=== PATIENT | female | born 1945 | race Caucasian/White ===

== ENCOUNTER 2017-07-12 08:45 | Outpatient (CLI) | payer MEDICARE, OTHER ==
--- NOTE | 2017-07-12 13:19 | PET ---
PET SCAN WITH CT ATTENUATION CORRECTION: HISTORY: 71-year-old female. Lung cancer. Patient has undergone chemotherapy and radiation therapy. Examinatio n requested for restaging. CORRELATION; Chest CT dated 04/03/17. COMPARISON: PET imaging dated 05/03/17. TECHNIQUE: PET scanning with CT attenuation correction is performed from the base of the brain to the proximal t highs following the intravenous administration of 7.12 mCi [id number]. FINDINGS: HEAD/NECK: No abnormal FDG localization. CHEST: Redemonstration of a right upper lobe mass with extensive cavitation on the CT used for attenuation c orrection. There is evidence of FDG avidity. The maximum SUV ranges between 4.1 and 4.8. Previously, the reported maximum SUV is between 5.2 and 11.7. There is also subtle FDG avidity involving the post erior aspect of the right lower lobe with a maximum SUV of 3.6 (previously reported to be 9.2). This abnormal FDG avidity involves the superior segment. No abnormal FDG localization in the left hemithorax. There is a right perihilar FDG avidity focus with a maximum SUV of 4.7. Previously, the maximum SUV i n this region was 6.8. IMPRESSION: 1. Redemonstration of FDG avidity involving the right upper lobe, right lower lobe, and right perihi lar region. The degree of FDG avidity has decreased when compared to the prior examination. There is suggestion of partial response to therapy. 2. The previously noted FDG avidity in the anterior aspect of the left upper lobe is not seen. POS: [facility]
== END 2017-07-12 08:46 | disposition home or self-care (01) ==
LOC: PET 08:45
PROVIDERS: ATTEND Internal Medicine Hematology & Oncology
DX: C34.90 Malignant neoplasm of unspecified part of unspecified bronchus or lung (principal)
CPT/HCPCS: 78815; A9552

== ENCOUNTER 2017-09-10 15:56 | Inpatient (IN) | payer MEDICARE, OTHER ==
[2017-09-10 16:28] VITALS: BMI 23.2
[2017-09-10] MEDS ORDERED: Ondansetron ODT 4 MG TAB PO PRN (17:25)
[2017-09-10] MEDS ORDERED: Dextrose 50% Abboject 50 ML SYRINGE SLOW IVP PRN (17:25)
[2017-09-10] MEDS ORDERED: Dextrose 5% in Water 1,000 ML IV PRN (17:25)
[2017-09-10] MEDS ORDERED: Diltiazem 125 MG in Sodium Chloride 0.9% 100 ML IVPB SCH ×2 (17:25→23:11)
[2017-09-10] MEDS ORDERED: HumaLOG 300 UNITS/3 ML VIAL SC PRN (17:25)
[2017-09-10] MEDS ORDERED: Acetaminophen 325 MG TAB PO PRN (17:25)
[2017-09-10] MEDS ORDERED: Bisacodyl 5 MG TAB PO PRN (17:25)
--- NOTE | 2017-09-10 19:34 | HP-2 ---
CODE STATUS: FULL. PRIMARY CARE PHYSICIAN: Dr. Adam. ATTENDING: Dr. Cha. RESIDENT: Dr. Wu CHIEF COMPLAINT: Cough and congestion when she was admitted to the [facility] and she was a direct admit for atrial fibrillation with RVR to our facility here at [facility]. HISTORY OF PRESENT ILLNESS: A 72-year-old female. She was admitted to the [facility] for cough, shortness of breath, and fevers that occurred for the past 4 days. She had no chest pain. She had no nausea, no vomiting, no diarrhea. She had no edema, no orthopnea during that time. Previously to her hospitalization in [place], she was put on antibiotics, on Augmentin for the progressive dyspnea with pneumonia and that did not relieve her symptoms and so at that time, she was told that she needed to be admitted to the hospital. Today, she still complains of no chest pain, no nausea, no vomiting, no diarrhea. She does complain of a cough and shortness of breath. She denied fevers. She denies any edema or orthopnea. She states she would rather be in the [facility] for treatment. No other complaints today. PAST MEDICAL HISTORY: Hypertension, diabetes mellitus type 2, hyperlipidemia, lung cancer, breast cancer, colon cancer and systolic congestive heart failure. PAST SURGICAL HISTORY: Significant for appendectomy, colon resection, cholecystectomy, and left breast mass lumpectomy. ALLERGIES: IODINE, SULFA. MEDICATIONS: 1. Clonidine 0.1 mg p.o. b.i.d. 2. Furosemide 40 mg p.o. daily. 3. Lisinopril 40 mg p.o. daily. 4. Magnesium oxide 400 mg p.o. b.i.d. 5. Metformin 1000 mg p.o. daily. 6. Metoprolol tartrate 50 mg p.o. b.i.d. 7. Paxil 20 mg p.o. daily. FAMILY HISTORY: Noncontributory. SOCIAL HISTORY: No alcohol or drug use. The patient said that she smoked for a long time ago, but could not quantify years or years since she had quit. REVIEW OF SYSTEMS: General: She does admit to fevers and fatigue. She denies any weight changes, appetite changes or night sweats. Eyes: She denies any vision changes or eye pain. ENT: Denies nasal congestion, rhinorrhea, or sore throat. Respiratory: She does admit to a cough, congestion, shortness of breath. Cardiovascular: She denies chest pain, palpitations or edema. Gastrointestinal: Denies nausea, vomiting, diarrhea or constipation. Genitourinary: Denies any incontinence, dysuria. Skin: Denies any rashes or lesions skin. Musculoskeletal: Denies pain, tenderness, stiffness, swelling. Neurologic: She does admit to weakness. She denies numbness, syncope or seizures. Psychiatric: She denies anxiety or depression. PHYSICAL EXAMINATION: VITAL SIGNS: Blood pressure 116/73, pulse was 137, respirations 24, temperature max 98.4, pulse ox 98% on 3 liters. Current weight is 59.4 kilos. GENERAL: Alert and oriented x4. Appropriately interactive. EYES: PERRLA. Conjunctivae within normal limits. ENT: Nasal mucosa and oropharynx within normal limits. NECK: Supple, no lymphadenopathy, no thyromegaly. CARDIAC: She had irregular rhythm with regular rate, no murmurs. Radial and pedal pulses equal bilaterally. RESPIRATORY: She had normal effort, no retractions. She had diffuse coarse lung sounds with wheezing, worse on the right. SKIN: Warm and dry. No cyanosis. No lesions. ABDOMEN: Soft and nontender to palpation. Bowel sounds are present x4. No masses or distention. EXTREMITIES: No clubbing, cyanosis or edema. Structure and tone, muscle strength and range of motion were within normal limits. NEUROLOGIC: No focal neurologic deficits. Sensation within normal limits. Cranial nerves II-XII grossly intact. GCS was 15. PSYCHIATRIC: Appropriate. LABORATORY DATA: She had a white blood cell count 3.6, platelet count 126, hemoglobin 10.4, hematocrit 31.3. MCV was 83.7, percent neutrophils 68.3. Sodium 130, potassium 4.1, chloride 94, bicarbonate 21, BUN 33, creatinine 1.18 , glucose 119, calcium 9.8. She was influenza A positive. She had a troponin I of 0.145 and then down trended to 0.1-0. She had a BNP of 2244.5. She had a chest x-ray that showed right upper lobe pneumonia and she is on the [employer] monitor and in sinus rhythm. Her chest x-ray showed right upper lobe pneumonia. ASSESSMENT AND PLAN: A 72-year-old female with, 1. Postobstructive pneumonia versus viral pneumonia. We may continue her antibiotics going forward as she is immunocompromised from her cancer history to rule out infectious causes. We will give her O2 supplementation as needed as well. 2. Systolic congestive heart failure exacerbation. We will get daily weights, strict I's and O's. We are also going to put her on IV Lasix. She does not have any signs of overt fluid overload, but I think she would benefit with the elevated BNP of 2244, do some IV Lasix. She had a last echo in 03/2017 that showed an EF of 45-50%. 3. Atrial fibrillation with rapid ventricular response. She did convert at 1520. She will get a titrate her diltiazem drip down and then will restart her home meds and keep her in a tele bed to keep her monitor to make sure that she stays in an appropriate rhythm. 4. Hypertension. We will continue her home meds. 5. Hyperlipidemia. We will continue her statin. 6. Diabetes. Accu-Cheks and insulin and continue metformin. 7. Influenza. We will continue Tamiflu. 8. Hyponatremia. We will trend that with a BMP. 9. History of cancers. She regularly follows with Dr. Mccrary and if her condition warrants that we will consult Dr. Mccrary to help with acute problems , but at this time, we do not anticipate any problems from that standpoint. DISPOSITION AND LENGTH OF HOSPITAL STAY: Tele and 2. Symptomatic medications will be provided. History and physical exam as well as management has been assessed with Dr. Cha. TOMMY
[2017-09-10] MEDS: Famotidine 20 MG TAB PO SCH (20:54)
[2017-09-10] MEDS: cloNIDine 0.1 MG TAB PO SCH (20:54)
[2017-09-10] MEDS: Metoprolol Tartrate 50 MG TAB PO SCH (20:54)
[2017-09-10] MEDS: Magnesium Oxide 400 MG TAB PO SCH (20:55)
--- NOTE | 2017-09-11 00:41 | HP ---
DATE OF SERVICE: 09/10/2017 HISTORY OF PRESENT ILLNESS: The patient is a 72-year-old female with a past medical history of multi ple cancers including breast and bladder cancer which are in remission and lung cancer for which she is currently undergoing treatment, who was admitted to the [facility] for influenza and pneumo eleni. The patient's breathing worsened this morning and she became tachycardic and EKG was obtained w hich showed the patient to be in new onset atrial fibrillation. The patient was moved to their ER to be on monitor and was started on a Cardizem drip. She was subsequently transferred to [facility] for higher level of care. In the EMS ride from [place] to here, she is converted back to a sinus rh [facility]. The patient is not able to offer much history to us because she states that she is frustrated with having to see so many doctors and she did not want to move from one hospital to the next. When we asked her what medication she is on, she tells us "just look at my chart." The patient tested pos itive for influenza A and chest x-ray shows right upper lobe pneumonia. She also has an elevated BMP of 2244.5. Patient troponins were indeterminate at 0.180, 0.145 and 0.126. Her BMP shows sodium of 130, potassium 4.1, chloride of 94, bicarbonate 21, BUN 33, creatinine 1.18, glucose 119, calcium 9. 8, and a CBC shows white blood cell count 3.6, hemoglobin 10.4, hematocrit 31.3, platelet count 126. PHYSICAL EXAMINATION: HEART: Has regular rate and rhythm without murmurs, gallops, or rubs. LUNGS: Coarse breath sounds with wheezing and rhonchi noted in the right upper lobe. ABDOMEN: Soft, nontender, nondistended, bowel sounds present. EXTREMITIES: There is no clubbing, cyanosis, or edema. ASSESSMENT AND PLAN: 1. Influenza A: The patient is high risk immunocompromised, so Tamiflu will be continued. 2. Postobstructive pneumonia versus viral versus bacterial pneumonia: The patient will be continued on antibiotics. We will follow her course. She is currently on oxygen, but does not use oxygen at home. 3. Acute kidney injury: We will monitor the patient's creatinine. 4. Acute systolic congestive heart failure exacerbation: The patient has an EF of 45%-50% based on echo on 04/04/2017. We will increase her Lasix to IV Lasix. Monitor strict I's and O's and daily we ights. 5. Atrial fibrillation with rapid ventricular response. The patient was converted spontaneously to sinus rhythm but is currently on a Cardizem drip at 14. We will decrease this to 10 and if she remai ns in sinus rhythm, continue to decrease her Cardizem drip and likely restart her metoprolol. 6. Type 2 diabetes: Continue sliding scale insulin and Accu-Cheks. 7. Lung cancer. This is stable per the patient in remission. If problems arise, we will contact Dr Rosalba Mccrary who is her oncologist. 8. Please see Dr. Parminder Wu's dictation for full history and physical, assessment and plan. Sondra sanchez have discussed this case in detail and I have reviewed his documentation and agree with it and I rogers ve repeated pertinent portions of the history and physical myself.
[2017-09-11 05:19] LABS: #Lymphocytes 0.8 thou/uL (1.20-3.40); #Monocytes 0.4 thou/uL (0.11-0.59); #Neutrophils 2.5 thou/uL (1.40-6.50); %Eosinophils 0.7 % (0.0-10.0); %Lymphocytes 20.9 % (21.0-51.0); %Neutrophils 67.4 % (42.0-75.0); Hemoglobin 10.8 g/dL (12.0-16.0); Mean Corpuscular HGB CONC 32.5 g/dL (32.0-36.0); Mean Corpuscular Hemoglobin 28.6 pg (27.0-31.0); Mean Corpuscular Volume 87.9 fl (81.0-99.0); Mean Platelet Volume 7.2 fL (7.4-10.4); Platelet Count 127 thou/uL (130-400); RBC Distribution Width 14.6 % (11.5-14.5); Red Blood Cell (RBC) Count 3.77 mill/uL (4.20-5.40); White Blood Cell (WBC) Count 3.8 thou/uL (4.8-10.8)
[2017-09-11 05:32] LABS: Anion Gap 13 mmol/L (10-20); BUN (Urea Nitrogen) 25 mg/dL (9.8-20.1); Calc. Creatinine Clearance 43 mL/min (70-130); Calcium 9.1 mg/dL (7.8-10.44); Carbon Dioxide 22 mmol/L (23-31); Chloride 96 mmol/L (98-107); Estimated GFR-MDRD 48; Glucose 119 mg/dL (83-110); Potassium 4.1 mmol/L (3.5-5.1); Sodium 127 mmol/L (136-145)
[2017-09-11] MEDS: Furosemide 20 MG/2 ML VIAL SLOW IVP SCH ×2 (06:13→14:06)
[2017-09-11] MEDS ORDERED: Diltiazem 125 MG in Sodium Chloride 0.9% 100 ML IVPB SCH (06:30)
--- NOTE | 2017-09-11 06:41 | PDOC.FM ---
- Subjective Subjective: Pt reports doing well. States she would like to go home. Denies any acute events overnight. Denies any fever or chills. Denies any SOB. Says she is doing well. Denies any pain. Denies any other concerns or complaints at this time - Objective Vital Signs & Weight: Vital Signs (12 hours) Temp Pulse Resp BP Pulse Ox 09/11/17 04:00 97.9 F 53 L 16 159/73 H 96 09/11/17 00:00 98.3 F 64 18 125/63 96 09/10/17 20:15 98.2 F 79 18 120/63 97 Weight Weight 62.641 kg I&O: 09/09/17 09/10/17 09/11/17 06:59 06:59 06:59 Intake Total 833 Output Total 700 Balance 133 Result Diagrams: 09/11/17 04:46 09/11/17 04:46 Radiology Reviewed by me: Yes (CXR: RUL PNA. ) <Carlton Rosales - Last Filed: 09/11/17 07:43> - Objective Vital Signs & Weight: Vital Signs (12 hours) Temp Pulse Resp BP BP Pulse Ox 09/11/17 12:34 98.0 F 77 12 119/68 96 09/11/17 10:42 145/65 H 09/11/17 10:41 145/65 H 09/11/17 08:00 97.9 F 53 L 16 09/11/17 04:00 97.9 F 53 L 16 159/73 H 96 Weight Weight 62.641 kg I&O: 09/10/17 09/11/17 09/12/17 06:59 06:59 06:59 Intake Total 833 Output Total 700 Balance 133 Result Diagrams: 09/11/17 04:46 09/11/17 04:46 <Jania Cha - Last Filed: 09/11/17 14:06> Phys Exam - Physical Examination HEENT: PERRLA, moist MMs, sclera anicteric, oral pharynx no lesions, 2+ tonsils Neck: no nodes, no JVD, supple, full ROM Respiratory: no wheezing rales and crackles present bilaterally. Cardiovascular: RRR, no significant murmur, no rub Gastrointestinal: soft, non-tender, no distention, positive bowel sounds Musculoskeletal: no edema, pulses present Neurological: non-focal, normal sensation, moves all 4 limbs Lymphatic: no nodes Psychiatric: normal affect, A&O x 3 Skin: no rash, normal turgor, cap refill <2 seconds <Carlton Rosales - Last Filed: 09/11/17 07:43> Dx/Plan (1) Pneumonia Code(s): J18.9 - PNEUMONIA, UNSPECIFIED ORGANISM Status: Acute (2) Influenza A Code(s): J10.1 - FLU DUE TO OTH IDENT INFLUENZA VIRUS W OTH RESP MANIFEST Status: Acute (3) Atrial fibrillation with RVR Code(s): I48.91 - UNSPECIFIED ATRIAL FIBRILLATION Status: Acute (4) Hx of breast cancer Code(s): Z85.3 - PERSONAL HISTORY OF MALIGNANT NEOPLASM OF BREAST Status: Acute (5) Hx of cancer of lung Code(s): Z85.118 - PERSONAL HISTORY OF MALIGNANT NEOPLASM OF BRONCHUS AND LUNG Status: Acute (6) History of colon cancer Code(s): Z85.038 - PERSONAL HISTORY OF MALIGNANT NEOPLASM OF LARGE INTESTINE Status: Acute (7) HLD (hyperlipidemia) Code(s): E78.5 - HYPERLIPIDEMIA, UNSPECIFIED Status: Acute (8) Hyponatremia Code(s): E87.1 - HYPO-OSMOLALITY AND HYPONATREMIA Status: Acute (9) HTN (hypertension) Code(s): I10 - ESSENTIAL (PRIMARY) HYPERTENSION Status: Chronic - Plan Plan: 1) Postobstructive Pneumonia -Will continue Levaquin due to her cancer hx -Tx flu with tamiflu at this time. -will supplement O2 as needed. Does not use O2 at home. 2) Influenza A infection -No fevers overnight. -tylenol PRN for fevers. Will continue to monitor sx's and tx symptomatically -Tx with tamiflu at this time 3) CHF exacerbation BNP in 1999's. Last echo in 03/2017 showed EF of 45-50% -Strict I&Os. -On IV lasix. -No sign of fluid overload. With PNA and BNP will continue to tx 4)A. Fib w/ RVR -Resolved at this time -Continuing to wean of diltiazem drip and start on home medications. 5) HTN -BP stable. Continue home medications 6)HLD -continue home meds 7) Hyponatremia -On diurtetic due to elevated BNP and Heart failure history. Do not want to give fluids at this time. -Not symptomatic at this time. Will continue to trend with daily bmp's. May need to give a bolus or salt tablets at some point. 8) HX of Colon, Breast and Lung Cancer -Follows with Dr. Mccrary Regularly. -Outside CXR showed stable lung mass. -Not having any acute problems with cancer at this time <Carlton Rosales - Last Filed: 09/11/17 07:43> Attending Addendum - Attending Addendum I personally evaluated the patient and discussed the management with Dr. Rosales. I agree with the History, Examination, Assessment and Plan documented above with any addition or exceptions noted below. The patient's spirits are much improved today. She is still requiring oxygen but will try to wean today. Off cardizem drip, po metoprolol restarted. Will adjust lasix as lung exam is improved. This may help hyponatremia. <Jania Cha - Last Filed: 09/11/17 14:06>
[2017-09-11] MEDS: cloNIDine 0.1 MG TAB PO SCH ×2 (10:41→22:09)
[2017-09-11] MEDS: Lisinopril 20 MG TAB PO SCH (10:42)
[2017-09-11] MEDS: Magnesium Oxide 400 MG TAB PO SCH ×2 (10:42→22:08)
[2017-09-11] MEDS: PARoxetine 20 MG TAB PO SCH (10:42)
[2017-09-11] MEDS: metFORMIN XR 500 MG TAB PO SCH (10:43)
[2017-09-11] MEDS: Metoprolol Tartrate 50 MG TAB PO SCH ×2 (10:44→22:09)
[2017-09-11] MEDS: Oseltamivir 75 MG CAP PO SCH ×2 (10:45→22:09)
[2017-09-11] MEDS: Enoxaparin Sodium 30 MG/0.3 ML SYRINGE SC SCH (10:48)
[2017-09-11] MEDS: Famotidine 20 MG TAB PO SCH (22:08)
[2017-09-12] MEDS: Furosemide 20 MG/2 ML VIAL SLOW IVP SCH ×2 (06:53→14:52)
[2017-09-12 07:31] LABS: #Eosinphils 0.1 thou/uL (0.0-0.7); #Monocytes 0.4 thou/uL (0.11-0.59); #Neutrophils 3.1 thou/uL (1.40-6.50); %Basophils 0.7 % (0.0-1.0); %Eosinophils 2.3 % (0.0-10.0); %Lymphocytes 21.8 % (21.0-51.0); %Monocytes 8.2 % (0.0-10.0); Hemoglobin 10.2 g/dL (12.0-16.0); Mean Corpuscular HGB CONC 32.7 g/dL (32.0-36.0); Mean Corpuscular Hemoglobin 28.9 pg (27.0-31.0); Mean Corpuscular Volume 88.2 fl (81.0-99.0); Platelet Count 124 thou/uL (130-400); RBC Distribution Width 14.9 % (11.5-14.5); Red Blood Cell (RBC) Count 3.55 mill/uL (4.20-5.40); White Blood Cell (WBC) Count 4.7 thou/uL (4.8-10.8)
[2017-09-12 07:48] LABS: Anion Gap 12 mmol/L (10-20); BUN (Urea Nitrogen) 30 mg/dL (9.8-20.1); Calc. Creatinine Clearance 36 mL/min (70-130); Calcium 9.3 mg/dL (7.8-10.44); Carbon Dioxide 28 mmol/L (23-31); Chloride 95 mmol/L (98-107); Estimated GFR-MDRD 38; Glucose 119 mg/dL (83-110); Potassium 3.7 mmol/L (3.5-5.1); Sodium 131 mmol/L (136-145)
--- NOTE | 2017-09-12 09:06 | PDOC.FM ---
- Subjective Subjective: Patient reports that her SOB has improved. She was still on 0.5L of O2 at the time of my exam, so I took her off oxygen to see how she would do. She denies any chest pain, fevers, LE swelling. - Objective MAR Reviewed: Yes Vital Signs & Weight: Vital Signs (12 hours) Temp Pulse Resp BP BP Pulse Ox 09/12/17 07:30 98.2 F 70 20 102/59 L 91 L 09/12/17 04:00 97.9 F 68 16 130/62 95 09/11/17 23:41 97.7 F 79 18 133/69 95 09/11/17 22:55 97.7 F 79 18 95 09/11/17 22:09 125/58 L 09/11/17 22:00 98.2 F 83 16 125/58 L 96 Weight Weight 62.596 kg I&O: 09/11/17 09/12/17 09/13/17 06:59 06:59 06:59 Intake Total 833 600 Output Total 700 300 Balance 133 300 Result Diagrams: 09/12/17 07:19 09/12/17 07:19 <Danay Mane - Last Filed: 09/12/17 09:05> - Objective Vital Signs & Weight: Vital Signs (12 hours) Temp Pulse Resp BP BP Pulse Ox 09/12/17 09:46 125/58 L 09/12/17 07:30 98.2 F 70 20 102/59 L 91 L 09/12/17 04:00 97.9 F 68 16 130/62 95 Weight Weight 62.596 kg I&O: 09/11/17 09/12/17 09/13/17 06:59 06:59 06:59 Intake Total 833 600 Output Total 700 300 Balance 133 300 Result Diagrams: 09/12/17 07:19 09/12/17 07:19 <Edis Gómez - Last Filed: 09/12/17 13:18> Phys Exam - Physical Examination Constitutional: NAD HEENT: moist MMs Respiratory: no wheezing rales in RUL Cardiovascular: RRR, no significant murmur, no rub Gastrointestinal: soft, non-tender, no distention, positive bowel sounds Musculoskeletal: no edema, pulses present Neurological: non-focal, moves all 4 limbs Psychiatric: normal affect, A&O x 3 Skin: no rash <Tony Manea - Last Filed: 09/12/17 09:05> Dx/Plan (1) Pneumonia Code(s): J18.9 - PNEUMONIA, UNSPECIFIED ORGANISM Status: Acute QualifierTitle: Pneumonia type: due to unspecified organism Laterality: right Lung location: upper lobe of lung Qualified Code(s): J18.1 - Lobar pneumonia, unspecified organism (2) Atrial fibrillation with RVR Code(s): I48.91 - UNSPECIFIED ATRIAL FIBRILLATION Status: Resolved (3) Influenza A Code(s): J10.1 - FLU DUE TO OTH IDENT INFLUENZA VIRUS W OTH RESP MANIFEST Status: Acute (4) HLD (hyperlipidemia) Code(s): E78.5 - HYPERLIPIDEMIA, UNSPECIFIED Status: Acute QualifierTitle: Hyperlipidemia type: unspecified Qualified Code(s): E78.5 - Hyperlipidemia, unspecified (5) History of colon cancer Code(s): Z85.038 - PERSONAL HISTORY OF MALIGNANT NEOPLASM OF LARGE INTESTINE Status: Acute (6) Hx of breast cancer Code(s): Z85.3 - PERSONAL HISTORY OF MALIGNANT NEOPLASM OF BREAST Status: Acute (7) Hyponatremia Code(s): E87.1 - HYPO-OSMOLALITY AND HYPONATREMIA Status: Acute (8) HTN (hypertension) Code(s): I10 - ESSENTIAL (PRIMARY) HYPERTENSION Status: Chronic QualifierTitle: Hypertension type: essential hypertension (9) Non-small cell cancer of right lung Code(s): C34.91 - MALIGNANT NEOPLASM OF UNSP PART OF RIGHT BRONCHUS OR LUNG Status: Chronic - Plan Plan: 1) Postobstructive Pneumonia -Will continue Levaquin due to her cancer hx -Tx flu with tamiflu at this time. -will d/c O2 at this time to see how patient does off oxygen. Patient is not on oxygen at home. 2) Influenza A infection -No fevers overnight. -tylenol PRN for fevers. Will continue to monitor sx's and tx symptomatically -Tx with tamiflu at this time 3) CHF exacerbation BNP in . Last echo in 03/2017 showed EF of 45-50% -Strict I&Os. -On IV lasix. -No sign of fluid overload. With PNA and BNP will continue to tx 4)A. Fib w/ RVR -Resolved at this time -Was on a dilt drip, but is off that at this time, continue home medications. 5) HTN -BP stable. Continue home medications 6)HLD -continue home meds 7) Hyponatremia -On diuretic due to elevated BNP and Heart failure history. Do not want to give fluids at this time. -Not symptomatic at this time. Will continue to trend with daily bmp's. May need to give a bolus or salt tablets at some point. 8) HX of Colon, Breast and Lung Cancer -Follows with Dr. Mccrary Regularly. -Outside CXR showed stable lung mass. -Not having any acute problems with cancer at this time <Danay Mane - Last Filed: 09/12/17 09:05> Attending Addendum - Attending Addendum I personally evaluated the patient and discussed the management with Dr. Mane. I agree with the History, Examination, Assessment and Plan documented above with any addition or exceptions noted below. Patient reports feeling well, though she continues to experience shortness of breath and weakness with exertion. Her postobstructive PNA appears chronic based on older CXR reports, though she is receiving Levaquin for a clinical diagnosis of PNA. Work to wean O2 as tolerated, currently sats 91% on room air. Her renal function had small bump overnight, likely related to her diuresis. Hyponatremia improved. Will work with CM to arrange for placement at SNF ( patient prefers [facility]). Continue therapy services while here. <Edis Gómez - Last Filed: 09/12/17 13:18>
[2017-09-12] MEDS: Magnesium Oxide 400 MG TAB PO SCH ×2 (09:46→22:30)
[2017-09-12] MEDS: metFORMIN XR 500 MG TAB PO SCH (09:46)
[2017-09-12] MEDS: Lisinopril 20 MG TAB PO SCH (09:46)
[2017-09-12] MEDS: Metoprolol Tartrate 50 MG TAB PO SCH (09:46)
[2017-09-12] MEDS: Oseltamivir 75 MG CAP PO SCH ×2 (09:47→22:30)
[2017-09-12] MEDS: PARoxetine 20 MG TAB PO SCH (09:47)
[2017-09-12] MEDS: cloNIDine 0.1 MG TAB PO SCH (09:47)
[2017-09-12] MEDS: Enoxaparin Sodium 30 MG/0.3 ML SYRINGE SC SCH (09:47)
[2017-09-12] MEDS: Famotidine 20 MG TAB PO SCH (22:30)
[2017-09-13] MEDS: cloNIDine 0.1 MG TAB PO SCH ×3 (02:10→20:39)
[2017-09-13] MEDS: Metoprolol Tartrate 50 MG TAB PO SCH ×3 (02:11→20:39)
[2017-09-13] MEDS: Furosemide 20 MG/2 ML VIAL SLOW IVP SCH ×2 (07:33→14:10)
--- NOTE | 2017-09-13 08:32 | PDOC.FM ---
- Subjective Subjective: Patient doing well this AM. She reports that her breathing has been good and she remained off oxygen all day. She worked with PT and has been up walking around. Denies chest pain or leg swelling. - Objective MAR Reviewed: Yes Vital Signs & Weight: Vital Signs (12 hours) Temp Pulse Resp BP Pulse Ox 09/13/17 04:58 98.4 F 100 16 133/77 94 L 09/13/17 00:10 98.4 F 99 16 130/74 93 L 09/12/17 21:26 97.6 F 100 16 119/74 92 L Weight Weight 62.596 kg I&O: 09/12/17 09/13/17 09/14/17 06:59 06:59 06:59 Intake Total 600 Output Total 300 Balance 300 Result Diagrams: 09/12/17 07:19 09/12/17 07:19 <Danay Mane - Last Filed: 09/13/17 08:34> - Objective Vital Signs & Weight: Vital Signs (12 hours) Temp Pulse Resp BP BP Pulse Ox 09/13/17 08:49 132/79 09/13/17 08:48 132/79 09/13/17 08:16 97.8 F 101 H 16 132/79 92 L 09/13/17 07:45 97.8 F 101 H 16 09/13/17 04:58 98.4 F 100 16 133/77 94 L Weight Weight 62.596 kg I&O: 09/12/17 09/13/17 09/14/17 06:59 06:59 06:59 Intake Total 600 Output Total 300 Balance 300 Result Diagrams: 09/12/17 07:19 09/12/17 07:19 <Edis Gómez - Last Filed: 09/13/17 12:21> Phys Exam - Physical Examination Constitutional: NAD HEENT: moist MMs rales bilaterally, worse on RUL Cardiovascular: RRR, no significant murmur, no rub Gastrointestinal: soft, non-tender, no distention, positive bowel sounds Musculoskeletal: no edema, pulses present Neurological: non-focal, moves all 4 limbs unsteady gait Psychiatric: normal affect, A&O x 3 <Danay Mane - Last Filed: 09/13/17 08:34> Dx/Plan (1) Pneumonia Code(s): J18.9 - PNEUMONIA, UNSPECIFIED ORGANISM Status: Acute QualifierTitle: Pneumonia type: due to unspecified organism Laterality: right Lung location: upper lobe of lung Qualified Code(s): J18.1 - Lobar pneumonia, unspecified organism (2) Atrial fibrillation with RVR Code(s): I48.91 - UNSPECIFIED ATRIAL FIBRILLATION Status: Resolved (3) Influenza A Code(s): J10.1 - FLU DUE TO OTH IDENT INFLUENZA VIRUS W OTH RESP MANIFEST Status: Acute (4) HLD (hyperlipidemia) Code(s): E78.5 - HYPERLIPIDEMIA, UNSPECIFIED Status: Acute QualifierTitle: Hyperlipidemia type: unspecified Qualified Code(s): E78.5 - Hyperlipidemia, unspecified (5) History of colon cancer Code(s): Z85.038 - PERSONAL HISTORY OF MALIGNANT NEOPLASM OF LARGE INTESTINE Status: Acute (6) Hx of breast cancer Code(s): Z85.3 - PERSONAL HISTORY OF MALIGNANT NEOPLASM OF BREAST Status: Acute (7) Hyponatremia Code(s): E87.1 - HYPO-OSMOLALITY AND HYPONATREMIA Status: Acute (8) HTN (hypertension) Code(s): I10 - ESSENTIAL (PRIMARY) HYPERTENSION Status: Chronic QualifierTitle: Hypertension type: essential hypertension Qualified Code( s): I10 - Essential (primary) hypertension (9) Non-small cell cancer of right lung Code(s): C34.91 - MALIGNANT NEOPLASM OF UNSP PART OF RIGHT BRONCHUS OR LUNG Status: Chronic - Plan Plan: 1) Postobstructive Pneumonia -Will continue Levaquin due to her cancer hx, will transfer to PO levaquin at time of d/c -Tx flu with tamiflu at this time. -Pt has been off O2 since yesterday and has done well. 2) Influenza A infection -No fevers overnight. -tylenol PRN for fevers. Will continue to monitor sx's and tx symptomatically -Tx with tamiflu at this time 3) CHF exacerbation BNP in s. Last echo in 03/2017 showed EF of 45-50% -Strict I&Os. -On IV lasix, will transition to PO at time of d/c -No sign of fluid overload. With PNA and BNP will continue to tx 4)A. Fib w/ RVR -Resolved at this time -Was on a dilt drip, but is off that at this time, continue home medications. -Pt was evaluated by cardiology last admission when she had paroxysmal a-fib and was deemed to be a poor candidate for anticoagulation. 5) HTN -BP stable. Continue home medications 6)HLD -continue home meds 7) Hyponatremia -On diuretic due to elevated BNP and Heart failure history. Do not want to give fluids at this time. -Not symptomatic at this time. Will continue to trend with daily bmp's. May need to give a bolus or salt tablets at some point. 8) HX of Colon, Breast and Lung Cancer -Follows with Dr. Mccrary Regularly. -Outside CXR showed stable lung mass. -Not having any acute problems with cancer at this time Plan for d/c to SNF once approved. <Danay Mane - Last Filed: 09/13/17 08:34> Attending Addendum - Attending Addendum I personally evaluated the patient and discussed the management with Dr. Mane. I agree with the History, Examination, Assessment and Plan documented above with any addition or exceptions noted below. Patient feeling well this morning and able to ambulate to the bathroom on her own. Continues to feel generalized weakness. Her HR is elevated this morning, likely a result of nursing inappropriately holding her beta li therapy. She has also been restarted on Amiodarone after discovering she is supposed to be on that chronically. No recurrence of Afib and no concerns for that at this time. She is a poor anticoagulation candidate due to her malignancy, fall risk. Continue treatment for possible postobstructive PNA and influenza. She should be stable for discharge whenever accepted by SNF. She is not requiring supplemental O2 at this time. <Edis Gómez - Last Filed: 09/13/17 12:21>
[2017-09-13] MEDS: metFORMIN XR 500 MG TAB PO SCH (08:48)
[2017-09-13] MEDS: Enoxaparin Sodium 30 MG/0.3 ML SYRINGE SC SCH (08:49)
[2017-09-13] MEDS: Lisinopril 20 MG TAB PO SCH (08:49)
[2017-09-13] MEDS: Magnesium Oxide 400 MG TAB PO SCH ×2 (08:50→20:39)
[2017-09-13] MEDS: PARoxetine 20 MG TAB PO SCH (08:50)
[2017-09-13] MEDS: Oseltamivir 75 MG CAP PO SCH ×2 (09:00→20:39)
[2017-09-13] MEDS ORDERED: Albuterol Sulfate 2.5 mg/3 ml Neb NEB SCH (09:30)
[2017-09-13] MEDS: Dronedarone HCl 400 MG TAB PO SCH (16:44)
[2017-09-13] MEDS: Famotidine 20 MG TAB PO SCH (20:39)
[2017-09-14] MEDS: Furosemide 20 MG/2 ML VIAL SLOW IVP SCH (05:16)
--- NOTE | 2017-09-14 06:48 | PDOC.FM ---
- Subjective Subjective: Pt is doing well this morning. Seems like they put her on O2 o/n but sats in low 90s. Not on O2 this morning, O2 turned off. She is eating and drinking, reports that she is getting up, still a bit week. Talking to her son on the phone about arranging for transport to [facility] bed this morning. MOT and SNF paperwork signed, spoke to case reviewer, plan is still to go today, has been approved to SNF. Denies SOB, chest pain, n/v. - Objective MAR Reviewed: Yes Vital Signs & Weight: Vital Signs (12 hours) Temp Pulse Resp BP BP Pulse Ox 09/14/17 04:26 98.4 F 66 16 100/59 L 92 L 09/14/17 00:32 98.0 F 66 16 113/67 90 L 09/13/17 20:39 124/71 09/13/17 20:05 98.2 F 77 19 92 L 09/13/17 20:00 98.2 F 77 19 124/71 90 L Weight Weight 64.682 kg I&O: 09/12/17 09/13/17 09/14/17 06:59 06:59 06:59 Intake Total 600 720 Output Total 300 600 Balance 300 120 Result Diagrams: 09/12/17 07:19 09/12/17 07:19 <Sandie Chaney - Last Filed: 09/14/17 08:48> - Objective Vital Signs & Weight: Vital Signs (12 hours) Temp Pulse Resp BP BP Pulse Ox 09/14/17 11:08 97.5 F L 65 18 112/72 92 L 09/14/17 08:12 130/64 09/14/17 08:11 130/64 09/14/17 08:06 98 F 71 16 130/64 94 L 09/14/17 07:47 98 F 71 16 09/14/17 04:26 98.4 F 66 16 100/59 L 92 L 09/14/17 00:32 98.0 F 66 16 113/67 90 L Weight Weight 64.682 kg I&O: 09/13/17 09/14/17 09/15/17 06:59 06:59 06:59 Intake Total 720 Output Total 600 Balance 120 Result Diagrams: 09/12/17 07:19 09/12/17 07:19 <Edis Gómez - Last Filed: 09/14/17 12:09> Phys Exam - Physical Examination Constitutional: NAD HEENT: PERRLA, moist MMs Respiratory: no rales, no rhonchi, wheezing present, clear to auscultation bilateral Cardiovascular: RRR, no significant murmur Gastrointestinal: soft, non-tender, no distention, positive bowel sounds Musculoskeletal: no edema Neurological: moves all 4 limbs Psychiatric: normal affect, A&O x 3 Skin: no rash <Turtle,Sandie - Last Filed: 09/14/17 08:48> Dx/Plan (1) Acute respiratory failure with hypoxia Code(s): J96.01 - ACUTE RESPIRATORY FAILURE WITH HYPOXIA Status: Resolved Plan: resolved 2/2 to influenza and PNA. (2) Pneumonia Code(s): J18.9 - PNEUMONIA, UNSPECIFIED ORGANISM Status: Acute QualifierTitle: Pneumonia type: due to unspecified organism Laterality: right Lung location: upper lobe of lung Qualified Code(s): J18.1 - Lobar pneumonia, unspecified organism Plan: Continue levaquin, monitor for EKG changes. Hx of afib with RVR and paroxsysmal afib. (3) Influenza A Code(s): J10.1 - FLU DUE TO OTH IDENT INFLUENZA VIRUS W OTH RESP MANIFEST Status: Acute Plan: Continue tamiflu upon dc today. Has 4 more doses left. (4) Paroxysmal A-fib Code(s): I48.0 - PAROXYSMAL ATRIAL FIBRILLATION Status: Acute Plan: Restarted on asa and multaq yesterday, will continue outpatient. Tolerated well o/n HR well controlled, no tachycardia. Not a candidate for anticoagulation per cards/onc on previous eval and this is the regimen she was on but has discontinued it on her own. (5) HTN (hypertension) Code(s): I10 - ESSENTIAL (PRIMARY) HYPERTENSION Status: Chronic QualifierTitle: Hypertension type: essential hypertension Qualified Code( s): I10 - Essential (primary) hypertension Plan: Well controlled. Continue home clonidine. (6) HLD (hyperlipidemia) Code(s): E78.5 - HYPERLIPIDEMIA, UNSPECIFIED Status: Acute QualifierTitle: Hyperlipidemia type: unspecified Qualified Code(s): E78.5 - Hyperlipidemia, unspecified Plan: Not on a statin, will let PCP evaluate for appropriateness. (7) History of colon cancer Code(s): Z85.038 - PERSONAL HISTORY OF MALIGNANT NEOPLASM OF LARGE INTESTINE Status: Acute Plan: Reportedly not undergoing therapy currently, manage outpatient per onc has not complicated this hospital stay (8) Hx of breast cancer Code(s): Z85.3 - PERSONAL HISTORY OF MALIGNANT NEOPLASM OF BREAST Status: Acute Plan: as above (9) Hx of cancer of lung Code(s): Z85.118 - PERSONAL HISTORY OF MALIGNANT NEOPLASM OF BRONCHUS AND LUNG Status: Acute Plan: as above <Sandie Chaney - Last Filed: 09/14/17 08:48> Attending Addendum - Attending Addendum I personally evaluated the patient and discussed the management with Dr. Chaney. I agree with the History, Examination, Assessment and Plan documented above with any addition or exceptions noted below. Doing well today and medically stable for discharge to swing bed for rehab. HR improved with Multaq. <Edis Gómez - Last Filed: 09/14/17 12:09>
[2017-09-14] MEDS: Dronedarone HCl 400 MG TAB PO SCH (08:11)
[2017-09-14] MEDS: cloNIDine 0.1 MG TAB PO SCH (08:11)
[2017-09-14] MEDS: metFORMIN XR 500 MG TAB PO SCH (08:11)
[2017-09-14] MEDS: Enoxaparin Sodium 30 MG/0.3 ML SYRINGE SC SCH (08:12)
[2017-09-14] MEDS: Lisinopril 20 MG TAB PO SCH (08:12)
[2017-09-14] MEDS: Metoprolol Tartrate 50 MG TAB PO SCH (08:13)
[2017-09-14] MEDS: Oseltamivir 75 MG CAP PO SCH (08:13)
[2017-09-14] MEDS: PARoxetine 20 MG TAB PO SCH (08:13)
[2017-09-14] MEDS: Magnesium Oxide 400 MG TAB PO SCH (08:13)
[2017-09-14] MEDS ORDERED: Aspirin 81 mg Enteric Coated Tablet PO SCH (09:00)
[2017-09-14 11:11] VITALS: BP 112/72; TEMP 97.5
--- NOTE | 2017-09-14 12:23 | DIS-2 ---
DATE OF ADMISSION: 09/10/2017 DATE OF DISCHARGE: 09/14/2017 ATTENDING PHYSICIAN: Dr. Jania Cha DISCHARGING ATTENDING: Dr. Edis Gómez ADMITTING RESIDENT: Dr. Parminder Wu DISCHARGING RESIDENT: Dr. Sandie Chaney CONSULTS: None. IMAGING: None. SIGNIFICANT LABORATORY: Initial sodium of 127, BUN 25, creatinine 1.11, estimated GFR of 48. Blood cultures negative at 48 hours. Influenza A positive. DISCHARGE MEDICATIONS: New medications: 1. Aspirin 81 mg p.o. daily. 2. Multaq 400 mg p.o. b.i.d. with meals. 3. Tamiflu 75 mg p.o. b.i.d. for 4 more doses. CONTINUED HOME MEDICATIONS: 1. Metformin 1000 mg p.o. daily. 2. Clonidine 0.1 mg p.o. b.i.d. 3. Paxil 20 mg p.o. daily. 4. Metoprolol tartrate 50 mg p.o. b.i.d. 5. Magnesium oxide 400 mg p.o. b.i.d. 6. Lisinopril 40 mg daily. 7. Lasix 40 mg p.o. daily. 8. DuoNeb 3 mL nebulized q.4 hours as needed for shortness of breath or wheezing. 9. Tylenol 650 mg p.o. q.4h. p.r.n. pain. DISCHARGE DIAGNOSES: 1. Acute hypoxic respiratory failure secondary to influenza A, resolved. 2. Influenza A positive, resolving. 3. Hyponatremia, improved. 4. Atrial fibrillation with rapid ventricular response, resolved. 5. Paroxysmal atrial fibrillation. 6. Hypertension, chronic. 7. Hyperlipidemia. 8. Diabetes mellitus type 2. 9. History of breast, colon and lung cancer. 10. Acute kidney injury on chronic kidney disease stage 3. BRIEF HISTORY AND HOSPITAL COURSE: The patient is a very pleasant 72-year-old female with a past medical history significant for paroxysmal atrial fibrillation, diabetes, hypertension, hyperlipidemia who was admitted to the [facility] a few days prior to admission here for cough, shortness of breath, fevers. She was transferred here due to development of atrial fibrillation with RVR. During her time here the patient required oxygen during the beginning of her stay secondary to hypoxia; however, this improved and upon discharge, she was not requiring oxygen and was saturating in the low to mid 90s on room air. During her stay, she improved with a course of Levaquin which she completed for a possible postobstructive pneumonia secondary to tumor burden from her lung cancer. She is following with her oncologist, Dr. Mccrary, with regard to her colon, breast and lung cancer. She is also completing a course of Tamiflu here, which will need to be continued when she is transferred to swing bed. With regard to the patient's atrial fibrillation with RVR, this resolved during this hospitalization. During another hospitalization, she was started on amiodarone as well as aspirin for her paroxysmal atrial fibrillation. She was felt to be a poor candidate for anticoagulation secondary to her tumor burden and was evaluated by both Oncology and Cardiology at that time. During this stay we restarted her on her amiodarone and aspirin. The patient had taken herself off of the medicine as she was feeling well, and this is not recommended by any physician. With regard to her hypertension, it was well controlled during the stay. We will continue on her home clonidine. With regard to patient's deconditioning, the patient was evaluated by PT and felt to be an appropriate candidate for SNF or rehab placement. She was very weak on her feet. The patient was at home independently and feels that she is not strong enough to go home. She was evaluated by PT and approved for a [facility] bed. She will be transferred over there under the care of her PCP, Dr. Adam. DISPOSITION: Stable. DISCHARGE INSTRUCTIONS: 1. Location: To [facility]. 2. Diet: Fluid restriction 1800 mL, consistent carbohydrate and heart healthy diet. 3. Activity: As tolerated. To work with physical therapy and occupational therapy. 4. Followup: To follow up with PCP at [facility], Dr. Adam. [facility]ITAL[facility]ojel[facility]
== END 2017-09-14 11:17 | disposition swing bed (61) | DRG 291 ==
LOC: 2NO 15:56 → SURG B 09-12 00:08
PROVIDERS: ADMIT Family Medicine; ATTEND Family Medicine
DX: I13.0 Hypertensive heart and chronic kidney disease with heart failure and stage 1 through stage 4 chronic kidney disease, or unspecified chronic kidney disease (principal); J10.00 Influenza due to other identified influenza virus with unspecified type of pneumonia; J96.01 Acute respiratory failure with hypoxia; N17.9 Acute kidney failure, unspecified; C34.91 Malignant neoplasm of unspecified part of right bronchus or lung; I48.0 Paroxysmal atrial fibrillation; E11.22 Type 2 diabetes mellitus with diabetic chronic kidney disease; J18.1 Lobar pneumonia, unspecified organism; I50.23 Acute on chronic systolic (congestive) heart failure; E87.1 Hypo-osmolality and hyponatremia; Z85.3 Personal history of malignant neoplasm of breast; Z85.51 Personal history of malignant neoplasm of bladder; E78.5 Hyperlipidemia, unspecified; Z88.2 Allergy status to sulfonamides; Z91.041 Radiographic dye allergy status; Z79.84 Long term (current) use of oral hypoglycemic drugs; Z87.891 Personal history of nicotine dependence; N18.3 Chronic kidney disease, stage 3 (moderate); F41.9 Anxiety disorder, unspecified; Z85.038 Personal history of other malignant neoplasm of large intestine; Z90.49 Acquired absence of other specified parts of digestive tract
CPT/HCPCS: 36415; 36416; 80048; 85025; 93005; 93010; A4216; G8978-GP-CL; G8979-GP-CJ; J1650; J1940; J1956; J7050

== ENCOUNTER 2017-10-06 10:04 | Outpatient (CLI) | payer MEDICARE, OTHER | END 2017-10-06 10:05 | disposition home or self-care (01) | LOC: BICMAMMO 10:04 | PROVIDERS: ATTEND Specialist | DX: Z08 Encounter for follow-up examination after completed treatment for malignant neoplasm (principal); Z85.3 Personal history of malignant neoplasm of breast | CPT/HCPCS: 77066; G0279 ==

== ENCOUNTER 2017-11-29 11:06 | Outpatient (CLI) | payer MEDICARE, OTHER ==
--- NOTE | 2017-11-30 11:49 | PET ---
NUCLEAR MEDICINE FDG PET CT: (Positron Emission Tomography) DATE: 11/29/17. HISTORY: A 72-year-old female with right upper lobe lung cancer, restaging PET scan. The patient also has a h istory of breast cancer and colon cancer. COMPARISON: 07/12/17. TECHNIQUE: IV injection F-18 Fluorodeoxyglucose (FDG) dose: 10.4 mCi. PET and attenuation-correction CT performed from skull base to proximal thighs. FINDINGS: SUV (standard uptake value) numbers given are maximum SUV's: There continues to be soft tissue attenuation material, some of which represents neoplastic tumor, an d some of which probably represents postobstructive pneumonitis, contiguously from the right hilum an d right mediastinum to the right lateral and right posterior pleural surfaces across the right upper lobe lung parenchyma. Again noted are the multiple cavitations within the consolidated lung involved in this. The sizes of some of the cavitations has decreased. The largest cavitation located meringuer iorly remains approximately 3 x 1.5 cm. There are varying degrees of FDG avidity within this large r egion of consolidation, with patchy, heterogeneous uptake. It is difficult to determine which compon ents represent neoplastic tumor material and which components represent infectious pneumonitis. SUVs vary within this consolidation. Currently, there is a region anteriorly in this lesion that has a m aximum SUV of 4.0. Previously, the area of maximum SUVs included a lateral peripheral region of 5.0. Posteromedially and inferiorly, there is a current region of 3.9 SUV. Currently, the most medial ext ent of FDG avidity is slightly posterior to the right mainstem bronchus, 3.8. There is no mediastina l FDG avidity. There is no evidence of metastatic disease within the abdominal cavity, pelvic cavity , or cervical lymph nodes. There is a new finding of a broad region of FDG avidity with SUV of 3.2 a long the lingual tonsil (base of tongue). Direct visualization is recommended. This extends to the left soft palate. IMPRESSION: 1. There continues to be a large region of consolidation in the right upper lobe, contiguous from th e right hilum and right mediastinum to the right lateral and right posterior pleural surfaces, with m ultiple cavitations. The maximum SUVs have further decreased (now 4.0) since the most recent prior P ET scan, consistent with partial response to therapy. 2. No evidence of distant metastases. 3. New broad region of FDG avidity throughout the lingual tonsil and left soft palate. This could e ither represent an inflammatory/infectious etiology, or could represent another primary cancer. Tyree mmend ENT consultation for direct visualization. MIHAELA Narayanan POS: [facility]
== END 2017-11-29 11:07 | disposition home or self-care (01) ==
LOC: PET 11:06
PROVIDERS: ATTEND Internal Medicine Hematology & Oncology
DX: C34.11 Malignant neoplasm of upper lobe, right bronchus or lung (principal); J18.1 Lobar pneumonia, unspecified organism; Z85.3 Personal history of malignant neoplasm of breast; Z85.038 Personal history of other malignant neoplasm of large intestine
CPT/HCPCS: 78815; A9552

== ENCOUNTER 2017-12-05 15:06 | Outpatient (CLI) | payer MEDICARE, OTHER ==
[2017-12-05] MEDS ORDERED: Gadobenate Dimeglumine 529 MG/1 ML (20ML VIAL) ONE (15:44)
--- NOTE | 2017-12-05 18:02 | MRI ---
PRE AND POST CONTRAST ENHANCED MRI CERVICAL SPINE: HISTORY: Patient with chronic neck pain (M54.2). TECHNIQUE: Multiplanar, multisequence noncontrast enhanced MRI cervical spine obtained. FINDINGS: There is a central area of increased T2 signal extending from C2-C3, inferiorly, involving the entire cervical cord, all the way to the inferior aspect of C7. This is compatible with a central syrinx, with greatest diameter measuring approximately 2.3 x 5.1 mm, at the C4 level. C1-C2: Unremarkable. C2-C3: Unremarkable. C3-C4: There is a broad-based disk bulge, resulting in mild central spinal stenosis. There is minim al bilateral C3-C4 neural foraminal narrowing due to uncovertebral osteophyte hypertrophy. C4-C5: There is a broad-based disk osteophyte complex centrally compressing the thecal sac, resultin g in mild to moderate central spinal stenosis. The neural foramen are patent. There is diffuse spin al cord atrophy extending from the C3 level to the C7 level. C4-C5: There is a broad-based disk osteophyte complex centrally. This results in mild to moderate c entral spinal stenosis. The right neural foramen is patent. There is moderate left C4-C5 neural for aminal narrowing due to uncovertebral osteophyte hypertrophy. C5-C6: There is a broad-based disk osteophyte complex centrally at C5-C6, compressing the thecal sac , resulting in a moderate degree of central spinal stenosis. There is moderate to severe right and m oderate left C5-C6 neural foraminal narrowing due to uncovertebral osteophyte hypertrophy. C6-C7: There is a broad-based disk osteophyte complex centrally, compressing the thecal sac. There is disk desiccation at this level. A moderate degree of central spinal stenosis is seen. Mild to mo derate left C6-C7 neural foraminal narrowing is seen. The right neural foramen is patent. C7-T1: Unremarkable. IMPRESSION: Disk desiccation with broad-based disk bulges at C4-C5, C5-C6, and C6-C7, with no significant degree of cord compression seen. There is a syrinx at the central aspect of the mid and lower cervical cord . No evidence of associated enhancement is seen. POS: C
== END 2017-12-05 15:07 | disposition home or self-care (01) ==
LOC: TBSIIMAG 15:06
PROVIDERS: ATTEND Internal Medicine Hematology & Oncology
DX: M54.2 Cervicalgia (principal); G89.29 Other chronic pain; M62.838 Other muscle spasm; C34.90 Malignant neoplasm of unspecified part of unspecified bronchus or lung; Z85.3 Personal history of malignant neoplasm of breast; M50.221 Other cervical disc displacement at C4-C5 level; M50.222 Other cervical disc displacement at C5-C6 level; M50.223 Other cervical disc displacement at C6-C7 level; M48.8X2 Other specified spondylopathies, cervical region
CPT/HCPCS: 72156; 82565; A9579

== ENCOUNTER 2018-02-21 11:09 | Outpatient (CLI) | payer MEDICARE, OTHER ==
--- NOTE | 2018-02-21 15:15 | PET ---
WHOLE BODY PET CT: Reference made to 11/29/[address] CLINICAL HISTORY: Lung malignancy. TECHNIQUE: Appropriate biodistribution of the radiotracer is noted. Noncontrast attenuation correction and nondi agnostic CT imaging performed in conjunction with scintigraphic imaging subsequent to administration of F18-FDG. FINDINGS: There is redemonstration of a large region of pleural and parenchymal density occupying the posterior aspect of the mid to inferior right hemithorax contiguous with the right hilar region. There remains multifocal hypermetabolic activity within this region with SUV measuring up to 4.7. Interspersed are as of cavitation are again documented. There is prominent focal region of increased activity of the c entral low abdomen just anterior to the IVC, which likely corresponds to activity within the right re nal pelvis, and is located within this region due to malrotation of the right kidney. There is a pleural based and subpleural patchy opacification of the anterior left lung, as well as gr ound-glass opacity within the left pulmonary parenchyma. There is kyphosis oft eh mid thoracic spine with associated height loss and increased metabolic activ ity. SUV of this region measures up to 2.4, borderline. IMPRESSION: 1. Redemonstration of large region of pleural and parenchymal density with hypermetabolic activity o ccupying the right mid inferior hemithorax inseparable from the right hilum compatible with persisten t malignancy. 2. Compression deformity involving a few consecutive segments of the mid to lower thoracic spine wit h borderline hypermetabolic activity. Benign versus malignant etiology is not further discerned. Cons ider MRI of the thoracic spine with and without contrast to further evaluate this region, as this fin ding is adjacent to the pathologic process of the right hemithorax and hilar/mediastinal region. Find ings do correspond to a recent abnormality on thoracic spine radiograph of 02/13/18. Findings and recommendations telephoned to the patient's physician, Delmy Mccrary, at time of dictatio n, 1420 hours, on 02/21/18 CODE CR. POS: [facility]
== END 2018-02-21 11:10 | disposition home or self-care (01) ==
LOC: PET 11:09
PROVIDERS: ATTEND Internal Medicine Hematology & Oncology
DX: C34.90 Malignant neoplasm of unspecified part of unspecified bronchus or lung (principal); R91.8 Other nonspecific abnormal finding of lung field; M43.8X4 Other specified deforming dorsopathies, thoracic region
CPT/HCPCS: 78815; A9552

== ENCOUNTER 2018-03-02 10:41 | Outpatient (CLI) | payer MEDICARE, OTHER ==
[2018-03-02] MEDS ORDERED: Gadobenate Dimeglumine 529 MG/1 ML (20ML VIAL) ONE (13:14)
--- NOTE | 2018-03-02 15:06 | MRI ---
THORACIC SPINE MRI WITH AND WITHOUT CONTRAST: Date: 03/02/18 Reference made to recent PET CT dated 02/21/18. INDICATION: History of lung malignancy. Indeterminate etiology multilevel thoracic compression fractures are pres ent. FINDINGS: Correlating to recent PET CT, there is redemonstration of multilevel compression fractures of the tho racic spine, which involve T6, T7, and T8. There is a slight degree of retropulsion of bone effacing ventral thecal sac at these levels without significant mass effect upon the adjacent thoracic spinal cord. The remaining thoracic vertebral bodies are of appropriate height. With regard to the T6, T7, and T8 compression fractures, there is associated marrow edema, as well as pathologic enhancement. There are additional sites of marrow enhancement throughout the thoracic spi ne, notably T2, T3, T4, and T12, as well as the incidentally imaged L1 segment. No associated marrow edema of significance within these regions. The marrow demonstrates a generalized increased T1 signal throughout which could relate to fatty marrow replacement. There is no pathologic intramedullary enhancement visualized within the thoracic spinal cord. There is focal kyphosis of the thoracic spine, moderate in degree, which is epicentered at the site o f compression deformities. Mild age-expected degenerative changes are seen. There is marked abnormality of the imaged posterior right hemithorax as was depicted on preceding PET CT. In addition, there is abnormal enhancing paraspinal soft tissue about the sites of compression d eformity of T6, T7, and T8. The adjacent posterior ribs at these levels reveal marrow heterogeneity a nd probably patchy enhancement, although there is limitation due to motion artifact and pulsation art ifact. There is a mild degree of central canal stenosis at T11-12 due to facet hypertrophy and ligamentous p rominence along the left ligamentum flavum. IMPRESSION: 1. Findings compatible with recent compression deformities of T6, T7, and T8, which demonstrate vickie ow edema, as well as enhancement. Given the adjacent prominent abnormality of the right chest, as wel l as enhancing paraspinous soft tissue, pathologic compression deformities are favored. There is also marrow heterogeneity and enhancement involving adjacent posterior ribs at these levels which could r elate to pathologic involvement. 2. Additional sites of nonspecific patchy marrow enhancement which do not reveal evidence of marrow edema, superimposed upon a generalized fatty marrow replacement. Therefore, the widespread, patchy e nhancement may be related to sequelae from prior therapy, and these areas do not reveal hypermetaboli sm on the recent PET scan. Imaging follow-up may prove useful for continued assessment. POS: [facility]
== END 2018-03-02 10:42 | disposition home or self-care (01) ==
LOC: MRI 10:41
PROVIDERS: ATTEND Internal Medicine Hematology & Oncology
DX: C34.91 Malignant neoplasm of unspecified part of right bronchus or lung (principal); R60.0 Localized edema; R91.8 Other nonspecific abnormal finding of lung field
CPT/HCPCS: 72157; 82565; A9579

== ENCOUNTER 2018-06-20 08:39 | Outpatient (CLI) | payer MEDICARE, OTHER ==
--- NOTE | 2018-06-20 12:31 | CT ---
CT CHEST WITH IV CONTRAST: HISTORY: A 72-year-old female with a history of C34.81, malignant neoplasm right bronchus and lung. History o f breast cancer. Prior chemotherapy and radiation. COMPARISON: Study from 03/25/2017. Prior PET scan from 02/21/2018. FINDINGS: There is a small to moderate right-sided pleural effusion, which has developed since the prior study. The large, inhomogeneous, poorly circumscribed mass in the right perihilar region now measures appr oximately 3.5 x 6 cm, where it previously measured approximately 8.4 x 9 cm. The previously noted gr ound glass opacity changes in the right upper lobe have resolved, with some minimal developing scarri ng at the major fissure, extending into the upper chest, with some associated mild bronchiectasis, wi th some progressive right-sided volume loss. Stable pleural-based parenchymal changes in the left up per lobe. Multiple areas of vertebroplasty in the thoracic spine, which are stable. Three-vessel co ronary artery calcific disease. No significant new metastatic focus. IMPRESSION: 1. Overall decrease in the size of the right-sided mass with some developing right pleural effusion, mild to moderate in size. 2. Minimal scarring developing in the right upper chest, along the major fissure, with some associat ed bronchiectasis, with clearing of the extensive ground glass opacity changes seen at the time of th e prior, 03/25/2017, study. 3. Stable multiple thoracic spine vertebroplasty changes. 4. No evidence for new metastasis. POS: [facility]
[2018-06-20] MEDS ORDERED: Iopamidol 370 76% 100 ML VIAL ONE (15:51)
== END 2018-06-20 08:40 | disposition home or self-care (01) ==
LOC: CT 08:39
PROVIDERS: ATTEND Internal Medicine Hematology & Oncology
DX: C34.81 Malignant neoplasm of overlapping sites of right bronchus and lung (principal); R91.8 Other nonspecific abnormal finding of lung field; J90 Pleural effusion, not elsewhere classified; J47.9 Bronchiectasis, uncomplicated; J98.4 Other disorders of lung; Z98.890 Other specified postprocedural states
CPT/HCPCS: 71260

== ENCOUNTER 2019-01-24 12:41 | Outpatient (CLI) | payer MEDICARE, OTHER ==
--- NOTE | 2019-01-24 13:34 | MMO ---
Bilateral MAMMO Bilat Screen [facility]. CLINICAL HISTORY: Patient is 73 years old and is seen for screening. The patient has no family history of breast cancer. The patient has a history of lung cancer in 2017; Excisional Biopsy procedure revealed invasive ductal left breast carcinoma in Dec, 2010; colon cancer in August,; Ultrasound Guided Core Biopsy procedure revealed invasive ductal left breast carcinoma in June, and invasive ductal left breast carcinoma in June,. The patient has a history of left Excisional Biopsy in Dec, 2010 - invasive ductal carcinoma and left Lumpectomy - malignant. VIEWS: The views performed were: bilateral craniocaudal with tomosynthesis; bilateral mediolateral oblique with tomosynthesis; and left exaggerated craniocaudal. FILMS COMPARED: The present examination has been compared to prior imaging studies performed at [facility] on 02/09/2013, 03/21/2015, 03/23/2016 and 10/06/2017. MAMMOGRAM FINDINGS: There are scattered fibroglandular densities. There are stable post operative changes seen in the left breast. There are no suspicious masses, suspicious calcifications, or new areas of architectural distortion. IMPRESSION: THERE IS NO MAMMOGRAPHIC EVIDENCE OF MALIGNANCY. A ROUTINE FOLLOW-UP MAMMOGRAM IN 1 YEAR IS RECOMMENDED. THE RESULTS OF THIS EXAM WERE SENT TO THE PATIENT. ACR BI-RADS Category 2 - Benign finding MAMMOGRAPHY NOTE: 1. A negative mammogram report should not delay a biopsy if a dominant of clinically suspicious mass is present. 2. Approximately 10% to 15% of breast cancers are not detected by mammography. 3. Adenosis and dense breasts may obscure an underlying neoplasm.
== END 2019-01-24 12:42 | disposition home or self-care (01) ==
LOC: BICMAMMO 12:41
PROVIDERS: ATTEND Internal Medicine Hematology & Oncology
DX: Z12.31 Encounter for screening mammogram for malignant neoplasm of breast (principal); Z85.3 Personal history of malignant neoplasm of breast; Z85.118 Personal history of other malignant neoplasm of bronchus and lung; Z98.890 Other specified postprocedural states; Z91.89 Other specified personal risk factors, not elsewhere classified
CPT/HCPCS: 77063; 77067

== ENCOUNTER 2019-05-01 10:16 | Outpatient (CLI) | payer MEDICARE, OTHER ==
--- NOTE | 2019-05-01 11:20 | CT ---
CT CHEST WITH CONTRAST CLINICAL INDICATION: Lung cancer restaging. History of colon cancer with metastatic lung disease. History of breast cancer with history of prior lateral left lumpectomy. COMPARISON: Noncontrast CT thorax on 10/25/2018 and prior contrasted study on 06/20/2018. FINDINGS: Aorta: Vascular calcifications are again seen in thoracic aorta as well as involving the coronary art eries. Mitral valve calcifications are present. Lungs: Small right pleural effusion is again noted. Previously described heterogeneous well-circumscr ibed mass in the right perihilar region is again present. This mass measures 6.8 cm x 3.6 cm. Measurements are slightly larger in size in transverse dimensions which could be related to slice allan ection. Previously obtained measurement on study obtained from [facility] measured 6.5 cm x 3.9 cm. There is small amount of consolidation present at the right lung base which is similar to the prior studies. The pleural-based interstitial and parenchymal densities in the left upper lobe are again seen and st able and could potentially be related to postradiation changes. No new discrete pulmonary nodule or mass is seen. No left pleural effusion is identified. Mediastinum: A right subclavian Mediport catheter remains in place. No enlarged lymph nodes are seen within the mediastinum by CT size criteria. Thyroid gland: Normal CT appearance. Osseous structures: Vertebroplasty changes of compression fractures involving the T6, T7, T8 vertebra l bodies is again noted with exaggerated kyphosis at these levels. There is a concavity involving the superior endplate of the L3 vertebral body. This was seen on prior MRI in 2018 and probably repre sents a prominent Schmorl's node. Chest wall: The irregular hypodense mass in the left breast laterally is again seen. There is overlyi ng skin thickening present in this region. This is unchanged from prior studies as well as similar to CT thorax on 03/25/2017. Upper abdomen: Postcholecystectomy changes are noted. Prominent vascular calcifications are seen in t he abdominal aorta. There is suggested thickening of the [place] of the stomach, but this is probably related to incomplete distention. IMPRESSION: 1. Heterogeneous mass right lower lobe in a perihilar location with adjacent pleural effusion and are a of consolidation which may be attributable to postobstructive changes or postobstructive pneumonitis. This is similar to the prior exam. Heterogeneous mass does measure slightly larger in si ze in transverse dimensions. 2. Stable irregular hypodense mass in the left axillary region. There is overlying skin thickening pr esent as well as pleural-based parenchymal densities in the left upper lobe. Findings could be related to postradiation changes secondary to radiation therapy of the left breast lesion. Clinical c orrelation is recommended. Surgical clips are seen in the left axilla. 3. Chest CT has not significantly changed from prior study.
== END 2019-05-01 10:17 | disposition home or self-care (01) ==
LOC: CT 10:16
PROVIDERS: ATTEND Internal Medicine Hematology & Oncology
DX: C34.90 Malignant neoplasm of unspecified part of unspecified bronchus or lung (principal); R91.8 Other nonspecific abnormal finding of lung field; J90 Pleural effusion, not elsewhere classified; R22.32 Localized swelling, mass and lump, left upper limb; N64.89 Other specified disorders of breast; Z92.3 Personal history of irradiation
CPT/HCPCS: 71260; 82565

== ENCOUNTER 2019-08-31 16:25 | Inpatient (IN) | payer MEDICARE, OTHER ==
[2019-08-31] MEDS ORDERED: Adenosine 6 MG/2 ML VIAL ONE (16:32)
[2019-08-31 16:57] LABS: #Eosinphils 0.1 thou/uL (0.0-0.7); #Lymphocytes 2.6 thou/uL (1.20-3.40); #Monocytes 0.5 thou/uL (0.11-0.59); #Neutrophils 9.1 thou/uL (1.40-6.50); %Basophils 0.3 % (0.0-1.0); %Lymphocytes 20.9 % (21.0-51.0); %Monocytes 4.3 % (0.0-10.0); %Neutrophils 73.5 % (42.0-75.0); Hemoglobin 10.9 g/dL (12.0-16.0); Mean Corpuscular HGB CONC 31.5 g/dL (32.0-36.0); Mean Corpuscular Hemoglobin 27.2 pg (27.0-31.0); Mean Corpuscular Volume 86.5 fL (78.0-98.0); Mean Platelet Volume 6.6 fL (7.4-10.4); Platelet Count 334 thou/uL (130-400); RBC Distribution Width 14.2 % (11.5-14.5); Red Blood Cell (RBC) Count 3.98 mill/uL (4.20-5.40); White Blood Cell (WBC) Count 12.4 thou/uL (4.8-10.8)
[2019-08-31 17:00] LABS: INR-International Normal Ratio 1.2; PTT 32.4 SEC (22.9-36.1)
[2019-08-31 17:07] LABS: Analyzer IN Cardio ER; Base Excess (BEa) -9.1 mEq/L (-2.0 to +3.0); Calcium, Ionized 1.22 mmol/L (1.12-1.30); Carboxyhemoglobin (COHb) 0.3 gm% (0.0-3.0); Hemoglobin (Hb) 11.4 g/dL (12.0-16.0); O2 Tension (PaO2) 72.2 mmHg (> 70.0)
[2019-08-31 17:08] LABS: Puncture Site RRA; pH, Arterial 7.11 (7.35-7.45)
[2019-08-31 17:22] LABS: ALT (SGPT) Less than 7 U/L (8-55); AST (SGOT) 12 U/L (5-34); Albumin 3.9 g/dL (3.4-4.8); Alkaline Phosphatase 63 U/L (40-110); Anion Gap 18 mmol/L (10-20); BUN (Urea Nitrogen) 14 mg/dL (9.8-20.1); Bilirubin, Total 0.4 mg/dL (0.2-1.2); CK (CPK) 70 U/L (29-168); Calc. Creatinine Clearance 0 mL/min (70-130); Calcium 9.5 mg/dL (7.8-10.44); Carbon Dioxide 23 mmol/L (23-31); Chloride 95 mmol/L (98-107); Estimated GFR-MDRD 42; Globulin 3.8 g/dL (2.4-3.5); Glucose 294 mg/dL (83-110); Potassium 3.4 mmol/L (3.5-5.1); Protein, Total 7.7 g/dL (6.0-8.3); Sodium 133 mmol/L (136-145)
[2019-08-31] MEDS ORDERED: Rocuronium Bromide 10 MG/ML (10ML VIAL) ONE (17:25)
[2019-08-31 17:38] LABS: CKMB 2.2 ng/mL (0-6.6)
--- NOTE | 2019-08-31 17:38 | RAD ---
PORTABLE CHEST: 08/31/19 PROVIDED CLINICAL HISTORY: Shortness of breath. FINDINGS: Comparison 11/04/18. Cardiac and mediastinal silhouette are unchanged in appearance. Right perihilar parenchymal opacity i s redemonstrated. Right subclavian implanted port is again seen in similar position. Vascular calcif ication is noted involving the aortic arch. No pleural fluid or pneumothorax apparent. Evaluation of the right lung is somewhat limited due to overlying external defibrillator pad. There i s patchy air space disease suspected in the left perihilar region. IMPRESSION: 1. Persistent right perihilar/suprahilar parenchymal opacity. 2. Left perihilar air space disease, which may reflect edema or pneumonia. Follow-up is recommen ded. POS: [facility]
[2019-08-31] MEDS ORDERED: fentaNYL Citrate/PF 2,000 MCG in Sodium Chloride 0.9% 60 ML IV SCH ×2 (17:52→20:00)
[2019-08-31] MEDS ORDERED: Cefepime 2 GM VIAL ONE (18:05)
[2019-08-31 18:19] LABS: Actual Bicarbonate (HCO3a) 21.5 mEq/L (22-28); Analyzer IN Cardio ER; Base Excess (BEa) -4.6 mEq/L (-2.0 to +3.0); CO2 Tension 43.7 mmHg (35.0-45.0); Calcium, Ionized 1.08 mmol/L (1.12-1.30); Carboxyhemoglobin (COHb) 0.3 gm% (0.0-3.0); Hemoglobin (Hb) 9.6 g/dL (12.0-16.0); O2 Tension (PaO2) 375.7 mmHg (> 70.0); Potassium - ABG Lab 2.79 mmol/L (3.70-5.30); pH, Arterial 7.31 (7.35-7.45)
[2019-08-31 18:26] LABS: ALV-art Gradient 282.675 (0-20); Puncture Site RBA
--- NOTE | 2019-08-31 18:27 | RAD ---
RADIOGRAPH CHEST 1 VIEW: DATE: 08/31/2019 TIME: 5:33 PM HISTORY: 74 year old female with dyspnea and tachycardia. Status post intubation COMPARISON: 08/31/2019 4:48 PM FINDINGS: Supine positioning makes this insensitive for pneumothorax detection. The left lateral lower lung is now excluded from [id number]. New ETT at mid thoracic trachea. New esophagogastric tube courses inferior to diaphragm into left upper quadrant. Defibrillation paddles overlie right mid chest and le ft base. Dense right suprahilar upper lobe opacity remains. Right subclavian implantable vascular access port. Mild left perihilar densities. No interval change in appearance of the lungs. IMPRESSION: 1. Status post intubation with endotracheal tube and esophagogastric tube. 2. No other interval change.
[2019-08-31] MEDS ORDERED: Ondansetron PF 4 MG/2 ML Vial IVP PRN (18:46)
[2019-08-31] MEDS ORDERED: Amiodarone 450 MG in Dextrose 5% in Water 250 ML IVPB SCH (19:15)
[2019-08-31 19:57] LABS: Lactic Acid 3.1 mmol/L (0.5-2.2)
[2019-08-31] MEDS ORDERED: DISCONTINUE PREVIOUS NARCOTIC PAIN MEDICATIONS AND BENZODIAZEPINES FS SCH (20:00)
[2019-08-31] MEDS ORDERED: Propofol BOLUS 1,000 MG/100 ML VIAL IV PRN (20:00)
[2019-08-31] MEDS ORDERED: Lorazepam 2 MG/ML VIAL SLOW IVP PRN (20:00)
[2019-08-31] MEDS ORDERED: Fentanyl BOLUS 250 ML IVPB PRN (20:00)
[2019-08-31] MEDS: Sodium Chloride 0.9% 1,000 ML IV SCH ×3 (20:19→23:03)
[2019-08-31] MEDS: Propofol 1,000 MG/100 ML VIAL IV PRN (20:21)
[2019-08-31] MEDS ORDERED: Dextrose 5% in Water 1,000 ML IV PRN (20:47)
[2019-08-31] MEDS ORDERED: Dextrose 50% Abboject 50 ML SYRINGE SLOW IVP PRN (20:47)
[2019-08-31] MEDS ORDERED: CCU Electrolyte Replacement 1 EACH FS ONE (20:48)
[2019-08-31] MEDS ORDERED: Ventilator Sedation Protocol 1 EACH FS ONE (20:48)
[2019-08-31] MEDS ORDERED: PHOS-NAK 1 PKT PACK PO PRN ×2 (20:55)
[2019-08-31] MEDS ORDERED: Potassium Chloride 40 MEQ in Sodium Chloride 0.9% 250 ML 250 ML IVPB PRN (20:55)
[2019-08-31] MEDS ORDERED: Potassium Phosphate 15 MMOL in Sodium Chloride 0.9% 250 ML 250 ML IV PRN (20:55)
[2019-08-31] MEDS ORDERED: Potassium Phosphate 12 MMOL in Sodium Chloride 0.9% 250 ML 250 ML IV PRN (20:55)
[2019-08-31] MEDS ORDERED: CCU ELECTROLYTE REPLACEMENT PROTOCOL FS PRN (20:55)
[2019-08-31] MEDS ORDERED: Potassium Phosphate 9 MMOL in Sodium Chloride 0.9% 100 ML IVPB PRN (20:55)
[2019-08-31] MEDS ORDERED: Potassium Chloride 40 MEQ in Premix Bag 1 BAG IVPB PRN (20:55)
[2019-08-31] MEDS ORDERED: Potassium Chloride 20 MEQ TAB PO PRN (20:55)
[2019-08-31] MEDS ORDERED: Magnesium Oxide 400 MG TAB PO PRN ×2 (20:55)
[2019-08-31] MEDS ORDERED: Magnesium 2 GM/50 ML 2 GM in Premix Bag 1 BAG IVPB PRN (20:55)
[2019-08-31] MEDS ORDERED: Famotidine/PF 20 mg/2ml Vial SLOW IVP SCH ×2 (21:00→21:15)
[2019-08-31] MEDS ORDERED: Metoprolol Tartrate 50 MG TAB PO SCH (21:00)
[2019-08-31] MEDS ORDERED: Amiodarone 150 MG, Admixture Fee 1 EACH in Dextrose 5% in Water 100 ML IVPB SCH (21:15)
[2019-08-31] MEDS ORDERED: Enoxaparin Sodium 60 MG/0.6 ML SYRINGE SC SCH (21:15)
[2019-08-31] MEDS: Enoxaparin Sodium 80 MG/0.8 ML SYRINGE SC SCH (21:30)
[2019-08-31] MEDS: Insulin Glargine 15 UNITS in Pre-Filled Syringe 1 EACH SC SCH (21:30)
[2019-08-31] MEDS: methylPREDNISolone Sod Succ 40 MG VIAL IVP SCH (21:32)
--- NOTE | 2019-08-31 21:40 | HP ---
REASON FOR ADMISSION: Acute respiratory failure with hypoxia, SVT/AFib with RVR , possible sepsis, respiratory acidosis. HISTORY OF PRESENTING ILLNESS: Please note majority of this history is obtained by talking to ER physician, Dr. Marlon Bush, family at bedside as the patient is intubated and is sedated. The patient apparently had gone for her cranio- electric stimulation third treatment to her primary care physician, Dr. Monica Adrian. At her triage there, the patient was found to have had increased heart rate with rates going up to 140s and the patient had shortness of breath. She was feeling bad. The patient has been getting these treatments for depression with history of cervical spine stenosis from last 3 years, which was not getting any better. She in fact had seen Dr. Henry yesterday and has an MRI of her C-spine is scheduled. She has been seeing Dr. Avila and has had nerve ablation and spinal shots for the same. The patient initially was placed on a non-rebreather with saturations of 80%. She was then placed on BiPAP. The patient initially tolerated it well, but started having respiratory distress and was becoming more lethargic, then a decision was made to intubate her. When she was at her doctor's office, she called her daughter saying that she cannot breathe and she was feeling like she was getting a heart attack. This was at around 4 p.m. On arrival here, the patient has had SVT, was given 2 doses of adenosine, which seemed to convert it into sinus rhythm, but the patient flipped back into SVT/AFib with rates going up to 140s. She has received a dose of vancomycin, Levaquin, and cefepime, and continuous nebulizations in the ER. She is currently receiving her second liter of IV fluid and the third liter is planned. PAST MEDICAL AND SURGICAL HISTORY: History of non-small cell right lung cancer from last 3 years and currently in remission. She sees Dr. Mccrary. She has had radiation and chemotherapy for the same. History of low anterior resection of sigmoid/rectal cancer in 2011 and is currently in remission. History of breast cancer with left breast lumpectomy and axillary node dissection done in December 2010 and is currently in remission for that as well. Diabetes mellitus type 2; dyslipidemia; history of likely AFib, on Multaq; history of moderate aortic regurgitation; chronic anemia with baseline hemoglobin of around 10 g; questionable COPD; history of compression fracture with prior kyphoplasty; and had spinal shots for chronic neck and back pains in the past; appendectomy; cholecystectomy; hysterectomy; depression. CURRENT MEDICATIONS: The patient is on: 1. DuoNeb 4 times daily p.r.n. 2. Magnesium 200 mg twice daily. 3. Lovastatin 20 mg daily. 4. Clonidine 0.1 mg twice daily. 5. Ferrous sulfate 325 mg daily. 6. Lasix 20 mg daily. 7. Multaq 400 mg twice daily. 8. Lopressor 50 mg twice daily. 9. Lisinopril 40 mg daily. 10. Metformin extended release 500 mg twice daily. 11. [place] 5/325 one to two tablets q.6 hourly p.r.n. 12. Fluticasone nasal spray daily. 13. Paroxetine 30 mg daily. 14. Lorazepam 0.5 mg q.8 hourly. 15. Buspirone 2.5 mg 3 times daily. The last 2 tablets have been given for the last week or so and she has slowly been titrated. ALLERGIES: IODINE, SULFA. PERSONAL HISTORY: Quit smoking more than 40 years ago. Does not abuse alcohol or drugs. Both parents are . Father has had history of diabetes. Younger brother had history of brain tumor. Older brother had history of chronic anemia. Daughter has had cervical cancer. The patient normally ambulates with a walker and does all her activities of daily living. She lives alone. She is not on home oxygen. CODE STATUS: Full. Power of stave grader is her children. REVIEW OF SYSTEMS: Cannot be obtained as the patient is currently intubated and is sedated. PHYSICAL EXAMINATION: GENERAL: The patient is a 74-year-old female, who is currently intubated and is on ventilator. Has an ET tube 7.5 up to 22 cm to incisor. She has vent settings of 500 mL tidal volume, pressure support of 10, 5 of PEEP, and 100% FiO2. VITAL SIGNS: Blood pressure is 150/90, pulse 120 per minute, respiratory rate on vent is 18. She is currently breathing around 23 and saturating 100% on 100% FiO2. NECK: Supple. No elevated JVD. HEENT: Eyes; extraocular muscles intact. Pupils are reacting to light. Oral cavity, mucous membranes are dry. She is orally intubated. CARDIOVASCULAR SYSTEM: S1 and S2 heard. Irregular rhythm. RESPIRATORY SYSTEM: Air entry 1+ bilateral. Scattered rhonchi plus no rales. ABDOMEN: Soft. Bowel sounds heard. No tenderness or rigidity. EXTREMITIES: There is chronic lymphedema in both lower extremities. The family mentioned that this is way lower than she usually has. Peripheral pulses are 1+ bilateral. No ischemic ulcers or gangrene. CENTRAL NERVOUS SYSTEM: No gross focal deficits noted. She was moving all 4 extremities prior to getting intubated. PSYCHIATRIC: Cannot be assessed as the patient is currently on ventilator and is sedated. LABORATORY DATA: EKG done shows sinus tach at 141 beats per minute. There is more of SVT. Chest x-ray shows persistent right perihilar suprahilar parenchymal opacity, left perihilar airspace disease, which could reflect edema or pneumonia. White count of 12.4, H and H of 10 and 34, platelet count 334 with 73% neutrophils, MCV is 86. PT/INR is 15 and 1.2, PTT 32. Initial blood gas on non-rebreather showed a pH of 7.1, pCO2 of 68, pO2 of 72. Repeat blood gas on 100% FiO2 shows a pH of 7.31, pCO2 of 43, pO2 of 375. Serum sodium 133, potassium 3.4, chloride 95, BUN 14, creatinine 1.25, serum glucose 294. Lactic acid 4.3. Liver enzymes within normal limits. Albumin is 3.9. CK-MB 2.2, troponin I 0.04. CLINICAL IMPRESSION AND PLAN: The patient will be admitted to ICU for acute respiratory failure with hypoxia and hypercarbia, severe respiratory acidosis, supraventricular tachycardia/likely atrial fibrillation. As the patient is on Multaq, we will switch her to amiodarone IV per protocol. Blood cultures have been obtained in the ER. We will obtain urine culture and sputum cultures as well. We will obtain respiratory viral panel PCR. She will be on cefepime and Levaquin for now. DuoNeb q.4 hourly, Solu-Medrol 20 mg IV q.8 hourly. We will continue her home dose of Lopressor at 50 twice daily, Paxil 30 mg daily, and also continue her buspirone 2.5 mg 3 times daily, which has been initiated in the last 1 week for her depression. She will have had a total of 3 L bolus and we will continue her at 60 mL/hour. Echo with 2D Doppler for left ventricular function and to rule out thrombus. Lovenox 60 mg subcutaneous q.12 hourly. We will consult Dr. Bonds for Cardiology and Dr. Gomez for Pulmonology and Critical Care. We will now continue to closely monitor her in ICU. Job ID: [id number] MTDD
[2019-08-31] MEDS ORDERED: Norepinephrine 8 MG/0.9% NS 250 ML ONE (22:15)
[2019-08-31] MEDS: Norepinephrine 8 MG/0.9% NS 250 ML IVPB SCH (23:04)
--- NOTE | 2019-09-01 00:41 | PDOC.EVN ---
Event Note - Event Note Event Note: Patient admitted for RVR, SVT, respiratory failure, called by nursing for conversion to junctional rhythm in 40s, EKG reviewed and junctional rhythm in 40s confirmed, troponin slightly elevated from previous, was started on levophed earlier this evening for hypotension/shock, was on amiodarone drip. Discussed with cardiology Dr Bonds who recommended discontinuing beta li and amiodarone for the moment, will trend troponin and continue to watch, patient seen and examined with no changes in exam from time of admission a few hours ago.
[2019-09-01 00:42] LABS: Troponin I 0.451 ng/mL (< 0.028)
[2019-09-01 00:48] LABS: Actual Bicarbonate (HCO3a) 11.8 mEq/L (22-28); Base Excess (BEa) -15.4 mEq/L (-2.0 to +3.0); CO2 Tension 32.4 mmHg (35.0-45.0); Calcium, Ionized 1.02 mmol/L (1.12-1.30); Carboxyhemoglobin (COHb) 0.4 gm% (0.0-3.0); Hemoglobin (Hb) 9.6 g/dL (12.0-16.0); O2 Tension (PaO2) 103.3 mmHg (> 70.0); Potassium - ABG Lab 5.01 mmol/L (3.70-5.30)
[2019-09-01 00:49] LABS: pH, Arterial 7.18 (7.35-7.45)
[2019-09-01 00:50] LABS: Puncture Site L RADIAL
[2019-09-01 00:56] LABS: Lactic Acid 7.8 mmol/L (0.5-2.2)
[2019-09-01] MEDS ORDERED: Sodium Chloride 0.9% 1,000 ML IV SCH (01:00)
[2019-09-01] MEDS: HumaLOG 300 UNITS/3 ML VIAL SC PRN ×4 (01:16→18:15)
[2019-09-01 05:01] LABS: #Lymphocytes 0.9 thou/uL (1.20-3.40); #Monocytes 0.4 thou/uL (0.11-0.59); #Neutrophils 6.9 thou/uL (1.40-6.50); %Basophils 0.5 % (0.0-1.0); %Eosinophils 0.4 % (0.0-10.0); %Lymphocytes 11.2 % (21.0-51.0); %Monocytes 5.2 % (0.0-10.0); %Neutrophils 82.6 % (42.0-75.0); Hemoglobin 9.1 g/dL (12.0-16.0); Mean Corpuscular HGB CONC 31.2 g/dL (32.0-36.0); Mean Corpuscular Hemoglobin 27.7 pg (27.0-31.0); Mean Corpuscular Volume 88.6 fL (78.0-98.0); Platelet Count 192 thou/uL (130-400); RBC Distribution Width 14.6 % (11.5-14.5); Red Blood Cell (RBC) Count 3.28 mill/uL (4.20-5.40); White Blood Cell (WBC) Count 8.3 thou/uL (4.8-10.8)
[2019-09-01 05:03] LABS: Lactic Acid 10.2 mmol/L (0.5-2.2)
[2019-09-01] MEDS ORDERED: Sodium Chloride 0.9% 500 ML IV SCH (05:30)
[2019-09-01] MEDS: methylPREDNISolone Sod Succ 40 MG VIAL IVP SCH ×3 (05:53→21:26)
[2019-09-01] MEDS: Cefepime 1 GM in Sodium Chloride 0.9% 100 ML IVPB SCH ×2 (05:54→18:10)
[2019-09-01] MEDS: Sodium Bicarbonate 150 MEQ in Dextrose 5% in Water 1,000 ML IV SCH ×3 (06:01→21:51)
[2019-09-01 06:57] LABS: Chloride 106 mmol/L (98-107); Sodium 133 mmol/L (136-145)
[2019-09-01 06:58] LABS: Glucose 104 mg/dL (83-110)
[2019-09-01 07:00] LABS: Anion Gap 20 mmol/L (10-20); Carbon Dioxide 13 mmol/L (23-31)
[2019-09-01 07:02] LABS: BUN (Urea Nitrogen) 16 mg/dL (9.8-20.1); Calc. Creatinine Clearance 32 mL/min (70-130); Estimated GFR-MDRD 30
[2019-09-01 07:08] LABS: Calcium 6.8 mg/dL (7.8-10.44); Potassium 6.2 mmol/L (3.5-5.1)
[2019-09-01 07:13] LABS: Troponin I 0.782 ng/mL (< 0.028)
[2019-09-01 07:54] LABS: Actual Bicarbonate (HCO3a) 10.6 mEq/L (22-28); Base Excess (BEa) -13.9 mEq/L (-2.0 to +3.0); Calcium, Ionized 0.94 mmol/L (1.12-1.30); Carboxyhemoglobin (COHb) 0.6 gm% (0.0-3.0); Hemoglobin (Hb) 10.8 g/dL (12.0-16.0); O2 Tension (PaO2) 133.3 mmHg (> 70.0); pH, Arterial 7.31 (7.35-7.45)
[2019-09-01 07:59] LABS: CO2 Tension 21.8 mmHg (35.0-45.0); Puncture Site RRA
[2019-09-01] MEDS: Enoxaparin Sodium 80 MG/0.8 ML SYRINGE SC SCH (09:30)
[2019-09-01] MEDS: PARoxetine 20 MG TAB PO SCH (09:30)
[2019-09-01] MEDS: Norepinephrine 8 MG/0.9% NS 250 ML IVPB SCH (11:13)
--- NOTE | 2019-09-01 11:47 | PDOC.HOSPP ---
- Subjective Encounter Date: 09/01/19 Encounter Time: 09:45 Subjective: on vent, awakens easily moves all extremities son and daughter at bedside - Objective Vital Signs & Weight: Vital Signs (12 hours) Temp Pulse Resp BP 09/01/19 11:14 59 L 09/01/19 10:00 30 H 09/01/19 08:00 99.0 F 30 H 09/01/19 07:21 46 L 107/44 L 09/01/19 06:00 30 H 09/01/19 04:00 97.4 F L 18 09/01/19 03:29 47 L 89/55 L 09/01/19 02:00 18 09/01/19 00:00 97.4 F L 18 Weight Weight 153 lb 7.068 oz Most Recent Monitor Data Heart Rate from ECG 58 NIBP 146/85 NIBP BP-Mean 115 Respiration from ECG 30 SpO2 100 I&O: 08/31/19 09/01/19 09/02/19 06:59 06:59 06:59 Intake Total 3703.2 110 Output Total 230 10 Balance 3473.2 100 Result Diagrams: 09/01/19 03:47 09/01/19 06:37 Additional Labs: Accuchecks 09/01/19 09/01/19 08/31/19 05:55 00:45 21:30 POC Glucose 188 H 266 H 261 H Hospitalist ROS - Medication Medications: Active Medications Generic Name Dose Route Start Last Admin Trade Name Freq PRN Reason Stop Dose Admin Albuterol/Ipratropium 3 ml 08/31/19 19:00 09/01/19 11:14 Duoneb NEB 3 ml [id number] CRIS Administration Enoxaparin Sodium 70 mg 08/31/19 21:00 09/01/19 09:30 Lovenox SC 70 mg 0900,2100 CRIS Administration Cefepime HCl 1 gm/ Sodium 100 mls @ 200 mls/hr 09/01/19 06:00 09/01/19 05:54 Chloride IVPB 100 mls 0600,1800 CRIS Administration Sodium Chloride 1,000 mls @ 60 mls/hr 08/31/19 18:46 08/31/19 20:19 Normal Saline 0.9% IV 1,000 mls .[id number] CRIS Administration Insulin Glargine 15 units/ 0.15 mls @ 0 mls/hr 08/31/19 21:00 08/31/19 21:30 Miscellaneous Medication SC 0.15 mls HS CRIS Administration Norepinephrine Bitartrate 250 mls @ 0 mls/hr 08/31/19 22:15 09/01/19 11:13 Levophed IVPB 250 mls INF CRIS Administration Protocol Titrate Sodium Bicarbonate 150 meq/ 1,150 mls @ 150 mls/hr 09/01/19 05:45 09/01/19 06 :01 Dextrose/Water IV 1,150 mls INF CRIS Administration Insulin Human Lispro 0 units 08/31/19 20:47 09/01/19 05:54 Humalog SC 2 unit .MODERATE SLIDING SC PRN Administration Moderate Correctional Scale Methylprednisolone Sodium Succinate 20 mg 08/31/19 22:00 09/01/19 05:53 Solu-Medrol IVP 20 mg Q8HR CRIS Administration Paroxetine HCl 30 mg 09/01/19 09:00 09/01/19 09:30 Paxil PO 30 mg DAILY CRIS Administration Propofol 1,000 mg 08/31/19 20:00 08/31/19 20:21 Diprivan IV 09/30/19 20:00 1,000 mg INF PRN Administration TO ACHIEVE GOAL RASS Protocol - Exam General Appearance: awake alert, ill appearing Eye: PERRL, anicteric sclera ENT: no oropharyngeal lesions, moist mucosa Neck: supple, no JVD Heart: RRR, no murmur, no gallops Respiratory: no wheezes, no rales Gastrointestinal: soft, non-tender, non-distended, normal bowel sounds Extremities: no cyanosis, 1+ LE edema Neurological: cranial nerve grossly intact, no focal deficits Hosp A/P (1) Acute respiratory failure with hypoxia Code(s): J96.01 - ACUTE RESPIRATORY FAILURE WITH HYPOXIA Status: Acute (2) Sepsis Code(s): A41.9 - SEPSIS, UNSPECIFIED ORGANISM Status: Acute (3) PNA (pneumonia) Code(s): J18.9 - PNEUMONIA, UNSPECIFIED ORGANISM Status: Suspected (4) Chronic anemia Code(s): D64.9 - ANEMIA, UNSPECIFIED Status: Chronic (5) DM type 2 (diabetes mellitus, type 2) Status: Chronic Qualifiers: Diabetes mellitus detention insulin use: without detention use (6) Paroxysmal A-fib Code(s): I48.0 - PAROXYSMAL ATRIAL FIBRILLATION Status: Chronic - Plan Overnight events noted is currently in sinus rhythm, BP has stabilized, will be slowly tapering levophed down on cefepime, levaquin, nebs, steroids, lovenox full dose, lantus, paxil, protonix labs in am usg venous doppler LE and kidneys has prior h/o rectus sheath hematoma, will check h/h in am is off amiodarone drip and lopressor echo is pending has taken adriamycin for breast ca in the past pt is in remission from 3 cancers, sigmoid, nonsmall cell lung right and breast ca.
--- NOTE | 2019-09-01 12:40 | ULT ---
EXAM: US Renal Bilateral STANDARD PROVIDED CLINICAL HISTORY: Acute kidney injury COMPARISON: None FINDINGS: Right kidney measures approximately 10.1 x 4.9 x 5.1 cm and demonstrates no evidence for hydronephros is, sonographically apparent calculus or mass. Left kidney measures approximately 10.6 x 4.9 x 5.8 cm and demonstrates no evidence for hydronephrosi s, sonographically apparent calculus or mass. Baca catheter decompresses urinary bladder. A small amount of nonspecific free pelvic fluid is seen. IMPRESSION: No evidence for hydronephrosis.
--- NOTE | 2019-09-01 12:41 | ULT ---
EXAM: Bilateral lower extremity venous Doppler PROVIDED CLINICAL HISTORY: Sepsis FINDINGS: Grayscale and color Doppler sonography with spectral analysis was performed of the common femoral, fe moral, popliteal, posterior tibial, greater saphenous and profunda femoral veins bilaterally. The evaluated venous structures demonstrate a normal sonographic appearance. IMPRESSION: No sonographic evidence for lower extremity deep venous thrombosis.
[2019-09-01] MEDS: Sodium Chloride 0.9% 1,000 ML IV SCH (12:50)
[2019-09-01 14:18] LABS: Potassium 4.9 mmol/L (3.5-5.1)
[2019-09-01 14:33] LABS: Troponin I 1.007 ng/mL (< 0.028)
--- NOTE | 2019-09-01 15:35 | CON ---
DATE OF CONSULTATION: 09/01/2019 INDICATION FOR CONSULTATION: A 74-year-old female with multiple medical problems, who was admitted with acute respiratory failure, required intubation. She also had a history of SVT with a rapid ventricular response. She was given medications for this, and subsequently, has returned to sinus rhythm, also had an episode of junctional rhythm after she had converted. She has an extensive past medical history. She has had a history of colon cancer with a partial colon resection. She has also had a history of breast cancer. She has had a history of lung cancer, and most recently treated this with radiation therapy. She did have chemotherapy for breast cancer. She had surgical correction of her colon cancer. She has a Port-A-Cath still in place in the right upper chest area, uncertain when the last date of her chemotherapy was, but there was some concern that with her breast cancer she had received Adriamycin, which certainly can be cardiotoxic. She did have an echocardiogram in 2017, which showed an ejection fraction of 45% to 50%, I believe. At that time, she was seen by Dr. Dodge. I do not think she has had any Cardiology followup since her admission in 2017. When she came in, she has significant problems with neck pain. Has had herniated bulging disk causing pain. She has been seen by pain control doctor. She also was seen by Dr. Adrian and was undergoing electrical stimulation to help with depression as well as her pain. When she presented yesterday, she was noted to be in a rapid heart rate and became short of breath. She called her daughter and said that she could not breathe and thought she was having a heart attack, and she was brought to the emergency room, where she was found to have SVT. Heart rate was about 150 beats per minute at that time, which could be some underlying flutter. She was given medications and converted to sinus rhythm, and later on, had atrial fibrillation supposedly and then developed the junctional rhythm. She had been placed on Multaq in the past. At this time , she had been placed on IV amiodarone, at which time she developed the junctional rhythm. At this time, her heart rates were in the 70s to 80s and shows a sinus rhythm. She had an echocardiogram performed, which showed severe decrease in left ventricular systolic function. Ejection fraction at best is 20% to 25%. She has wevx-he-vixmbjol mitral valve regurgitation, and she has dgdc-yh-maiuxlbz aortic valve regurgitation. She has mild tricuspid valve regurgitation. She has evidence of left ventricular hypertrophy, which is mild. She has some mild mitral annular calcifications. The IVC was dilated compatible with volume overload. On evaluation of the echocardiogram, the anterior wall, septum, apex, and inferior wall appeared to be severely hypokinetic to akinetic. The septum is actually somewhat dyskinetic. At this time, she remains on the ventilator. Vital signs otherwise are stable. She is alert. She understands what is going on. She is able to communicate somewhat. There was some thought that perhaps she was septic also as she was acidotic, where this maybe due to low cardiac output. She has had some history according to the family of some lower extremity edema recently, which has actually had gotten somewhat better, but several months ago was much worse. She is able to ambulate around the house, but she walks with a walker, and she does not do any significant physical exertion. She has had no history in the past of coronary artery disease or other cardiomyopathy, except in 2017 with the echocardiogram, which showed an ejection fraction of 45% to 50% with moderate mitral and aortic valve regurgitation at that time. PAST MEDICAL HISTORY: Significant for the non-small cell carcinoma of the lungs , for which she underwent chemotherapy and radiation and also a breast cancer and colon cancer. She has hypertension, diabetes, anemia of chronic disease. She has had a cholecystectomy, a hysterectomy, a partial colectomy with colostomy. She has lumpectomy from the breast. She has a MediPort placement. ALLERGIES: SHE IS ALLERGIC TO IODINE, WHICH CAUSES HER TO HAVE URTICARIA AND SHE ALSO IS ALLERGIC TO SULFA. MEDICATIONS: Include, 1. Lasix. 2. Hydrochlorothiazide. 3. P.r.n. Baker and Ativan. 4. Lisinopril 40 mg a day. 5. Lovastatin 20 mg a day. 6. Metformin 4 times a day. 7. Catapres 0.1 mg b.i.d. 8. Selenium 200 mcg daily. 9. Paxil 20 mg a day. 10. Metoprolol. This was held as the patient became bradycardic. 11. She had also been on Multaq at some point in time, but I do not see that she has continued that medication since she was seen by Dr. Dodge in 2017. Her other medications at this time include DuoNeb's as well as magnesium. 1. Ferrous sulfate. 2. Lasix 20 mg a day. 3. The Multaq was 400 mg twice a day. It appears that she was still taking this medicine. 4. Lopressor 50 mg a day. 5. Lisinopril 40 mg a day. 6. She was on Baker also for pain. 7. Fluticasone nasal spray. 8. Paroxetine. 9. Lorazepam. 10. Buspirone. SOCIAL HISTORY: She has a supportive family. Her parents are . She smoked in the past, but supposedly stopped, but however, according to some family member, she continues to smoke. There is no significant alcohol use. REVIEW OF SYSTEMS: The patient remains on the ventilator, but the family does not say that she has had any other significant complaints, except for occasional some shortness of breath, but this has not been a problem recently. She is able to ambulate with a walker, but mainly complains of the neck pain. She is unable to drive and hold her head up due to the pain in the neck associated with a bulging disk. PHYSICAL EXAMINATION: GENERAL: Reveals an elderly female, who is on the ventilator. She is alert. VITAL SIGNS: Her blood pressure at this time is 134/89, heart rate is 87 and regular, O2 saturation is 100%, respiratory rate is about 30. HEENT: Shows the head to be normocephalic and atraumatic. Carotid pulses are present. CHEST: Has some occasional expiratory wheezing. Decreased breath sounds are noted on the right side. CARDIOVASCULAR: Reveals a regular rate and rhythm at this time. She has a very soft systolic murmur at the apex. ABDOMEN: Tender. Even though the patient on the ventilator, just with the mild palpation, the abdominal exam shows that she is tender. I could not do any deep palpation. I could not hear any bowel sounds. She is tympanic. EXTREMITIES: Showed no clubbing or cyanosis at this time. Pedal pulses are difficult to palpate, but are present. Otherwise, I do not see any abnormalities. NEUROLOGIC: The patient is somewhat sedated, but she is arousable. I cannot elicit any gross defects. LABORATORY DATA: Shows a WBC of 8.3, earlier it was 12.4, hemoglobin was 9.1, hematocrit was 29.1, and platelet count was 192,000. Her sodium is 133. Her potassium is elevated at 6.2, earlier it was not elevated, it was 3.4, and this maybe due to her acute renal insufficiency. Her CO2 was 13, creatinine was 1.6 and BUN was 16. Lactic acid on admission was 7.8, then increased up to 10.2, and that was her last lactic acid level. Troponin I is indeterminate, but the last was 0.782, and the previous to that was 0.046. Her MB is negative. I do not see the BNP was performed. We may need to obtain a BNP just for completeness of her evaluation. Her blood sugar was 104. Calcium was 6.8. IMAGING STUDIES: Her EKG this morning, her rhythm strip showed that she remains in sinus rhythm. She did have significant bradycardia yesterday evening with a junctional rhythm. This was around midnight of about 47 beats per minute. At that time, her beta-blockers as well as the amiodarone were discontinued. We will repeat a 12-lead EKG today since she is back in sinus rhythm for evaluation of her QT interval also. IMPRESSION AND PLAN: 1. Elderly female with what appears to be significant cardiomyopathy and congestive heart failure with exacerbation yesterday after she developed supraventricular tachycardia. This is now converted back to sinus rhythm. We will continue to monitor this for her. She may need to be placed back on the Multaq. We will hold these medications at this time and would opt for low-dose of beta-blockers if necessary. 2. History of three different episodes of malignancy involving the breast, the lung, and the colon. Apparently, she has been in remission of all of these, will be followed by the oncologist. 3. History of cervical herniated disk and suffers significantly with pain. Has been going for electrical nerve stimulation to help with this. 4. Depression, which also has been helped by the nerve stimulation. Apparently , she has only had 3 episodes of this. 5. Chronic anemia, which is most likely the anemia of chronic disease as well as some renal insufficiency. In the past, her renal function has not been significantly compromised. 6. Severe cardiomyopathy, which maybe due to previous chemotherapy or maybe due to coronary artery disease. She did have radiation therapy in the past. I will repeat the EKG to evaluate for possible old myocardial infarction certainly involving the anterior wall. She has very low R-waves with deep T-wave inversions in the anterior leads, which certainly could mean that she has had a recent myocardial infarction, but the enzymes do not indicate any significant anterior myocardial infarction. Otherwise, I would expect the enzymes to be some significantly elevated. We will ask for a repeat EKG. We will continue to monitor the patient. 7. Possible sepsis accounting for her acidosis. Otherwise, this may just be due to low cardiac output and poor perfusion. We will be more than happy to continue to follow the patient with you throughout her hospital course. Hopefully, she will improve and she will need some diuresis, and also, will need control of the heart rate. Should she continue to have bouts of SVT, she may need to undergo an ablation for the SVT, if we cannot control this by medications. Otherwise, her overall prognosis is relatively poor due to her multiple medical problems. If the ejection fraction does not improve, then obviously her prognosis is extremely poor. Job ID: [id number] MTDD
--- NOTE | 2019-09-01 16:01 | CON ---
DATE OF CONSULTATION: 09/01/2019 HISTORY OF PRESENT ILLNESS: Ms. Garcia is a 74-year-old female, who was seen in my office. She presented yesterday with complaints of having an increased heart rate. She was seeing Dr. Borden for some type of electrical stimulation for neck pain. She was short of breath with her elevated heart rates and was transferred to the emergency room. She subsequently has been intubated. She required volume resuscitation and pressors overnight for it as well as hyperventilation for metabolic acidosis, but she was evaluated this morning and this afternoon. She appears to be clinically improving. She will awake and then nod to questions and nods that she is reasonably comfortable. PAST MEDICAL HISTORY: Remarkable for: 1. Uuz-tqhcs-svlt lung cancer. 2. History of rectal cancer. 3. History of breast cancer. 4. History of diabetes. 5. History of atrial fibrillation in the past. 6. Valvular heart disease. 7. History of COPD. 8. History of chronic neck pain. 9. History of compression fractures in the past. 10. History of cholecystectomy. 11. History of appendectomy. 12. Status post hysterectomy. MEDICATIONS: Prior to admission, she was on 15 medicines. These have been reviewed. ALLERGIES: SHE REPORTS ALLERGIES TO SULFA AND IODINE. FAMILY HISTORY: Negative for lung disease in early age. There is family history of diabetes. SOCIAL HISTORY: She is nonsmoker and nondrinker. REVIEW OF SYSTEMS: Otherwise, negative. PHYSICAL EXAMINATION: VITAL SIGNS: She is afebrile, blood pressure 130/72, respiratory rates in the high 20s. HEENT: Pupils react. Sclerae are anicteric. NECK: Supple. LUNGS: Remarkable for coarse equal breath sounds. HEART: Regular rhythm. S1 and S2 are normal. ABDOMEN: Soft and nontender. EXTREMITIES: Without clubbing, cyanosis, or edema. IMAGING STUDIES: Chest x-ray is hazy involving the right upper lobe, but this has not changed significantly since October of last year, maybe an infiltrate in the left perihilar area. Echocardiogram done today shows an ejection fraction of 20% to 25%, which is new. Lower extremity angiograms via Doppler were done, which were negative. LABORATORY DATA: White count 8.3, hemoglobin 9.1, platelets 192. Sodium 133; potassium 6.2, repeat after lunch is 4.9; chloride 106; bicarb 13; BUN 16; creatinine 1.68. IMPRESSION: 1. Respiratory failure with clinical sepsis. 2. New left ventricular systolic dysfunction. 3. elevated troponin. 4. Mhhsq-bc-gawnawp kidney disease. 5. History of multiple malignancies. 6. Diabetes. Her abdomen is mildly tender, but not bowel or tender, so I do not feel CAT scanning or Surgery consultation is indicated. I met with the family and answered all their questions. Hopefully, she will wean off pressors over the next 24 hours. Cultures have been reviewed. She is growing Streptococcus from her urine, but nothing from her blood. Critical care time is 35 minutes. Job ID: [id number] MTDD
[2019-09-01] MEDS: Propofol 1,000 MG/100 ML VIAL IV PRN (19:50)
[2019-09-01 20:13] LABS: Troponin I 1.231 ng/mL (< 0.028)
[2019-09-01] MEDS: Pantoprazole 40 MG VIAL IVP SCH (21:26)
[2019-09-01] MEDS: Insulin Glargine 15 UNITS in Pre-Filled Syringe 1 EACH SC SCH (21:26)
[2019-09-02] MEDS: HumaLOG 300 UNITS/3 ML VIAL SC PRN ×3 (00:05→12:58)
[2019-09-02] MEDS: Propofol 1,000 MG/100 ML VIAL IV PRN (03:39)
[2019-09-02] MEDS: Sodium Bicarbonate 150 MEQ in Dextrose 5% in Water 1,000 ML IV SCH (04:28)
[2019-09-02 04:50] LABS: Cardiac Risk 6.5 (Less than 4.5); Magnesium 1.6 mg/dL (1.6-2.6)
[2019-09-02] MEDS: Cefepime 1 GM in Sodium Chloride 0.9% 100 ML IVPB SCH (05:38)
[2019-09-02] MEDS: methylPREDNISolone Sod Succ 40 MG VIAL IVP SCH ×3 (05:39→21:47)
[2019-09-02 06:55] LABS: Actual Bicarbonate (HCO3a) 25.3 mEq/L (22-28); Base Excess (BEa) 5.8 mEq/L (-2.0 to +3.0); Calcium, Ionized 0.89 mmol/L (1.12-1.30); Carboxyhemoglobin (COHb) 0.6 gm% (0.0-3.0); O2 Tension (PaO2) 90.9 mmHg (> 70.0); Potassium - ABG Lab 2.91 mmol/L (3.70-5.30)
[2019-09-02 06:56] LABS: CO2 Tension 21.1 mmHg (35.0-45.0); Puncture Site RRA
[2019-09-02 06:57] LABS: ALV-art Gradient 167.925 (0-20)
[2019-09-02 08:33] LABS: Anion Gap 17 mmol/L (10-20); BUN (Urea Nitrogen) 34 mg/dL (9.8-20.1); Calc. Creatinine Clearance 22 mL/min (70-130); Calcium 6.6 mg/dL (7.8-10.44); Carbon Dioxide 23 mmol/L (23-31); Chloride 93 mmol/L (98-107); Estimated GFR-MDRD 18; Glucose 196 mg/dL (83-110); Potassium 2.9 mmol/L (3.5-5.1); Sodium 130 mmol/L (136-145)
[2019-09-02 08:38] LABS: Band 25 % (5-11); Hemoglobin 8.7 g/dL (12.0-16.0); Lymphocytes 4 % (21-51); MDiff Complete? YES; Mean Corpuscular HGB CONC 32.8 g/dL (32.0-36.0); Mean Corpuscular Hemoglobin 27.1 pg (27.0-31.0); Mean Corpuscular Volume 82.6 fL (78.0-98.0); Mean Platelet Volume 8.9 fL (7.4-10.4); Monocytes 3 % (0-10); Neutrophil 67 % (42-75); Platelet Count 100 thou/uL (130-400); Platelet Morphology Comment Appears Decreased; Polychromasia SLIGHT = 2-3 cells (100X) (0-2/hpf); Promyelocytes 1 % (0-0); RBC Distribution Width 14.5 % (11.5-14.5); Red Blood Cell (RBC) Count 3.22 mill/uL (4.20-5.40); White Blood Cell (WBC) Count 10.5 thou/uL (4.8-10.8)
[2019-09-02] MEDS ORDERED: Enoxaparin Sodium 80 MG/0.8 ML SYRINGE SC SCH (09:00)
[2019-09-02] MEDS: PARoxetine 20 MG TAB PO SCH (09:03)
[2019-09-02] MEDS: Pantoprazole 40 MG VIAL IVP SCH (09:04)
[2019-09-02] MEDS: Aspirin Chewable 81 MG TAB PO SCH (09:04)
--- NOTE | 2019-09-02 09:47 | RAD ---
Frontal radiograph chest 09/02/2019 COMPARISON: 08/31/2019 HISTORY: Shortness of breath, tachypnea FINDINGS: Right-sided Port-A-Cath present. No pneumothorax seen. Mild linear interstitial density. St able endotracheal tube and nasogastric tube. Focal dense right perihilar and medial right basilar opacity suggests consolidation/collapse, possibly on the basis of postobstructive change from right h ilar mass. When compared to the 08/31/2019 exam, focal opacity in the infrahilar region/medial right lung base has worsened significantly. IMPRESSION: Worsened density in the right perihilar/right infrahilar region suggesting worsening cons olidation/collapse and medial right base. This may be postobstructive in nature.
--- NOTE | 2019-09-02 12:11 | PRG ---
DATE OF SERVICE: 09/02/2019 SUBJECTIVE: Kellie Garcia is sedated this morning. She will awaken. OBJECTIVE: VITAL SIGNS: Blood pressure 160/93, heart rate is in the 90s, FiO2 of 40%, and respiratory rate was in the teens. GENERAL: We turned down her sedation and then turned it off. LUNGS: Clear. HEART: Regular rhythm. ABDOMEN: Soft. LABORATORY DATA: Chest radiograph today showed it is almost completely clear. A pH is 7.7, CO2 is 21, and pO2 is 90. Sodium 138, potassium 2.9, chloride 93, bicarb 23, BUN 34, and creatinine 2.63 up from 1.68 yesterday. Intake and output are positive 570. She is up 8 L since she was admitted to the hospital according to intake and output, but it has had a bump in her creatinine. Bicarb drip has been discontinued. Cultures have been reviewed, should grow Enterococcus out of her urine. This was read out yesterday as a Streptococcus species. This is a pansensitive enterococcus. IMPRESSION AND PLAN: 1. Respiratory failure with clinical sepsis. Her blood culture is negative. Enterococcus did grow out of her urine. 2. Newly diagnosed cardiomyopathy. 3. Acute on chronic kidney disease with a decline in renal function today. 4. History of multiple malignancies. 5. Diabetes. Her bump in creatinine is delayed acute tubular necrosis associated with her hypotension on admission. Her acid base disorder has resolved, so her bicarb drip has been discontinued. We will see what she looks like once she is awake. We will consider extubation. She passed the spontaneous breathing trial. CRITICAL CARE TIME: 30 minutes. Job ID: [id number]
--- NOTE | 2019-09-02 12:23 | PDOC.HOSPP ---
- Subjective Encounter Date: 09/02/19 Encounter Time: 10:15 Subjective: on vent, sedated not in distress - Objective Vital Signs & Weight: Vital Signs (12 hours) Temp Pulse Resp BP Pulse Ox 09/02/19 11:00 93 161/93 H 09/02/19 10:00 20 09/02/19 08:00 98.8 F 30 H 98 09/02/19 07:36 86 148/73 H 09/02/19 06:00 30 H 09/02/19 04:00 99.2 F 30 H 09/02/19 03:28 87 09/02/19 02:00 30 H Weight Admit Weight 153 lb 7.068 oz Weight 162 lb 4.163 oz Most Recent Monitor Data Heart Rate from ECG 87 NIBP 161/93 NIBP BP-Mean 115 Respiration from ECG 12 SpO2 99 I&O: 09/01/19 09/02/19 09/03/19 06:59 06:59 06:59 Intake Total 3703.2 4135 830 Output Total 230 135 260 Balance 3473.2 4000 570 Result Diagrams: 09/02/19 08:00 09/02/19 08:00 Additional Labs: Accuchecks 09/02/19 09/01/19 09/01/19 05:49 23:49 18:18 POC Glucose 278 H 294 H 260 H Hospitalist ROS - Medication Medications: Active Medications Generic Name Dose Route Start Last Admin Trade Name Freq PRN Reason Stop Dose Admin Albuterol/Ipratropium 3 ml 08/31/19 19:00 09/02/19 10:59 Duoneb NEB 3 ml [id number] CRIS Administration Aspirin 81 mg 09/02/19 09:00 09/02/19 09:04 Aspirin Chewable PO 81 mg DAILY CRIS Administration Fentanyl Citrate 2,000 mcg/ 100 mls @ 0 mls/hr 08/31/19 20:00 09/02/19 03:33 Sodium Chloride IV 09/30/19 20:00 100 mls INF CRIS Administration Protocol Per Protocol Insulin Glargine 15 units/ 0.15 mls @ 0 mls/hr 08/31/19 21:00 09/01/19 21:26 Miscellaneous Medication SC 0.15 mls HS CRIS Administration Norepinephrine Bitartrate 250 mls @ 0 mls/hr 08/31/19 22:15 09/01/19 11:13 Levophed IVPB 250 mls INF CRIS Administration Protocol Titrate Sodium Bicarbonate 150 meq/ 1,150 mls @ 150 mls/hr 09/01/19 05:45 09/02/19 04 :28 Dextrose/Water IV 1,150 mls INF CRIS Administration Dexmedetomidine HCl 200 mcg/ 50 mls @ 0 mls/hr 09/02/19 12:00 09/02/19 12:13 Sodium Chloride IVPB 50 mls INF CRIS Administration Protocol Per Protocol Insulin Human Lispro 0 units 08/31/19 20:47 09/02/19 05:46 Humalog SC 6 unit .MODERATE SLIDING SC PRN Administration Moderate Correctional Scale Methylprednisolone Sodium Succinate 20 mg 08/31/19 22:00 09/02/19 05:39 Solu-Medrol IVP 20 mg Q8HR CRIS Administration Pantoprazole Sodium 40 mg 09/01/19 21:00 09/02/19 09:04 Protonix IVP 40 mg Q12HR CRIS Administration Potassium Chloride 40 meq 09/02/19 09:00 09/02/19 09:06 Klor-Con PER TUBE 09/02/19 21:01 40 meq 0300,0900,1500,2100 CRIS Administration Propofol 1,000 mg 08/31/19 20:00 09/02/19 03:39 Diprivan IV 09/30/19 20:00 1,000 mg INF PRN Administration TO ACHIEVE GOAL RASS Protocol - Exam General Appearance: ill appearing Eye: PERRL, anicteric sclera ENT: no oropharyngeal lesions, dry oral mucosa Neck: supple, no JVD Heart: RRR, no murmur Respiratory: no wheezes, no rales, rhonchi Gastrointestinal: soft, normal bowel sounds, no guarding, no rigidity Extremities: no cyanosis, no edema Neurological: cranial nerve grossly intact, no focal deficits Hosp A/P (1) Acute respiratory failure with hypoxia Code(s): J96.01 - ACUTE RESPIRATORY FAILURE WITH HYPOXIA Status: Acute (2) Sepsis Code(s): A41.9 - SEPSIS, UNSPECIFIED ORGANISM Status: Acute Qualifiers: Sepsis type: sepsis due to unspecified organism Sepsis acute organ dysfunction status: with acute organ dysfunction Severe sepsis acute organ dysfunction type: acute renal failure Severe sepsis shock status: with septic shock (3) PNA (pneumonia) Code(s): J18.9 - PNEUMONIA, UNSPECIFIED ORGANISM Status: Acute Qualifiers: Pneumonia type: due to unspecified organism Laterality: right Lung location: middle lobe of lung Qualified Code(s): J18.9 - Pneumonia, unspecified organism (4) Chronic anemia Code(s): D64.9 - ANEMIA, UNSPECIFIED Status: Chronic (5) DM type 2 (diabetes mellitus, type 2) Status: Chronic Qualifiers: Diabetes mellitus chcf insulin use: without chcf use (6) Paroxysmal A-fib Code(s): I48.0 - PAROXYSMAL ATRIAL FIBRILLATION Status: Chronic (7) Cardiomyopathy Code(s): I42.9 - CARDIOMYOPATHY, UNSPECIFIED Status: Acute Qualifiers: Cardiomyopathy type: unspecified Qualified Code(s): I42.9 - Cardiomyopathy , unspecified - Plan Has low platelets, will dc lovenox, if ct is -ve for surgical causes will add eliquis Has sepsis, right middle lobe atelectasis, likely will need bronchoscopy today with BAL for cytology. Will get CT chest/abd and pelvis wo contrast to r/o surgical abd/in view of sepsis, worsening renal function and to r/o recurrence of cancer? renally dose all meds, replace kcl is currently in sinus rhythm, BP has stabilized, is off levophed on cefepime, levaquin, nebs, steroids, lantus, paxil, protonix labs in am usg venous doppler LE and kidneys did not reveal any abnormality has prior h/o rectus sheath hematoma, h/h is low now likely from dilution is off amiodarone drip and lopressor echo shows ef of 25%, likely has underlying ict developer has taken adriamycin for breast ca in the past pt is in remission from 3 cancers, sigmoid, nonsmall cell lung right and breast ca. Prognosis guarded
[2019-09-02] MEDS ORDERED: Carvedilol 3.125 MG TAB PO SCH (13:30)
[2019-09-02] MEDS: Sodium Chloride 0.45% 1,000 ML IV SCH (13:57)
[2019-09-02] MEDS ORDERED: Iopamidol 370 76% 50 ML VIAL FS ONE (16:05)
[2019-09-02] MEDS: Carvedilol 3.125 MG TAB PO SCH (16:50)
[2019-09-02] MEDS ORDERED: Levofloxacin 750 mg/D5W 500 MG in Premix Bag 1 BAG IVPB SCH (18:00)
--- NOTE | 2019-09-02 21:16 | CT ---
CT thorax noncontrast CT abdomen noncontrast CT pelvis noncontrast: 09/02/2019 HISTORY: 74-year-old female with sepsis. COMPARISON: CT thorax 05/01/[address] abdomen and pelvis 11/08/2018. FINDINGS: Again noted is the vertebroplasty cement within 3 successive mid thoracic vertebral body compression fractures. Previously, there was moderately large region of consolidation at superior segment of right lower lob e. Now, that consolidation remains, but is also contiguous with additional airspace density involving basilar segment of right lower lobe, and consolidation involving posterior segment of right upper lobe. There is new right pleural effusion that occupies approximately 30% of right hemithoracic volume. There is a new left pleural effusion that occupies approximately 20% volume of l eft hemithoracic cavity. New endotracheal tube distal tip at mid thoracic trachea. New esophagogastric tube distal tip in proximal stomach fundus. No pneumothorax. No pulmonary edema. Deanna re narrowing and obstruction of branches of right lower lobe bronchus. New finding of edema of the subcutaneous fat circumferentially around the abdominal cavity, but espec ially severe at the bilateral flanks. New finding of small amount of free fluid within the abdominal cavity and pelvic cavity. Craniocaudal dimension of the liver has increased from previous 15.5 cm to current 18 cm. This result s in new inferior displacement of right kidney. Minimal dilation of bilateral renal collecting systems. Interval mild enlargement of both kidneys. No small bowel dilation. Atherosclerosis without aneurysm of abdominal aorta. Cholecystectomy clips. Difficult to evaluate for pancreatitis because of the ascites. Difficult to evaluate for colonic diverticulitis because of the ascites. Suture line near rectosigmoid junction. No pneumoperitoneum. No splenomegaly. Baca catheter in an empty bladder. IMPRESSION: 1. Bilateral pleural effusions, moderate size on the right and small on the left, new. 2. Extension of consolidation in right lung, now involving most of right lower lobe and posterior seg ment of right upper lobe. This could represent pneumonia and/or severe atelectasis. Associated obstruction of branches of right lower lobe bronchus. 3. New small volume ascites. 4. New anasarca. 5. New bilateral nephromegaly. 6. Interval mild enlargement of liver.
[2019-09-02] MEDS: Insulin Glargine 15 UNITS in Pre-Filled Syringe 1 EACH SC SCH (21:47)
[2019-09-02] MEDS: Albumin 25% 25 GM/100 ML BOT IVPB SCH (23:11)
[2019-09-03] MEDS: Albumin 25% 25 GM/100 ML BOT IVPB SCH ×4 (04:50→21:47)
[2019-09-03 05:12] LABS: #Lymphocytes 0.7 thou/uL (1.20-3.40); #Monocytes 0.3 thou/uL (0.11-0.59); #Neutrophils 9.3 thou/uL (1.40-6.50); %Eosinophils 0.2 % (0.0-10.0); %Lymphocytes 6.6 % (21.0-51.0); %Monocytes 3.1 % (0.0-10.0); %Neutrophils 90.1 % (42.0-75.0); Mean Corpuscular Hemoglobin 26.8 pg (27.0-31.0); Mean Corpuscular Volume 83.8 fL (78.0-98.0); Mean Platelet Volume 9.6 fL (7.4-10.4); Platelet Count 79 thou/uL (130-400); RBC Distribution Width 14.4 % (11.5-14.5); Red Blood Cell (RBC) Count 3.34 mill/uL (4.20-5.40); White Blood Cell (WBC) Count 10.3 thou/uL (4.8-10.8)
[2019-09-03] MEDS: methylPREDNISolone Sod Succ 40 MG VIAL IVP SCH ×3 (05:45→21:47)
[2019-09-03] MEDS: Cefepime 1 GM in Sodium Chloride 0.9% 100 ML IVPB SCH (05:45)
[2019-09-03 06:09] LABS: Anion Gap 18 mmol/L (10-20); BUN (Urea Nitrogen) 44 mg/dL (9.8-20.1); Calc. Creatinine Clearance 18 mL/min (70-130); Calcium 7.2 mg/dL (7.8-10.44); Carbon Dioxide 24 mmol/L (23-31); Chloride 94 mmol/L (98-107); Estimated GFR-MDRD 14; Glucose 114 mg/dL (83-110); Potassium 4.8 mmol/L (3.5-5.1); Sodium 131 mmol/L (136-145)
[2019-09-03] MEDS: Morphine 2 MG/ML SYRINGE SLOW IVP PRN ×2 (08:12→17:42)
[2019-09-03] MEDS: Famotidine/PF 20 mg/2ml Vial SLOW IVP SCH (08:14)
[2019-09-03] MEDS: Aspirin Chewable 81 MG TAB PO SCH (08:14)
[2019-09-03] MEDS: Carvedilol 3.125 MG TAB PO SCH ×2 (08:14→17:32)
--- NOTE | 2019-09-03 08:44 | RAD ---
FRONTAL RADIOGRAPH CHEST: DATE: 09/03/2019. COMPARISON: 09/02/2019. HISTORY: Short of breath, ventilated patient. FINDINGS: Stable endotracheal tube and nasogastric tube. There is bilateral lower lobe consolidation/collapse and bilateral pleural effusions, enlarged since the prior examination, right greater than left. Ther e is dense opacity in the left upper lobe region which has worsened significantly when compared to th e most recent prior exam as well. CT injectable right-sided Port-A-Cath present. No pneumothorax. IMPRESSION: Worsening bibasilar consolidation. Enlarging bilateral pleural effusions. New prominent opacificati on of right upper lobe region. POS: [facility]
[2019-09-03] MEDS ORDERED: Furosemide 100 MG/10 ML VIAL SLOW IVP SCH (09:15)
--- NOTE | 2019-09-03 09:39 | CON ---
DATE OF CONSULTATION: HISTORY OF PRESENT ILLNESS: Ms. Garcia is a 74-year-old white female, who was admitted for an acute respiratory failure with hypoxemia. The patient has been intubated and currently on ventilator support. Her cardiac echo showed a significantly decreased ejection fraction. We are now being consulted due to her worsening renal dysfunction. REVIEW OF SYSTEMS: Not obtainable since the patient is intubated and on ventilator support. PAST MEDICAL HISTORY: History of non-small cell right lung cancer-in remission-status post radiation chemotherapy. She has a history of type 2 diabetes mellitus, history of aortic regurgitation, chronic atrial fibrillation, COPD, status post compression fracture. PAST SURGICAL HISTORY: Includes status post hysterectomy, status post cholecystectomy, status post appendectomy, status post low anterior resection of her sigmoid/rectal cancer in 2012-in remission, status post lung biopsy. MEDICATIONS: 1. The patient is status post albumin infusion. 2. Ampicillin 500 mg IV q.8. 3. Carvedilol 3.125 mg p.o. b.i.d. 4. Cefepime 1 g IV daily. 5. Lovenox 17 mg subcu daily. 6. Famotidine 20 mg IV daily. 7. Insulin glargine 15 units subcu at bedtime. 8. Methylprednisolone 20 mg IV q.8. 9. Zofran p.r.n. SOCIAL HISTORY: The patient lives in [place]. She was a previous smoker, but quit more than 40 years ago. No alcohol use. She is noted to be ambulatory, sedentary lifestyle. ALLERGIES: IODINE, SULFA. TRAUMA: None. IMMUNIZATION: Up to date. HOSPITALIZATIONS: Please see past medical history. PHYSICAL EXAMINATION: VITAL SIGNS: Blood pressure is noted at 156/100, heart rate 95, and pulse ox 100%. GENERAL: The patient is sedated, intubated on ventilator support. SKIN: Adequate turgor. HEENT: Shows a slightly pale conjunctivae. Anicteric sclerae. NECK: No neck mass. No carotid bruits. No JVD. CHEST: No deformities. LUNGS: Decreased breath sounds. HEART: Normal sinus rhythm. No murmur. No gallops. No rubs. ABDOMEN: Globular, soft, nontender, no masses. EXTREMITIES: Positive for edema LABORATORY DATA: September 03, 2019, white count 10.3, hemoglobin 9. Sodium 131, potassium 4.8, chloride 94, carbon dioxide 24, BUN 44, creatinine 3.25, calcium 7.2. September 02, 2019, creatinine 2.63. September 01, 2019, creatinine 1.68. August 31, 2019, creatinine 1.25. May 09, 2019, creatinine 1.04. Renal ultrasound, no hydronephrosis. CAT scan of the abdomen shows ascites. Chest x-ray shows increased lung markings with a ? of a superimposed pneumonia. ASSESSMENT AND PLAN: 1. Acute kidney injury-progressive azotemia. This could be all hemodynamically mediated renal dysfunction. We will have to review the urinalysis and urine chemistry. The other possibility is if this is not a prerenal azotemia, she may have already developed acute tubular necrosis. For the moment, continue to optimize hemodynamics. Due to the minimal urine output and increased generalized edema with this patient, we will give a one time dose of Lasix 80 mg IV x1 dose. The patient is status post albumin infusion. Please note, her ejection fraction is noted to be severely depressed. No indication of any emergent dialysis today. 2. Sepsis, acute respiratory failure. Continue supportive care on empiric IV antibiotics. Her overall prognosis remains guarded. 3. Recheck basic metabolic profile, CBC in a.m. Job ID: [id number]
[2019-09-03] MEDS: Sodium Chloride 0.45% 1,000 ML IV SCH (10:13)
[2019-09-03 10:55] LABS: Actual Bicarbonate (HCO3a) 25.4 mEq/L (22-28); Base Excess (BEa) 1.1 mEq/L (-2.0 to +3.0); Calcium, Ionized 0.94 mmol/L (1.12-1.30); Carboxyhemoglobin (COHb) 0.2 gm% (0.0-3.0); Hemoglobin (Hb) 9.7 g/dL (12.0-16.0); O2 Tension (PaO2) 89.7 mmHg (> 70.0); Potassium - ABG Lab 5.08 mmol/L (3.70-5.30); pH, Arterial 7.43 (7.35-7.45)
[2019-09-03 11:03] LABS: Peep/CPAP 36.9 cmH2O; Puncture Site RRAD
[2019-09-03 12:10] LABS: Bilirubin Negative (Negative); Blood, Urine 2+ (Negative); Clarity Turbid (Clear); Glucose, Urine (Dipstick) 30 mg/dL (Negative); Leukocyte 25 Leu/uL (Negative); Nitrite Negative (Negative); Protein, Urine (Dipstick) 100 mg/dL (Neg-Trace); RBC/HPF 0-3 HPF (0-3); Squamous Epithelial 0-3 HPF (0-3); Urobilinogen Normal mg/dL (Less than 2)
[2019-09-03 12:20] LABS: Bacteria/HPF 1+ HPF (None Seen)
[2019-09-03 12:54] LABS: Creatinine, Urine 49.48 mg/dL (47-110)
--- NOTE | 2019-09-03 13:35 | PRG ---
DATE OF SERVICE: 09/03/2019 SUBJECTIVE: Ms. Garcia will awaken. She was given some morphine for neck pain. OBJECTIVE: VITAL SIGNS: She is afebrile. Heart rates in the 90s, respiratory rates in the 20s, oximetry is 100%, and blood pressure 156/100. LUNGS: Clear. HEART: Regular rhythm. ABDOMEN: Soft. She had a CT ordered yesterday with chest, abdomen, and pelvis. She has a right greater than left effusions, which I am sure related to her newly diagnosed cardiomyopathy. She had ascites as well. She had hepatic congestion on the CT. This finding suggestive of atelectasis for right lower lobe. Reviewing her lab, her creatinine has gone up. Blood gas shows pH 7.43, CO2 of 39, pO2 of 89. With declining renal function, I am hesitant to extubate her. Her hemoglobin is stable at 9 g. I suspect all of this is ATN related to her hypotension, which was associated with a tachyarrhythmia and her cardiomyopathy. She apparently has been feeling poorly for a couple of weeks according to the daughter. She may benefit from a thoracentesis. Might consider bronchoscopy prior to extubation. We will just continue to go one day at a time, but she is not weanable today. Critical care time is 35 minutes. Job ID: [id number] MTDD
--- NOTE | 2019-09-03 15:01 | PDOC.HOSPP ---
- Subjective Encounter Date: 09/03/19 Encounter Time: 11:00 Subjective: Sedated, on vent, not in distress. Daughter at bedside. - Objective Vital Signs & Weight: Vital Signs (12 hours) Temp Pulse Resp Pulse Ox 09/03/19 14:23 85 09/03/19 14:22 71 25 H 99 09/03/19 11:00 98.4 F 09/03/19 10:02 93 25 H 100 09/03/19 08:00 16 09/03/19 07:20 98.6 F 09/03/19 06:57 82 23 H 100 09/03/19 06:00 27 H 09/03/19 04:49 74 09/03/19 04:00 98.8 F 21 H Weight Admit Weight 153 lb 7.068 oz Weight 165 lb 9.074 oz Most Recent Monitor Data Heart Rate from ECG 85 NIBP 151/102 NIBP BP-Mean 118 Respiration from ECG 21 SpO2 100 I&O: 09/02/19 09/03/19 09/04/19 06:59 06:59 06:59 Intake Total 4135 2974.7 80 Output Total 135 577 83 Balance 4000 2397.7 -3 Result Diagrams: 09/03/19 03:46 09/03/19 03:46 Additional Labs: Accuchecks 09/03/19 09/03/19 09/03/19 13:21 06:28 00:00 POC Glucose 139 H 133 H 143 H 09/02/19 09/02/19 19:18 12:45 POC Glucose 139 H 213 H Hospitalist ROS - Medication Medications: Active Medications Generic Name Dose Route Start Last Admin Trade Name Ramosq PRN Reason Stop Dose Admin Albumin Human 25 gm 09/02/19 22:30 09/03/19 10:20 Albumin 25% IVPB 09/03/19 22:31 25 gm Q6H CRIS Administration Albuterol/Ipratropium 3 ml 08/31/19 19:00 09/03/19 14:22 Duoneb NEB 3 ml [id number] CRIS Administration Aspirin 81 mg 09/02/19 09:00 09/03/19 08:14 Aspirin Chewable PO 81 mg DAILY CRIS Administration Carvedilol 3.125 mg 09/02/19 17:00 09/03/19 08:14 Coreg PO 3.125 mg BID-WM CRIS Administration Famotidine 20 mg 09/03/19 09:00 09/03/19 08:14 Pepcid SLOW IVP 20 mg DAILY CRIS Administration Insulin Glargine 15 units/ 0.15 mls @ 0 mls/hr 08/31/19 21:00 09/02/19 21:47 Miscellaneous Medication SC 0.15 mls HS CRIS Administration Norepinephrine Bitartrate 250 mls @ 0 mls/hr 08/31/19 22:15 09/01/19 11:13 Levophed IVPB 250 mls INF CRIS Administration Protocol Titrate Cefepime HCl 1 gm/ Sodium 100 mls @ 200 mls/hr 09/03/19 06:00 09/03/19 05:45 Chloride IVPB 100 mls Q24HR CRIS Administration Sodium Chloride 1,000 mls @ 50 mls/hr 09/02/19 13:30 09/03/19 10:13 1/2 Normal Saline IV 1,000 mls .Q20H CRIS Administration Dexmedetomidine HCl 400 mcg/ 100 mls @ 0 mls/hr 09/02/19 19:45 09/03/19 05:46 Sodium Chloride IVPB 100 mls INF CRIS Administration Protocol Per Protocol Ampicillin Sodium 500 mg/ 100 mls @ 200 mls/hr 09/02/19 23:00 09/03/19 11:25 Sodium Chloride IVPB 100 mls 1100,2300 CRIS Administration Insulin Human Lispro 0 units 08/31/19 20:47 09/02/19 12:58 Humalog SC 4 unit .MODERATE SLIDING SC PRN Administration Moderate Correctional Scale Methylprednisolone Sodium Succinate 20 mg 08/31/19 22:00 09/03/19 14:47 Solu-Medrol IVP 20 mg Q8HR CRIS Administration Morphine Sulfate 2 mg 08/31/19 20:00 09/03/19 08:12 Morphine SLOW IVP 09/30/19 20:00 2 mg Q1H PRN Administration BREAKTHROUGH PAIN/Agitation Propofol 1,000 mg 08/31/19 20:00 09/02/19 03:39 Diprivan IV 09/30/19 20:00 1,000 mg INF PRN Administration TO ACHIEVE GOAL RASS Protocol - Exam General Appearance: ill appearing General - other findings: pallor Eye: PERRL, anicteric sclera ENT: no oropharyngeal lesions, moist mucosa Neck: supple, JVD Heart: RRR, no murmur Respiratory: no wheezes, rales, rhonchi Gastrointestinal: soft, non-tender, normal bowel sounds, distended Extremities: no cyanosis, 1+ LE edema Neurological: cranial nerve grossly intact, no focal deficits Hosp A/P (1) Acute respiratory failure with hypoxia Code(s): J96.01 - ACUTE RESPIRATORY FAILURE WITH HYPOXIA Status: Acute (2) Sepsis Code(s): A41.9 - SEPSIS, UNSPECIFIED ORGANISM Status: Acute Qualifiers: Sepsis type: sepsis due to unspecified organism Sepsis acute organ dysfunction status: with acute organ dysfunction Severe sepsis acute organ dysfunction type: acute renal failure Severe sepsis shock status: with septic shock (3) PNA (pneumonia) Code(s): J18.9 - PNEUMONIA, UNSPECIFIED ORGANISM Status: Acute Qualifiers: Pneumonia type: due to unspecified organism Laterality: right Lung location: middle lobe of lung Qualified Code(s): J18.9 - Pneumonia, unspecified organism (4) Chronic anemia Code(s): D64.9 - ANEMIA, UNSPECIFIED Status: Chronic (5) DM type 2 (diabetes mellitus, type 2) Status: Chronic Qualifiers: 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 has had progressive low platelets, is off Lovenox, will add Eliquis 2.5mg BID if no plans of procedures. Reviewed results of CT chest/abd and pelvis wo contrast renally dose all meds, replace kcl is currently in sinus rhythm, BP has stabilized on cefepime, ampicillin, nebs, steroids, lantus, paxil. 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 Prognosis guarded
[2019-09-03] MEDS: Insulin Glargine 15 UNITS in Pre-Filled Syringe 1 EACH SC SCH (21:46)
[2019-09-04] MEDS: Morphine 2 MG/ML SYRINGE SLOW IVP PRN ×4 (02:33→23:18)
[2019-09-04 04:10] LABS: Anion Gap 23 mmol/L (10-20); BUN (Urea Nitrogen) 63 mg/dL (9.8-20.1); Calc. Creatinine Clearance 15 mL/min (70-130); Calcium 7.6 mg/dL (7.8-10.44); Carbon Dioxide 17 mmol/L (23-31); Chloride 95 mmol/L (98-107); Estimated GFR-MDRD 11; Glucose 107 mg/dL (83-110); Potassium 5.4 mmol/L (3.5-5.1); Sodium 130 mmol/L (136-145)
[2019-09-04 04:31] LABS: Band 10 % (5-11); Hemoglobin 8.8 g/dL (12.0-16.0); Lymphocytes 6 % (21-51); MDiff Complete? YES; Mean Corpuscular HGB CONC 32.6 g/dL (32.0-36.0); Mean Corpuscular Hemoglobin 27.2 pg (27.0-31.0); Mean Corpuscular Volume 83.4 fL (78.0-98.0); Mean Platelet Volume 10.2 fL (7.4-10.4); Monocytes 4 % (0-10); Neutrophil 80 % (42-75); Nucleated RBC 2 % (0); Platelet Count 72 thou/uL (130-400); Platelet Morphology Comment Appears Decreased; RBC Distribution Width 14.2 % (11.5-14.5); Red Blood Cell (RBC) Count 3.23 mill/uL (4.20-5.40); White Blood Cell (WBC) Count 9.6 thou/uL (4.8-10.8)
[2019-09-04] MEDS: methylPREDNISolone Sod Succ 40 MG VIAL IVP SCH ×3 (05:34→22:10)
[2019-09-04] MEDS: Cefepime 1 GM in Sodium Chloride 0.9% 100 ML IVPB SCH (05:34)
[2019-09-04] MEDS: Sodium Chloride 0.45% 1,000 ML IV SCH ×2 (05:47→08:13)
[2019-09-04 07:27] LABS: Base Excess (BEa) -2.3 mEq/L (-2.0 to +3.0); CO2 Tension 35.8 mmHg (35.0-45.0); Calcium, Ionized 0.96 mmol/L (1.12-1.30); Carboxyhemoglobin (COHb) 0.9 gm% (0.0-3.0); Hemoglobin (Hb) 9.3 g/dL (12.0-16.0); O2 Tension (PaO2) 97.7 mmHg (> 70.0); Potassium - ABG Lab 5.29 mmol/L (3.70-5.30); pH, Arterial 7.41 (7.35-7.45)
--- NOTE | 2019-09-04 07:56 | RAD ---
CHEST 1 VIEW: HISTORY: Dyspnea. Intubated. COMPARISON: 09/03/2019. FINDINGS: Cardiac silhouette is magnified and partially obscured by dense infiltrate at the right base and pleu ral fluid similar in appearance to the prior study. Pulmonary vasculature remains engorged. Ill-def ined opacity at the right upper lobe with the appearance of pleural fluid is also similar in appearan ce. Mediastinum is midline with nasogastric tube and endotracheal catheter unchanged in position. No leslie dence of pneumothorax. IMPRESSION: Bilateral pleural fluid, right greater than left, pulmonary vascular congestion, and other findings a re stable. POS: [facility]
[2019-09-04] MEDS: Aspirin Chewable 81 MG TAB PO SCH (08:09)
[2019-09-04] MEDS: Carvedilol 3.125 MG TAB PO SCH ×2 (08:09→17:25)
[2019-09-04] MEDS: Famotidine/PF 20 mg/2ml Vial SLOW IVP SCH (08:09)
[2019-09-04 08:17] LABS: Puncture Site L.R.
[2019-09-04] MEDS ORDERED: Furosemide 100 MG/10 ML VIAL SLOW IVP SCH (08:45)
--- NOTE | 2019-09-04 09:00 | PRG ---
DATE OF SERVICE: 09/04/2019 SUBJECTIVE: Ms. Garcia is a 74-year-old white female, who was seen by the Renal Service for her acute kidney injury. Her creatinine was noted to be progressively worsening in the last few days. I did review the urinalysis yesterday and there is evidence she may have acute tubular necrosis. She was also noted to be on the oliguric side. She was poorly responded to the one time dose of the Lasix at 80 mg IV. She may eventually need dialysis. I will be speaking with the family as regarding to what course they want to take with this patient. No acute events noted last night. Urine output is still much decreased-oliguric side. OBJECTIVE: VITAL SIGNS: Blood pressure is 161/94, heart rate 81, respiratory rate is 12, and pulse ox 97%. GENERAL: The patient is sedated and intubated on ventilator support. SKIN: Adequate turgor. HEENT: Slightly pale conjunctivae. Anicteric sclerae. NECK: No neck mass. No carotid bruits. No JVD. CHEST: No deformities. LUNGS: Decreased breath sounds. HEART: Normal sinus rhythm. No murmurs, gallops, or rubs. ABDOMEN: Globular, soft, and nontender. No masses. EXTREMITIES: Positive for edema. MEDICATIONS: Medications of September 04, 2019, was reviewed. LABORATORY DATA: Laboratories of September 04, 2019; white count 9.6, hemoglobin 8.8. Sodium 130, potassium 4.4, chloride 95, carbon dioxide 17, BUN 63, creatinine 3.94, calcium 7.6. GFR 11 mL/minute. Urinalysis showed specific gravity 1.014, urine sodium 67, urine creatinine 49, positive for pigmented granular casts. ASSESSMENT AND PLAN: 1. Acute kidney injury/oliguric-patient has superimposed acute tubular necrosis. She is also noted to be on the oliguric side. We will give a one time dose of Lasix 120 mg IV. We will discuss with the family regarding possible options-she may be a candidate for emergent hemodialysis in the next 24 to 48 hours. We will discuss the plan at length with the next of kin with this patient. 2. Oliguria. Lasix 120 mg IV x1 dose. 3. Acute respiratory failure-the patient has history of cardiomyopathy. She is unable to be extubated due to her volume overload and worsening renal dysfunction. Job ID: [id number]
--- NOTE | 2019-09-04 10:32 | EKG ---
Test Reason : STAT Blood Pressure : / mmHG Vent. Rate : 047 BPM Atrial Rate : 039 BPM P-R Int : 000 ms QRS Dur : 098 ms QT Int : 742 ms P-R-T Axes : 000 -52 -66 degrees QTc Int : 656 ms Junctional rhythm with occasional Premature ventricular complexes Left anterior fascicular block Anterior infarct , age undetermined Prolonged QT Abnormal ECG When compared with ECG of 13-SEP-2017 15:39, Significant changes have occurred Confirmed by GUERLINE CLEMENTS (2) on 09/04/2019 10:32:23 AM Referred By: GARTH Confirmed By:GUERLINE CLEMENTS
--- NOTE | 2019-09-04 10:33 | EKG ---
Test Reason : Blood Pressure : / mmHG Vent. Rate : 090 BPM Atrial Rate : 090 BPM P-R Int : 238 ms QRS Dur : 092 ms QT Int : 452 ms P-R-T Axes : 071 -16 229 degrees QTc Int : 552 ms Sinus rhythm with 1st degree A-V block Low voltage QRS Cannot rule out Anterior infarct (cited on or before 01-SEP-2019) T wave abnormality, consider inferolateral ischemia Prolonged QT Abnormal ECG When compared with ECG of 01-SEP-2019 00:18, (Unconfirmed) Sinus rhythm has replaced Junctional rhythm Vent. rate has increased BY 43 BPM Left anterior fascicular block is no longer Present Serial changes of Anterior infarct Present Confirmed by GUERLINE CLEMENTS (2) on 09/04/2019 10:33:19 AM Referred By: MAURICE Confirmed By:GURELINE CLEMENTS
--- NOTE | 2019-09-04 10:50 | ULT ---
Exam: Vein mapping for dialysis access HISTORY: End-stage renal disease. TECHNIQUE: Multiplanar grayscale and color Doppler images were obtained in a bilateral upper extremit y venous ultrasound. Spectral analysis of the Doppler waveforms of the vessels were performed. FINDINGS: The bilateral internal jugular veins and subclavian veins are patent without evidence of th rombus. Right brachial artery 3.5 mm Right radial artery 2.8 mm Right ulnar artery 3.2 mm Left brachial artery 4.5 mm Left radial artery 2.1 mm Left ulnar artery 1.7 mm RIGHT CEPHALIC VEIN in millimeters 0.6 -- Shoulder 1.0 -- Upper arm 0.9 -- Mid upper arm 0.7-- Just proximal to the elbow 1.3 -- Just distal to the elbow 1.4 -- Forearm 0.9 -- Wrist RIGHT BASILIC VEIN in millimeters 3.4 -- Shoulder 3.0 -- Upper arm 4.0 -- Mid upper arm 3.9 -- Just proximal to the elbow 1.3 -- Just distal to the elbow 0.9 -- Forearm 0.8 -- Wrist LEFT CEPHALIC VEIN in millimeters 3.0 -- Shoulder 3.3 -- Upper arm 3.3 -- Mid upper arm 3.5 -- Just proximal to the elbow 1.7 -- Just distal to the elbow 1.3 -- Forearm 1.3 -- Wrist LEFT BASILIC VEIN in millimeters 1.4 -- Shoulder 1.2 -- Upper arm 1.1 -- Mid upper arm 1.6 -- Just proximal to the elbow 2.5 -- Just distal to the elbow 2.0 -- Forearm 1.7 -- Wrist IMPRESSION: Vein mapping for dialysis access as above
[2019-09-04 12:30] LABS: HBSAB Concentration 2.09 mIU/mL; HBSAg Index 0.27 S/CO (0-0.99); Hep B Core Total Ab Non-Reactive (NonReactive); Hep B Core Total Index 0.05 S/CO (0-0.79); Hep B Surf AB Non-Reactive (NonReactive); Hep B Surf Ag Non-Reactive S/CO (NonReactive); Hep C IgG Ab Non-Reactive (NonReactive); Hep C Index 0.08 S/CO (0-0.79)
[2019-09-04] MEDS ORDERED: Heparin 10,000 UNITS/ 10 ML VIAL ONE (13:54)
--- NOTE | 2019-09-04 14:47 | PDOC.HOSPP ---
- Subjective Encounter Date: 09/04/19 Encounter Time: 10:30 Subjective: is on vent, awakens to touch is moving all extremities daughter at bedside - Objective Vital Signs & Weight: Vital Signs (12 hours) Temp Pulse Resp BP Pulse Ox 09/04/19 12:00 99.0 F 26 H 09/04/19 11:00 98.2 F 09/04/19 10:46 83 141/94 H 09/04/19 10:45 83 22 H 100 09/04/19 10:00 24 H 09/04/19 08:00 26 H 09/04/19 07:40 97 09/04/19 07:25 98.5 F 09/04/19 06:39 73 132/88 09/04/19 06:38 71 27 H 96 09/04/19 06:00 21 H 09/04/19 04:00 98.1 F 21 H Weight Admit Weight 153 lb 7.068 oz Weight 168 lb 3.403 oz Most Recent Monitor Data Heart Rate from ECG 62 NIBP 159/88 NIBP BP-Mean 111 Respiration from ECG 12 SpO2 100 I&O: 09/03/19 09/04/19 09/05/19 06:59 06:59 06:59 Intake Total 2974.7 2022 210 Output Total 577 321 19 Balance 2397.7 1701 191 Result Diagrams: 09/04/19 03:32 09/04/19 03:32 Additional Labs: Accuchecks 09/04/19 09/04/19 09/03/19 10:38 03:52 21:54 POC Glucose 112 H 111 H 119 H 09/03/19 18:09 POC Glucose 140 H Hospitalist ROS - Medication Medications: Active Medications Generic Name Dose Route Start Last Admin Trade Name Freq PRN Reason Stop Dose Admin Albuterol/Ipratropium 3 ml 08/31/19 19:00 09/04/19 10:45 Duoneb NEB 3 ml [id number] CRIS Administration Aspirin 81 mg 09/02/19 09:00 09/04/19 08:09 Aspirin Chewable PO 81 mg DAILY CRIS Administration Carvedilol 3.125 mg 09/02/19 17:00 09/04/19 08:09 Coreg PO 3.125 mg BID-WM CRIS Administration Famotidine 20 mg 09/03/19 09:00 09/04/19 08:09 Pepcid SLOW IVP 20 mg DAILY CRIS Administration Insulin Glargine 15 units/ 0.15 mls @ 0 mls/hr 08/31/19 21:00 09/03/19 21:46 Miscellaneous Medication SC 0.15 mls HS CRIS Administration Norepinephrine Bitartrate 250 mls @ 0 mls/hr 08/31/19 22:15 09/01/19 11:13 Levophed IVPB 250 mls INF CRIS Administration Protocol Titrate Cefepime HCl 1 gm/ Sodium 100 mls @ 200 mls/hr 09/03/19 06:00 09/04/19 05:34 Chloride IVPB 100 mls Q24HR CRIS Administration Sodium Chloride 1,000 mls @ 50 mls/hr 09/02/19 13:30 09/04/19 08:13 1/2 Normal Saline IV 1,000 mls .Q20H CRIS Administration Dexmedetomidine HCl 400 mcg/ 100 mls @ 0 mls/hr 09/02/19 19:45 09/04/19 09:35 Sodium Chloride IVPB 100 mls INF CRIS Administration Protocol Per Protocol Ampicillin Sodium 500 mg/ 100 mls @ 200 mls/hr 09/02/19 23:00 09/04/19 10:50 Sodium Chloride IVPB 100 mls 1100,2300 CRIS Administration Insulin Human Lispro 0 units 08/31/19 20:47 09/02/19 12:58 Humalog SC 4 unit .MODERATE SLIDING SC PRN Administration Moderate Correctional Scale Methylprednisolone Sodium Succinate 20 mg 08/31/19 22:00 09/04/19 14:37 Solu-Medrol IVP 20 mg Q8HR CRIS Administration Morphine Sulfate 2 mg 08/31/19 20:00 09/04/19 02:33 Morphine SLOW IVP 09/30/19 20:00 2 mg Q1H PRN Administration BREAKTHROUGH PAIN/Agitation Propofol 1,000 mg 08/31/19 20:00 09/02/19 03:39 Diprivan IV 09/30/19 20:00 1,000 mg INF PRN Administration TO ACHIEVE GOAL RASS Protocol - Exam General Appearance: ill appearing Eye: PERRL, anicteric sclera ENT: no oropharyngeal lesions, moist mucosa Neck: supple, no JVD Heart: RRR, no murmur Respiratory: no wheezes, no rales, rhonchi Gastrointestinal: soft, non-tender, non-distended, normal bowel sounds Extremities: no cyanosis, 1+ LE edema Neurological: cranial nerve grossly intact, no focal deficits Hosp A/P (1) Acute respiratory failure with hypoxia Code(s): J96.01 - ACUTE RESPIRATORY FAILURE WITH HYPOXIA Status: Acute (2) Sepsis Code(s): A41.9 - SEPSIS, UNSPECIFIED ORGANISM Status: Acute Qualifiers: Sepsis type: sepsis due to unspecified organism Sepsis acute organ dysfunction status: with acute organ dysfunction Severe sepsis acute organ dysfunction type: acute renal failure Severe sepsis shock status: with septic shock (3) PNA (pneumonia) Code(s): J18.9 - PNEUMONIA, UNSPECIFIED ORGANISM Status: Acute Qualifiers: Pneumonia type: due to unspecified organism Laterality: right Lung location: middle lobe of lung Qualified Code(s): J18.9 - Pneumonia, unspecified organism (4) Chronic anemia Code(s): D64.9 - ANEMIA, UNSPECIFIED Status: Chronic (5) DM type 2 (diabetes mellitus, type 2) Status: Chronic Qualifiers: Diabetes mellitus 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 has had progressive low platelets, is off Lovenox, will add Eliquis 2.5mg BID if no plans of procedures. Reviewed results of CT chest/abd and pelvis wo contrast Got escalating doses of lasix with poor urine output and increasing creatinine, plans are on for HD. is currently in sinus rhythm with likely AV block on monitor, BP has stabilized on cefepime, ampicillin, nebs, steroids, lantus, paxil. 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 Prognosis guarded d/w daughter at bedside and gave an update.
--- NOTE | 2019-09-04 15:41 | PRG ---
DATE OF SERVICE: 09/04/2019 SUBJECTIVE: Kellie Garcia has developed renal failure, so we are awaiting dialysis catheter placement. OBJECTIVE: VITAL SIGNS: Blood pressure 160/87, heart rate 64, respiratory rate in 20s, oximetry is 100%. LUNGS: Remarkable for coarse equal breath sounds. HEART: Regular rhythm. ABDOMEN: Soft. EXTREMITIES: Without edema. LABORATORY DATA: White count 9.6, hemoglobin 8.8, platelets are 72,000. Sodium 130, potassium 5.4, chloride 95, bicarb 17, BUN 63, creatinine 3.94. PH 7.41, CO2 is 35, PO2 is 97. Looking at her weight, she is at least up 15 pounds. Chest radiograph, stable, it shows bilateral effusions. IMPRESSION: 1. Volume overload after volume resuscitation after presenting with hypotension and supraventricular tachycardia. 2. Enterococcus cystitis, which I feel is an incidental finding. 3. Newly diagnosed cardiomyopathy. 4. Acute renal failure, most likely secondary to acute tubular necrosis. Hopefully, we will see return of the renal function in 2 to 3 weeks. I met with the daughter, answered her questions. She is not weanable until we start getting her into a negative fluid balance. CRITICAL CARE TIME: 30 minutes. Job ID: [id number]
[2019-09-04] MEDS ORDERED: Digoxin 0.5 MG/2 ML AMP SLOW IVP SCH (17:00)
[2019-09-04] MEDS ORDERED: hydrALAZINE 25 MG TAB PO SCH (19:30)
[2019-09-04] MEDS: Insulin Glargine 15 UNITS in Pre-Filled Syringe 1 EACH SC SCH (20:07)
--- NOTE | 2019-09-04 22:05 | OP ---
DATE OF PROCEDURE: 09/04/2019 PREOPERATIVE DIAGNOSIS: Acute renal failure, in need of dialysis access, left upper arm midline catheter. PROCEDURE PERFORMED: Placement of right femoral vein Trialysis catheter. ANESTHESIA: 1% Xylocaine. DESCRIPTION OF PROCEDURE: With the patient at bedside, right groin was clipped of hair, prepared with ChloraPrep and draped in routine fashion. Sterile technique was used to place a Trialysis catheter, placed in the J-wire catheter, removing the J-wire and securing the catheter with sutures of 3-0 nylon. Sterile dressings applied. Each port aspirated blood, flushed with heparinized saline solution. Sterile dressing applied. The patient tolerated the procedure well. Job ID: [id number]
[2019-09-04] MEDS ORDERED: cloNIDine 0.1 MG TAB PO SCH (23:45)
[2019-09-05] MEDS ORDERED: hydrALAZINE 20 MG/ML VIAL SLOW IVP SCH (01:30)
[2019-09-05] MEDS: Morphine 2 MG/ML SYRINGE SLOW IVP PRN ×2 (01:54→15:27)
[2019-09-05] MEDS: Propofol 1,000 MG/100 ML VIAL IV PRN ×2 (02:08→20:15)
[2019-09-05 04:25] LABS: Anion Gap 20 mmol/L (10-20); BUN (Urea Nitrogen) 72 mg/dL (9.8-20.1); Calc. Creatinine Clearance 14 mL/min (70-130); Calcium 8.1 mg/dL (7.8-10.44); Carbon Dioxide 22 mmol/L (23-31); Chloride 95 mmol/L (98-107); Estimated GFR-MDRD 10; Glucose 128 mg/dL (83-110); Potassium 5.1 mmol/L (3.5-5.1); Sodium 132 mmol/L (136-145)
[2019-09-05 04:29] LABS: Anisocytosis SLIGHT = 6-15 cells (100X) (0-5/hpf); Band 2 % (5-11); Hemoglobin 9.1 g/dL (12.0-16.0); Lymphocytes 3 % (21-51); MDiff Complete? YES; Mean Corpuscular Volume 84.5 fL (78.0-98.0); Mean Platelet Volume 9.2 fL (7.4-10.4); Monocytes 2 % (0-10); Neutrophil 93 % (42-75); Nucleated RBC 3 % (0); Platelet Count 77 thou/uL (130-400); Platelet Morphology Comment Appears Decreased; Polychromasia SLIGHT = 2-3 cells (100X) (0-2/hpf); RBC Distribution Width 14.3 % (11.5-14.5); Red Blood Cell (RBC) Count 3.37 mill/uL (4.20-5.40); White Blood Cell (WBC) Count 9.4 thou/uL (4.8-10.8)
[2019-09-05] MEDS: methylPREDNISolone Sod Succ 40 MG VIAL IVP SCH ×3 (05:08→22:04)
[2019-09-05] MEDS: Cefepime 1 GM in Sodium Chloride 0.9% 100 ML IVPB SCH (05:08)
[2019-09-05] MEDS: Sodium Chloride 0.45% 1,000 ML IV SCH (05:08)
[2019-09-05 07:43] LABS: Actual Bicarbonate (HCO3a) 23.1 mEq/L (22-28); Base Excess (BEa) -1.9 mEq/L (-2.0 to +3.0); CO2 Tension 40.4 mmHg (35.0-45.0); Calcium, Ionized 1.07 mmol/L (1.12-1.30); Carboxyhemoglobin (COHb) 1.2 gm% (0.0-3.0); Hemoglobin (Hb) 9.3 g/dL (12.0-16.0); O2 Tension (PaO2) 92.3 mmHg (> 70.0); Potassium - ABG Lab 4.31 mmol/L (3.70-5.30); pH, Arterial 7.38 (7.35-7.45)
[2019-09-05 08:14] LABS: Puncture Site L.R.
[2019-09-05] MEDS: Carvedilol 3.125 MG TAB PO SCH ×2 (08:26→16:25)
[2019-09-05] MEDS: hydrALAZINE 25 MG TAB PO SCH ×3 (08:26→20:15)
[2019-09-05] MEDS: Famotidine/PF 20 mg/2ml Vial SLOW IVP SCH (08:26)
[2019-09-05] MEDS ORDERED: hydrALAZINE 25 MG TAB PO SCH (09:00)
--- NOTE | 2019-09-05 09:08 | RAD ---
AP CHEST: HISTORY: CCU followup. Patient on ventilator. COMPARISON: 09/04/2019 FINDINGS: ET tube and NG tube remain in place. There are bilateral effusions and bibasilar atelectasis. Opacifi cation in the right upper lung again noted, unchanged. IMPRESSION: No significant change from yesterday. POS: [facility]
--- NOTE | 2019-09-05 09:38 | PRG ---
DATE OF SERVICE: 09/05/2019 SERVICE: Renal Medicine. SUBJECTIVE: Ms. Garcia is a 74-year-old white female, who was seen by the Renal Service for acute kidney injury secondary to presumed acute tubular necrosis. She underwent hemodialysis yesterday. However, during dialysis, she became very tachycardic and was shortened to treatment. Meanwhile, fluid was removed. This morning, she is undergoing dialysis and seems to be tolerating the said treatment. We are attempting about 1.2 L fluid removal as tolerated by the patient. Please note, she has had history of SVT. She has also recently diagnosed cardiomyopathy. OBJECTIVE: VITAL SIGNS: Blood pressure is currently noted at 185/99 with a heart rate of 73, respiratory rate 18. GENERAL: The patient is noted to be restless, but intubated on ventilator support. SKIN: Adequate turgor. HEENT: She has pinkish conjunctivae. Anicteric sclerae. NECK: No neck mass. No carotid bruits. No JVD. CHEST: No deformities. LUNGS: Clear breath sounds. HEART: Normal sinus rhythm. No murmur. No gallops. No rubs. ABDOMEN: Globular, soft, nontender. No masses. EXTREMITIES: Positive for edema. MEDICATIONS: Medications of September 05, 2019, were reviewed. LABORATORY DATA: Laboratories of September 05, 2019; white count 9.4, hemoglobin 9.1. Sodium 132, potassium 5.1, chloride 95, carbon dioxide 22, BUN 72, creatinine 4.34, glucose 128, calcium 8.1. ASSESSMENT AND PLAN: 1. Acute kidney injury-secondary to acute tubular necrosis. Continue supportive hemodialysis. We are doing a 2-hour hemodialysis with fluid removal only as tolerated. Attempting between 1 and 1.2 L of fluid. 2. Supraventricular tachycardia, stable currently. Heart rate is within normal sinus rhythm. 3. Acute respiratory failure. Continue supportive care. Currently, on ventilator. Overall, prognosis remains guarded. Job ID: [id number]
[2019-09-05] MEDS ORDERED: Sodium Bicarbonate Tab 325 MG TAB PER TUBE PRN (11:42)
[2019-09-05] MEDS ORDERED: Pancrelipase DR 12000 1 CAP FS PRN (11:42)
[2019-09-05] MEDS: Enalaprilat Dihydrate 1.25 MG/ML VIAL SLOW IVP PRN (11:57)
--- NOTE | 2019-09-05 13:14 | PDOC.HOSPP ---
- Subjective Encounter Date: 09/05/19 Encounter Time: 10:00 Subjective: on vent, sedated, awakens a bit to touch/voice getting HD at bedside - Objective Vital Signs & Weight: Vital Signs (12 hours) Temp Pulse Resp BP Pulse Ox 09/05/19 12:00 97.4 F L 09/05/19 11:57 185/88 H 09/05/19 10:09 71 171/84 H 09/05/19 10:08 73 24 H 100 09/05/19 10:00 20 09/05/19 08:26 69 196/108 H 09/05/19 08:00 19 09/05/19 07:18 99 09/05/19 07:09 66 183/85 H 09/05/19 07:08 64 15 100 09/05/19 07:00 96.4 F L 09/05/19 06:00 16 09/05/19 04:00 17 09/05/19 02:17 88 146/71 H 09/05/19 02:00 17 09/05/19 01:33 183/107 H Weight Admit Weight 153 lb 7.068 oz Weight 173 lb 4.533 oz Most Recent Monitor Data Heart Rate from ECG 66 NIBP 173/84 NIBP BP-Mean 113 Respiration from ECG 0 SpO2 99 I&O: 09/04/19 09/05/19 09/06/19 06:59 06:59 06:59 Intake Total 2021 2088 30 Output Total 321 329 130 Balance 1701 1760 -100 Result Diagrams: 09/05/19 03:48 09/05/19 03:48 Additional Labs: Accuchecks 09/05/19 09/05/19 09/04/19 09:45 00:46 18:24 POC Glucose 115 H 125 H 117 H Hospitalist ROS - Medication Medications: Active Medications Generic Name Dose Route Start Last Admin Trade Name Freq PRN Reason Stop Dose Admin Albuterol/Ipratropium 3 ml 08/31/19 19:00 09/05/19 10:08 Duoneb NEB 3 ml [id number] CRIS Administration Aspirin 81 mg 09/02/19 09:00 09/04/19 08:09 Aspirin Chewable PO 81 mg DAILY CRIS Administration Carvedilol 3.125 mg 09/02/19 17:00 09/05/19 08:26 Coreg PO 3.125 mg BID-WM CRIS Administration Enalaprilat 0.625 mg 09/05/19 11:47 09/05/19 11:57 Vasotec SLOW IVP 0.625 mg Q6H PRN Administration SBP > 180 Famotidine 20 mg 09/03/19 09:00 09/05/19 08:26 Pepcid SLOW IVP 20 mg DAILY CRIS Administration Hydralazine HCl 50 mg 09/05/19 09:00 09/05/19 08:26 Apresoline PO 50 mg TID CRIS Administration Insulin Glargine 15 units/ 0.15 mls @ 0 mls/hr 08/31/19 21:00 09/04/19 20:07 Miscellaneous Medication SC 0.15 mls HS CRIS Administration Norepinephrine Bitartrate 250 mls @ 0 mls/hr 08/31/19 22:15 09/01/19 11:13 Levophed IVPB 250 mls INF CRIS Administration Protocol Titrate Cefepime HCl 1 gm/ Sodium 100 mls @ 200 mls/hr 09/03/19 06:00 09/05/19 05:08 Chloride IVPB 100 mls Q24HR CRIS Administration Sodium Chloride 1,000 mls @ 50 mls/hr 09/02/19 13:30 09/05/19 05:08 1/2 Normal Saline IV 1,000 mls .Q20H CRIS Administration Dexmedetomidine HCl 400 mcg/ 100 mls @ 0 mls/hr 09/02/19 19:45 09/05/19 01:53 Sodium Chloride IVPB 100 mls INF CRIS Administration Protocol Per Protocol Ampicillin Sodium 500 mg/ 100 mls @ 200 mls/hr 09/02/19 23:00 09/05/19 10:51 Sodium Chloride IVPB 100 mls 1100,2300 CRIS Administration Insulin Human Lispro 0 units 08/31/19 20:47 09/02/19 12:58 Humalog SC 4 unit .MODERATE SLIDING SC PRN Administration Moderate Correctional Scale Methylprednisolone Sodium Succinate 20 mg 08/31/19 22:00 09/05/19 05:08 Solu-Medrol IVP 20 mg Q8HR CRIS Administration Morphine Sulfate 2 mg 08/31/19 20:00 09/05/19 01:54 Morphine SLOW IVP 09/30/19 20:00 2 mg Q1H PRN Administration BREAKTHROUGH PAIN/Agitation Propofol 1,000 mg 08/31/19 20:00 09/05/19 02:08 Diprivan IV 09/30/19 20:00 1,000 mg INF PRN Administration TO ACHIEVE GOAL RASS Protocol - Exam General Appearance: ill appearing Eye: PERRL, anicteric sclera ENT: no oropharyngeal lesions, moist mucosa Neck: supple, no JVD Heart: RRR, no murmur Respiratory: no wheezes, no ronchi, rales Gastrointestinal: soft, non-tender, non-distended, normal bowel sounds Extremities: no cyanosis, 1+ LE edema Neurological: cranial nerve grossly intact, no new deficit Hosp A/P (1) Acute respiratory failure with hypoxia Code(s): J96.01 - ACUTE RESPIRATORY FAILURE WITH HYPOXIA Status: Acute (2) Sepsis Code(s): A41.9 - SEPSIS, UNSPECIFIED ORGANISM Status: Acute Qualifiers: Sepsis type: sepsis due to unspecified organism Sepsis acute organ dysfunction status: with acute organ dysfunction Severe sepsis acute organ dysfunction type: acute renal failure Severe sepsis shock status: with septic shock (3) PNA (pneumonia) Code(s): J18.9 - PNEUMONIA, UNSPECIFIED ORGANISM Status: Acute Qualifiers: Pneumonia type: due to unspecified organism Laterality: right Lung location: middle lobe of lung Qualified Code(s): J18.9 - Pneumonia, unspecified organism (4) Chronic anemia Code(s): D64.9 - ANEMIA, UNSPECIFIED Status: Chronic (5) DM type 2 (diabetes mellitus, type 2) Status: Chronic Qualifiers: Diabetes mellitus senior care insulin use: without rodent exterminator use Diabetes mellitus complication status: without complication Qualified Code(s): E11.9 - Type 2 diabetes mellitus without complications (6) Paroxysmal A-fib Code(s): I48.0 - PAROXYSMAL ATRIAL FIBRILLATION Status: Chronic (7) Cardiomyopathy Code(s): I42.9 - CARDIOMYOPATHY, UNSPECIFIED Status: Acute Qualifiers: Cardiomyopathy type: unspecified Qualified Code(s): I42.9 - Cardiomyopathy , unspecified (8) Acute renal failure Status: Acute Qualifiers: Acute renal failure type: with acute tubular necrosis Qualified Code(s): N17.0 - Acute kidney failure with tubular necrosis (9) FTT (failure to thrive) in adult Status: Acute (10) Thrombocytopenia Code(s): D69.6 - THROMBOCYTOPENIA, UNSPECIFIED Status: Acute - Plan Pt. has had progressive low platelets, is off Lovenox, will add Eliquis 2.5mg BID if no plans for procedures. Reviewed results of CT chest/abd and pelvis wo contrast Got escalating doses of lasix with poor urine output and increasing creatinine, started on HD from 09/04/2019. is currently in sinus rhythm with likely AV block, BP has stabilized but a bit high on cefepime, ampicillin, nebs, steroids, lantus, paxil, hydralazine. 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 Prognosis guarded
[2019-09-05] MEDS: Amiodarone 200 MG TAB PER TUBE SCH ×2 (14:35→20:15)
--- NOTE | 2019-09-05 19:47 | PRG ---
DATE OF SERVICE: 09/05/2019 SUBJECTIVE: Ms. Garcia is awake on the ventilator. She nods that she is comfortable. OBJECTIVE: VITAL SIGNS: Heart rate in the 60s, respiratory rates in the 20s, blood pressure 175/80, oximetry is 98%. LUNGS: Clear. HEART: Regular rhythm. ABDOMEN: Soft. EXTREMITIES: Without asymmetry or edema. LABORATORY DATA: Chest radiograph shows bilateral effusions. She underwent dialysis today and over a liter was removed. Unfortunately, she has had 1760 coming in today, so we need to continue to get fluid off her. IMPRESSION: 1. Volume overload with new congestive heart failure. 2. Acute renal failure. 3. Supraventricular tachycardia leading to hypotension. Overall, she is stable. I met with family and answered their questions. We might consider a spontaneous breathing trial in the morning, but I would like to see her in negative fluid balance significantly before we try to extubate her. Job ID: [id number]
[2019-09-05] MEDS: Insulin Glargine 15 UNITS in Pre-Filled Syringe 1 EACH SC SCH (20:21)
[2019-09-05] MEDS: HumaLOG 300 UNITS/3 ML VIAL SC PRN (20:22)
[2019-09-06] MEDS: Sodium Chloride 0.45% 1,000 ML IV SCH (01:51)
[2019-09-06] MEDS: Propofol 1,000 MG/100 ML VIAL IV PRN ×4 (03:31→21:10)
[2019-09-06 04:14] LABS: Anion Gap 18 mmol/L (10-20); BUN (Urea Nitrogen) 64 mg/dL (9.8-20.1); Calc. Creatinine Clearance 16 mL/min (70-130); Calcium 8.5 mg/dL (7.8-10.44); Carbon Dioxide 23 mmol/L (23-31); Chloride 97 mmol/L (98-107); Estimated GFR-MDRD 12; Glucose 155 mg/dL (83-110); Potassium 4.4 mmol/L (3.5-5.1); Sodium 134 mmol/L (136-145)
[2019-09-06 04:37] LABS: Band 16 % (5-11); Hemoglobin 9.5 g/dL (12.0-16.0); Lymphocytes 1 % (21-51); MDiff Complete? YES; Mean Corpuscular HGB CONC 32.2 g/dL (32.0-36.0); Mean Corpuscular Hemoglobin 26.9 pg (27.0-31.0); Mean Corpuscular Volume 83.5 fL (78.0-98.0); Mean Platelet Volume 9.8 fL (7.4-10.4); Monocytes 5 % (0-10); Neutrophil 78 % (42-75); Nucleated RBC 1 % (0); Platelet Count 72 thou/uL (130-400); Platelet Morphology Comment Appears Decreased; RBC Distribution Width 14.3 % (11.5-14.5); Red Blood Cell (RBC) Count 3.53 mill/uL (4.20-5.40); White Blood Cell (WBC) Count 11.8 thou/uL (4.8-10.8)
[2019-09-06] MEDS: Cefepime 1 GM in Sodium Chloride 0.9% 100 ML IVPB SCH (05:42)
[2019-09-06] MEDS: methylPREDNISolone Sod Succ 40 MG VIAL IVP SCH ×3 (05:42→21:10)
[2019-09-06 06:58] LABS: Actual Bicarbonate (HCO3a) 21.6 mEq/L (22-28); Base Excess (BEa) -2.6 mEq/L (-2.0 to +3.0); CO2 Tension 34.9 mmHg (35.0-45.0); Calcium, Ionized 1.13 mmol/L (1.12-1.30); Carboxyhemoglobin (COHb) 0.6 gm% (0.0-3.0); Hemoglobin (Hb) 10.2 g/dL (12.0-16.0); O2 Tension (PaO2) 91.9 mmHg (> 70.0); Potassium - ABG Lab 4.47 mmol/L (3.70-5.30); pH, Arterial 7.41 (7.35-7.45)
[2019-09-06 07:05] LABS: ALV-art Gradient 149.675 (0-20); Puncture Site RRA
--- NOTE | 2019-09-06 08:07 | RAD ---
EXAM: CHEST ONE VIEW HISTORY: On ventilator. Follow-up evaluation. COMPARISON: 09/05/2019 FINDINGS: Endotracheal tube, nasogastric tube, and right-sided Mediport catheter remain in place. There has bee n improved aeration at the left lung base. However there are increased interstitial densities in a left perihilar location. Pleural and parenchymal changes right lung base are noted likely due to righ t pleural effusion and atelectasis. There has been improved aeration in the right upper lung zone with linear densities persisting. Cardiac silhouette is magnified by projection. Artifact overlies th e chest, there does appear to be prominence in the right hilar region which was not appreciated on the prior exam. Patient is also rotated which does accentuate the hilar structures. Surgical clips ag ain overlie the left axillary region. Vertebroplasty changes involving thoracic vertebral bodies are again seen. IMPRESSION: 1. Improvement in aeration at the left lung base and right upper lung zone. 2. Right pleural effusion and associated atelectasis. Curvilinear density right midlung zone is also probably due to atelectasis. However, there has been increase in left perihilar interstitial densities which could be related to asymmetric pulmonary edema versus infectious process. 3. Right hilar prominence which is an interval change from prior exam. This could be a factor of juan jose ent rotation and overlying artifact, but follow-up chest x-ray with better positioning is recommended for further evaluation to exclude right hilar mass or infiltrate.
[2019-09-06] MEDS ORDERED: Heparin 10,000 UNITS/ 10 ML VIAL ONE (08:57)
--- NOTE | 2019-09-06 09:23 | PRG ---
DATE OF SERVICE: 09/06/2019 SUBJECTIVE: Ms. Garcia is a 74-year-old white female, being followed up by the Renal Service for her acute kidney injury secondary to an acute tubular necrosis. Due to the progressive azotemia and the worsening volume status, she has been initiated on dialysis. She is due for another 3 hour hemodialysis today with fluid removal only as tolerated. No acute events noted last night. OBJECTIVE: VITAL SIGNS: Blood pressure 164/73, heart rate 72, respiratory rate 12, and pulse oximetry 97%. GENERAL: She is arousable, intubated on ventilator support. SKIN: Adequate turgor. HEENT: Slightly pale conjunctivae. Anicteric sclerae. NECK: No neck mass. No carotid bruits. No JVD. CHEST: No deformities. LUNGS: Decreased breath sounds. HEART: Normal sinus rhythm. No murmur. No gallops. No rubs. ABDOMEN: Globular, soft, nontender. No masses. EXTREMITIES: Trace edema. MEDICATIONS: Medications of September 06, 2019, was reviewed. LABORATORY DATA: Laboratories of September 06, 2019, white count 11.8, hemoglobin 9.5. Sodium 134, potassium 4.4, chloride 97, carbon dioxide 23, BUN 64, creatinine 3.77, calcium is 8.5. ASSESSMENT AND PLAN: 1. Acute kidney injury secondary to acute tubular necrosis. Continue supportive hemodialysis. She is scheduled for another dialytic intervention today. We will again attempt fluid removal only as tolerated by the patient. 2. Acute respiratory failure/pneumonia-currently on IV antibiotics and ventilator support. Pulmonary is following. 3. Overall prognosis remains guarded with this patient. Job ID: [id number]
[2019-09-06] MEDS: hydrALAZINE 25 MG TAB PO SCH ×3 (09:37→21:11)
[2019-09-06] MEDS: Aspirin Chewable 81 MG TAB PO SCH (09:37)
[2019-09-06] MEDS: Famotidine/PF 20 mg/2ml Vial SLOW IVP SCH (09:37)
[2019-09-06] MEDS: Amiodarone 200 MG TAB PER TUBE SCH ×3 (09:38→21:10)
[2019-09-06] MEDS: Carvedilol 3.125 MG TAB PO SCH (10:08)
--- NOTE | 2019-09-06 13:38 | PDOC.HOSPP ---
- Subjective Encounter Date: 09/06/19 Encounter Time: 10:15 non-verbal Subjective: On vent, mild sedation Is getting dialysis - Objective Vital Signs & Weight: Vital Signs (12 hours) Temp Pulse Resp BP Pulse Ox 09/06/19 12:00 19 09/06/19 10:47 67 162/69 H 09/06/19 10:46 67 23 H 98 09/06/19 10:00 20 09/06/19 09:37 70 179/79 H 09/06/19 08:00 20 898 H 09/06/19 07:00 98.3 F 09/06/19 06:45 70 179/79 H 09/06/19 06:44 70 25 H 97 09/06/19 06:00 26 H 09/06/19 04:00 17 09/06/19 02:00 17 Weight Admit Weight 153 lb 7.068 oz Weight 176 lb 9.444 oz Most Recent Monitor Data Heart Rate from ECG 66 NIBP 151/69 NIBP BP-Mean 96 Respiration from ECG 12 SpO2 99 I&O: 09/05/19 09/06/19 09/07/19 06:59 06:59 06:59 Intake Total 2089 2443 60 Output Total 329 325 92 Balance 1760 2118 -32 Result Diagrams: 09/06/19 03:35 09/06/19 03:35 Additional Labs: Accuchecks 09/06/19 09/05/19 09/05/19 10:34 20:25 15:58 POC Glucose 173 H 155 H 143 H Hospitalist ROS - Medication Medications: Active Medications Generic Name Dose Route Start Last Admin Trade Name Freq PRN Reason Stop Dose Admin Albuterol/Ipratropium 3 ml 08/31/19 19:00 09/06/19 10:46 Duoneb NEB 3 ml [id number] CRIS Administration Amiodarone HCl 200 mg 09/05/19 15:00 09/06/19 09:38 Cordarone PER TUBE 200 mg TID CRIS Administration Aspirin 81 mg 09/02/19 09:00 09/06/19 09:37 Aspirin Chewable PO 81 mg DAILY CRIS Administration Enalaprilat 0.625 mg 09/05/19 11:47 09/05/19 11:57 Vasotec SLOW IVP 0.625 mg Q6H PRN Administration SBP > 180 Famotidine 20 mg 09/03/19 09:00 09/06/19 09:37 Pepcid SLOW IVP 20 mg DAILY CRIS Administration Hydralazine HCl 50 mg 09/05/19 09:00 09/06/19 09:37 Apresoline PO 50 mg TID CRIS Administration Insulin Glargine 15 units/ 0.15 mls @ 0 mls/hr 08/31/19 21:00 09/05/19 20:21 Miscellaneous Medication SC 0.15 mls HS CRIS Administration Norepinephrine Bitartrate 250 mls @ 0 mls/hr 08/31/19 22:15 09/01/19 11:13 Levophed IVPB 250 mls INF CRIS Administration Protocol Titrate Sodium Chloride 1,000 mls @ 50 mls/hr 09/02/19 13:30 09/06/19 01:51 1/2 Normal Saline IV 1,000 mls .Q20H CRIS Administration Dexmedetomidine HCl 400 mcg/ 100 mls @ 0 mls/hr 09/02/19 19:45 09/06/19 12:19 Sodium Chloride IVPB 100 mls INF CRIS Administration Protocol Per Protocol Ampicillin Sodium 500 mg/ 100 mls @ 200 mls/hr 09/02/19 23:00 09/06/19 12:19 Sodium Chloride IVPB 100 mls 1100,2300 CRIS Administration Insulin Human Lispro 0 units 08/31/19 20:47 09/05/19 20:22 Humalog SC 2 unit .MODERATE SLIDING SC PRN Administration Moderate Correctional Scale Methylprednisolone Sodium Succinate 20 mg 08/31/19 22:00 09/06/19 05:42 Solu-Medrol IVP 20 mg Q8HR CRIS Administration Morphine Sulfate 2 mg 08/31/19 20:00 09/05/19 15:27 Morphine SLOW IVP 09/30/19 20:00 2 mg Q1H PRN Administration BREAKTHROUGH PAIN/Agitation Propofol 1,000 mg 08/31/19 20:00 09/06/19 12:29 Diprivan IV 09/30/19 20:00 1,000 mg INF PRN Administration TO ACHIEVE GOAL RASS Protocol - Exam General Appearance: ill appearing Eye: PERRL, anicteric sclera ENT: no oropharyngeal lesions, moist mucosa Neck: supple, no JVD Heart: no murmur, irregular Respiratory: no wheezes, no rales, rhonchi Gastrointestinal: soft, non-distended, normal bowel sounds Gastrointestinal - other findings: abd wall edema Extremities: no cyanosis, 1+ LE edema Neurological: cranial nerve grossly intact, no focal deficits Hosp A/P (1) Acute respiratory failure with hypoxia Code(s): J96.01 - ACUTE RESPIRATORY FAILURE WITH HYPOXIA Status: Acute (2) Sepsis Code(s): A41.9 - SEPSIS, UNSPECIFIED ORGANISM Status: Acute Qualifiers: Sepsis type: sepsis due to unspecified organism Sepsis acute organ dysfunction status: with acute organ dysfunction Severe sepsis acute organ dysfunction type: acute renal failure Severe sepsis shock status: with septic shock (3) PNA (pneumonia) Code(s): J18.9 - PNEUMONIA, UNSPECIFIED ORGANISM Status: Acute Qualifiers: Pneumonia type: due to unspecified organism Laterality: right Lung location: middle lobe of lung Qualified Code(s): J18.9 - Pneumonia, unspecified organism (4) Chronic anemia Code(s): D64.9 - ANEMIA, UNSPECIFIED Status: Chronic (5) DM type 2 (diabetes mellitus, type 2) Status: Chronic Qualifiers: Diabetes mellitus binding machine operator insulin use: without binding machine operator use Diabetes mellitus complication status: without complication Qualified Code(s): E11.9 - Type 2 diabetes mellitus without complications (6) Paroxysmal A-fib Code(s): I48.0 - PAROXYSMAL ATRIAL FIBRILLATION Status: Chronic (7) Cardiomyopathy Code(s): I42.9 - CARDIOMYOPATHY, UNSPECIFIED Status: Acute Qualifiers: Cardiomyopathy type: unspecified Qualified Code(s): I42.9 - Cardiomyopathy , unspecified (8) Acute renal failure Status: Acute Qualifiers: Acute renal failure type: with acute tubular necrosis Qualified Code(s): N17.0 - Acute kidney failure with tubular necrosis (9) FTT (failure to thrive) in adult Status: Acute (10) Thrombocytopenia Code(s): D69.6 - THROMBOCYTOPENIA, UNSPECIFIED Status: Acute - Plan Pt. has had progressive low platelets, is off Lovenox, will add Eliquis 2.5mg BID if no plans for procedures. Reviewed results of CT chest/abd and pelvis wo contrast Got escalating doses of lasix with poor urine output and increasing creatinine, started on HD from 09/04/2019. is currently in sinus rhythm with likely AV block, BP has stabilized on cefepime, ampicillin, nebs, steroids, lantus, paxil, hydralazine. 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 Prognosis guarded weaning per pulmonary advice
[2019-09-06] MEDS: Carvedilol 6.25 MG TAB PO SCH (16:17)
[2019-09-06] MEDS: Morphine 2 MG/ML SYRINGE SLOW IVP PRN ×2 (17:07→19:15)
[2019-09-06] MEDS: Metoclopramide HCl 10 MG/2 ML VIAL IVP SCH ×2 (18:16→23:37)
[2019-09-06] MEDS: Enalaprilat Dihydrate 1.25 MG/ML VIAL SLOW IVP PRN (19:31)
[2019-09-06] MEDS: Insulin Glargine 15 UNITS in Pre-Filled Syringe 1 EACH SC SCH (21:10)
--- NOTE | 2019-09-06 22:09 | PRG ---
DATE OF SERVICE: 09/06/2019 SUBJECTIVE: Kellie Garcia remains hemodynamically stable. She will awake and she is actually this evening. She tolerated over liter and half of fluid removal today. Heart rate is in 80s, respiratory rates in the teens. Intake and output coming in today was positive, 2117. Weight is reported as 176 pounds. On the , it was reported as 165, on admission it was 153 pounds. OBJECTIVE: LUNGS: Remarkable for coarse equal breath sounds. HEART: Regular rhythm. ABDOMEN: Soft. EXTREMITIES: Without asymmetry. She does have four extremity edema. LABORATORY DATA: White count 11.8, hemoglobin 9.5, and platelets 72,000. Sodium 134, potassium 4.4, chloride 97, bicarb 23, BUN 64, and creatinine 3.77. 325 mL urine out over 24 hours she is at least 20 pounds volume overloaded. I cannot wean or extubate her until we get some of her volume off, so hopefully we can be more aggressive with dialysis tomorrow. She has bilateral pleural effusions and pulmonary edema. We will continue to follow. CRITICAL CARE TIME: 30 minutes. I met with family and answered all their questions. Job ID: [id number]
[2019-09-06] MEDS ORDERED: hydrALAZINE 20 MG/ML VIAL SLOW IVP PRN (23:11)
[2019-09-06] MEDS ORDERED: hydrALAZINE 20 MG/ML VIAL SLOW IVP SCH (23:15)
[2019-09-07] MEDS: Nitroglycerin 2% Ointment 1 INCH/1 GM Packet TOP SCH ×4 (01:04→20:07)
[2019-09-07] MEDS: hydrALAZINE 20 MG/ML VIAL SLOW IVP PRN (03:33)
[2019-09-07 04:07] LABS: Hemoglobin 9.8 g/dL (12.0-16.0); MDiff Complete? YES; Mean Corpuscular HGB CONC 32.1 g/dL (32.0-36.0); Mean Corpuscular Hemoglobin 26.6 pg (27.0-31.0); Mean Platelet Volume 9.5 fL (7.4-10.4); Platelet Count 94 thou/uL (130-400); RBC Distribution Width 14.4 % (11.5-14.5); Red Blood Cell (RBC) Count 3.66 mill/uL (4.20-5.40); White Blood Cell (WBC) Count 13.1 thou/uL (4.8-10.8)
[2019-09-07 04:08] LABS: Anion Gap 16 mmol/L (10-20); BUN (Urea Nitrogen) 54 mg/dL (9.8-20.1); Band 4 % (5-11); Calc. Creatinine Clearance 20 mL/min (70-130); Calcium 8.5 mg/dL (7.8-10.44); Carbon Dioxide 24 mmol/L (23-31); Chloride 98 mmol/L (98-107); Estimated GFR-MDRD 14; Glucose 214 mg/dL (83-110); Hypochromia SLIGHT = 6-15 cells (100X) (0-5/hpf); Lymphocytes 8 % (21-51); Monocytes 1 % (0-10); Neutrophil 87 % (42-75); Platelet Morphology Comment Appears Decreased; Potassium 4.8 mmol/L (3.5-5.1); Sodium 133 mmol/L (136-145)
[2019-09-07] MEDS: niCARdipine 50 MG in Sodium Chloride 0.9% 250 ML 230 ML IV SCH ×2 (04:34→16:14)
[2019-09-07] MEDS: Propofol 1,000 MG/100 ML VIAL IV PRN ×2 (04:38→20:23)
[2019-09-07] MEDS: Sodium Chloride 0.45% 1,000 ML IV SCH (04:38)
[2019-09-07] MEDS: Metoclopramide HCl 10 MG/2 ML VIAL IVP SCH ×4 (05:32→23:11)
[2019-09-07] MEDS: methylPREDNISolone Sod Succ 40 MG VIAL IVP SCH ×3 (05:32→21:02)
[2019-09-07] MEDS: HumaLOG 300 UNITS/3 ML VIAL SC PRN ×4 (05:32→22:36)
[2019-09-07 07:23] LABS: Actual Bicarbonate (HCO3a) 24.6 mEq/L (22-28); Base Excess (BEa) 0.3 mEq/L (-2.0 to +3.0); CO2 Tension 38.4 mmHg (35.0-45.0); Calcium, Ionized 1.14 mmol/L (1.12-1.30); Carboxyhemoglobin (COHb) 0.7 gm% (0.0-3.0); Hemoglobin (Hb) 10.1 g/dL (12.0-16.0); O2 Tension (PaO2) 74.9 mmHg (> 70.0); Potassium - ABG Lab 4.25 mmol/L (3.70-5.30); pH, Arterial 7.43 (7.35-7.45)
[2019-09-07 07:26] LABS: Puncture Site RRAD
[2019-09-07] MEDS: Amiodarone 200 MG TAB PER TUBE SCH ×3 (08:48→20:06)
[2019-09-07] MEDS: Famotidine/PF 20 mg/2ml Vial SLOW IVP SCH (08:48)
[2019-09-07] MEDS: Aspirin Chewable 81 MG TAB PO SCH (08:49)
[2019-09-07] MEDS: hydrALAZINE 25 MG TAB PO SCH ×3 (08:49→20:41)
--- NOTE | 2019-09-07 09:19 | RAD ---
CHEST 1 VIEW PORTABLE: HISTORY: Respiratory insufficiency. FINDINGS: Life support tubes remain in place and stable. Bilateral pleural effusions larger on the right side with some bilateral vascular congestion and patchy perihilar most linear and interstitial opacities. IMPRESSION: Persistent pleural and patchy parenchymal opacity changes bilaterally. Little change. Continued sonny rt-term followup. POS: TPC
[2019-09-07] MEDS: Heparin 5,000 UNITS/ML VIAL SC SCH ×2 (09:31→20:06)
--- NOTE | 2019-09-07 09:40 | PRG ---
DATE OF SERVICE: 09/07/2019 SUBJECTIVE: Ms. Garcia is a 74-year-old white female, followed up for acute kidney injury secondary to acute tubular necrosis. She is currently undergoing hemodialysis today. The plan is to do a 4-hour hemodialysis. Adjust fluid removal. I have decided to do 2 hours of ultrafiltration and then 2 hours of hemodialysis to max out fluid removal. The patient is still intubated on ventilator support. OBJECTIVE: VITAL SIGNS: Blood pressure is noted at 112/50, heart rate 55, respiratory rate 10, O2 saturation 96%, and temperature 97.2. GENERAL: The patient is intubated, on ventilator support, sedated. HEENT: Pinkish conjunctivae. Anicteric sclerae. NECK: No neck mass. No carotid bruits. No JVD. CHEST: No deformities. LUNGS: Harsh breath sounds. HEART: Normal sinus rhythm. No murmur. No gallops. No rubs. ABDOMEN: Globular. Soft. Nontender. No masses. EXTREMITIES: +4 edema. MEDICATIONS: Medications of September 07, 2019 was reviewed. LABORATORY DATA: Laboratories of September 07, 2019; white count 13.1, hemoglobin 9.8, sodium 133, potassium 4.8, chloride 98, carbon dioxide 24, BUN 54, creatinine 3.18, glucose 214, and calcium is 8.5. September 07, . Chest x-ray shows persistent pleural and patchy parenchymal opacity-? of congestive heart failure. ASSESSMENT AND PLAN: 1. Acute kidney injury secondary to acute tubular necrosis-trying to max out fluid removal. Initial dialysis resulted in her dropping her blood pressure. She tolerated her dialysis better yesterday. The plan for her to tolerate the fluid removal is we will do ultrafiltration for the first 2 hours, which will be less stressful from a hemodynamic point of view, and then do another 2 hours of hemodialysis. Attempting 5 L fluid removal only as tolerated by the patient. I have scheduled her for another dialysis treatment tomorrow for further fluid removal. 2. Acute respiratory failure-superimposed pneumonia/congestive heart failure. Maxing out fluid removal with dialysis. 3. Overall prognosis remains guarded. Job ID: [id number]
[2019-09-07] MEDS ORDERED: Heparin 10,000 UNITS/ 10 ML VIAL ONE (10:27)
--- NOTE | 2019-09-07 10:36 | PRG ---
DATE OF SERVICE: SUBJECTIVE: Kellie Garcia remains mechanically ventilated. She will awake and move all extremities and nod to questions. She had to go on Cardene last night for hypertension. I have instructed the dialysis nurse to notify the nurses if the blood pressure is falling and the Cardene can be discontinued for dialysis. I am hopeful that we will get a great deal more fluid off her today. The bed scales are inaccurate, but I am guessing that she is up at least 15 pounds. Her intake and output, is positive at 2211 yesterday. OBJECTIVE: LUNGS: Remarkable for distant breath sounds at both lung bases. HEART: Regular rhythm. ABDOMEN: Soft. EXTREMITIES: Without asymmetry or edema. NEURO: Nonfocal. IMPRESSION: 1. Respiratory failure triggered by supraventricular tachycardia, and a newly diagnosed cardiomyopathy. 2. Acute renal failure associated with her hypotension on admission. 3. Clinical sepsis on admission with negative cultures except for positive urinary pathogen. This is found to be an incidental finding since her family has informed me that she always has bladder infections. 4. History of non-small cell lung cancer. 5. Bilateral pleural effusion secondary to her newly diagnosed cardiomyopathy. 6. History of rectal cancer. 7. Breast cancer. 8. History of diabetes. 9. History of atrial fibrillation. 10. History of chronic obstructive pulmonary disease. We will continue moving forward with slow weaning as we diurese her. I may have to do a thoracentesis next week if we cannot get any more volume off her. CRITICAL CARE TIME: 30 minutes. Job ID: [id number]
[2019-09-07] MEDS ORDERED: CEFAZOLIN 2 GM in Premix Bag 1 BAG IVPB SCH (12:00)
--- NOTE | 2019-09-07 15:29 | PDOC.HOSPP ---
- Subjective Encounter Date: 09/07/19 Encounter Time: 09:30 Subjective: is getting HD, not in distress, is sedated on vent is off cardene and BP is good now - Objective Vital Signs & Weight: Vital Signs (12 hours) Temp Pulse Resp BP Pulse Ox 09/07/19 14:51 65 09/07/19 14:21 65 21 H 97 09/07/19 14:00 22 H 09/07/19 12:00 97.8 F 22 H 09/07/19 10:54 69 09/07/19 10:53 65 16 97 09/07/19 10:00 18 09/07/19 08:49 68 09/07/19 08:00 97.7 F 21 H 96 09/07/19 07:09 68 14 96 09/07/19 07:07 71 09/07/19 06:00 22 H 09/07/19 04:00 24 H 09/07/19 03:33 68 196/81 H Weight Admit Weight 153 lb 7.068 oz Weight 177 lb 0.499 oz Most Recent Monitor Data Heart Rate from ECG 68 NIBP 153/57 NIBP BP-Mean 89 Respiration from ECG 20 SpO2 97 I&O: 09/06/19 09/07/19 09/08/19 06:59 06:59 06:59 Intake Total 2443 2454.9 140 Output Total 325 243 15 Balance 2118 2211.9 125 Result Diagrams: 09/07/19 03:40 09/07/19 03:40 Additional Labs: Accuchecks 09/07/19 09/06/19 09/06/19 10:54 21:12 16:53 POC Glucose 191 H 134 H 143 H Hospitalist ROS - Medication Medications: Active Medications Generic Name Dose Route Start Last Admin Trade Name Freq PRN Reason Stop Dose Admin Albuterol/Ipratropium 3 ml 08/31/19 19:00 09/07/19 14:21 Duoneb NEB 3 ml [id number] CRIS Administration Amiodarone HCl 200 mg 09/05/19 15:00 09/07/19 14:57 Cordarone PER TUBE 200 mg TID CRIS Administration Aspirin 81 mg 09/02/19 09:00 09/07/19 08:49 Aspirin Chewable PO 81 mg DAILY CRIS Administration Enalaprilat 0.625 mg 09/05/19 11:47 09/06/19 19:31 Vasotec SLOW IVP 0.625 mg Q6H PRN Administration SBP > 180 Famotidine 20 mg 09/03/19 09:00 09/07/19 08:48 Pepcid SLOW IVP 20 mg DAILY CRIS Administration Heparin Sodium (Porcine) 5,000 units 09/07/19 09:00 09/07/19 09:31 Heparin SC 5,000 units BID CRIS Administration Hydralazine HCl 50 mg 09/05/19 09:00 09/07/19 14:51 Apresoline PO 50 mg TID CRIS Administration Hydralazine HCl 20 mg 09/07/19 03:30 09/07/19 03:33 Apresoline SLOW IVP 20 mg Q4H PRN Administration SBP Greater Than 170 Insulin Glargine 15 units/ 0.15 mls @ 0 mls/hr 08/31/19 21:00 09/06/19 21:10 Miscellaneous Medication SC 0.15 mls HS CRIS Administration Norepinephrine Bitartrate 250 mls @ 0 mls/hr 08/31/19 22:15 09/01/19 11:13 Levophed IVPB 250 mls INF CRIS Administration Protocol Titrate Sodium Chloride 1,000 mls @ 50 mls/hr 09/02/19 13:30 09/07/19 04:38 1/2 Normal Saline IV 1,000 mls .Q20H CRIS Administration Dexmedetomidine HCl 400 mcg/ 100 mls @ 0 mls/hr 09/02/19 19:45 09/06/19 12:19 Sodium Chloride IVPB 100 mls INF CRIS Administration Protocol Per Protocol Ampicillin Sodium 500 mg/ 100 mls @ 200 mls/hr 09/02/19 23:00 09/07/19 11:20 Sodium Chloride IVPB 100 mls 1100,2300 CRIS Administration Nicardipine HCl 50 mg/ Sodium 250 mls @ 0 mls/hr 09/07/19 04:00 09/07/19 04: 34 Chloride IV 250 mls INF CRIS Administration Protocol As Directed Insulin Human Lispro 0 units 08/31/19 20:47 09/07/19 11:08 Humalog SC 2 unit .MODERATE SLIDING SC PRN Administration Moderate Correctional Scale Methylprednisolone Sodium Succinate 20 mg 08/31/19 22:00 09/07/19 13:55 Solu-Medrol IVP 20 mg Q8HR CRIS Administration Metoclopramide HCl 10 mg 09/06/19 18:00 09/07/19 11:20 Reglan IVP 10 mg Q6HR CRIS Administration Morphine Sulfate 2 mg 08/31/19 20:00 09/06/19 19:15 Morphine SLOW IVP 09/30/19 20:00 2 mg Q1H PRN Administration BREAKTHROUGH PAIN/Agitation Nitroglycerin 1 inch 09/07/19 01:00 09/07/19 13:50 Nitro-Bid 2% Ointment TOP 1 inch Q6H CRIS Administration Propofol 1,000 mg 08/31/19 20:00 09/07/19 04:38 Diprivan IV 09/30/19 20:00 1,000 mg INF PRN Administration TO ACHIEVE GOAL RASS Protocol Sodium Chloride 10 ml 09/06/19 21:00 09/07/19 08:50 Flush - Normal Saline IVF 10 ml Q12HR CRIS Administration - Exam General Appearance: ill appearing Eye: PERRL, anicteric sclera ENT: no oropharyngeal lesions, dry oral mucosa Neck: supple, no JVD Heart: RRR, no murmur Respiratory: no wheezes, no rales Gastrointestinal: soft, non-tender, non-distended, normal bowel sounds, no guarding, no rigidity Extremities: no cyanosis, 1+ LE edema Neurological: cranial nerve grossly intact, no focal deficits Hosp A/P (1) Acute respiratory failure with hypoxia Code(s): J96.01 - ACUTE RESPIRATORY FAILURE WITH HYPOXIA Status: Acute (2) Sepsis Code(s): A41.9 - SEPSIS, UNSPECIFIED ORGANISM Status: Acute Qualifiers: Sepsis type: sepsis due to unspecified organism Sepsis acute organ dysfunction status: with acute organ dysfunction Severe sepsis acute organ dysfunction type: acute renal failure Severe sepsis shock status: with septic shock (3) PNA (pneumonia) Code(s): J18.9 - PNEUMONIA, UNSPECIFIED ORGANISM Status: Acute Qualifiers: Pneumonia type: due to unspecified organism Laterality: right Lung location: middle lobe of lung Qualified Code(s): J18.9 - Pneumonia, unspecified organism (4) Chronic anemia Code(s): D64.9 - ANEMIA, UNSPECIFIED Status: Chronic (5) DM type 2 (diabetes mellitus, type 2) Status: Chronic Qualifiers: Diabetes mellitus media center specialist insulin use: without [place] [facility] use Diabetes mellitus complication status: without complication Qualified Code(s): E11.9 - Type 2 diabetes mellitus without complications (6) Paroxysmal A-fib Code(s): I48.0 - PAROXYSMAL ATRIAL FIBRILLATION Status: Chronic (7) Cardiomyopathy Code(s): I42.9 - CARDIOMYOPATHY, UNSPECIFIED Status: Acute Qualifiers: Cardiomyopathy type: unspecified Qualified Code(s): I42.9 - Cardiomyopathy , unspecified (8) Acute renal failure Status: Acute Qualifiers: Acute renal failure type: with acute tubular necrosis Qualified Code(s): N17.0 - Acute kidney failure with tubular necrosis (9) FTT (failure to thrive) in adult Status: Acute (10) Thrombocytopenia Code(s): D69.6 - THROMBOCYTOPENIA, UNSPECIFIED Status: Acute - Plan Plan is to remove volume with sucessive HD and attempt at weaning Pt. has had progressive low platelets but stable now, will add heparin for dvt prophylaxis from today. Reviewed results of CT chest/abd and pelvis wo contrast Got escalating doses of lasix with poor urine output and increasing creatinine, started on HD from 09/04/2019. is currently in sinus rhythm with likely AV block, BP has stabilized on cefepime, ampicillin, nebs, steroids, lantus, paxil, hydralazine. usg venous doppler LE and kidneys did not reveal any abnormality has prior h/o rectus sheath hematoma, h/h is low now likely from dilution echo shows ef of 25%, likely has underlying probe operator has taken adriamycin for breast ca in the past pt is in remission from 3 cancers, sigmoid, nonsmall cell lung right and breast ca. Prognosis guarded weaning per pulmonary advice
[2019-09-07] MEDS: Cefepime 1 GM in Sodium Chloride 0.9% 100 ML IVPB SCH (16:20)
[2019-09-07] MEDS: Carvedilol 6.25 MG TAB PO SCH ×2 (16:21→23:34)
[2019-09-07] MEDS: Insulin Glargine 15 UNITS in Pre-Filled Syringe 1 EACH SC SCH (20:05)
[2019-09-08] MEDS: Nitroglycerin 2% Ointment 1 INCH/1 GM Packet TOP SCH ×4 (01:06→20:03)
[2019-09-08] MEDS: Propofol 1,000 MG/100 ML VIAL IV PRN ×3 (02:57→17:28)
[2019-09-08 04:02] LABS: #Lymphocytes 0.4 thou/uL (1.20-3.40); #Monocytes 0.5 thou/uL (0.11-0.59); #Neutrophils 11.9 thou/uL (1.40-6.50); %Eosinophils 0.1 % (0.0-10.0); %Monocytes 4.1 % (0.0-10.0); %Neutrophils 92.7 % (42.0-75.0); Hemoglobin 9.3 g/dL (12.0-16.0); Mean Corpuscular HGB CONC 32.4 g/dL (32.0-36.0); Mean Corpuscular Hemoglobin 27.7 pg (27.0-31.0); Mean Corpuscular Volume 85.4 fL (78.0-98.0); Mean Platelet Volume 9.7 fL (7.4-10.4); Platelet Count 96 thou/uL (130-400); RBC Distribution Width 15.5 % (11.5-14.5); Red Blood Cell (RBC) Count 3.36 mill/uL (4.20-5.40); White Blood Cell (WBC) Count 12.9 thou/uL (4.8-10.8)
[2019-09-08 04:05] LABS: Hemoglobin 9.3 g/dL (12.0-16.0); Mean Corpuscular HGB CONC 31.1 g/dL (32.0-36.0); Mean Corpuscular Hemoglobin 26.7 pg (27.0-31.0); Mean Corpuscular Volume 85.9 fL (78.0-98.0); Mean Platelet Volume 9.7 fL (7.4-10.4); Platelet Count 100 thou/uL (130-400); RBC Distribution Width 15.3 % (11.5-14.5); Red Blood Cell (RBC) Count 3.49 mill/uL (4.20-5.40); White Blood Cell (WBC) Count 13.1 thou/uL (4.8-10.8)
[2019-09-08 04:06] LABS: Lymphocytes 2 % (21-51); MDiff Complete? YES; Monocytes 1 % (0-10); Neutrophil 97 % (42-75); Platelet Morphology Comment Appears Decreased
[2019-09-08 04:14] LABS: Anion Gap 16 mmol/L (10-20); BUN (Urea Nitrogen) 65 mg/dL (9.8-20.1); Calc. Creatinine Clearance 20 mL/min (70-130); Calcium 8.2 mg/dL (7.8-10.44); Carbon Dioxide 22 mmol/L (23-31); Chloride 98 mmol/L (98-107); Estimated GFR-MDRD 15; Glucose 195 mg/dL (83-110); Potassium 4.5 mmol/L (3.5-5.1); Sodium 131 mmol/L (136-145)
[2019-09-08] MEDS: HumaLOG 300 UNITS/3 ML VIAL SC PRN ×3 (05:24→22:10)
[2019-09-08] MEDS: Sodium Chloride 0.45% 1,000 ML IV SCH (05:35)
[2019-09-08] MEDS: Metoclopramide HCl 10 MG/2 ML VIAL IVP SCH ×3 (05:35→17:27)
[2019-09-08] MEDS: methylPREDNISolone Sod Succ 40 MG VIAL IVP SCH ×3 (05:35→21:41)
[2019-09-08 06:31] LABS: Actual Bicarbonate (HCO3a) 22.7 mEq/L (22-28); Base Excess (BEa) -1.9 mEq/L (-2.0 to +3.0); CO2 Tension 37.9 mmHg (35.0-45.0); Calcium, Ionized 1.15 mmol/L (1.12-1.30); Carboxyhemoglobin (COHb) 0.8 gm% (0.0-3.0); Hemoglobin (Hb) 9.2 g/dL (12.0-16.0); O2 Tension (PaO2) 77.3 mmHg (> 70.0); Potassium - ABG Lab 4.28 mmol/L (3.70-5.30)
[2019-09-08 06:34] LABS: Puncture Site RRAD
[2019-09-08 06:35] LABS: ALV-art Gradient 160.525 (0-20)
--- NOTE | 2019-09-08 08:00 | RAD ---
EXAM: Single view of the chest HISTORY: Ventilated patient with respiratory failure COMPARISON: 09/07/2019 FINDINGS: Single view of the chest shows an enlarged but stable cardiomediastinal silhouette. The li josef and tubes are unchanged in position. There are small bilateral pleural effusions. The bones are unremarkable. IMPRESSION: Stable exam
[2019-09-08] MEDS: Heparin 5,000 UNITS/ML VIAL SC SCH ×2 (08:27→20:02)
[2019-09-08] MEDS: Aspirin Chewable 81 MG TAB PO SCH (08:28)
[2019-09-08] MEDS: Carvedilol 6.25 MG TAB PO SCH ×2 (08:28→17:25)
[2019-09-08] MEDS: Famotidine/PF 20 mg/2ml Vial SLOW IVP SCH (08:28)
[2019-09-08] MEDS: Amiodarone 200 MG TAB PER TUBE SCH ×3 (08:31→20:02)
[2019-09-08] MEDS: hydrALAZINE 25 MG TAB PO SCH ×3 (08:41→20:03)
--- NOTE | 2019-09-08 09:50 | PRG ---
DATE OF SERVICE: 09/08/2019 This is a 35 minutes critical care time. SUBJECTIVE: The patient remains intubated on mechanical ventilation. There have been no acute changes overnight. She is about to receive another round of dialysis this morning. OBJECTIVE: VITAL SIGNS: Temperature is 97.9, pulse 58, blood pressure 146/54, and O2 saturation 99%. Intake for last 24 hours was 2794, output 4053, all by hemodialysis. HEENT: Unremarkable. NECK: No adenopathy or JVD. LUNGS: Diminished breath sounds at both bases. CARDIAC: S1 and S2. Regular. ABDOMEN: Soft and nontender. EXTREMITIES: 3+ edema throughout arms and legs. LABORATORY DATA: White blood cell count 13.1, hematocrit 30, and platelet count 100. A pH of 7.40, pCO2 of 37, pO2 of 77 on SIMV rate 8, tidal volume 450, PEEP 5, pressure support 5, and FiO2 of 40%. Sodium 131, potassium 4.5, chloride 98, CO2 of 22, BUN 65, creatinine 3.1, and glucose 195. ASSESSMENT: 1. Acute hypoxic respiratory failure, requiring mechanical ventilation. 2. Supraventricular tachycardia. 3. Cardiomyopathy. 4. Acute renal failure. 5. Presumed sepsis. 6. History of non-small cell lung cancer. 7. History of rectal cancer. 8. History of breast cancer. 9. Diabetes mellitus. 10. History of chronic obstructive pulmonary disease. PLAN: She needs much more volume taken off before considering extubation. She is continuing antibiotic therapy. I have adjusted her ventilator rate. Job ID: [id number]
[2019-09-08] MEDS ORDERED: Heparin 10,000 UNITS/ 10 ML VIAL ONE (10:30)
--- NOTE | 2019-09-08 11:11 | PDOC.CPN ---
- Subjective Date: 09/08/19 Time: 14:19 Interval history: Intubated and awake but somnolent - Objective Allergies/Adverse Reactions: Allergies Allergy/AdvReac Type Severity Reaction Status Date / Time Iodinated Contrast Media Allergy Intermediate Rash Verified 05/08/19 16:28 [Iodinated Contrast Media - IV Dye] Sulfa (Sulfonamide Allergy Intermediate Rash Verified 05/08/19 16:28 Antibiotics) iodine Allergy Verified 05/08/19 16:28 Visit Medications: Current Medications Acetaminophen (Tylenol) 650 mg PO Q4H PRN PRN Reason: Headache/Fever/Mild Pain (1-3) Albuterol/Ipratropium (Duoneb) 3 ml NEB [id number] [facility] Last Admin: 09/08/19 10:17 Dose: 3 ml Amiodarone HCl (Cordarone) 200 mg PER TUBE TID [facility] Last Admin: 09/08/19 08:31 Dose: 200 mg Lipase/Protease/Amylase ([place] [id number]) 1 cap FS .PER PROTOCOL PRN PRN Reason: TUBE OCCLUSION PROTOCOL Aspirin (Aspirin Chewable) 81 mg PO DAILY [facility] Last Admin: 09/08/19 08:28 Dose: 81 mg Carvedilol (Coreg) 12.5 mg PO BID-WM [facility] Last Admin: 09/08/19 08:28 Dose: 12.5 mg Dextrose/Water (Dextrose 50%) 25 gm SLOW IVP PRN PRN PRN Reason: Hypoglycemia Enalaprilat (Vasotec) 0.625 mg SLOW IVP Q6H PRN PRN Reason: SBP > 180 Last Admin: 09/06/19 19:31 Dose: 0.625 mg Famotidine (Pepcid) 20 mg SLOW IVP DAILY [facility] Last Admin: 09/08/19 08:28 Dose: 20 mg Glucagon (Glucagon) 1 mg IM PRN PRN PRN Reason: Hypoglycemia Heparin Sodium (Porcine) (Heparin) 5,000 units SC BID [facility] Last Admin: 09/08/19 08:27 Dose: 5,000 units Hydralazine HCl (Apresoline) 50 mg PO TID [facility] Last Admin: 09/08/19 08:41 Dose: Not Given Hydralazine HCl (Apresoline) 20 mg SLOW IVP Q4H PRN PRN Reason: SBP Greater Than 170 Last Admin: 09/07/19 03:33 Dose: 20 mg Dextrose/Water (D5w) 1,000 mls @ 0 mls/hr IV .Q0M PRN PRN Reason: Hypoglycemia Insulin Glargine 15 units/ (Miscellaneous Medication) 0.15 mls @ 0 mls/hr SC HS CRIS Last Admin: 09/07/19 20:05 Dose: 0.15 mls Norepinephrine Bitartrate (Levophed) 250 mls @ 0 mls/hr IVPB INF CRIS; Protocol Last Admin: 09/01/19 11:13 Dose: 250 mls Sodium Chloride (1/2 Normal Saline) 1,000 mls @ 50 mls/hr IV .Q20H CRIS Last Admin: 09/08/19 05:35 Dose: 1,000 mls Dexmedetomidine HCl 400 mcg/ (Sodium Chloride) 100 mls @ 0 mls/hr IVPB INF CRIS ; Protocol Last Admin: 09/06/19 12:19 Dose: 100 mls Ampicillin Sodium 500 mg/ (Sodium Chloride) 100 mls @ 200 mls/hr IVPB 1100, 2300 [facility] Last Admin: 09/07/19 22:14 Dose: 100 mls Cefepime HCl 1 gm/ Sodium (Chloride) 100 mls @ 200 mls/hr IVPB 1700 [facility] Last Admin: 09/07/19 16:20 Dose: 100 mls Nicardipine HCl 50 mg/ Sodium (Chloride) 250 mls @ 0 mls/hr IV INF CRIS; Protocol Last Admin: 09/07/19 16:14 Dose: 250 mls Cefazolin Sodium/Dextrose 2 gm (/ Device) 50 mls @ 100 mls/hr IVPB ONCALL-OR CRIS Insulin Human Lispro (Humalog) 0 units SC .MODERATE SLIDING SC PRN PRN Reason: Moderate Correctional Scale Last Admin: 09/08/19 05:24 Dose: 2 unit Methylprednisolone Sodium Succinate (Solu-Medrol) 20 mg IVP Q8HR [facility] Last Admin: 09/08/19 05:35 Dose: 20 mg Metoclopramide HCl (Reglan) 10 mg IVP Q6HR [facility] Last Admin: 09/08/19 05:35 Dose: 10 mg Morphine Sulfate (Morphine) 2 mg SLOW IVP Q1H PRN PRN Reason: BREAKTHROUGH PAIN/Agitation Stop: 09/30/19 20:00 Last Admin: 09/06/19 19:15 Dose: 2 mg Nitroglycerin (Nitro-Bid 2% Ointment) 1 inch TOP Q6H CRIS Last Admin: 09/08/19 07:00 Dose: Not Given Discontinue Previous Narcotic Pain Medications And Benzodiazepines 1 each FS .ONE CRIS Stop: 09/30/19 20:00 Ondansetron HCl (Zofran) 4 mg IVP Q6H PRN PRN Reason: Nausea/Vomiting Propofol (Diprivan) 1,000 mg IV INF PRN; Protocol PRN Reason: TO ACHIEVE GOAL RASS Stop: 09/30/19 20:00 Last Admin: 09/08/19 09:08 Dose: 1,000 mg Sodium Bicarbonate (Bicarbonate, Sodium) 650 mg PER TUBE .PER PROTOCOL PRN PRN Reason: ENTERAL TUBE OCCLUSION Sodium Chloride (Flush - Normal Saline) 10 ml IVF Q12HR [facility] Last Admin: 09/08/19 08:31 Dose: 10 ml Sodium Chloride (Flush - Normal Saline) 10 ml IVF PRN PRN PRN Reason: Saline Flush Vital Signs & Weight: Vital Signs Temp Pulse Resp BP Pulse Ox 09/08/19 10:17 63 20 96 09/08/19 10:00 18 09/08/19 08:41 123/47 L 09/08/19 08:28 123/47 L 09/08/19 08:00 98 F 20 09/08/19 07:38 99 09/08/19 06:32 60 09/08/19 06:24 60 18 98 09/08/19 06:00 19 09/08/19 04:00 98.1 F 22 H 09/08/19 02:54 62 147/56 H 09/08/19 02:00 23 H 09/08/19 00:00 97.9 F 21 H 09/07/19 23:34 154/61 H Admit Weight 153 lb 7.068 oz Weight 176 lb 5.917 oz - Physical Exam General: no apparent distress Neck: supple neck Cardiac: regular rate and rhythm Lungs: clear to auscultation Neuro: grossly intact Extremities: no cyanosis, 1+ LE edema - Labs Result Diagrams: 09/08/19 03:41 09/08/19 03:41 Troponin/CKMB CK-MB (CK-2) 2.2 ng/mL (0-6.6) 08/31/19 16:43 Troponin I 1.231 ng/mL (< 0.028) H* 09/01/19 19:33 - Assessment/Plan Assessment/Plan: SVT NSVT Torsades Respiratory failure Sepsis Non-small cell cancer Acute renal failure DM COPD No further episodes of torsades after dialysis Contiue current supportive care
--- NOTE | 2019-09-08 11:56 | PRG ---
DATE OF SERVICE: 09/08/2019 SERVICE: Renal Medicine. SUBJECTIVE: Ms. Garcia is a 74-year-old white female, followed up by the Renal Service for her acute kidney injury secondary to an acute tubular necrosis. Due to the volume overload and progressive azotemia, she has been initiated on dialysis. We were able to remove 4 L of fluid with her by adjusting her dialysis regimen. We did a 2-hour ultrafiltration and 2-hour hemodialysis with her, so she can tolerate the fluid removal. No other acute events noted. OBJECTIVE: VITAL SIGNS: Blood pressure is 161/65, heart rate 62, respiratory rate 20, and O2 saturation 96%. GENERAL: The patient is sedated, intubated on ventilator support. SKIN: Adequate turgor. HEENT: She has a slightly pale conjunctivae. Anicteric sclerae. NECK: No neck mass. No carotid bruits. No JVD. CHEST: No deformities. LUNGS: Decreased breath sounds. HEART: Normal sinus rhythm. No murmur. No gallops. No rubs. ABDOMEN: Globular, soft, and nontender. No masses. EXTREMITIES: Trace edema. MEDICATIONS: Medications of September 08, 2019, were reviewed. LABORATORY DATA: Laboratories of September 08, 2019; white count 13.1, hemoglobin 9.3. Sodium 131, potassium 4.5, chloride 98, carbon dioxide 22, BUN 65, creatinine 3.11, glucose 195, and calcium 8.2. ASSESSMENT AND PLAN: 1. Acute kidney injury secondary to acute tubular necrosis. Continue dialytic intervention. We will do an extra dialysis/ultrafiltration today for further fluid removal to optimize her pulmonary status in anticipation of eventual extubation. 2. Mild hyponatremia - adjust dialysis bath as needed. I plan to do a short 3-hour hemodialysis/ultrafiltration today. Again, we will attempt to max out fluid removal as tolerated by the patient. 3. Acute respiratory failure/pneumonia - supportive care. Currently, on ventilator support. Pulmonary is following. Job ID: [id number]
[2019-09-08] MEDS: niCARdipine 50 MG in Sodium Chloride 0.9% 250 ML 230 ML IV SCH (15:44)
[2019-09-08] MEDS: Cefepime 1 GM in Sodium Chloride 0.9% 100 ML IVPB SCH (17:26)
[2019-09-08 19:26] LABS: ALT (SGPT) 328 U/L (8-55); AST (SGOT) 29 U/L (5-34); Alkaline Phosphatase 53 U/L (40-110); Anion Gap 16 mmol/L (10-20); BUN (Urea Nitrogen) 60 mg/dL (9.8-20.1); Bilirubin, Total 0.6 mg/dL (0.2-1.2); Calc. Creatinine Clearance 23 mL/min (70-130); Calcium 8.1 mg/dL (7.8-10.44); Carbon Dioxide 25 mmol/L (23-31); Chloride 98 mmol/L (98-107); Estimated GFR-MDRD 17; Globulin 2.3 g/dL (2.4-3.5); Glucose 159 mg/dL (83-110); Potassium 4.6 mmol/L (3.5-5.1); Protein, Total 5.3 g/dL (6.0-8.3); Sodium 134 mmol/L (136-145)
--- NOTE | 2019-09-08 19:44 | PDOC.HOSPP ---
- Subjective Subjective: Pt is intubated and sedated. Daughter is at bedside. - Objective Vital Signs & Weight: Vital Signs (12 hours) Temp Pulse Resp BP Pulse Ox 09/08/19 18:09 105 H 143/119 H 09/08/19 18:00 20 09/08/19 17:25 155/63 H 09/08/19 16:00 98.5 F 20 09/08/19 15:09 59 L 155/63 H 09/08/19 14:50 59 L 20 100 09/08/19 14:00 20 09/08/19 12:00 98.3 F 20 09/08/19 10:17 63 20 96 09/08/19 10:00 18 09/08/19 08:41 123/47 L 09/08/19 08:28 123/47 L 09/08/19 08:00 98 F 20 Weight Admit Weight 153 lb 7.068 oz Weight 176 lb 5.917 oz Most Recent Monitor Data Heart Rate from ECG 61 NIBP 143/53 NIBP BP-Mean 83 Respiration from ECG 0 SpO2 97 I&O: 09/07/19 09/08/19 09/09/19 06:59 06:59 06:59 Intake Total 2454.9 3794 1297 Output Total 243 88 45 Balance 2211.9 3706 1252 Result Diagrams: 09/08/19 03:41 09/08/19 18:53 Additional Labs: Accuchecks 09/08/19 09/08/19 09/07/19 17:54 12:54 22:32 POC Glucose 136 H 197 H 221 H Hospitalist ROS - Review of Systems ROS unobtainable: due to endotracheal tube - Medication Medications: Active Medications Generic Name Dose Route Start Last Admin Trade Name Freq PRN Reason Stop Dose Admin Albuterol/Ipratropium 3 ml 08/31/19 19:00 09/08/19 18:13 Duoneb NEB 3 ml [id number] CRIS Administration Amiodarone HCl 200 mg 09/05/19 15:00 09/08/19 15:09 Cordarone PER TUBE 200 mg TID CRIS Administration Aspirin 81 mg 09/02/19 09:00 09/08/19 08:28 Aspirin Chewable PO 81 mg DAILY CRIS Administration Carvedilol 12.5 mg 09/07/19 17:00 09/08/19 17:25 Coreg PO 12.5 mg BID-WM CRIS Administration Enalaprilat 0.625 mg 09/05/19 11:47 09/06/19 19:31 Vasotec SLOW IVP 0.625 mg Q6H PRN Administration SBP > 180 Famotidine 20 mg 09/03/19 09:00 09/08/19 08:28 Pepcid SLOW IVP 20 mg DAILY CRIS Administration Heparin Sodium (Porcine) 5,000 units 09/07/19 09:00 09/08/19 08:27 Heparin SC 5,000 units BID CRIS Administration Hydralazine HCl 50 mg 09/05/19 09:00 09/08/19 15:09 Apresoline PO Not Given TID CRIS Hydralazine HCl 20 mg 09/07/19 03:30 09/07/19 03:33 Apresoline SLOW IVP 20 mg Q4H PRN Administration SBP Greater Than 170 Insulin Glargine 15 units/ 0.15 mls @ 0 mls/hr 08/31/19 21:00 09/07/19 20:05 Miscellaneous Medication SC 0.15 mls HS CRIS Administration Norepinephrine Bitartrate 250 mls @ 0 mls/hr 08/31/19 22:15 09/01/19 11:13 Levophed IVPB 250 mls INF CRIS Administration Protocol Titrate Sodium Chloride 1,000 mls @ 50 mls/hr 09/02/19 13:30 09/08/19 05:35 1/2 Normal Saline IV 1,000 mls .Q20H CRIS Administration Dexmedetomidine HCl 400 mcg/ 100 mls @ 0 mls/hr 09/02/19 19:45 09/06/19 12:19 Sodium Chloride IVPB 100 mls INF CRIS Administration Protocol Per Protocol Ampicillin Sodium 500 mg/ 100 mls @ 200 mls/hr 09/02/19 23:00 09/08/19 11:23 Sodium Chloride IVPB 100 mls 1100,2300 CRIS Administration Cefepime HCl 1 gm/ Sodium 100 mls @ 200 mls/hr 09/07/19 17:00 09/08/19 17:26 Chloride IVPB 100 mls 1700 CRIS Administration Nicardipine HCl 50 mg/ Sodium 250 mls @ 0 mls/hr 09/07/19 04:00 01/25/20 15: 44 Chloride IV 250 mls INF CRIS Administration Protocol As Directed Insulin Human Lispro 0 units 08/31/19 20:47 09/08/19 13:30 Humalog SC 3 unit .MODERATE SLIDING SC PRN Administration Moderate Correctional Scale Methylprednisolone Sodium Succinate 20 mg 08/31/19 22:00 09/08/19 13:30 Solu-Medrol IVP 20 mg Q8HR CRIS Administration Metoclopramide HCl 10 mg 09/06/19 18:00 09/08/19 17:27 Reglan IVP 10 mg Q6HR CRIS Administration Morphine Sulfate 2 mg 08/31/19 20:00 09/06/19 19:15 Morphine SLOW IVP 09/30/19 20:00 2 mg Q1H PRN Administration BREAKTHROUGH PAIN/Agitation Nitroglycerin 1 inch 09/07/19 01:00 09/08/19 13:23 Nitro-Bid 2% Ointment TOP Not Given Q6H CRIS Propofol 1,000 mg 08/31/19 20:00 09/08/19 17:28 Diprivan IV 09/30/19 20:00 1,000 mg INF PRN Administration TO ACHIEVE GOAL RASS Protocol Sodium Chloride 10 ml 09/06/19 21:00 09/08/19 08:31 Flush - Normal Saline IVF 10 ml Q12HR CRIS Administration - Exam General Appearance: ill appearing Eye: PERRL, anicteric sclera ENT: normocephalic atraumatic, moist mucosa Neck: supple, symmetric, no JVD, no thyromegaly, no lymphadenopathy Heart: RRR, no murmur, no gallops, no rubs, normal peripheral pulses Respiratory: CTAB, no wheezes, no rales, no ronchi Gastrointestinal: soft, non-tender, non-distended, normal bowel sounds Extremities: no cyanosis, no clubbing, no edema Skin: no lesions, no rashes Neurological: cranial nerve grossly intact, no focal deficits Musculoskeletal: normal strength, no muscle wasting Hosp A/P (1) Acute respiratory failure with hypoxia Code(s): J96.01 - ACUTE RESPIRATORY FAILURE WITH HYPOXIA Status: Acute Plan: Cont vent mgt. Wean per PCCM. (2) DM type 2 (diabetes mellitus, type 2) Status: Chronic Qualifiers: Diabetes mellitus continuous churn buttermaker insulin use: without fdc use Diabetes mellitus complication status: without complication Qualified Code(s): E11.9 - Type 2 diabetes mellitus without complications Plan: Cont BG. Cover with SSI. (3) PNA (pneumonia) Code(s): J18.9 - PNEUMONIA, UNSPECIFIED ORGANISM Status: Acute Qualifiers: Pneumonia type: due to unspecified organism Laterality: right Lung location: middle lobe of lung Qualified Code(s): J18.9 - Pneumonia, unspecified organism Plan: Cont current abx. (4) Acute renal failure Status: Acute Qualifiers: Acute renal failure type: with acute tubular necrosis Qualified Code(s): N17.0 - Acute kidney failure with tubular necrosis Plan: Pt is getting HD. Will cont mgt per HD. (5) Acute blood loss anemia Code(s): D62 - ACUTE POSTHEMORRHAGIC ANEMIA Status: Resolved Plan: Hg is stable. Monitor Hg. (6) HTN (hypertension) Code(s): I10 - ESSENTIAL (PRIMARY) HYPERTENSION Status: Chronic Qualifiers: Hypertension type: essential hypertension Qualified Code(s): I10 - Essential (primary) hypertension Plan: BP is stable. Cont to monitor BP. (7) Non-small cell cancer of right lung Code(s): C34.91 - MALIGNANT NEOPLASM OF UNSP PART OF RIGHT BRONCHUS OR LUNG Status: Chronic Plan: Stable. (8) FTT (failure to thrive) in adult Status: Acute Plan: Cont supportive mgt. (9) Paroxysmal A-fib Code(s): I48.0 - PAROXYSMAL ATRIAL FIBRILLATION Status: Chronic Plan: Cont med mgt. (10) Leucocytosis Code(s): D72.829 - ELEVATED WHITE BLOOD CELL COUNT, UNSPECIFIED Status: Acute Plan: Monitor WBC. Cont abx. - Plan plan discussed w/ family, ontiveros catheter, continue antibiotics, respiratory therapy PPx: SCDs. CODE: FULL. Dispo: cont current mgt.
[2019-09-08] MEDS: Insulin Glargine 15 UNITS in Pre-Filled Syringe 1 EACH SC SCH (20:03)
[2019-09-09] MEDS: Nitroglycerin 2% Ointment 1 INCH/1 GM Packet TOP SCH ×4 (00:47→18:40)
[2019-09-09] MEDS: Metoclopramide HCl 10 MG/2 ML VIAL IVP SCH ×4 (00:47→14:19)
[2019-09-09 03:55] LABS: Anion Gap 15 mmol/L (10-20); BUN (Urea Nitrogen) 75 mg/dL (9.8-20.1); Calc. Creatinine Clearance 20 mL/min (70-130); Calcium 8.4 mg/dL (7.8-10.44); Carbon Dioxide 24 mmol/L (23-31); Chloride 98 mmol/L (98-107); Estimated GFR-MDRD 15; Glucose 156 mg/dL (83-110); Potassium 4.4 mmol/L (3.5-5.1); Sodium 133 mmol/L (136-145)
[2019-09-09 04:00] LABS: Band 4 % (5-11); Hypochromia SLIGHT = 6-15 cells (100X) (0-5/hpf); Lymphocytes 1 % (21-51); MDiff Complete? YES; Mean Corpuscular HGB CONC 32.1 g/dL (32.0-36.0); Mean Corpuscular Hemoglobin 27.2 pg (27.0-31.0); Mean Corpuscular Volume 84.9 fL (78.0-98.0); Mean Platelet Volume 9.3 fL (7.4-10.4); Monocytes 2 % (0-10); Neutrophil 93 % (42-75); Platelet Count 98 thou/uL (130-400); Platelet Morphology Comment Appears Decreased; RBC Distribution Width 16.3 % (11.5-14.5); Red Blood Cell (RBC) Count 3.66 mill/uL (4.20-5.40); White Blood Cell (WBC) Count 16.6 thou/uL (4.8-10.8)
[2019-09-09] MEDS: HumaLOG 300 UNITS/3 ML VIAL SC PRN ×4 (05:00→22:01)
[2019-09-09] MEDS: Propofol 1,000 MG/100 ML VIAL IV PRN ×2 (05:07→16:12)
[2019-09-09] MEDS: methylPREDNISolone Sod Succ 40 MG VIAL IVP SCH ×3 (05:15→21:58)
[2019-09-09] MEDS: niCARdipine 50 MG in Sodium Chloride 0.9% 250 ML 230 ML IV SCH (07:23)
[2019-09-09] MEDS: Carvedilol 6.25 MG TAB PO SCH (07:45)
[2019-09-09 07:48] LABS: Actual Bicarbonate (HCO3a) 24.2 mEq/L (22-28); Base Excess (BEa) 0.2 mEq/L (-2.0 to +3.0); CO2 Tension 36.5 mmHg (35.0-45.0); Calcium, Ionized 1.13 mmol/L (1.12-1.30); Carboxyhemoglobin (COHb) 0.9 gm% (0.0-3.0); Hemoglobin (Hb) 10.7 g/dL (12.0-16.0); Potassium - ABG Lab 4.37 mmol/L (3.70-5.30); pH, Arterial 7.44 (7.35-7.45)
--- NOTE | 2019-09-09 07:55 | RAD ---
EXAM: Single view of the chest HISTORY: Ventilated patient with respiratory failure COMPARISON: 09/08/2019 FINDINGS: Single view of the chest shows a normal sized cardiomediastinal silhouette. Lines and tube s are unchanged in position. There is a moderate right and small left pleural effusion. The bones are unremarkable. IMPRESSION: Bilateral pleural effusions
[2019-09-09 08:02] LABS: O2 Tension (PaO2) 58.2 mmHg (> 70.0)
[2019-09-09 08:03] LABS: ALV-art Gradient 181.375 (0-20); Puncture Site RR
[2019-09-09] MEDS: hydrALAZINE 25 MG TAB PO SCH ×3 (08:43→20:38)
[2019-09-09] MEDS: Aspirin Chewable 81 MG TAB PO SCH (08:43)
[2019-09-09] MEDS: Famotidine/PF 20 mg/2ml Vial SLOW IVP SCH (08:44)
[2019-09-09] MEDS: Heparin 5,000 UNITS/ML VIAL SC SCH (08:44)
--- NOTE | 2019-09-09 08:47 | PRG ---
DATE OF SERVICE: 09/09/2019 Thirty five minutes critical care time. SUBJECTIVE: The patient remains intubated, on mechanical ventilation. OBJECTIVE: VITAL SIGNS: On exam, temperature 97.0, pulse 58, blood pressure 150/61, O2 saturations 95%. She is on a propofol and nicardipine drip. Input for 24 hours 2704, output 2200 by dialysis. HEENT: Unremarkable. NECK: No JVD. LUNGS: Diminished breath sounds in right compared to left. CARDIAC: S1 and S2, regular. ABDOMEN: Soft. EXTREMITIES: Trace edema throughout. LABORATORY DATA: White blood cell count 16, hematocrit 31, and platelet count 98. PH of 7.44, pCO2 of 36, pO2 of 58, on SIMV rate 8, tidal volume 450, PEEP 5, pressure support 10, FiO2 of 40%. Sodium 133, potassium 4.4, chloride 98, CO2 of 24, BUN 75, creatinine 3.1, glucose 156. Chest x-ray shows fairly substantial right-sided effusion compared to left. ASSESSMENT: 1. Acute hypoxic respiratory failure, requiring mechanical ventilation. 2. Supraventricular tachycardia. 3. Cardiomyopathy. 4. Acute renal failure. 5. Profound fluid overload. 6. History of chronic obstructive pulmonary disease. PLAN: She continues to need volume removed prior to extubation. I have put her on CPAP, but I think she would need more dialysis and perhaps a right-sided thoracentesis before considering extubation. Job ID: [id number]
--- NOTE | 2019-09-09 10:06 | PDOC.CPN ---
- Subjective Date: 09/09/19 Time: 12:29 Interval history: Still intubated and sedate. Pt wtih very fluctuant HR noted. On coreg and amiodarone - Objective Allergies/Adverse Reactions: Allergies Allergy/AdvReac Type Severity Reaction Status Date / Time Iodinated Contrast Media Allergy Intermediate Rash Verified 05/08/19 16:28 [Iodinated Contrast Media - IV Dye] Sulfa (Sulfonamide Allergy Intermediate Rash Verified 05/08/19 16:28 Antibiotics) iodine Allergy Verified 05/08/19 16:28 Visit Medications: Current Medications Acetaminophen (Tylenol) 650 mg PO Q4H PRN PRN Reason: Headache/Fever/Mild Pain (1-3) Albuterol/Ipratropium (Duoneb) 3 ml NEB [id number] [facility] Last Admin: 09/09/19 07:38 Dose: 3 ml Amiodarone HCl (Cordarone) 200 mg PER TUBE TID [facility] Last Admin: 09/08/19 20:02 Dose: 200 mg Lipase/Protease/Amylase ([place] [id number]) 1 cap FS .PER PROTOCOL PRN PRN Reason: TUBE OCCLUSION PROTOCOL Aspirin (Aspirin Chewable) 81 mg PO DAILY [facility] Last Admin: 09/09/19 08:43 Dose: 81 mg Carvedilol (Coreg) 12.5 mg PO BID[facility] Last Admin: 09/09/19 07:45 Dose: Not Given Dextrose/Water (Dextrose 50%) 25 gm SLOW IVP PRN PRN PRN Reason: Hypoglycemia Enalaprilat (Vasotec) 0.625 mg SLOW IVP Q6H PRN PRN Reason: SBP > 180 Last Admin: 09/06/19 19:31 Dose: 0.625 mg Famotidine (Pepcid) 20 mg SLOW IVP DAILY [facility] Last Admin: 09/09/19 08:44 Dose: 20 mg Glucagon (Glucagon) 1 mg IM PRN PRN PRN Reason: Hypoglycemia Heparin Sodium (Porcine) (Heparin) 5,000 units SC BID [facility] Last Admin: 09/09/19 08:44 Dose: 5,000 units Hydralazine HCl (Apresoline) 50 mg PO TID [facility] Last Admin: 09/09/19 08:43 Dose: 50 mg Hydralazine HCl (Apresoline) 20 mg SLOW IVP Q4H PRN PRN Reason: SBP Greater Than 170 Last Admin: 09/07/19 03:33 Dose: 20 mg Dextrose/Water (D5w) 1,000 mls @ 0 mls/hr IV .Q0M PRN PRN Reason: Hypoglycemia Insulin Glargine 15 units/ (Miscellaneous Medication) 0.15 mls @ 0 mls/hr SC HS [facility] Last Admin: 09/08/19 20:03 Dose: 0.15 mls Norepinephrine Bitartrate (Levophed) 250 mls @ 0 mls/hr IVPB INF [facility]; Protocol Last Admin: 09/01/19 11:13 Dose: 250 mls Sodium Chloride (1/2 Normal Saline) 1,000 mls @ 50 mls/hr IV .Q20H [facility] Last Admin: 09/08/19 05:35 Dose: 1,000 mls Dexmedetomidine HCl 400 mcg/ (Sodium Chloride) 100 mls @ 0 mls/hr IVPB INF [facility] ; Protocol Last Admin: 09/06/19 12:19 Dose: 100 mls Ampicillin Sodium 500 mg/ (Sodium Chloride) 100 mls @ 200 mls/hr IVPB 1100, 2300 [facility] Last Admin: 09/08/19 22:09 Dose: 100 mls Cefepime HCl 1 gm/ Sodium (Chloride) 100 mls @ 200 mls/hr IVPB 1700 [facility] Last Admin: 09/08/19 17:26 Dose: 100 mls Nicardipine HCl 50 mg/ Sodium (Chloride) 250 mls @ 0 mls/hr IV INF [facility]; Protocol Last Admin: 09/09/19 07:23 Dose: 250 mls Cefazolin Sodium/Dextrose 2 gm (/ Device) 50 mls @ 100 mls/hr IVPB ONCALL-OR CRIS Insulin Human Lispro (Humalog) 0 units SC .MODERATE SLIDING SC PRN PRN Reason: Moderate Correctional Scale Last Admin: 09/09/19 05:00 Dose: 2 unit Methylprednisolone Sodium Succinate (Solu-Medrol) 20 mg IVP Q8HR [facility] Last Admin: 09/09/19 05:15 Dose: 20 mg Metoclopramide HCl (Reglan) 10 mg IVP Q6HR [facility] Last Admin: 09/09/19 07:47 Dose: Not Given Morphine Sulfate (Morphine) 2 mg SLOW IVP Q1H PRN PRN Reason: BREAKTHROUGH PAIN/Agitation Stop: 09/30/19 20:00 Last Admin: 09/06/19 19:15 Dose: 2 mg Nitroglycerin (Nitro-Bid 2% Ointment) 1 inch TOP Q6H [facility] Last Admin: 09/09/19 08:44 Dose: 1 inch Discontinue Previous Narcotic Pain Medications And Benzodiazepines 1 each FS .ONE [facility] Stop: 09/30/19 20:00 Ondansetron HCl (Zofran) 4 mg IVP Q6H PRN PRN Reason: Nausea/Vomiting Propofol (Diprivan) 1,000 mg IV INF PRN; Protocol PRN Reason: TO ACHIEVE GOAL RASS Stop: 09/30/19 20:00 Last Admin: 09/09/19 05:07 Dose: 1,000 mg Sodium Bicarbonate (Bicarbonate, Sodium) 650 mg PER TUBE .PER PROTOCOL PRN PRN Reason: ENTERAL TUBE OCCLUSION Sodium Chloride (Flush - Normal Saline) 10 ml IVF Q12HR [facility] Last Admin: 09/08/19 20:46 Dose: Not Given Sodium Chloride (Flush - Normal Saline) 10 ml IVF PRN PRN PRN Reason: Saline Flush Vital Signs & Weight: Vital Signs Temp Pulse Resp BP 09/09/19 08:43 63 154/56 H 09/09/19 07:45 143/52 H 09/09/19 07:38 62 155/58 H 09/09/19 06:00 21 H 09/09/19 04:00 20 09/09/19 02:04 59 L 143/52 H 09/09/19 02:00 21 H 09/09/19 00:00 98.5 F 21 H 09/08/19 22:29 56 L 149/58 H Admit Weight 153 lb 7.068 oz Weight 172 lb 9.951 oz - Physical Exam General: appears well, no apparent distress, other (I/S) Neck: supple neck Cardiac: regular rate and rhythm Lungs: clear to auscultation Abdomen: active bowel sounds, soft, non-tender Extremities: no cyanosis - Labs Result Diagrams: 09/09/19 03:22 09/09/19 03:22 Troponin/CKMB CK-MB (CK-2) 2.2 ng/mL (0-6.6) 08/31/19 16:43 Troponin I 1.231 ng/mL (< 0.028) H* 09/01/19 19:33 - Assessment/Plan Assessment/Plan: Assessment/Plan: Tachy-Juan syndrome SVT NSVT Torsades Respiratory failure Sepsis Non-small cell cancer Acute renal failure DM COPD Add transcutaneous pads Pt with high and LOW HR noted May need pacer No further episodes of torsades after dialysis DC coreg; tolerate high vs low HR Contiue current supportive care
[2019-09-09] MEDS: Amiodarone 200 MG TAB PER TUBE SCH ×3 (11:01→20:38)
--- NOTE | 2019-09-09 12:08 | PRG ---
DATE OF SERVICE: 09/09/2019 SUBJECTIVE: Ms. Garcia is a 74-year-old white female, who was seen by the Renal Service for her acute kidney injury secondary to acute tubular necrosis. Due to the volume overload and progressive azotemia, she has been initiated on dialysis. She has been tolerating her dialysis regimen with maximal fluid removal. However, yesterday, we attempted again a maximal fluid removal and we were able only to remove 2 L due to the drop in blood pressure. We will hold off dialysis today. She is more awake today. OBJECTIVE: VITAL SIGNS: Blood pressure is 115/52, heart rate 62, respiratory rate 24, and pulse ox 96%. GENERAL: Awake, intubated on ventilator support. SKIN: Adequate turgor. HEENT: Pinkish conjunctivae. Anicteric sclerae. NECK: No neck mass. No carotid bruits. No JVD. CHEST: No deformities. LUNGS: Decreased breath sounds. HEART: Normal sinus rhythm. No murmur. No gallops. No rubs. ABDOMEN: Globular, soft, and nontender. No masses. EXTREMITIES: Positive for edema. MEDICATIONS: Medications of September 09, 2019, were reviewed. LABORATORY DATA: Laboratories of September 09, 2019, showed the following; sodium was 133, potassium 4.4, chloride 98, carbon dioxide 24, BUN 75, creatinine 3.07, glucose 156, and calcium 8.4. ASSESSMENT AND PLAN: 1. Congestive heart failure/volume overload, maxing out fluid removal only as tolerated with dialysis. No indication for any emergent dialysis today. 2. Acute kidney injury secondary to acute tubular necrosis. Continue current dialysis regimen. As previously mentioned, no dialysis today. We will reschedule her back for dialysis in the a.m. The plan is to have a cuffed hemodialysis catheter placed on this patient as well as a possible pacemaker. 3. Volume overload, maxing out fluid removal as tolerated with dialysis. Agree with current management. Job ID: [id number]
[2019-09-09] MEDS: Sodium Chloride 0.45% 1,000 ML IV SCH (14:18)
[2019-09-09] MEDS: Cefepime 1 GM in Sodium Chloride 0.9% 100 ML IVPB SCH (15:57)
--- NOTE | 2019-09-09 17:04 | PDOC.HOSPP ---
- Subjective Subjective: Pt is still intubated. She is awake today and can understand questions even though she cannot respond. - Objective Vital Signs & Weight: Vital Signs (12 hours) Temp Pulse Resp BP Pulse Ox 09/09/19 16:00 19 09/09/19 14:46 76 09/09/19 14:04 70 153/77 H 09/09/19 14:00 98.3 F 22 H 09/09/19 12:21 65 09/09/19 12:00 18 09/09/19 11:00 97.8 F 09/09/19 10:26 62 150/52 H 09/09/19 10:00 20 09/09/19 08:43 63 154/56 H 09/09/19 08:00 16 96 09/09/19 07:45 143/52 H 09/09/19 07:38 62 155/58 H 09/09/19 07:00 98.4 F 09/09/19 06:00 21 H Weight Admit Weight 153 lb 7.068 oz Weight 172 lb 9.951 oz Most Recent Monitor Data Heart Rate from ECG 67 NIBP 136/61 NIBP BP-Mean 86 Respiration from ECG 22 SpO2 96 I&O: 09/08/19 09/09/19 09/10/19 06:59 06:59 06:59 Intake Total 3794 2704.5 200 Output Total 88 100 Balance 3706 2604.5 200 Result Diagrams: 09/09/19 03:22 09/09/19 03:22 Additional Labs: Accuchecks 09/09/19 09/09/19 09/08/19 16:03 10:11 22:11 POC Glucose 199 H 192 H 185 H 09/08/19 17:54 POC Glucose 136 H Hospitalist ROS - Review of Systems ROS unobtainable: due to endotracheal tube - Medication Medications: Active Medications Generic Name Dose Route Start Last Admin Trade Name Freq PRN Reason Stop Dose Admin Albuterol/Ipratropium 3 ml 08/31/19 19:00 09/09/19 14:22 Duoneb NEB 3 ml [id number] [facility] Administration Amiodarone HCl 200 mg 09/05/19 15:00 09/09/19 14:05 Cordarone PER TUBE 200 mg TID [facility] Administration Aspirin 81 mg 09/02/19 09:00 09/09/19 08:43 Aspirin Chewable PO 81 mg DAILY [facility] Administration Enalaprilat 0.625 mg 09/05/19 11:47 09/06/19 19:31 Vasotec SLOW IVP 0.625 mg Q6H PRN Administration SBP > 180 Famotidine 20 mg 09/03/19 09:00 09/09/19 08:44 Pepcid SLOW IVP 20 mg DAILY [facility] Administration Hydralazine HCl 50 mg 09/05/19 09:00 09/09/19 14:04 Apresoline PO 50 mg TID [facility] Administration Hydralazine HCl 20 mg 09/07/19 03:30 09/07/19 03:33 Apresoline SLOW IVP 20 mg Q4H PRN Administration SBP Greater Than 170 Insulin Glargine 15 units/ 0.15 mls @ 0 mls/hr 08/31/19 21:00 09/08/19 20:03 Miscellaneous Medication SC 0.15 mls HS [facility] Administration Norepinephrine Bitartrate 250 mls @ 0 mls/hr 08/31/19 22:15 09/01/19 11:13 Levophed IVPB 250 mls INF [facility] Administration Protocol Titrate Sodium Chloride 1,000 mls @ 50 mls/hr 09/02/19 13:30 09/09/19 14:18 1/2 Normal Saline IV Not Given .Q20H [facility] Dexmedetomidine HCl 400 mcg/ 100 mls @ 0 mls/hr 09/02/19 19:45 09/06/19 12:19 Sodium Chloride IVPB 100 mls INF [facility] Administration Protocol Per Protocol Ampicillin Sodium 500 mg/ 100 mls @ 200 mls/hr 09/02/19 23:00 09/09/19 11:03 Sodium Chloride IVPB 100 mls 1100,2300 [facility] Administration Cefepime HCl 1 gm/ Sodium 100 mls @ 200 mls/hr 09/07/19 17:00 09/09/19 15:57 Chloride IVPB 100 mls 1700 [facility] Administration Nicardipine HCl 50 mg/ Sodium 250 mls @ 0 mls/hr 09/07/19 04:00 09/09/19 07: 23 Chloride IV 250 mls INF [facility] Administration Protocol As Directed Insulin Human Lispro 0 units 08/31/19 20:47 09/09/19 16:00 Humalog SC 2 unit .MODERATE SLIDING SC PRN Administration Moderate Correctional Scale Methylprednisolone Sodium Succinate 20 mg 08/31/19 22:00 09/09/19 14:06 Solu-Medrol IVP 20 mg Q8HR [facility] Administration Metoclopramide HCl 10 mg 09/06/19 18:00 09/09/19 14:19 Reglan IVP Not Given Q6HR [facility] Morphine Sulfate 2 mg 08/31/19 20:00 09/06/19 19:15 Morphine SLOW IVP 09/30/19 20:00 2 mg Q1H PRN Administration BREAKTHROUGH PAIN/Agitation Nitroglycerin 1 inch 09/07/19 01:00 09/09/19 14:05 Nitro-Bid 2% Ointment TOP 1 inch Q6H [facility] Administration Propofol 1,000 mg 08/31/19 20:00 09/09/19 16:12 Diprivan IV 09/30/19 20:00 1,000 mg INF PRN Administration TO ACHIEVE GOAL RASS Protocol Sodium Chloride 10 ml 09/06/19 21:00 09/09/19 11:01 Flush - Normal Saline IVF Not Given Q12HR [facility] - Exam General Appearance: ill appearing General - other findings: awake, intubated not sedated Eye: PERRL, anicteric sclera ENT: normocephalic atraumatic, moist mucosa Neck: supple, symmetric, no JVD, no thyromegaly, no lymphadenopathy Heart: RRR, no murmur, no gallops, no rubs, normal peripheral pulses Respiratory: CTAB, no wheezes, no rales, no ronchi Gastrointestinal: soft, non-tender, non-distended, normal bowel sounds Extremities: no clubbing, no edema Skin: no lesions, no rashes Neurological - other findings: Unable to assess Musculoskeletal: generalized weakness Psychiatric - other findings: Unable to assess Hosp A/P - Plan Hosp A/P (1) Acute respiratory failure with hypoxia Code(s): J96.01 - ACUTE RESPIRATORY FAILURE WITH HYPOXIA Status: Acute Plan: Cont vent mgt. Pt is not sedated and more awake today. PCCM is beginning to wean vent. Wean per PCCM. (2) DM type 2 (diabetes mellitus, type 2) Status: Chronic Qualifiers: Diabetes mellitus snf insulin use: without snf use Diabetes mellitus complication status: without complication Qualified Code(s): E11.9 - Type 2 diabetes mellitus without complications Plan: Cont BG. Cover with SSI. (3) PNA (pneumonia) Code(s): J18.9 - PNEUMONIA, UNSPECIFIED ORGANISM Status: Acute Qualifiers: Pneumonia type: due to unspecified organism Laterality: right Lung location: middle lobe of lung Qualified Code(s): J18.9 - Pneumonia, unspecified organism Plan: Cont current abx. WBC is getting higher, may get CT chest if worsening. Will consider adding Vanc if needed. (4) Acute renal failure Status: Acute Qualifiers: Acute renal failure type: with acute tubular necrosis Qualified Code(s): N17.0 - Acute kidney failure with tubular necrosis Plan: Pt is getting HD. Will cont mgt per HD. (5) Acute blood loss anemia Code(s): D62 - ACUTE POSTHEMORRHAGIC ANEMIA Status: Resolved Plan: Hg is stable. Monitor Hg. (6) HTN (hypertension) Code(s): I10 - ESSENTIAL (PRIMARY) HYPERTENSION Status: Chronic Qualifiers: Hypertension type: essential hypertension Qualified Code(s): I10 - Essential (primary) hypertension Plan: BP is stable. Cont to monitor BP. (7) Non-small cell cancer of right lung Code(s): C34.91 - MALIGNANT NEOPLASM OF UNSP PART OF RIGHT BRONCHUS OR LUNG Status: Chronic Plan: Stable. (8) FTT (failure to thrive) in adult Status: Acute Plan: Cont supportive mgt. (9) Paroxysmal A-fib Code(s): I48.0 - PAROXYSMAL ATRIAL FIBRILLATION Status: Chronic Plan: Cont med mgt. Cardiology is considering placing a PM, will f/u with further cardiac recs (10) Leucocytosis Code(s): D72.829 - ELEVATED WHITE BLOOD CELL COUNT, UNSPECIFIED Status: Acute Plan: Monitor WBC. Cont abx. plan discussed w/ family, ontiveros catheter, continue antibiotics, respiratory therapy PPx: SCDs. CODE: FULL. Dispo: cont current mgt.
[2019-09-09] MEDS: Insulin Glargine 15 UNITS in Pre-Filled Syringe 1 EACH SC SCH (20:38)
[2019-09-10] MEDS: Metoclopramide HCl 10 MG/2 ML VIAL IVP SCH ×5 (00:43→23:49)
[2019-09-10] MEDS: Nitroglycerin 2% Ointment 1 INCH/1 GM Packet TOP SCH ×4 (02:28→19:36)
[2019-09-10] MEDS: Sodium Chloride 0.45% 1,000 ML IV SCH ×3 (02:49→23:37)
[2019-09-10] MEDS: Propofol 1,000 MG/100 ML VIAL IV PRN ×2 (04:58→23:36)
[2019-09-10] MEDS: methylPREDNISolone Sod Succ 40 MG VIAL IVP SCH ×3 (05:00→21:31)
[2019-09-10 05:33] LABS: Band 3 % (5-11); Lymphocytes 4 % (21-51); MDiff Complete? YES; Mean Corpuscular HGB CONC 32.6 g/dL (32.0-36.0); Mean Corpuscular Hemoglobin 27.5 pg (27.0-31.0); Mean Corpuscular Volume 84.3 fL (78.0-98.0); Mean Platelet Volume 9.2 fL (7.4-10.4); Monocytes 5 % (0-10); Neutrophil 88 % (42-75); Platelet Count 127 thou/uL (130-400); Platelet Morphology Comment Appears Adequate; RBC Distribution Width 16.3 % (11.5-14.5); Red Blood Cell (RBC) Count 3.65 mill/uL (4.20-5.40); White Blood Cell (WBC) Count 17.2 thou/uL (4.8-10.8)
[2019-09-10 05:42] LABS: Anion Gap 18 mmol/L (10-20); BUN (Urea Nitrogen) 106 mg/dL (9.8-20.1); Calc. Creatinine Clearance 16 mL/min (70-130); Carbon Dioxide 20 mmol/L (23-31); Chloride 96 mmol/L (98-107); Estimated GFR-MDRD 12; Glucose 170 mg/dL (83-110); Potassium 4.8 mmol/L (3.5-5.1); Sodium 129 mmol/L (136-145)
[2019-09-10 08:01] LABS: Actual Bicarbonate (HCO3a) 19.2 mEq/L (22-28); Base Excess (BEa) -4.7 mEq/L (-2.0 to +3.0); CO2 Tension 31.3 mmHg (35.0-45.0); Calcium, Ionized 1.11 mmol/L (1.12-1.30); Carboxyhemoglobin (COHb) 0.7 gm% (0.0-3.0); Hemoglobin (Hb) 10.7 g/dL (12.0-16.0); Potassium - ABG Lab 4.64 mmol/L (3.70-5.30); pH, Arterial 7.41 (7.35-7.45)
[2019-09-10 08:04] LABS: O2 Tension (PaO2) 58.3 mmHg (> 70.0); Puncture Site RRA
[2019-09-10 08:05] LABS: ALV-art Gradient 116.475 (0-20)
--- NOTE | 2019-09-10 09:38 | PRG ---
DATE OF SERVICE: 09/10/2019 SERVICE: Renal Medicine. SUBJECTIVE: Ms. Garcia is a 74-year-old white female, seen by the Renal Service for her acute kidney injury secondary to acute tubular necrosis. She also has gone to acute respiratory failure and currently intubated on ventilator support. Early this morning while attempting to dialyze, the patient became hemodynamically unstable and heart rate slowed down. As per recommendation by Cardiology, we will stop dialysis and they will place defibrillator with this patient and then resume back her dialysis later this afternoon. OBJECTIVE: VITAL SIGNS: Blood pressure is noted at 142/87, heart rate 58, respiratory rate 30. GENERAL: The patient is sedated and intubated on ventilator support. SKIN: Adequate turgor. HEENT: Pinkish conjunctivae. Anicteric sclerae. NECK: No neck mass. No carotid bruits. No JVD. CHEST: No deformities. LUNGS: Clear breath sounds. HEART: Normal sinus rhythm. No murmur. No gallops. No rubs. ABDOMEN: Soft, globular. Nontender. No masses. EXTREMITIES: No edema. No deformities. MEDICATIONS: Medications of September 10, 2019, reviewed. LABORATORY DATA: Laboratories of September 10, 2019, white count 17.2, hemoglobin 10. Sodium 129, potassium 4.8, chloride 96, carbon dioxide 20, BUN is 106, creatinine 3.76, glucose 170, calcium 8. ASSESSMENT AND PLAN: 1. Bradycardia. Initially it was felt that this patient will be fine with just stopping the beta blockers. She has another episode of symptomatic bradycardia this morning. For that reason, the patient will be brought to the surgical suite for placement of an AICD? pacemaker. Dr. Dodge is following the patient. 2. Acute kidney injury/ATN. We will reschedule the patient for hemodialysis later this afternoon. Continue supportive care. Fluid removal will be done as tolerated by the patient. Her overall prognosis remains guarded. Job ID: [id number]
[2019-09-10] MEDS ORDERED: Rocuronium Bromide 10 MG/ML (10ML VIAL) ONE (10:01)
[2019-09-10] MEDS ORDERED: PHENYLEPHRINE-NS 100 MCG/ML 10 ML SYRINGE ONE (10:01)
[2019-09-10] MEDS ORDERED: ePHEDrine/0.9% NaCl/PF SYRINGE 50 mg/10 ml ONE (10:01)
[2019-09-10] MEDS ORDERED: Vancomycin HCl 1.5 GM in Sodium Chloride 0.9% 250 ML 300 ML IVPB SCH (10:45)
[2019-09-10] MEDS ORDERED: Gentamicin 80 MG/2 ML VIAL ONE (11:08)
[2019-09-10] MEDS ORDERED: CEFAZOLIN 1 GM VIAL ONE (11:08)
[2019-09-10] MEDS: Famotidine/PF 20 mg/2ml Vial SLOW IVP SCH (11:19)
[2019-09-10] MEDS: Amiodarone 200 MG TAB PER TUBE SCH ×3 (11:20→21:29)
[2019-09-10] MEDS: hydrALAZINE 25 MG TAB PO SCH ×3 (11:21→21:29)
[2019-09-10] MEDS: Aspirin Chewable 81 MG TAB PO SCH (11:21)
[2019-09-10] MEDS ORDERED: Midazolam HCl 2 mg/2 ml Vial ONE (11:30)
[2019-09-10] MEDS ORDERED: Fentanyl 100 MCG/2 ML VIAL ONE (11:30)
[2019-09-10] MEDS ORDERED: Phenylephrine HCL 10 MG/ML VIAL ONE (11:32)
[2019-09-10] MEDS ORDERED: Vancomycin 1.5 GRAM/300 ML BAG 1.5 GM in Premix Bag 1 BAG IVPB SCH (12:00)
--- NOTE | 2019-09-10 14:33 | RAD ---
Chest one view HISTORY: ICD placement. COMPARISON: 09/09/2019. FINDINGS: Patient is slightly rotated rightward. There is also rightward shift of the mediastinum wit h opacification of the right hemithorax increasing since the prior study. No significant aeration of the right lung is now evident. Pulmonary vasculature at the left lung and left pleural fluid appear stable. A dual lead left subclavian cardiac defibrillator is now in place. No evidence of pneumothorax. Endot diana catheter and nasogastric tube remain in place. tin roller hot mill leads overlie the chest. IMPRESSION: New left subclavian cardiac defibrillator in good radiographic position. Interval worsening in atelectasis at the right lung and right pleural fluid. Pulmonary vasculature remains engorged.
--- NOTE | 2019-09-10 15:43 | PRG ---
DATE OF SERVICE: SUBJECTIVE: Kellie Garcia had bradycardia this morning, so she had a pacemaker defibrillator placed today. I examined her after procedure. She was doing well. OBJECTIVE: VITAL SIGNS: Heart rate 102, blood pressure 126/70, respiratory rate is per mechanical ventilation. LUNGS: Clear. HEART: Regular rhythm. ABDOMEN: Soft. EXTREMITIES: Without asymmetry. Weight is up to 179 pounds. Her daughter says she weighs 148 pounds normally. LABORATORY DATA: White count 17.2, hemoglobin 10.0, platelets 127. Sodium 129, potassium 4.8, chloride 96, bicarb 20, BUN 106, creatinine 3.76. IMPRESSION: 1. Respiratory failure. 2. Renal failure. 3. New cardiomyopathy. 4. Bradycardia leading to pacemaker defibrillator. 5. Diabetes. 6. Deconditioning. Hopefully, we can avoid a tracheostomy in Ms. Garcia, but for now we will continue with slow decrease in mechanical ventilation. CRITICAL CARE TIME: 30 minutes. Job ID: [id number]
[2019-09-10] MEDS: niCARdipine 50 MG in Sodium Chloride 0.9% 250 ML 230 ML IV SCH (15:55)
[2019-09-10] MEDS ORDERED: methylPREDNISolone Sod Succ 40 MG VIAL IVP SCH (16:00)
[2019-09-10] MEDS ORDERED: Communication Order-Pharmacy FS PRN (16:38)
[2019-09-10] MEDS ORDERED: CEFAZOLIN 2 GM in Premix Bag 1 BAG IVPB SCH (18:00)
--- NOTE | 2019-09-10 18:37 | EKG ---
Test Reason : Blood Pressure : / mmHG Vent. Rate : 070 BPM Atrial Rate : 070 BPM P-R Int : 168 ms QRS Dur : 098 ms QT Int : 450 ms P-R-T Axes : 037 -15 231 degrees QTc Int : 486 ms Sinus rhythm with marked sinus arrhythmia Abnormal ECG When compared with ECG of 01-SEP-2019 14:45, WI interval has decreased QT has shortened Confirmed by CELY BEY, DR. Clarke ([id number]) on 09/10/2019 6:37:12 PM Referred By: GARTH Confirmed By:DR. Tricia TA MD
--- NOTE | 2019-09-10 19:03 | EKG ---
Test Reason : STAT JAYDEN Blood Pressure : / mmHG Vent. Rate : 061 BPM Atrial Rate : 061 BPM P-R Int : 166 ms QRS Dur : 102 ms QT Int : 440 ms P-R-T Axes : 038 015 224 degrees QTc Int : 442 ms Normal sinus rhythm Abnormal ECG When compared with ECG of 08-SEP-2019 18:35, (Unconfirmed) Sinus rhythm has replaced Atrial fibrillation Vent. rate has decreased BY 58 BPM T wave inversion more evident in Anterior leads Confirmed by CELY BEY, SRosalba (4) on 09/10/2019 7:03:07 PM Referred By: Mateusz LIANG Confirmed By:DR. Tricia TA MD
--- NOTE | 2019-09-10 19:03 | EKG ---
Test Reason : STAT Blood Pressure : / mmHG Vent. Rate : 119 BPM Atrial Rate : 129 BPM P-R Int : 000 ms QRS Dur : 096 ms QT Int : 340 ms P-R-T Axes : 000 014 212 degrees QTc Int : 478 ms Atrial fibrillation with rapid ventricular response Marked ST abnormality, possible inferior subendocardial injury Abnormal ECG When compared with ECG of 04-SEP-2019 10:00, (Unconfirmed) Atrial fibrillation has replaced Sinus rhythm Vent. rate has increased BY 49 BPM T wave inversion less evident in Anterior leads Confirmed by CELY BEY, DR. Clarke (4) on 09/10/2019 7:02:57 PM Referred By: GARTH Confirmed By:DR. Tricia TA MD
[2019-09-10] MEDS: Cefepime 1 GM in Sodium Chloride 0.9% 100 ML IVPB SCH (19:38)
[2019-09-10 19:50] LABS: Bilirubin Negative (Negative); Blood, Urine Negative (Negative); Clarity Turbid (Clear); Glucose, Urine (Dipstick) Normal (Negative); Leukocyte Negative Leu/uL (Negative); Nitrite Negative (Negative); Protein, Urine (Dipstick) 100 mg/dL (Neg-Trace); Renal Epithelial 0-3 HPF (None Seen); Squamous Epithelial 0-3 HPF (0-3); Transitional Epithelial 0-3 HPF (None Seen); Urobilinogen Normal mg/dL (Less than 2); Yeast-Budding 2+ HPF (None Seen)
[2019-09-10 19:57] LABS: Bacteria/HPF None Seen HPF (None Seen)
[2019-09-10 20:00] LABS: Urine Culture Reflex Yes Yes
[2019-09-10] MEDS: Micafungin 100 MG in Sodium Chloride 0.9% 100 ML IVPB SCH (21:21)
[2019-09-10] MEDS: Meropenem 500 MG in Sodium Chloride 0.9% 100 ML IVPB SCH (21:22)
[2019-09-10] MEDS: Insulin Glargine 15 UNITS in Pre-Filled Syringe 1 EACH SC SCH (21:22)
[2019-09-10] MEDS: Linezolid 600 MG in Premix Bag 1 BAG IVPB SCH (21:24)
--- NOTE | 2019-09-10 21:34 | PDOC.HOSPP ---
- Subjective non-verbal Subjective: Pt had an AICD placed today. - Objective Vital Signs & Weight: Vital Signs (12 hours) Temp Pulse Resp BP 09/10/19 20:00 17 09/10/19 18:07 60 96/50 L 09/10/19 18:00 18 09/10/19 16:00 15 09/10/19 15:56 60 09/10/19 15:33 102 H 142/57 H 09/10/19 14:00 97.5 F L 15 09/10/19 11:21 102 H 126/70 09/10/19 10:49 102 H 126/70 09/10/19 10:00 20 Weight Admit Weight 153 lb 7.068 oz Weight 179 lb 0.246 oz Most Recent Monitor Data Heart Rate from ECG 62 NIBP 128/52 NIBP BP-Mean 77 Respiration from ECG 20 SpO2 100 I&O: 09/09/19 09/10/19 09/11/19 06:59 06:59 06:59 Intake Total 2704.5 2878.6 790.4 Output Total 100 228 82 Balance 2604.5 2650.6 708.4 Result Diagrams: 09/10/19 05:08 09/10/19 05:08 Additional Labs: Accuchecks 09/10/19 09/09/19 16:16 22:04 POC Glucose 135 H 224 H Hospitalist ROS - Review of Systems ROS unobtainable: due to endotracheal tube - Medication Medications: Active Medications Generic Name Dose Route Start Last Admin Trade Name Freq PRN Reason Stop Dose Admin Albuterol/Ipratropium 3 ml 08/31/19 19:00 09/10/19 18:05 Duoneb NEB 3 ml [id number] CRIS Administration Amiodarone HCl 200 mg 09/05/19 15:00 09/10/19 15:34 Cordarone PER TUBE 200 mg TID CRIS Administration Aspirin 81 mg 09/02/19 09:00 09/10/19 11:21 Aspirin Chewable PO Not Given DAILY CRIS Enalaprilat 0.625 mg 09/05/19 11:47 09/06/19 19:31 Vasotec SLOW IVP 0.625 mg Q6H PRN Administration SBP > 180 Famotidine 20 mg 09/03/19 09:00 09/10/19 11:19 Pepcid SLOW IVP 20 mg DAILY CRIS Administration Hydralazine HCl 50 mg 09/05/19 09:00 09/10/19 15:33 Apresoline PO 50 mg TID CRIS Administration Hydralazine HCl 20 mg 09/07/19 03:30 09/07/19 03:33 Apresoline SLOW IVP 20 mg Q4H PRN Administration SBP Greater Than 170 Insulin Glargine 15 units/ 0.15 mls @ 0 mls/hr 08/31/19 21:00 09/10/19 21:22 Miscellaneous Medication SC 0.15 mls HS CRIS Administration Norepinephrine Bitartrate 250 mls @ 0 mls/hr 08/31/19 22:15 09/01/19 11:13 Levophed IVPB 250 mls INF CRIS Administration Protocol Titrate Sodium Chloride 1,000 mls @ 50 mls/hr 09/02/19 13:30 09/10/19 15:54 1/2 Normal Saline IV 1,000 mls .Q20H CRIS Administration Dexmedetomidine HCl 400 mcg/ 100 mls @ 0 mls/hr 09/02/19 19:45 09/06/19 12:19 Sodium Chloride IVPB 100 mls INF CRIS Administration Protocol Per Protocol Nicardipine HCl 50 mg/ Sodium 250 mls @ 0 mls/hr 09/07/19 04:00 09/10/19 15: 55 Chloride IV 250 mls INF CRIS Administration Protocol As Directed Linezolid 600 mg/ Device 300 mls @ 150 mls/hr 09/10/19 22:00 09/10/19 21:24 IVPB 300 mls 1000,2200 CRIS Administration Meropenem 500 mg/ Sodium 100 mls @ 200 mls/hr 09/10/19 21:00 09/10/19 21:22 Chloride IVPB 100 mls Q24HR CRIS Administration Micafungin Sodium 100 mg/ 100 mls @ 100 mls/hr 09/10/19 20:30 09/10/19 21:21 Sodium Chloride IVPB 100 mls Q24HR CRIS Administration Insulin Human Lispro 0 units 08/31/19 20:47 09/09/19 22:01 Humalog SC 4 unit .MODERATE SLIDING SC PRN Administration Moderate Correctional Scale Methylprednisolone Sodium Succinate 20 mg 08/31/19 22:00 01/27/20 15:53 Solu-Medrol IVP Not Given Q8HR [facility] Metoclopramide HCl 10 mg 09/06/19 18:00 09/10/19 21:20 Reglan IVP Not Given Q6HR [facility] Nitroglycerin 1 inch 09/07/19 01:00 09/10/19 15:35 Nitro-Bid 2% Ointment TOP Not Given Q6H [facility] Propofol 1,000 mg 08/31/19 20:00 09/10/19 04:58 Diprivan IV 09/30/19 20:00 1,000 mg INF PRN Administration TO ACHIEVE GOAL RASS Protocol Sodium Chloride 10 ml 09/06/19 21:00 09/10/19 21:23 Flush - Normal Saline IVF 10 ml Q12HR CRIS Administration - Exam General Appearance: ill appearing General - other findings: intubated and sedated Eye: PERRL, anicteric sclera ENT: normocephalic atraumatic, no oropharyngeal lesions, moist mucosa Neck: supple, symmetric, no JVD, no thyromegaly, no lymphadenopathy Heart: RRR, no murmur, no gallops, no rubs Heart - other findings: AICD noted Respiratory: CTAB, no wheezes, no rales, no ronchi Gastrointestinal: soft, non-tender, non-distended, normal bowel sounds Extremities: no cyanosis, no clubbing, no edema Skin: no lesions, no rashes Neurological - other findings: Unable to assess Musculoskeletal: no muscle wasting, generalized weakness Psychiatric - other findings: unable to assess Hosp A/P - Plan Hosp A/P (1) Acute respiratory failure with hypoxia Code(s): J96.01 - ACUTE RESPIRATORY FAILURE WITH HYPOXIA Status: Acute Plan: Cont vent mgt. Pt is not sedated and more awake today. PCCM is beginning to wean vent. Wean per PCCM. (2) DM type 2 (diabetes mellitus, type 2) Status: Chronic Qualifiers: Diabetes mellitus [employer] insulin use: without usp use Diabetes mellitus complication status: without complication Qualified Code(s): E11.9 - Type 2 diabetes mellitus without complications Plan: Cont BG. Cover with SSI. (3) PNA (pneumonia) Code(s): J18.9 - PNEUMONIA, UNSPECIFIED ORGANISM Status: Acute Qualifiers: Pneumonia type: due to unspecified organism Laterality: right Lung location: middle lobe of lung Qualified Code(s): J18.9 - Pneumonia, unspecified organism Plan: Cont current abx. WBC is getting higher, may get CT chest if worsening. Will consider adding Vanc if needed. (4) Acute renal failure Status: Acute Qualifiers: Acute renal failure type: with acute tubular necrosis Qualified Code(s): N17.0 - Acute kidney failure with tubular necrosis Plan: Pt is getting HD. Will cont mgt per HD. Will get a tunnel cath inserted tmr. (5) Acute blood loss anemia Code(s): D62 - ACUTE POSTHEMORRHAGIC ANEMIA Status: Resolved Plan: Hg is stable. Monitor Hg. (6) HTN (hypertension) Code(s): I10 - ESSENTIAL (PRIMARY) HYPERTENSION Status: Chronic Qualifiers: Hypertension type: essential hypertension Qualified Code(s): I10 - Essential (primary) hypertension Plan: BP is stable. Cont to monitor BP. (7) Non-small cell cancer of right lung Code(s): C34.91 - MALIGNANT NEOPLASM OF UNSP PART OF RIGHT BRONCHUS OR LUNG Status: Chronic Plan: Stable. (8) FTT (failure to thrive) in adult Status: Acute Plan: Cont supportive mgt. (9) Paroxysmal A-fib Code(s): I48.0 - PAROXYSMAL ATRIAL FIBRILLATION Status: Chronic Plan: Cont med mgt. With tachy pierre syndrome. Pt got an AICD paced today. Will f/u with further cardiac recs (10) Leucocytosis Code(s): D72.829 - ELEVATED WHITE BLOOD CELL COUNT, UNSPECIFIED Status: Acute Plan: Getting worse. Have consulted ID. Will flu with their recs. For now monitor WBC. Cont abx. Plan: ontiveros catheter, continue antibiotics, respiratory therapy PPx: SCDs. CODE: FULL. Dispo: cont current mgt.
--- NOTE | 2019-09-10 23:33 | EKG ---
Test Reason : POST AIDC Blood Pressure : / mmHG Vent. Rate : 060 BPM Atrial Rate : 060 BPM P-R Int : 000 ms QRS Dur : 110 ms QT Int : 454 ms P-R-T Axes : 000 013 222 degrees QTc Int : 454 ms Electronic atrial pacemaker Incomplete left bundle branch block Abnormal ECG When compared with ECG of 08-SEP-2019 18:58, (Unconfirmed) Electronic atrial pacemaker has replaced Sinus rhythm Incomplete left bundle branch block is now Present Confirmed by Hafsa MCDONALD ([id number]) on 09/10/2019 11:33:34 PM Referred By: LITTLE Confirmed By:Hafsa MCDONALD
[2019-09-11] MEDS: Nitroglycerin 2% Ointment 1 INCH/1 GM Packet TOP SCH ×3 (01:39→11:56)
--- NOTE | 2019-09-11 01:42 | CON ---
DATE OF CONSULTATION: 09/10/2019 REASON FOR CONSULTATION: Tachycardia-bradycardia syndrome, torsades de pointes, paroxysmal atrial fibrillation. HISTORY OF PRESENT ILLNESS: Ms. Garcia is a 74-year-old white female with an extensive past medical history including chronic systolic heart failure due to nonischemic cardiomyopathy, breast and colon cancer, paroxysmal atrial fibrillation, torsades de pointes, hypokalemia, and tachycardia-bradycardia syndrome. She was admitted on August 31 with acute on chronic congestive heart failure. She had respiratory failure requiring intubation. Cardiac catheterization was performed, which showed noncritical coronary artery disease. She developed paroxysmal atrial fibrillation. She has an acute renal failure and is on dialysis. During dialysis today, she had heart rates into the 20s on multiple occasions. Dialysis was discontinued. At other times, she has heart rates into the 150s. PAST MEDICAL HISTORY: 1. Chronic systolic heart failure due to nonischemic cardiomyopathy. 2. Coronary artery disease. 3. Paroxysmal atrial fibrillation. 4. Ventricular tachycardia. 5. Moderate aortic regurgitation. 6. Breast cancer with left breast lumpectomy and axillary node dissection, December 2010, in remission. 7. Type 2 diabetes mellitus. 8. Dyslipidemia. 9. Low anterior resection of sigmoid/rectal cancer in 2011, in remission. 10. Possible COPD. 11. Compression fracture with prior kyphoplasty. 12. Depression. PAST SURGICAL HISTORY: 1. Colon resection in 2011. 2. Breast lumpectomy with axillary node dissection, December 2010. 3. Appendectomy. 4. Cholecystectomy. 5. Hysterectomy. ALLERGIES: IODINE, SULFA. CURRENT MEDICATIONS: Reviewed. She has been on amiodarone 200 mg b.i.d. During admission, she was on Multaq 400 mg b.i.d. as an outpatient. SOCIAL HISTORY: Quit smoking more than 40 years ago. No alcohol. She lives alone. Her daughter is with her today and has power of title attorney. FAMILY HISTORY: Negative for sudden cardiac . REVIEW OF SYSTEMS: Unobtainable. PHYSICAL EXAMINATION: VITAL SIGNS: Intubated, pulse 20s, blood pressure 120/80. HEENT: No lesions. Sclerae clear. SKIN: No lesions. CHEST: Right MediPort. ABDOMEN: Nontender, nondistended. CARDIOVASCULAR: Regular rate and rhythm. No murmurs, gallops, or rubs. LUNGS: Clear to auscultation bilaterally. EXTREMITIES: 1+ bilateral edema. IMAGING DATA: Echocardiogram 09/01/2019, ejection fraction 20% to 25%. Normal left atrial size. Mild to moderate aortic regurgitation. EKG sinus rhythm with narrow complex QRS, left ventricular hypertrophy. IMPRESSION AND PLAN: 1. Tachycardia-bradycardia syndrome with heart rates in the 20s, requiring interruption of dialysis. 2. Paroxysmal atrial fibrillation. 3. Acute on chronic systolic congestive heart failure. 4. Dilated nonischemic cardiomyopathy. 5. Coronary artery disease. 6. Torsades de pointes. 7. Acute renal failure requiring dialysis. 8. Right MediPort. 9. History of breast and colon cancer. RECOMMENDATIONS: We have discussed the risks, benefits, and alternatives of a dual-chamber ICD insertion for bradycardic support. Given her depressed left ventricular systolic function, we will place ICD and not a pacemaker. Risks, benefits, and alternatives were discussed with her daughter who has power of title attorney. They include, but are not limited to myocardial infarction, stroke, , vascular damage, renal failure, pneumothorax, need for chest tube placement, cardiac tamponade, bleeding, infection, need for device removal, occlusion of axillary vein and subsequent edema. Her daughter voices understanding and is agreeable to proceed. We will plan to perform the procedure today. Job ID: [id number]
[2019-09-11 04:27] LABS: Band 2 % (5-11); Hemoglobin 9.5 g/dL (12.0-16.0); Hypochromia SLIGHT = 6-15 cells (100X) (0-5/hpf); Lymphocytes 2 % (21-51); MDiff Complete? YES; Mean Corpuscular HGB CONC 32.7 g/dL (32.0-36.0); Mean Corpuscular Hemoglobin 27.5 pg (27.0-31.0); Mean Platelet Volume 9.7 fL (7.4-10.4); Monocytes 1 % (0-10); Neutrophil 95 % (42-75); Platelet Count 101 thou/uL (130-400); Platelet Morphology Comment Appears Decreased; RBC Distribution Width 16.7 % (11.5-14.5); Red Blood Cell (RBC) Count 3.45 mill/uL (4.20-5.40); White Blood Cell (WBC) Count 16.6 thou/uL (4.8-10.8)
[2019-09-11 04:36] LABS: Anion Gap 15 mmol/L (10-20); BUN (Urea Nitrogen) 63 mg/dL (9.8-20.1); Calc. Creatinine Clearance 24 mL/min (70-130); Calcium 7.6 mg/dL (7.8-10.44); Carbon Dioxide 24 mmol/L (23-31); Chloride 98 mmol/L (98-107); Estimated GFR-MDRD 18; Glucose 174 mg/dL (83-110); Potassium 4.3 mmol/L (3.5-5.1); Sodium 133 mmol/L (136-145)
[2019-09-11] MEDS: HumaLOG 300 UNITS/3 ML VIAL SC PRN ×2 (05:07→16:29)
[2019-09-11] MEDS: Metoclopramide HCl 10 MG/2 ML VIAL IVP SCH ×3 (06:14→17:23)
[2019-09-11] MEDS: methylPREDNISolone Sod Succ 40 MG VIAL IVP SCH ×3 (06:15→22:18)
[2019-09-11 07:33] LABS: Actual Bicarbonate (HCO3a) 22.1 mEq/L (22-28); Base Excess (BEa) -1.7 mEq/L (-2.0 to +3.0); CO2 Tension 33.7 mmHg (35.0-45.0); Calcium, Ionized 1.04 mmol/L (1.12-1.30); Carboxyhemoglobin (COHb) 1.3 gm% (0.0-3.0); Hemoglobin (Hb) 9.8 g/dL (12.0-16.0); O2 Tension (PaO2) 71.8 mmHg (> 70.0); Potassium - ABG Lab 4.18 mmol/L (3.70-5.30); pH, Arterial 7.43 (7.35-7.45)
--- NOTE | 2019-09-11 07:44 | CON ---
DATE OF CONSULTATION: 09/10/2019 REASON FOR CONSULTATION: Worsening neutrophilia. HISTORY OF PRESENT ILLNESS: 74-year-old patient, who has a history of rectosigmoid cancer, in remission; breast cancer, in remission; and non-small cell lung cancer, which was managed with radiation therapy and chemotherapy by Dr. Mccrary and has been diagnosed a year and a half and now it appears to be in remission according to family members. It is not clear what kind of chemotherapy she received for the colon cancer. She has also history of type 2 diabetes, dyslipidemia, and moderate aortic regurgitation. She lives by herself in [place] and still able to perform activities of daily living, but the patient is having some issues with back pain and neck pain and is going for some form of cranial electric stimulation, but was found to have tachycardia in the doctor's office up to 140 with tachypnea, general malaise. The patient has had recent nerve abrasions and spinal injections by Dr. Avila for management of C-spine pain, so she was found to have hypoxemia with a saturation of 80% on non-rebreather and in the emergency room was placed on BiPAP and eventually had to be intubated and admitted to the intensive care unit. Initial findings bp 150/90, pulse 120, and respiratory rate 18. Initial exam showed normal extraocular movements. Mucous membranes were dry and she is orotracheally intubated. Heart rhythm is irregular. She had scattered rhonchi, but no expiratory crackles noted. Abdomen not tender or distended. There is evidence of lymphedema in the lower extremities. Other findings on admission showed the right-sided parenchymal opacity which is chronic and left showed some left perihilar airspace disease. White cell count is elevated at 12,000, hemoglobin 10, platelets 334 with 73% neutrophils. PH of 7.1, pCO2 of 68, and PO2 of 72. Sodium 133, creatinine 1.25, and glucose 294. Lactic acid 4.3. Liver enzymes within normal limits. Albumin 3.4. Initial assessment is acute respiratory failure with hypoxemia, hypercapnia, respiratory acidosis, atrial fibrillation. She was given amiodarone. Respiratory virus PCR panel was negative. She was given cefepime and levofloxacin, inhaler Solu-Medrol. Consultations included Cardiology and Dr. Bonds' impression is cardiomyopathy, CHF with exacerbation, SVT, which was converted to sinus rhythm in the setting of those malignancies described above. The echo showed worsening in her cardiomyopathy with EF around 25%. Cardiac enzymes did not indicate myocardial infarction and the possibility of sepsis was considered. Pulmonary Medicine consultation was obtained as well and impression was respiratory failure with possible sepsis, LV dysfunction, and acute on chronic kidney disease. The patient had 2 sets of blood cultures, which had remained negative and the final results are negative at 5 days. She had urine culture with Enterococcus faecalis on the day of admission as well as a small colony count felt to represent colonization rather than true evasive process. She remains intubated, then we were asked to evaluate the patient because of worsening neutrophilia. She developed ventricular tachycardia and bradycardia as well and had to have an AICD inserted this morning. Currently, patient is sedated. She has not had any evidence of diarrhea. We will see her activity. PAST MEDICAL HISTORY: Includes 3 malignancies as mentioned above; the latest one is the right lung malignancy which was managed with radiation therapy and chemotherapy through a port in the right subclavian location. The remainder ones include the breast and colon malignancies and those have been in remission for many years now. She has history of type 2 diabetes mellitus; hyperlipidemia; atrial fibrillation , on Multaq; moderate aortic regurgitation; anemia; question of COPD; chronic pain in the neck and lower back; prior kyphoplasty, is evaluated for possible surgical intervention because of chronic rib pain. PAST SURGICAL HISTORY: Includes cholecystectomy, appendectomy, and hysterectomy. ALLERGY HISTORY: Iodine and sulfa drugs. MEDICATIONS: At home, she had been on DuoNeb, magnesium, lovastatin, clonidine, ferrous sulfate, Lasix, Multaq, Lopressor, lisinopril, metformin, [place], fluticasone, Paxil, Lorazepam, BuSpar. Current medication list include inhalers, amiodarone, ampicillin, lipase, aspirin, cefazolin is just senior contracts administrator to the OR for the placement of the device, the cefepime is continuous administration, Precedex, Vasotec, p.r.n. Pepcid, hydralazine p.r.n., insulin p.r.n., methylprednisolone, Reglan, nicardipine, propofol. SOCIAL HISTORY: She smoked more than 40 years before, but she does have significant secondhand smoking exposure. She is ambulatory with the assistance of the walker, able to do ADLs. FAMILY HISTORY: Includes brain tumor, anemia, cervical cancer. PHYSICAL EXAMINATION: VITAL SIGNS: She has been afebrile and BP 140/56, pulse 71, respirations 19, O2 saturation 99%. SKIN: Not particularly remarkable. She has a right Trialysis catheter and she has a port in right subclavian location and Baca catheter in place. The output has been over the past few days where she had 82 mL only for 24 hours. Orotracheal intubation. Pupils are mildly constricted as expected. Sclerae white. LUNGS: With diminished breath sounds in the right side with some rhonchi. HEART: Rate appears regular S1-S2 with a left subclavian AICD pocket site with the usual postop appearance. ABDOMEN: Not distended. Bowel sounds are present. The abdomen appears soft. No organomegaly. No bladder distention. EXTREMITIES: Did not have much in terms of edema in lower extremities. Pulses are diminished in dorsalis pedis. She does move her extremities intermittently, but does not follow commands as expected. LABORATORY DATA: White cell count is up to 17,000, hemoglobin 10, platelets 127,000, 88% neutrophils. Creatinine is 3.76, which is the highest she has been since admission and urinalysis was unremarkable. Hepatitis serology is negative. The latest chest x-ray with opacification of right hemithorax has increased without significant aeration of the right lung evident. A dual lead defibrillator is noted. ASSESSMENT: 1. Non-small cell lung cancer, in remission reportedly after two radiation therapy to the right side. There is significant amount of lung destruction in that side from radiation therapy. 2. Opacification of the right lung 3. Sepsis 4. Cardiomyopathy DISCUSSION: Respiratory failure associated with R lung changes with effusion/infiltrate and sepsis. R lung changes could be secondary to effusion in significant part that seems to be the case according to the CT that was done on the . An element of infiltration as well as, and may have mucus plugging or other type of pneumonic process is possible. The patient has been on methylprednisolone since the and the noted neutrophil response maybe in part due to the effect of corticosteroids. She will have to be treated with broad-spectrum antimicrobial coverage until this change is further clarified, geared towards multi-resistant pathogens. The cefepime has been administered since the admission and will have to be switched to a broader spectrum with meropenem, and we will add MRSA coverage with linezolid as well and antifungal coverage with micafungin. Thromboembolism is less of a concern. Cardiomyopathy is contributing to respiratory manifestations. The patient has multiorgan dysfunction and a high risk of poor outcome. Job ID: [id number] [facility] HOSPITALRojelio
[2019-09-11 08:12] LABS: ALV-art Gradient 99.975 (0-20); Puncture Site L.R.
--- NOTE | 2019-09-11 09:12 | PRG ---
DATE OF SERVICE: 09/11/2019 SUBJECTIVE: Ms. Garcia is a 74-year-old white female, seen by the Renal Service for the acute kidney injury secondary to acute tubular necrosis. She is undergoing daily dialysis for fluid removal. At times during dialysis, the patient has become hemodynamically unstable. At one time, she became bradycardic. Yesterday, an AICD with pacemaker was placed. We were able to remove 3 L of fluid yesterday and again, we will attempt to max out fluid removal with today's dialysis. I have scheduled the patient on dialysis on a daily session for at least 4 hours each treatment. My plan today is to do a 2 hours ultrafiltration initially, then 2 hours hemodialysis. This morning, the patient is going to undergo placement of cuffed hemodialysis catheter. OBJECTIVE: VITAL SIGNS: Blood pressure is 142/55, heart rate 63, respiratory rate 24, and pulse ox 100%. GENERAL: The patient is intubated on ventilator support. SKIN: Adequate turgor. HEENT: Pinkish conjunctivae. Anicteric sclerae. NECK: No neck mass. No carotid bruits. No JVD. CHEST: No deformities. LUNGS: Decreased breath sounds. HEART: Normal sinus rhythm. No murmurs. No gallops. No rubs. ABDOMEN: Globular, soft, and nontender. No masses. EXTREMITIES: Positive for edema. No deformities. LABORATORY DATA: On September 10, 2019, chest x-ray shows pulmonary vasculature is increased, but stable. There is opacification of the right hemothorax. Laboratories of September 10, 2019; hemoglobin was noted at 10. Sodium was 133, potassium 4.3, chloride 98, carbon dioxide 24, BUN 63, creatinine 2.65, and calcium 7.6. ASSESSMENT AND PLAN: 1. Acute kidney injury secondary to acute tubular necrosis. Continue daily dialysis. We will plan to max out fluid removal as tolerated by the patient. As previously mentioned, we will do a 2-hour ultrafiltration, then do a 2-hour hemodialysis. Overall, prognosis remains guarded with this patient. 2. Bradycardia-status post automatic implantable cardioverter-defibrillator/pacemaker placement with the patient. Please note, the patient will undergo surgery for placement of a permanent dialysis catheter - tunneled dialysis catheter. Agree with current management. Job ID: [id number]
[2019-09-11] MEDS ORDERED: Fentanyl 100 MCG/2 ML VIAL ONE (09:26)
[2019-09-11] MEDS ORDERED: Ketamine 50 MG/ML (10ML VIAL) ONE (09:26)
[2019-09-11] MEDS ORDERED: Midazolam HCl 2 mg/2 ml Vial ONE (09:26)
[2019-09-11] MEDS ORDERED: Heparin 10,000 UNITS/ 10 ML VIAL ONE (09:28)
[2019-09-11] MEDS ORDERED: Heparin 10,000 UNITS/1 ML VIAL ONE (09:31)
[2019-09-11] MEDS ORDERED: Sodium Chloride 0.9% 20 ML ONE (09:31)
[2019-09-11] MEDS ORDERED: Lidocaine 1% w/Epinephrine 1:100K 20 ML VIAL ONE (09:31)
[2019-09-11] MEDS ORDERED: Bupivacaine PF 0.5% 30 ML VIAL ONE (09:31)
[2019-09-11] MEDS ORDERED: Ondansetron PF 4 MG/2 ML Vial ONE (11:15)
[2019-09-11] MEDS ORDERED: Dexamethasone 20 MG/5 ML VIAL ONE (11:15)
--- NOTE | 2019-09-11 11:21 | OP ---
DATE OF PROCEDURE: 09/11/2019 PREOPERATIVE DIAGNOSES: 1. Poor IV access. 2. Acute tubular necrosis. 3. Possible end-stage renal disease. 4. Respiratory failure. POSTOPERATIVE DIAGNOSES: 1. Poor IV access. 2. Acute tubular necrosis. 3. Possible end-stage renal disease. 4. Respiratory failure. PROCEDURES PERFORMED: 1. Right internal jugular cuffed tunneled dialysis catheter. 2. Left internal jugular central line. ANESTHESIA: General. Note, a left subclavian vein pacemaker defibrillator placed this hospitalization for bradycardia. Local with 0.5% Marcaine 30 mL mixed with 1% Xylocaine with epinephrine 20 mL. Ultrasound and fluoroscopy used for placement. DESCRIPTION OF PROCEDURE: The patient was taken to the operating room. Once in supine position, neck and chest were prepared with ChloraPrep and draped in routine fashion. Local anesthetic was infiltrated in the skin and subcutaneous tissue about the operative site. Ultrasound guidance used to cannulate both the right and left internal jugular veins with trocar catheter, J-wire was threaded, trocar catheter removed. Skin site was enlarged sharply on both sides. Using Seldinger technique, a triple-lumen catheter placed on the left IJ, secured with 3-0 nylon suture. J-wire removed. Catheter secured with 2 interrupted sutures of 3-0 nylon. Each port aspirated blood, flushed with saline solution. On the right side, a stab incision was made over the right chest and tunneling device was used to tunnel the right IJ cuffed tunneled dialysis catheter. Precurved AngioDynamics was placed with the fabric cuff just beneath the skin exit site, catheter secured with 2 interrupted sutures of 3-0 nylon, sterile dressing applied. Dilator small and large placed over the J-wire in the internal jugular vein, removed. Dilator and Peel-Away sheath placed over the J-wire in the superior vena cava, and J-wire and dilator removed. Catheter placed over the Peel-Away sheath. Peel-Away sheath removed. Platysma was approximated with 4-0 Monocryl, skin with subdermal 4-0 Monocryl, and [place] glue and sterile dressings applied. Each port aspirated blood and flushed with saline solution and heparinized saline solution with 1000 units of heparin per mL indicating volume of the port. The patient tolerated the procedure well. Job ID: [id number]
--- NOTE | 2019-09-11 11:36 | RAD ---
EXAM: CHEST ONE VIEW HISTORY: Central line placement. COMPARISON: 09/10/2019 FINDINGS: Dual lead left subclavian acid device remains in place. Nasogastric tube, endotracheal tube, and righ t subclavian Mediport catheter stable in position. There is been interval placement of a right internal jugular vein tunneled hemodialysis catheter with tip overlying the expected location of the cavoatrial junction. There has also been interval placement of a left internal jugular vein central venous catheter with tip also overlying the expected location of the cavoatrial junction. There has been mild improvement in aeration in the right lung compared to the prior study which demo nstrated complete opacification. There is small amount of aerated lung within the right midlung zone with persistent increased density throughout the remainder of the right hemithorax. Findings are probably due to large right pleural effusion. Superimposed infiltrate cannot be entirely excluded. Small left pleural effusion is again seen. Vertebroplasty changes are seen involving mid thoracic vertebral bodies. IMPRESSION: 1. Mild improvement in aeration in the right midlung zone. There is otherwise opacification of the ma jority of the right hemithorax which may be related to large right pleural effusion and atelectasis. Superimposed infiltrate cannot be entirely excluded. 2. Persistent small left pleural effusion. 3. Lines and tubes in place as described above. No pneumothorax is appreciated.
[2019-09-11] MEDS: Aspirin Chewable 81 MG TAB PO SCH (11:43)
[2019-09-11] MEDS: Famotidine/PF 20 mg/2ml Vial SLOW IVP SCH (11:43)
[2019-09-11] MEDS: hydrALAZINE 25 MG TAB PO SCH ×2 (11:43→14:25)
[2019-09-11] MEDS: Amiodarone 200 MG TAB PER TUBE SCH ×3 (11:43→21:33)
[2019-09-11] MEDS: Linezolid 600 MG in Premix Bag 1 BAG IVPB SCH ×2 (11:44→22:18)
--- NOTE | 2019-09-11 15:38 | PDOC.HOSPP ---
- Subjective Encounter Date: 09/11/19 Encounter Time: 15:35 Subjective: f/u for ESRD, resp failure initiated on HD today. Nursing reports hypotension necessitating holding all BP meds and d/c Diprivan. - Objective Vital Signs & Weight: Vital Signs (12 hours) Temp Pulse Resp BP Pulse Ox 09/11/19 15:00 97.9 F 09/11/19 14:25 61 151/52 H 09/11/19 14:16 61 151/52 H 09/11/19 14:15 62 14 94 L 09/11/19 14:00 16 09/11/19 12:00 16 09/11/19 11:43 63 144/57 H 09/11/19 08:00 15 100 09/11/19 07:20 63 144/57 H 09/11/19 07:00 97.9 F 09/11/19 06:00 21 H 09/11/19 04:00 97.6 F 18 Weight Admit Weight 153 lb 7.068 oz Weight 177 lb 4.026 oz Most Recent Monitor Data Heart Rate from ECG 71 NIBP 105/52 NIBP BP-Mean 69 Respiration from ECG 1 SpO2 96 I&O: 09/10/19 09/11/19 09/12/19 06:59 06:59 06:59 Intake Total 2878.6 2008.3 Output Total 228 120 30 Balance 2650.6 1888.3 -30 Result Diagrams: 09/11/19 03:35 09/11/19 03:35 Additional Labs: Accuchecks 09/11/19 09/11/19 09/10/19 11:33 03:43 22:17 POC Glucose 156 H 187 H 147 H 09/10/19 16:16 POC Glucose 135 H Microbiology 02/28/17 15:30 Nasopharyngeal swab Influenza Types A,B Direct EIA - Final 08/31/19 23:07 Nasopharyngeal swab Respiratory Virus Panel (PCR) - Final 08/31/19 19:42 Urine ontiveros catheter Urine Culture - Final Enterococcus faecalis 08/31/19 17:07 Venous blood - Left Hand Blood Culture - Final NO GROWTH IN 5 DAYS 08/31/19 17:06 Venous blood - Right Hand Blood Culture - Final NO GROWTH IN 5 DAYS 02/28/17 16:05 Venous blood - Left Arm Blood Culture - Preliminary Specimen has been received and culture in progress. No Growth to date. 02/28/17 15:53 Urine voided Urine Culture - Preliminary NO GROWTH AT 12 HOURS 02/28/17 15:45 Venous blood - Right Hand Blood Culture - Preliminary Specimen has been received and culture in progress. No Growth to date. 09/10/19 20:00 Urine ontiveros catheter Urine Culture - Preliminary NO GROWTH AT 12 HOURS Laboratory Tests 06/28/16 12/21/16 02/28/17 08:27 16:16 15:45 WBC Hgb 11.5 L 10.6 L 7.1 L Plt Count 116 L Bands % (Auto) 20 H Neutrophils % (Manual) 55 Sodium Potassium Creatinine Lactic Acid Magnesium Troponin I Vancomycin Trough 02/28/17 03/01/17 03/01/17 15:45 02:28 05:00 WBC Hgb Plt Count Bands % (Auto) Neutrophils % (Manual) Sodium 129 L Potassium 3.0 L Creatinine Lactic Acid Magnesium 1.2 L Troponin I Vancomycin Trough 5.9 03/01/17 03/01/17 03/01/17 05:00 19:30 19:30 WBC 2.5 L Hgb 7.7 L 9.7 L Plt Count Bands % (Auto) 15 H Neutrophils % (Manual) 58 Sodium Potassium Creatinine Lactic Acid Magnesium Troponin I 0.256 H Vancomycin Trough 03/01/17 03/02/17 03/02/17 20:00 02:07 02:07 WBC Hgb Plt Count Bands % (Auto) 11 Neutrophils % (Manual) Sodium Potassium Creatinine Lactic Acid 1.5 Magnesium Troponin I Vancomycin Trough 11.3 03/03/17 09/08/19 09/08/19 06:15 03:41 03:41 WBC 12.9 H Hgb 9.3 L Plt Count 96 L Bands % (Auto) Neutrophils % (Manual) Sodium Potassium Creatinine 3.11 H Lactic Acid Magnesium Troponin I Vancomycin Trough 38.8 H* 09/08/19 09/08/19 09/09/19 03:41 18:53 03:22 WBC 13.1 H Hgb 9.3 L Plt Count 100 L Bands % (Auto) Neutrophils % (Manual) Sodium Potassium Creatinine 2.74 H 3.07 H Lactic Acid Magnesium Troponin I Vancomycin Trough 09/09/19 09/10/19 03:22 05:08 WBC 16.6 H Hgb 10.0 L Plt Count 98 L Bands % (Auto) Neutrophils % (Manual) Sodium 129 L Potassium Creatinine 3.76 H Lactic Acid Magnesium Troponin I Vancomycin Trough Radiology Reviewed by me: Yes (PCXR - R hemithorax opacification, lines/tubes in position) EKG Reviewed by me: Yes (Tele - A-paced) Hospitalist ROS - Medication Medications: Active Medications Generic Name Dose Route Start Last Admin Trade Name Freq PRN Reason Stop Dose Admin Albuterol/Ipratropium 3 ml 08/31/19 19:00 09/11/19 14:15 Duoneb NEB 3 ml [id number] CRIS Administration Amiodarone HCl 200 mg 09/05/19 15:00 09/11/19 14:25 Cordarone PER TUBE 200 mg TID CRIS Administration Aspirin 81 mg 09/02/19 09:00 09/11/19 11:43 Aspirin Chewable PO 81 mg DAILY CRIS Administration Enalaprilat 0.625 mg 09/05/19 11:47 09/06/19 19:31 Vasotec SLOW IVP 0.625 mg Q6H PRN Administration SBP > 180 Famotidine 20 mg 09/03/19 09:00 09/11/19 11:43 Pepcid SLOW IVP 20 mg DAILY CRIS Administration Hydralazine HCl 50 mg 09/05/19 09:00 09/11/19 14:25 Apresoline PO 50 mg TID CRIS Administration Hydralazine HCl 20 mg 09/07/19 03:30 09/07/19 03:33 Apresoline SLOW IVP 20 mg Q4H PRN Administration SBP Greater Than 170 Insulin Glargine 15 units/ 0.15 mls @ 0 mls/hr 08/31/19 21:00 09/10/19 21:22 Miscellaneous Medication SC 0.15 mls HS CRIS Administration Norepinephrine Bitartrate 250 mls @ 0 mls/hr 08/31/19 22:15 09/01/19 11:13 Levophed IVPB 250 mls INF CRIS Administration Protocol Titrate Sodium Chloride 1,000 mls @ 50 mls/hr 09/02/19 13:30 09/10/19 23:37 1/2 Normal Saline IV Not Given .Q20H CRIS Dexmedetomidine HCl 400 mcg/ 100 mls @ 0 mls/hr 09/02/19 19:45 09/06/19 12:19 Sodium Chloride IVPB 100 mls INF CRIS Administration Protocol Per Protocol Nicardipine HCl 50 mg/ Sodium 250 mls @ 0 mls/hr 09/07/19 04:00 09/10/19 15: 55 Chloride IV 250 mls INF CRIS Administration Protocol As Directed Linezolid 600 mg/ Device 300 mls @ 150 mls/hr 09/10/19 22:00 09/11/19 11:44 IVPB 300 mls 1000,2200 CRIS Administration Meropenem 500 mg/ Sodium 100 mls @ 200 mls/hr 09/10/19 21:00 09/10/19 21:22 Chloride IVPB 100 mls Q24HR CRIS Administration Micafungin Sodium 100 mg/ 100 mls @ 100 mls/hr 09/10/19 20:30 09/10/19 21:21 Sodium Chloride IVPB 100 mls Q24HR CRIS Administration Insulin Human Lispro 0 units 08/31/19 20:47 09/11/19 05:07 Humalog SC 2 unit .MODERATE SLIDING SC PRN Administration Moderate Correctional Scale Methylprednisolone Sodium Succinate 20 mg 08/31/19 22:00 09/11/19 14:26 Solu-Medrol IVP 20 mg Q8HR CRIS Administration Metoclopramide HCl 10 mg 09/06/19 18:00 09/11/19 11:56 Reglan IVP 10 mg Q6HR CRIS Administration Nitroglycerin 1 inch 09/07/19 01:00 09/11/19 11:56 Nitro-Bid 2% Ointment TOP 1 inch Q6H CRIS Administration Propofol 1,000 mg 08/31/19 20:00 09/10/19 23:36 Diprivan IV 09/30/19 20:00 1,000 mg INF PRN Administration TO ACHIEVE GOAL RASS Protocol Sodium Chloride 10 ml 09/06/19 21:00 09/11/19 11:44 Flush - Normal Saline IVF 10 ml Q12HR CRIS Administration - Exam General Appearance: ill appearing General - other findings: sedate on mech ventilation ENT - other findings: ETT in place Neck: supple, symmetric, no JVD, no thyromegaly Heart: RRR, no gallops, no rubs, normal peripheral pulses Respiratory - other findings: diminished in bases and R hemithorax Gastrointestinal: soft, non-tender, non-distended, normal bowel sounds Extremities: 1+ LE edema Skin: normal turgor, no lesions Neurological - other findings: sedate on mech ventilation Psychiatric: somnolent, lethargic Hosp A/P (1) Sepsis Code(s): A41.9 - SEPSIS, UNSPECIFIED ORGANISM Status: Acute Qualifiers: Sepsis type: sepsis due to unspecified organism Sepsis acute organ dysfunction status: with acute organ dysfunction Severe sepsis acute organ dysfunction type: acute renal failure Severe sepsis shock status: with septic shock Plan: ? related to UTI with Enterococcus, continue Linezolid/Meropenem (2) ESRD (end stage renal disease) on dialysis Code(s): N18.6 - END STAGE RENAL DISEASE; Z99.2 - DEPENDENCE ON RENAL DIALYSIS Status: Acute Plan: HD continuing per Renal service, hypotension noted during session (3) Acute respiratory failure with hypoxia Code(s): J96.01 - ACUTE RESPIRATORY FAILURE WITH HYPOXIA Status: Acute Plan: Continue mech ventilation, hold sedation due to hypotension (4) Cardiomyopathy Code(s): I42.9 - CARDIOMYOPATHY, UNSPECIFIED Status: Chronic Qualifiers: Cardiomyopathy type: unspecified Qualified Code(s): I42.9 - Cardiomyopathy , unspecified Plan: EF 25%, ICD in place (5) PNA (pneumonia) Code(s): J18.9 - PNEUMONIA, UNSPECIFIED ORGANISM Status: Acute Qualifiers: Pneumonia type: due to unspecified organism Laterality: right Lung location: middle lobe of lung Qualified Code(s): J18.9 - Pneumonia, unspecified organism Plan: Continue Linezolid/Meropenem/Micafungin (6) DM type 2 (diabetes mellitus, type 2) Status: Chronic Qualifiers: Diabetes mellitus watermelon inspector insulin use: without longterm use Diabetes mellitus complication status: without complication Qualified Code(s): E11.9 - Type 2 diabetes mellitus without complications Plan: ISS, Glargine 15u sc HS (7) Paroxysmal A-fib Code(s): I48.0 - PAROXYSMAL ATRIAL FIBRILLATION Status: Chronic Plan: Rate control, Amiodarone 200mg TID - Plan plan discussed w/ family, continue antibiotics, social organization professor, respiratory therapy, DVT proph w/SCDs Continue critical support Continue mech ventilation Hold Hydralazine/Coreg due to hypotension HD per Renal service Continue TF's if hypotension improves AM lab: BMP, CBC
[2019-09-11] MEDS: Norepinephrine 8 MG/0.9% NS 250 ML IVPB SCH (16:03)
[2019-09-11] MEDS: Sodium Chloride 0.45% 1,000 ML IV SCH (16:10)
[2019-09-11] MEDS: Albumin 25% 25 GM/100 ML BOT IVPB SCH (17:25)
--- NOTE | 2019-09-11 17:39 | PRG ---
DATE OF SERVICE: 09/11/2019 SUBJECTIVE: Kellie Garcia is stable. She has no complaints. OBJECTIVE: VITAL SIGNS: She is afebrile. Heart rates in the 80s. Blood pressures in the 80s to 90s. She is currently being dialyzed. We added Levophed for dialysis. Intake and output coming in today was positive 1887. LUNGS: Remarkable for coarse equal breath sounds. HEART: Regular rhythm. ABDOMEN: Soft. LABORATORY DATA: Chest x-ray shows improvement in aeration of the right chest. Labs have been reviewed. ASSESSMENT AND PLAN: I discussed tracheostomy with the daughter and with the patient. The patient is willing to undergo tracheostomy if necessary. I suspect after being here now for almost 2 weeks, she is going to be so weak. She will not do well with extubation. We will give her another couple of days of dialysis and see how she looks before we make this decision. Job ID: [id number]
[2019-09-11] MEDS: Meropenem 500 MG in Sodium Chloride 0.9% 100 ML IVPB SCH (21:32)
[2019-09-11] MEDS: Micafungin 100 MG in Sodium Chloride 0.9% 100 ML IVPB SCH (21:32)
[2019-09-11] MEDS: Insulin Glargine 15 UNITS in Pre-Filled Syringe 1 EACH SC SCH (22:14)
[2019-09-12] MEDS: Albumin 25% 25 GM/100 ML BOT IVPB SCH ×4 (00:54→17:33)
[2019-09-12] MEDS: Metoclopramide HCl 10 MG/2 ML VIAL IVP SCH ×4 (00:54→17:33)
[2019-09-12] MEDS: HumaLOG 300 UNITS/3 ML VIAL SC PRN ×4 (00:55→23:01)
[2019-09-12 04:05] LABS: #Lymphocytes 0.3 thou/uL (1.20-3.40); #Monocytes 0.5 thou/uL (0.11-0.59); #Neutrophils 11.5 thou/uL (1.40-6.50); %Basophils 0.1 % (0.0-1.0); %Lymphocytes 2.8 % (21.0-51.0); %Monocytes 4.4 % (0.0-10.0); %Neutrophils 92.8 % (42.0-75.0); Hemoglobin 6.7 g/dL (12.0-16.0); Mean Corpuscular HGB CONC 32.2 g/dL (32.0-36.0); Mean Corpuscular Hemoglobin 27.7 pg (27.0-31.0); Mean Platelet Volume 9.5 fL (7.4-10.4); Platelet Count 75 thou/uL (130-400); White Blood Cell (WBC) Count 12.4 thou/uL (4.8-10.8)
[2019-09-12 04:22] LABS: Anion Gap 17 mmol/L (10-20); BUN (Urea Nitrogen) 61 mg/dL (9.8-20.1); Calc. Creatinine Clearance 24 mL/min (70-130); Carbon Dioxide 24 mmol/L (23-31); Chloride 99 mmol/L (98-107); Estimated GFR-MDRD 18; Glucose 171 mg/dL (83-110); Potassium 4.5 mmol/L (3.5-5.1); Sodium 135 mmol/L (136-145)
[2019-09-12] MEDS: methylPREDNISolone Sod Succ 40 MG VIAL IVP SCH ×3 (05:45→23:09)
[2019-09-12 08:17] LABS: Actual Bicarbonate (HCO3a) 23.3 mEq/L (22-28); Base Excess (BEa) -0.4 mEq/L (-2.0 to +3.0); CO2 Tension 33.2 mmHg (35.0-45.0); Calcium, Ionized 1.06 mmol/L (1.12-1.30); Carboxyhemoglobin (COHb) 2.5 gm% (0.0-3.0); Hemoglobin (Hb) 6.5 g/dL (12.0-16.0); O2 Tension (PaO2) 70.8 mmHg (> 70.0); Potassium - ABG Lab 4.34 mmol/L (3.70-5.30); pH, Arterial 7.46 (7.35-7.45)
[2019-09-12] MEDS: Aspirin Chewable 81 MG TAB PO SCH (08:43)
[2019-09-12] MEDS: Amiodarone 200 MG TAB PER TUBE SCH ×3 (08:43→20:39)
[2019-09-12] MEDS: Famotidine/PF 20 mg/2ml Vial SLOW IVP SCH (08:43)
[2019-09-12] MEDS ORDERED: Heparin 10,000 UNITS/ 10 ML VIAL ONE (08:59)
--- NOTE | 2019-09-12 09:07 | PRG ---
DATE OF SERVICE: 09/12/2019 SERVICE: Renal Medicine. SUBJECTIVE: Ms. Garcia is a 74-year-old white female followed by the Renal Service for acute kidney injury secondary to ATN. Yesterday, she underwent dialysis. We were able to remove 3 L. However, during the said dialysis, she dropped her blood pressure. She was given albumin infusion and pressor support as recommended by her technical instructor. She also had a cuffed hemodialysis catheter placed. Currently, her hemoglobin has dropped down to 6.5. We are currently going to transfuse 2 units of packed RBC with dialysis today. My plan is to do a 3-hour dialytic intervention. The plan is to do 2 hours ultrafiltration and 1 hour of hemodialysis. Hopefully, the said maneuver will be tolerated by the patient. In addition, we will be giving her 2 units of packed RBC to support her hemodynamics. Currently, blood pressure is stable. No acute events noted last night. OBJECTIVE: VITAL SIGNS: Blood pressure is 150/43, heart rate 63, respiratory rate is 12, pulse ox 93%. GENERAL: The patient is awake, following commands, intubated on ventilator support. SKIN: Adequate turgor. HEENT: Pale conjunctivae. Anicteric sclerae. No neck mass. No carotid bruits. No JVD. CHEST: No deformities. LUNGS: Decreased breath sounds. HEART: Normal sinus rhythm. No murmurs, gallops, or rubs. ABDOMEN: Globular, soft, nontender. No masses. EXTREMITIES: Trace edema. MEDICATIONS: Medications of September 12, 2019 was reviewed. LABORATORY DATA: Laboratories of September 12, 2019 was also reviewed. Please note, hemoglobin was at 6.5. ASSESSMENT AND PLAN: 1. Anemia. We will transfuse 2 units packed RBC with dialysis today. 2. Acute kidney injury/acute tubular necrosis. Continue supportive care. Doing daily dialysis due to the volume overload. I will attempt again about 3 L of fluid removal only as tolerated by the patient. Depending on what the BP will be, we will adjust the fluid removal. At the same time, I am giving her 2 units of packed RBC. The plan is to do a total of 3 hours dialytic intervention with first 2 hours just removing fluid-2 hours ultrafiltration. Overall, prognosis remains guarded with this patient. Job ID: [id number]
[2019-09-12] MEDS: Linezolid 600 MG in Premix Bag 1 BAG IVPB SCH ×2 (09:49→23:10)
[2019-09-12] MEDS: Sodium Chloride 0.45% 1,000 ML IV SCH (12:49)
[2019-09-12] MEDS: hydrALAZINE 20 MG/ML VIAL SLOW IVP PRN ×2 (15:18→19:20)
--- NOTE | 2019-09-12 19:24 | PDOC.HOSPP ---
- Subjective Encounter Date: 09/12/19 Encounter Time: 18:05 Subjective: f/u for resp failure, ESRD on HD and s/p 2u PRBC's today. Remains on mech ventilation and HD to optimize fluid status. Receiving Linezolid/Meropenem/ Micafungin. - Objective Vital Signs & Weight: Vital Signs (12 hours) Temp Pulse Pulse Resp BP BP Pulse Ox 09/12/19 18:13 120 H 09/12/19 18:00 20 09/12/19 16:00 97.8 F 20 09/12/19 15:20 98.1 F 69 21 H 191/61 H 96 09/12/19 15:18 67 192/66 H 09/12/19 15:14 67 192/66 H 09/12/19 15:13 67 25 H 94 L 09/12/19 14:00 23 H 09/12/19 12:35 97.7 F 68 20 174/59 H 95 09/12/19 12:11 97.6 F 68 17 171/52 H 98 09/12/19 12:00 97.6 F 17 09/12/19 11:15 97.6 F 09/12/19 11:03 75 166/62 H 09/12/19 11:02 71 17 99 09/12/19 10:58 97.8 F 09/12/19 10:43 98.0 F 78 18 150/62 H 98 09/12/19 10:00 17 09/12/19 08:00 19 Weight Admit Weight 153 lb 7.068 oz Weight 179 lb 10.828 oz Most Recent Monitor Data Heart Rate from ECG 61 NIBP 196/94 NIBP BP-Mean 128 Respiration from ECG 25 SpO2 95 I&O: 09/11/19 09/12/19 09/13/19 06:59 06:59 06:59 Intake Total 2007.3 2804 2397 Output Total 120 80 15 Balance 1888.3 2724 2382 Result Diagrams: 09/12/19 03:51 09/12/19 03:51 Additional Labs: Accuchecks 09/12/19 09/12/19 09/11/19 15:49 03:56 22:50 POC Glucose 141 H 195 H 162 H Microbiology 02/28/17 15:30 Nasopharyngeal swab Influenza Types A,B Direct EIA - Final 02/28/17 16:05 Venous blood - Left Arm Blood Culture - Preliminary Specimen has been received and culture in progress. No Growth to date. 02/28/17 15:53 Urine voided Urine Culture - Preliminary NO GROWTH AT 12 HOURS 02/28/17 15:45 Venous blood - Right Hand Blood Culture - Preliminary Specimen has been received and culture in progress. No Growth to date. Laboratory Tests 06/28/16 12/21/16 02/28/17 08:27 16:16 15:45 WBC Hgb 11.5 L 10.6 L 7.1 L Plt Count 116 L Bands % (Auto) 20 H Neutrophils % (Manual) 55 Sodium Potassium Lactic Acid Magnesium Troponin I Vancomycin Trough 02/28/17 03/01/17 03/01/17 15:45 02:28 05:00 WBC Hgb Plt Count Bands % (Auto) Neutrophils % (Manual) Sodium 129 L Potassium 3.0 L Lactic Acid Magnesium 1.2 L Troponin I Vancomycin Trough 5.9 03/01/17 03/01/17 03/01/17 05:00 19:30 19:30 WBC 2.5 L Hgb 7.7 L 9.7 L Plt Count Bands % (Auto) 15 H Neutrophils % (Manual) 58 Sodium Potassium Lactic Acid Magnesium Troponin I 0.256 H Vancomycin Trough 03/01/17 03/02/17 03/02/17 20:00 02:07 02:07 WBC Hgb Plt Count Bands % (Auto) 11 Neutrophils % (Manual) Sodium Potassium Lactic Acid 1.5 Magnesium Troponin I Vancomycin Trough 11.3 03/03/17 06:15 WBC Hgb Plt Count Bands % (Auto) Neutrophils % (Manual) Sodium Potassium Lactic Acid Magnesium Troponin I Vancomycin Trough 38.8 H* EKG Reviewed by me: Yes (Tele - A-paced) Hospitalist ROS - Medication Medications: Active Medications Generic Name Dose Route Start Last Admin Trade Name Freq PRN Reason Stop Dose Admin Albuterol/Ipratropium 3 ml 08/31/19 19:00 09/12/19 18:12 Duoneb NEB 3 ml [id number] CRIS Administration Amiodarone HCl 200 mg 09/05/19 15:00 09/12/19 14:54 Cordarone PER TUBE 200 mg TID CRIS Administration Aspirin 81 mg 09/02/19 09:00 09/12/19 08:43 Aspirin Chewable PO 81 mg DAILY CRIS Administration Enalaprilat 0.625 mg 09/05/19 11:47 09/06/19 19:31 Vasotec SLOW IVP 0.625 mg Q6H PRN Administration SBP > 180 Famotidine 20 mg 09/03/19 09:00 09/12/19 08:43 Pepcid SLOW IVP 20 mg DAILY CRIS Administration Hydralazine HCl 50 mg 09/05/19 09:00 09/11/19 14:25 Apresoline PO 50 mg TID CRIS Administration Hydralazine HCl 20 mg 09/07/19 03:30 09/12/19 15:18 Apresoline SLOW IVP 20 mg Q4H PRN Administration SBP Greater Than 170 Insulin Glargine 15 units/ 0.15 mls @ 0 mls/hr 08/31/19 21:00 09/11/19 22:14 Miscellaneous Medication SC 0.15 mls HS CRIS Administration Norepinephrine Bitartrate 250 mls @ 0 mls/hr 08/31/19 22:15 09/11/19 16:03 Levophed IVPB 250 mls INF CRIS Administration Protocol Titrate Sodium Chloride 1,000 mls @ 50 mls/hr 09/02/19 13:30 09/12/19 12:49 1/2 Normal Saline IV 1,000 mls .Q20H CRIS Administration Dexmedetomidine HCl 400 mcg/ 100 mls @ 0 mls/hr 09/02/19 19:45 09/06/19 12:19 Sodium Chloride IVPB 100 mls INF CRIS Administration Protocol Per Protocol Linezolid 600 mg/ Device 300 mls @ 150 mls/hr 09/10/19 22:00 09/12/19 09:49 IVPB 300 mls 1000,2200 CRIS Administration Meropenem 500 mg/ Sodium 100 mls @ 200 mls/hr 09/10/19 21:00 09/11/19 21:32 Chloride IVPB 100 mls Q24HR CRIS Administration Micafungin Sodium 100 mg/ 100 mls @ 100 mls/hr 09/10/19 20:30 09/11/19 21:32 Sodium Chloride IVPB 100 mls Q24HR CRIS Administration Insulin Human Lispro 0 units 08/31/19 20:47 09/12/19 09:49 Humalog SC 2 unit .MODERATE SLIDING SC PRN Administration Moderate Correctional Scale Methylprednisolone Sodium Succinate 20 mg 08/31/19 22:00 09/12/19 13:32 Solu-Medrol IVP 20 mg Q8HR CRIS Administration Metoclopramide HCl 10 mg 09/06/19 18:00 09/12/19 17:33 Reglan IVP 10 mg Q6HR CRIS Administration Propofol 1,000 mg 08/31/19 20:00 09/10/19 23:36 Diprivan IV 09/30/19 20:00 1,000 mg INF PRN Administration TO ACHIEVE GOAL RASS Protocol Sodium Chloride 10 ml 09/06/19 21:00 09/12/19 08:44 Flush - Normal Saline IVF 10 ml Q12HR CRIS Administration - Exam General - other findings: sedate on mech vent ENT: normocephalic atraumatic, no oropharyngeal lesions ENT - other findings: ETT in place Neck: supple, symmetric, no JVD Heart: RRR, no gallops, no rubs, normal peripheral pulses Respiratory - other findings: diminished in R hemithorax, coarse sounds Gastrointestinal: soft, non-tender, non-distended, normal bowel sounds Extremities: no cyanosis, 1+ LE edema Skin: normal turgor, no lesions Neurological: no new deficit Psychiatric: somnolent Hosp A/P (1) Sepsis Code(s): A41.9 - SEPSIS, UNSPECIFIED ORGANISM Status: Acute Qualifiers: Sepsis type: sepsis due to unspecified organism Sepsis acute organ dysfunction status: with acute organ dysfunction Severe sepsis acute organ dysfunction type: acute renal failure Severe sepsis shock status: with septic shock Plan: Continue Linezolid/Meropenem/Micafungin (2) ESRD (end stage renal disease) on dialysis Code(s): N18.6 - END STAGE RENAL DISEASE; Z99.2 - DEPENDENCE ON RENAL DIALYSIS Status: Acute Plan: HD per Renal service, 2u PRBC's given today (3) Acute respiratory failure with hypoxia Code(s): J96.01 - ACUTE RESPIRATORY FAILURE WITH HYPOXIA Status: Acute Plan: Continue SIMV (4) Cardiomyopathy Code(s): I42.9 - CARDIOMYOPATHY, UNSPECIFIED Status: Chronic Qualifiers: Cardiomyopathy type: unspecified Qualified Code(s): I42.9 - Cardiomyopathy , unspecified Plan: EF 20-25% (5) PNA (pneumonia) Code(s): J18.9 - PNEUMONIA, UNSPECIFIED ORGANISM Status: Acute Qualifiers: Pneumonia type: due to unspecified organism Laterality: right Lung location: middle lobe of lung Qualified Code(s): J18.9 - Pneumonia, unspecified organism Plan: Continue Linezolid/Meropenem/Micafungin (6) DM type 2 (diabetes mellitus, type 2) Status: Chronic Qualifiers: Diabetes mellitus senior network systems engineer insulin use: without senior network systems engineer use Diabetes mellitus complication status: without complication Qualified Code(s): E11.9 - Type 2 diabetes mellitus without complications (7) Paroxysmal A-fib Code(s): I48.0 - PAROXYSMAL ATRIAL FIBRILLATION Status: Chronic Plan: Amiodarone 200mg TID, Coreg 6.25mg BID - Plan continue antibiotics, medical social consultant, respiratory therapy, DVT proph w/SCDs Continue critical support Continue mech ventilation Resume Hydralazine/Coreg HD per Renal service s/p 2u PRBC's today Resume TF's for nutritional support AM lab: BMP, CBC
[2019-09-12] MEDS ORDERED: Temazepam 15 MG CAP PO PRN (19:35)
[2019-09-12] MEDS: Micafungin 100 MG in Sodium Chloride 0.9% 100 ML IVPB SCH (20:39)
[2019-09-12] MEDS: Meropenem 500 MG in Sodium Chloride 0.9% 100 ML IVPB SCH (20:40)
[2019-09-12] MEDS: Enalaprilat Dihydrate 1.25 MG/ML VIAL SLOW IVP PRN (20:42)
[2019-09-12] MEDS: Insulin Glargine 15 UNITS in Pre-Filled Syringe 1 EACH SC SCH (20:50)
--- NOTE | 2019-09-12 21:34 | HP ---
SUBJECTIVE: Kellie Garcia is much more alert today. Her negative inspiratory force is -23 with some encouragement. OBJECTIVE: VITAL SIGNS: She is afebrile. Heart rate is up to 120, respiratory rates in the teens. She was turned down to a pressure support of 6, 5 of PEEP, and an IMV of 6, and her minute volume stayed below 10 L a minute. This evening, her blood pressure was elevated to 209/56, not sure if this is accurate. Heart rates in the 60s. LUNGS: Clear. HEART: Regular rhythm. ABDOMEN: Soft. LABORATORY DATA: White count 12.4, hemoglobin 6.7. She received 2 units of blood this morning and platelets 75. Electrolytes are normal. Creatinine is 2.62. Intake and output were recorded as positive 2724. Baca output was only 8 mL. IMPRESSION: Multiorgan dysfunction, clinically stable. Hopefully for negative inspiratory force improves on a daily basis, we can avoid a tracheostomy. I met with the daughter and answered all of her questions. I had daily chest x-rays ordered, for some reason these have stopped, so I will reorder these, reassess her in the morning, and I will update family. Job ID: [id number]
[2019-09-12] MEDS: niCARdipine 25 MG in Sodium Chloride 0.9% 250 ML 240 ML IVPB SCH (22:05)
[2019-09-13] MEDS: Metoclopramide HCl 10 MG/2 ML VIAL IVP SCH ×4 (00:40→18:47)
[2019-09-13] MEDS: niCARdipine 25 MG in Sodium Chloride 0.9% 250 ML 240 ML IVPB SCH ×3 (01:02→07:47)
[2019-09-13 04:16] LABS: Band 3 % (5-11); Hemoglobin 9.6 g/dL (12.0-16.0); Hypochromia SLIGHT = 6-15 cells (100X) (0-5/hpf); Lymphocytes 3 % (21-51); MDiff Complete? YES; Mean Corpuscular HGB CONC 32.6 g/dL (32.0-36.0); Mean Corpuscular Hemoglobin 27.6 pg (27.0-31.0); Mean Corpuscular Volume 84.9 fL (78.0-98.0); Mean Platelet Volume 9.9 fL (7.4-10.4); Monocytes 5 % (0-10); Neutrophil 89 % (42-75); Platelet Count 81 thou/uL (130-400); Platelet Morphology Comment Appears Decreased; RBC Distribution Width 16.4 % (11.5-14.5); Red Blood Cell (RBC) Count 3.47 mill/uL (4.20-5.40); White Blood Cell (WBC) Count 19.5 thou/uL (4.8-10.8)
[2019-09-13 04:22] LABS: Anion Gap 17 mmol/L (10-20); BUN (Urea Nitrogen) 69 mg/dL (9.8-20.1); Calc. Creatinine Clearance 22 mL/min (70-130); Calcium 8.7 mg/dL (7.8-10.44); Carbon Dioxide 24 mmol/L (23-31); Chloride 97 mmol/L (98-107); Estimated GFR-MDRD 16; Glucose 150 mg/dL (83-110); Potassium 4.1 mmol/L (3.5-5.1); Sodium 134 mmol/L (136-145)
[2019-09-13] MEDS: Lorazepam 1 MG TAB PO PRN ×2 (05:08→16:50)
[2019-09-13] MEDS: HumaLOG 300 UNITS/3 ML VIAL SC PRN ×3 (05:12→20:04)
[2019-09-13] MEDS: methylPREDNISolone Sod Succ 40 MG VIAL IVP SCH ×3 (06:34→21:57)
[2019-09-13 07:27] LABS: Actual Bicarbonate (HCO3a) 22.2 mEq/L (22-28); Base Excess (BEa) -1.8 mEq/L (-2.0 to +3.0); CO2 Tension 34.6 mmHg (35.0-45.0); Calcium, Ionized 1.13 mmol/L (1.12-1.30); Carboxyhemoglobin (COHb) 1.6 gm% (0.0-3.0); Hemoglobin (Hb) 9.3 g/dL (12.0-16.0); Potassium - ABG Lab 4.13 mmol/L (3.70-5.30); pH, Arterial 7.43 (7.35-7.45)
[2019-09-13 07:31] LABS: Puncture Site LR
--- NOTE | 2019-09-13 08:22 | PRG ---
DATE OF SERVICE: 09/13/2019 SUBJECTIVE: Ms. Garcia is a 74-year-old white female, followed up by the Renal Service for her acute kidney injury secondary to an acute tubular necrosis. She has remained volume overloaded and has some difficulty being extubated. She is undergoing hemodialysis daily for fluid removal. We were able to remove around 3.5 L of fluid with dialysis yesterday and she relatively tolerated it. The patient is again scheduled for hemodialysis with ultrafiltration. If blood pressure will be stable, we will attempt to remove 4 kg of fluid with this patient. No acute events last night. OBJECTIVE: VITAL SIGNS: Blood pressure is 164/53, heart rate 61, respiratory rate is 27, O2 sats 91%. GENERAL: She is awake, can follow simple commands, intubated on ventilator support. SKIN: Adequate turgor. HEENT: She has pinkish conjunctivae. Anicteric sclerae. NECK: No neck mass. No carotid bruits. No JVD. CHEST: No deformities. LUNGS: Decreased breath sounds. HEART: Normal sinus rhythm. No murmurs, no gallops, no rubs. ABDOMEN: Globular, soft. EXTREMITIES: Positive for edema. MEDICATIONS: Medications of September 13, 2019, was reviewed. LABORATORY DATA: Laboratories of September 13, 2019, white count 9.5, hemoglobin 19.6. Sodium 134, potassium 4.1, chloride 97, carbon dioxide 24, BUN 69, creatinine 2.88, glucose 150, calcium 8.7. ASSESSMENT AND PLAN: 1. Acute kidney injury - secondary to acute tubular necrosis. Continuing daily hemodialysis for fluid removal. As previously mentioned, we will attempt a 4 kg/4 L fluid removal with dialysis. We will again schedule her for the 1st 2 hours of pure ultrafiltration and then followed by hemodialysis. 2. Anemia, much improved. The patient is status post blood transfusion. 3. Acute respiratory failure-currently intubated and ventilator support. Pulmonary is following. Overall prognosis remains guarded. Job ID: [id number]
--- NOTE | 2019-09-13 08:27 | RAD ---
EXAM: CHEST ONE VIEW HISTORY: On ventilator. Follow-up evaluation. COMPARISON: 09/11/2019 FINDINGS: Right subclavian CT injectable Mediport catheter, right internal jugular vein tunneled hemodialysis c atheter, endotracheal tube, and nasogastric tube remain in place and unchanged in position. Dual-lead left subclavian cardiac pacemaking device is again noted in place. Again noted is increased density in the right hemithorax most compatible with right pleural effusion. However, there has been improvement in aeration in the right lung compared to prior exam. Mild patchy parenchymal densit ies are seen in the left hilar region and at the left lung base which could be related to focal areas of developing pneumonia. Tiny left pleural effusion is present. Cardiac silhouette is magnified by projection does appear mildly enlarged. Vertebroplasty changes of thoracic vertebral bodies are again seen. No other interval change. IMPRESSION: 1. Improvement in aeration in the right lung, but there is persistent pleural effusion. 2. Parenchymal densities now seen in the left hilar region and at the left lung base which may be rel ated to developing areas of pneumonia. Continued follow-up is recommended. 3. Lines and tubes in place as described above.
[2019-09-13] MEDS: Famotidine/PF 20 mg/2ml Vial SLOW IVP SCH (09:30)
[2019-09-13] MEDS: Carvedilol 6.25 MG TAB PO SCH ×3 (10:13→16:50)
[2019-09-13] MEDS: Amiodarone 200 MG TAB PER TUBE SCH ×3 (10:13→21:18)
[2019-09-13] MEDS: Aspirin Chewable 81 MG TAB PO SCH (10:13)
[2019-09-13] MEDS: Linezolid 600 MG in Premix Bag 1 BAG IVPB SCH ×2 (12:35→21:57)
[2019-09-13] MEDS: Sodium Chloride 0.45% 1,000 ML IV SCH (13:30)
[2019-09-13] MEDS ORDERED: Heparin 10,000 UNITS/ 10 ML VIAL ONE (14:24)
[2019-09-13] MEDS: hydrALAZINE 20 MG/ML VIAL SLOW IVP PRN (16:11)
--- NOTE | 2019-09-13 18:09 | PDOC.HOSPP ---
- Subjective Encounter Date: 09/13/19 Encounter Time: 18:05 Subjective: f/u for resp failure on mech ventilation, volume overload on daily HD. Receiving Linezolid/Meropenem/Micafungin for PNA. - Objective Vital Signs & Weight: Vital Signs (12 hours) Temp Pulse Resp BP Pulse Ox 09/13/19 17:12 66 175/52 H 09/13/19 16:50 198/82 H 09/13/19 16:11 64 181/49 H 09/13/19 16:00 98.5 F 29 H 09/13/19 14:45 62 184/59 H 09/13/19 14:44 62 25 H 94 L 09/13/19 14:00 28 H 09/13/19 12:00 97.7 F 32 H 09/13/19 11:02 60 28 H 98/50 L 98 09/13/19 10:14 146/60 H 09/13/19 10:13 146/60 H 09/13/19 08:00 97.7 F 09/13/19 06:59 61 164/53 H 09/13/19 06:57 60 27 H 91 L Weight Admit Weight 153 lb 7.068 oz Weight 176 lb 9.444 oz Most Recent Monitor Data Heart Rate from ECG 67 NIBP 175/52 NIBP BP-Mean 93 Respiration from ECG 25 SpO2 94 I&O: 09/12/19 09/13/19 09/14/19 06:59 06:59 06:59 Intake Total 2804 4697 921 Output Total 80 76 45 Balance 2724 4621 876 Result Diagrams: 09/13/19 03:30 09/13/19 03:30 Additional Labs: Accuchecks 09/13/19 09/13/19 09/12/19 14:02 03:38 22:18 POC Glucose 169 H 158 H 166 H Microbiology 02/28/17 15:30 Nasopharyngeal swab Influenza Types A,B Direct EIA - Final 02/28/17 16:05 Venous blood - Left Arm Blood Culture - Preliminary Specimen has been received and culture in progress. No Growth to date. 02/28/17 15:53 Urine voided Urine Culture - Preliminary NO GROWTH AT 12 HOURS 02/28/17 15:45 Venous blood - Right Hand Blood Culture - Preliminary Specimen has been received and culture in progress. No Growth to date. Laboratory Tests 06/28/16 12/21/16 02/28/17 08:27 16:16 15:45 WBC Hgb 11.5 L 10.6 L 7.1 L Plt Count 116 L Bands % (Auto) 20 H Neutrophils % (Manual) 55 Sodium Potassium Lactic Acid Magnesium Troponin I Vancomycin Trough 02/28/17 03/01/17 03/01/17 15:45 02:28 05:00 WBC Hgb Plt Count Bands % (Auto) Neutrophils % (Manual) Sodium 129 L Potassium 3.0 L Lactic Acid Magnesium 1.2 L Troponin I Vancomycin Trough 5.9 03/01/17 03/01/17 03/01/17 05:00 19:30 19:30 WBC 2.5 L Hgb 7.7 L 9.7 L Plt Count Bands % (Auto) 15 H Neutrophils % (Manual) 58 Sodium Potassium Lactic Acid Magnesium Troponin I 0.256 H Vancomycin Trough 03/01/17 03/02/17 03/02/17 20:00 02:07 02:07 WBC Hgb Plt Count Bands % (Auto) 11 Neutrophils % (Manual) Sodium Potassium Lactic Acid 1.5 Magnesium Troponin I Vancomycin Trough 11.3 03/03/17 06:15 WBC Hgb Plt Count Bands % (Auto) Neutrophils % (Manual) Sodium Potassium Lactic Acid Magnesium Troponin I Vancomycin Trough 38.8 H* Radiology Reviewed by me: Yes (PCXR - improved aeration R lung, worse infiltrate on L) EKG Reviewed by me: Yes (Tele - A-pacing) Hospitalist ROS - Medication Medications: Active Medications Generic Name Dose Route Start Last Admin Trade Name Freq PRN Reason Stop Dose Admin Albuterol/Ipratropium 3 ml 08/31/19 19:00 09/13/19 14:44 Duoneb NEB 3 ml [id number] CRIS Administration Amiodarone HCl 200 mg 09/05/19 15:00 09/13/19 15:30 Cordarone PER TUBE 200 mg TID CRIS Administration Aspirin 81 mg 09/02/19 09:00 09/13/19 10:13 Aspirin Chewable PO 81 mg DAILY CRIS Administration Carvedilol 12.5 mg 09/13/19 17:00 09/13/19 16:50 Coreg PO 12.5 mg BID-WM CRIS Administration Enalaprilat 0.625 mg 09/05/19 11:47 09/12/19 20:42 Vasotec SLOW IVP 0.625 mg Q6H PRN Administration SBP > 180 Famotidine 20 mg 09/03/19 09:00 09/13/19 09:30 Pepcid SLOW IVP 20 mg DAILY CRIS Administration Hydralazine HCl 50 mg 09/05/19 09:00 09/11/19 14:25 Apresoline PO 50 mg TID CRIS Administration Hydralazine HCl 20 mg 09/07/19 03:30 09/13/19 16:11 Apresoline SLOW IVP 20 mg Q4H PRN Administration SBP Greater Than 170 Insulin Glargine 15 units/ 0.15 mls @ 0 mls/hr 08/31/19 21:00 09/12/19 20:50 Miscellaneous Medication SC 0.15 mls HS CRIS Administration Norepinephrine Bitartrate 250 mls @ 0 mls/hr 08/31/19 22:15 09/11/19 16:03 Levophed IVPB 250 mls INF CRIS Administration Protocol Titrate Sodium Chloride 1,000 mls @ 20 mls/hr 09/02/19 13:30 09/13/19 13:30 1/2 Normal Saline IV Not Given .Q24H CRIS Dexmedetomidine HCl 400 mcg/ 100 mls @ 0 mls/hr 09/02/19 19:45 09/06/19 12:19 Sodium Chloride IVPB 100 mls INF CRIS Administration Protocol Per Protocol Linezolid 600 mg/ Device 300 mls @ 150 mls/hr 09/10/19 22:00 09/13/19 12:35 IVPB 300 mls 1000,2200 CRIS Administration Meropenem 500 mg/ Sodium 100 mls @ 200 mls/hr 09/10/19 21:00 09/12/19 20:40 Chloride IVPB 100 mls Q24HR CRIS Administration Micafungin Sodium 100 mg/ 100 mls @ 100 mls/hr 09/10/19 20:30 09/12/19 20:39 Sodium Chloride IVPB 100 mls Q24HR CRIS Administration Nicardipine HCl 25 mg/ Sodium 250 mls @ 0 mls/hr 09/12/19 22:00 09/13/19 07: 47 Chloride IVPB 250 mls INF CRIS Administration Protocol Titrate Insulin Human Lispro 0 units 08/31/19 20:47 09/13/19 14:01 Humalog SC 2 unit .MODERATE SLIDING SC PRN Administration Moderate Correctional Scale Lorazepam 1 mg 09/13/19 04:55 09/13/19 16:50 Ativan PO 1 mg Q8H PRN Administration Anxiety Methylprednisolone Sodium Succinate 20 mg 08/31/19 22:00 09/13/19 13:30 Solu-Medrol IVP 20 mg Q8HR CRIS Administration Metoclopramide HCl 10 mg 09/06/19 18:00 09/13/19 13:29 Reglan IVP 10 mg Q6HR CRIS Administration Propofol 1,000 mg 08/31/19 20:00 09/10/19 23:36 Diprivan IV 09/30/19 20:00 1,000 mg INF PRN Administration TO ACHIEVE GOAL RASS Protocol Sodium Chloride 10 ml 09/06/19 21:00 09/13/19 08:50 Flush - Normal Saline IVF 10 ml Q12HR CRIS Administration Temazepam 15 mg 09/12/19 19:35 09/12/19 20:42 Restoril PO 15 mg HSPRN PRN Administration Insomnia - Exam General Appearance: awake alert Eye: PERRL, anicteric sclera ENT: normocephalic atraumatic, no oropharyngeal lesions ENT - other findings: ETT in place Neck: supple, symmetric, no JVD, no thyromegaly Heart: RRR, no gallops, no rubs, normal peripheral pulses Respiratory - other findings: coarse bilat and diminished in bases Gastrointestinal: soft, non-tender, non-distended, normal bowel sounds Extremities: no cyanosis, 1+ LE edema Skin: normal turgor, no lesions Musculoskeletal: generalized weakness Hosp A/P (1) Sepsis Code(s): A41.9 - SEPSIS, UNSPECIFIED ORGANISM Status: Acute Qualifiers: Sepsis type: sepsis due to unspecified organism Sepsis acute organ dysfunction status: with acute organ dysfunction Severe sepsis acute organ dysfunction type: acute renal failure Severe sepsis shock status: with septic shock Plan: Continue Meropenem/Linezolid/Micafungin (2) ESRD (end stage renal disease) on dialysis Code(s): N18.6 - END STAGE RENAL DISEASE; Z99.2 - DEPENDENCE ON RENAL DIALYSIS Status: Acute Plan: Continue daily HD for volume removal (3) Acute respiratory failure with hypoxia Code(s): J96.01 - ACUTE RESPIRATORY FAILURE WITH HYPOXIA Status: Acute Plan: Persistent, continue SIMV with FIO2 30% (4) Cardiomyopathy Code(s): I42.9 - CARDIOMYOPATHY, UNSPECIFIED Status: Chronic Qualifiers: Cardiomyopathy type: unspecified Qualified Code(s): I42.9 - Cardiomyopathy , unspecified Plan: EF 20-25%, continue volume removal with HD and monitor fluid status (5) PNA (pneumonia) Code(s): J18.9 - PNEUMONIA, UNSPECIFIED ORGANISM Status: Acute Qualifiers: Pneumonia type: due to unspecified organism Laterality: right Lung location: middle lobe of lung Qualified Code(s): J18.9 - Pneumonia, unspecified organism Plan: Continue Linezolid/Meropenem/Micafungin (6) DM type 2 (diabetes mellitus, type 2) Status: Chronic Qualifiers: Diabetes mellitus [facility] insulin use: without terminal make up operator use Diabetes mellitus complication status: without complication Qualified Code(s): E11.9 - Type 2 diabetes mellitus without complications (7) Paroxysmal A-fib Code(s): I48.0 - PAROXYSMAL ATRIAL FIBRILLATION Status: Chronic Plan: A-pacing currently, continue Amiodarone - Plan continue antibiotics, social welfare clerk, respiratory therapy, DVT proph w/SCDs Continue critical support Continue mech ventilation Resume Hydralazine/Coreg HD per Renal service for volume mgmt s/p 2u PRBC's 09/12/19 Resume TF's for nutritional support Consider Palliative care consult AM lab: BMP, CBC
[2019-09-13] MEDS: Micafungin 100 MG in Sodium Chloride 0.9% 100 ML IVPB SCH (20:04)
[2019-09-13] MEDS: Insulin Glargine 15 UNITS in Pre-Filled Syringe 1 EACH SC SCH (20:06)
[2019-09-13] MEDS ORDERED: niCARdipine 50 MG in Sodium Chloride 0.9% 250 ML 230 ML IVPB SCH (20:30)
[2019-09-13] MEDS: Meropenem 500 MG in Sodium Chloride 0.9% 100 ML IVPB SCH (21:18)
[2019-09-14] MEDS: Metoclopramide HCl 10 MG/2 ML VIAL IVP SCH ×5 (00:11→23:02)
[2019-09-14] MEDS: HumaLOG 300 UNITS/3 ML VIAL SC PRN ×2 (00:13→05:53)
[2019-09-14] MEDS: Lorazepam 1 MG TAB PO PRN (01:55)
[2019-09-14 04:51] LABS: Anion Gap 14 mmol/L (10-20); BUN (Urea Nitrogen) 93 mg/dL (9.8-20.1); Calc. Creatinine Clearance 20 mL/min (70-130); Calcium 8.1 mg/dL (7.8-10.44); Carbon Dioxide 23 mmol/L (23-31); Chloride 98 mmol/L (98-107); Estimated GFR-MDRD 14; Glucose 167 mg/dL (83-110); Potassium 4.3 mmol/L (3.5-5.1); Sodium 131 mmol/L (136-145)
[2019-09-14 05:14] LABS: Band 1 % (5-11); Hemoglobin 8.9 g/dL (12.0-16.0); Lymphocytes 1 % (21-51); MDiff Complete? YES; Mean Corpuscular HGB CONC 32.6 g/dL (32.0-36.0); Mean Corpuscular Hemoglobin 28.4 pg (27.0-31.0); Mean Platelet Volume 9.9 fL (7.4-10.4); Neutrophil 98 % (42-75); Platelet Count 74 thou/uL (130-400); Platelet Morphology Comment Appears Decreased; RBC Distribution Width 16.3 % (11.5-14.5); Red Blood Cell (RBC) Count 3.13 mill/uL (4.20-5.40); Toxic Granulation SLIGHT; White Blood Cell (WBC) Count 14.7 thou/uL (4.8-10.8)
[2019-09-14] MEDS: methylPREDNISolone Sod Succ 40 MG VIAL IVP SCH ×3 (05:43→23:01)
[2019-09-14 06:45] LABS: Actual Bicarbonate (HCO3a) 21.5 mEq/L (22-28); Base Excess (BEa) -1.7 mEq/L (-2.0 to +3.0); CO2 Tension 30.6 mmHg (35.0-45.0); Calcium, Ionized 1.12 mmol/L (1.12-1.30); Carboxyhemoglobin (COHb) 1.7 gm% (0.0-3.0); Hemoglobin (Hb) 9.7 g/dL (12.0-16.0); Potassium - ABG Lab 4.21 mmol/L (3.70-5.30); pH, Arterial 7.46 (7.35-7.45)
[2019-09-14 06:52] LABS: Puncture Site RR
--- NOTE | 2019-09-14 08:16 | RAD ---
FRONTAL RADIOGRAPH CHEST: DATE: 09/14/2019. COMPARISON: 09/13/2019. HISTORY: Ventilated patient. FINDINGS: Stable endotracheal tube, nasogastric tube, CT injectable right-sided Port-a-Cath, and right dialysis catheter. Multiple mid thoracic spine kyphoplasty changes noted. Patchy opacity in the left perihi lar region with focal density in the medial left base again noted. There is dense opacity in the rig ht perihilar region and right lung base with associated prominent right pleural effusion. IMPRESSION: No significant interval change. Persistent nonspecific dense opacity in bilateral lung bases with as sociated right pleural effusion. Underlying mass lesion cannot be excluded. Continued followup to r esolution advised. POS: OFF
[2019-09-14] MEDS: Amiodarone 200 MG TAB PER TUBE SCH ×3 (10:24→20:43)
[2019-09-14] MEDS: Carvedilol 6.25 MG TAB PO SCH ×2 (10:24→16:33)
[2019-09-14] MEDS: Linezolid 600 MG in Premix Bag 1 BAG IVPB SCH ×2 (10:25→23:02)
[2019-09-14] MEDS: Aspirin Chewable 81 MG TAB PO SCH (10:25)
[2019-09-14] MEDS: Famotidine/PF 20 mg/2ml Vial SLOW IVP SCH (10:25)
[2019-09-14] MEDS: Sodium Chloride 0.45% 1,000 ML IV SCH (10:26)
--- NOTE | 2019-09-14 10:44 | PRG ---
DATE OF SERVICE: 09/14/2019 SUBJECTIVE: Ms. Garcia is a 74-year-old white female with multiple organ dysfunction. We are following her up for acute kidney injury from acute tubular necrosis. She is undergoing daily dialysis. She is currently on the dialysis machine today. We are targeting between 3.5 and 4 L with her as tolerated. Fluid removal is gently being removed. I have done again a pure ultrafiltration, which will be more stabilizing in the fluid removal with the patient. PHYSICAL EXAMINATION: VITAL SIGNS: Blood pressure is currently noted at 127/70, heart rate is 60. GENERAL: She is arousable, can follow simple commands, intubated, on ventilator support. SKIN: Adequate turgor. HEENT: Pinkish conjunctivae. Anicteric sclerae. NECK: No neck mass. No carotid bruits. No JVD. LUNGS: Decreased breath sounds. HEART: Normal sinus rhythm. No murmurs, no gallops, no rubs. ABDOMEN: Globular, soft, nontender. No masses. EXTREMITIES: No edema. No deformities. MEDICATIONS: Medications of September 14, 2019, were reviewed. LABORATORY DATA: Laboratories of September 14, 2019; white count 14.7, hemoglobin 8.9. Sodium 131, potassium 4.3, chloride 98, carbon dioxide 23, BUN 93, creatinine 3.16, glucose 167, calcium 8.1. ASSESSMENT AND PLAN: 1. Acute kidney injury/acute tubular necrosis - doing daily dialysis. Trying to max out fluid removal as tolerated by the patient. So far, the patient is tolerating the treatment with dialysis. We have already removed about 1.4 L of fluid in 1 hour. The patient is scheduled for another dialytic intervention tomorrow for further fluid removal. 2. Acute respiratory failure. Continue supportive care. Chest x-ray was reviewed and still is noted to be stable with findings of bilateral pleural effusion. 3. Overall prognosis remains guarded. Job ID: [id number]
[2019-09-14] MEDS: Lisinopril 10 MG TAB PER TUBE SCH ×2 (11:00→20:43)
--- NOTE | 2019-09-14 11:34 | PRG ---
DATE OF SERVICE: 09/14/2019 SUBJECTIVE: Ms. Garcia is still quite weak. Her Cardene drip is double-strength on hold while she is being dialyzed. Weight is reported as 169. OBJECTIVE: VITAL SIGNS: Blood pressure 133/57, heart rate 60s, respiratory rate in the 20s. LUNGS: Remarkable for coarse equal breath sounds. HEART: Regular rhythm. ABDOMEN: Soft. EXTREMITIES: Without edema. LABORATORY STUDIES: White count 14.7, hemoglobin 8.9, and platelets 74. Electrolytes are unremarkable. Creatinine is 3.16 and BUN is 93. A pH is 7.46, CO2 of 30, and pO2 of 59. Chest x-ray is unchanged, bilateral effusions are still seen. IMPRESSION: 1. Congestive heart failure. 2. Supraventricular tachycardia. 3. Sinus arrest, leading to a pacemaker defibrillator. 4. History of multiple malignancies in the past. 5. Deconditioning. The biggest factor is weakness and deconditioning at this point. Her negative inspiratory force is 23 two days ago, -18 yesterday. It had been done when I rounded on her this morning, but there is no way she is weanable this weekend. We will make a decision on Tuesday regarding tracheostomy, but I suspect she will require tracheostomy. Job ID: [id number]
[2019-09-14] MEDS ORDERED: Heparin 10,000 UNITS/ 10 ML VIAL ONE (13:54)
[2019-09-14] MEDS: hydrALAZINE 20 MG/ML VIAL SLOW IVP PRN (17:11)
--- NOTE | 2019-09-14 20:17 | PDOC.HOSPP ---
- Subjective Encounter Date: 09/14/19 Encounter Time: 13:00 Subjective: patient seen on f/u for resp failure on mv, pneumonia and aleena on h/d. patient is currently on mv, but is able to follow commands and give yes no and no answers - Objective Vital Signs & Weight: Vital Signs (12 hours) Temp Pulse Resp BP 09/14/19 18:21 66 154/45 H 09/14/19 18:00 19 09/14/19 17:11 63 170/57 H 09/14/19 16:33 161/56 H 09/14/19 16:00 98.6 F 23 H 09/14/19 15:29 67 09/14/19 14:00 20 09/14/19 13:04 72 149/59 H 09/14/19 12:00 97.5 F L 27 H 09/14/19 11:00 133/57 L 09/14/19 10:24 133/57 L 09/14/19 10:14 60 127/54 L 09/14/19 10:00 22 H Weight Admit Weight 153 lb 7.068 oz Weight 169 lb 8.568 oz Most Recent Monitor Data Heart Rate from ECG 62 NIBP 149/49 NIBP BP-Mean 82 Respiration from ECG 19 SpO2 97 I&O: 09/13/19 09/14/19 09/15/19 06:59 06:59 06:59 Intake Total 4697 2798 1094 Output Total 76 95 365 Balance 4621 2703 729 Result Diagrams: 09/14/19 03:35 09/14/19 03:35 Additional Labs: Accuchecks 09/14/19 09/14/19 09/14/19 18:37 13:24 05:51 POC Glucose 162 H 162 H 163 H 09/14/19 00:16 POC Glucose 189 H Hospitalist ROS - Review of Systems ROS unobtainable: due to endotracheal tube - Medication Medications: Active Medications Generic Name Dose Route Start Last Admin Trade Name Freq PRN Reason Stop Dose Admin Albuterol/Ipratropium 3 ml 08/31/19 19:00 09/14/19 18:21 Duoneb NEB 3 ml [id number] CRIS Administration Amiodarone HCl 200 mg 09/05/19 15:00 09/14/19 15:20 Cordarone PER TUBE 200 mg TID CRIS Administration Aspirin 81 mg 09/02/19 09:00 09/14/19 10:25 Aspirin Chewable PO 81 mg DAILY CRIS Administration Carvedilol 12.5 mg 09/13/19 17:00 09/14/19 16:33 Coreg PO 12.5 mg BID-WM CRIS Administration Enalaprilat 0.625 mg 09/05/19 11:47 09/12/19 20:42 Vasotec SLOW IVP 0.625 mg Q6H PRN Administration SBP > 180 Famotidine 20 mg 09/03/19 09:00 09/14/19 10:25 Pepcid SLOW IVP 20 mg DAILY CRIS Administration Hydralazine HCl 50 mg 09/05/19 09:00 09/11/19 14:25 Apresoline PO 50 mg TID CRIS Administration Hydralazine HCl 20 mg 09/07/19 03:30 09/14/19 17:11 Apresoline SLOW IVP 20 mg Q4H PRN Administration SBP Greater Than 170 Insulin Glargine 15 units/ 0.15 mls @ 0 mls/hr 08/31/19 21:00 09/13/19 20:06 Miscellaneous Medication SC 0.15 mls HS CRIS Administration Norepinephrine Bitartrate 250 mls @ 0 mls/hr 08/31/19 22:15 09/11/19 16:03 Levophed IVPB 250 mls INF CRIS Administration Protocol Titrate Sodium Chloride 1,000 mls @ 20 mls/hr 09/02/19 13:30 09/14/19 10:26 1/2 Normal Saline IV Not Given .Q24H CRIS Dexmedetomidine HCl 400 mcg/ 100 mls @ 0 mls/hr 09/02/19 19:45 09/06/19 12:19 Sodium Chloride IVPB 100 mls INF CRIS Administration Protocol Per Protocol Linezolid 600 mg/ Device 300 mls @ 150 mls/hr 09/10/19 22:00 09/14/19 10:25 IVPB 300 mls 1000,2200 CRIS Administration Meropenem 500 mg/ Sodium 100 mls @ 200 mls/hr 09/10/19 21:00 09/13/19 21:18 Chloride IVPB 100 mls Q24HR CRIS Administration Micafungin Sodium 100 mg/ 100 mls @ 100 mls/hr 09/10/19 20:30 09/13/19 20:04 Sodium Chloride IVPB 100 mls Q24HR CRIS Administration Nicardipine HCl 50 mg/ Sodium 250 mls @ 0 mls/hr 09/13/19 20:30 09/13/19 21: 20 Chloride IVPB 250 mls INF CRIS Administration Protocol Titrate Insulin Human Lispro 0 units 08/31/19 20:47 09/14/19 05:53 Humalog SC 2 unit .MODERATE SLIDING SC PRN Administration Moderate Correctional Scale Lisinopril 10 mg 09/14/19 09:00 09/14/19 11:00 Zestril PER TUBE 10 mg BID CRIS Administration Lorazepam 1 mg 09/13/19 04:55 09/14/19 01:55 Ativan PO 1 mg Q8H PRN Administration Anxiety Methylprednisolone Sodium Succinate 20 mg 08/31/19 22:00 09/14/19 15:20 Solu-Medrol IVP 20 mg Q8HR CRIS Administration Metoclopramide HCl 10 mg 09/06/19 18:00 09/14/19 16:37 Reglan IVP Not Given Q6HR CRIS Propofol 1,000 mg 08/31/19 20:00 09/10/19 23:36 Diprivan IV 09/30/19 20:00 1,000 mg INF PRN Administration TO ACHIEVE GOAL RASS Protocol Sodium Chloride 10 ml 09/06/19 21:00 09/14/19 10:26 Flush - Normal Saline IVF 10 ml Q12HR CRIS Administration Temazepam 15 mg 09/12/19 19:35 09/12/19 20:42 Restoril PO 15 mg HSPRN PRN Administration Insomnia - Exam General Appearance: NAD General - other findings: on mv Eye: PERRL, anicteric sclera ENT: normocephalic atraumatic, no oropharyngeal lesions Neck: supple, symmetric, no JVD Heart: RRR, no murmur, no gallops Respiratory: CTAB, no wheezes, no rales, no ronchi Gastrointestinal: soft, non-tender, non-distended Extremities: no cyanosis, no clubbing, 1+ LE edema Skin: normal turgor Neurological: cranial nerve grossly intact Musculoskeletal: normal tone Psychiatric: normal affect Hosp A/P (1) Acute respiratory failure with hypoxia Code(s): J96.01 - ACUTE RESPIRATORY FAILURE WITH HYPOXIA Status: Acute (2) Acute renal failure Status: Acute Qualifiers: Acute renal failure type: with acute tubular necrosis Qualified Code(s): N17.0 - Acute kidney failure with tubular necrosis (3) ESRD (end stage renal disease) on dialysis Code(s): N18.6 - END STAGE RENAL DISEASE; Z99.2 - DEPENDENCE ON RENAL DIALYSIS Status: Acute (4) PNA (pneumonia) Code(s): J18.9 - PNEUMONIA, UNSPECIFIED ORGANISM Status: Acute Qualifiers: Pneumonia type: due to unspecified organism Laterality: right Lung location: middle lobe of lung Qualified Code(s): J18.9 - Pneumonia, unspecified organism (5) Sepsis Code(s): A41.9 - SEPSIS, UNSPECIFIED ORGANISM Status: Acute Qualifiers: Sepsis type: sepsis due to unspecified organism Sepsis acute organ dysfunction status: with acute organ dysfunction Severe sepsis acute organ dysfunction type: acute renal failure Severe sepsis shock status: with septic shock (6) Thrombocytopenia Code(s): D69.6 - THROMBOCYTOPENIA, UNSPECIFIED Status: Acute (7) HTN (hypertension) Code(s): I10 - ESSENTIAL (PRIMARY) HYPERTENSION Status: Chronic Qualifiers: Hypertension type: essential hypertension Qualified Code(s): I10 - Essential (primary) hypertension - Plan -on mv ventilation, extubation as per pulmonologust but patient seems to be too weak and migh require trach -continue abx and antifungal -continue h/d as per oven worker recommendations - pt ot consulted -continue home meds for chronic conditions
[2019-09-14] MEDS: Micafungin 100 MG in Sodium Chloride 0.9% 100 ML IVPB SCH (20:42)
[2019-09-14] MEDS: Meropenem 500 MG in Sodium Chloride 0.9% 100 ML IVPB SCH (20:43)
[2019-09-14] MEDS: Insulin Glargine 15 UNITS in Pre-Filled Syringe 1 EACH SC SCH (21:01)
[2019-09-15] MEDS: HumaLOG 300 UNITS/3 ML VIAL SC PRN ×3 (00:36→23:14)
[2019-09-15] MEDS: Lorazepam 1 MG TAB PO PRN (00:36)
[2019-09-15 04:34] LABS: Anion Gap 18 mmol/L (10-20); BUN (Urea Nitrogen) 102 mg/dL (9.8-20.1); Calc. Creatinine Clearance 19 mL/min (70-130); Calcium 8.2 mg/dL (7.8-10.44); Carbon Dioxide 21 mmol/L (23-31); Chloride 99 mmol/L (98-107); Estimated GFR-MDRD 14; Glucose 152 mg/dL (83-110); Potassium 4.5 mmol/L (3.5-5.1); Sodium 133 mmol/L (136-145)
[2019-09-15 04:47] LABS: Anisocytosis SLIGHT = 6-15 cells (100X) (0-5/hpf); Band 3 % (5-11); Hemoglobin 8.5 g/dL (12.0-16.0); Lymphocytes 4 % (21-51); MDiff Complete? YES; Mean Corpuscular HGB CONC 32.8 g/dL (32.0-36.0); Mean Corpuscular Hemoglobin 28.7 pg (27.0-31.0); Mean Corpuscular Volume 87.4 fL (78.0-98.0); Mean Platelet Volume 9.3 fL (7.4-10.4); Monocytes 3 % (0-10); Neutrophil 90 % (42-75); Platelet Count 81 thou/uL (130-400); Platelet Morphology Comment Appears Decreased; RBC Distribution Width 16.9 % (11.5-14.5); Red Blood Cell (RBC) Count 2.95 mill/uL (4.20-5.40); Toxic Granulation SLIGHT; White Blood Cell (WBC) Count 12.2 thou/uL (4.8-10.8)
[2019-09-15] MEDS: methylPREDNISolone Sod Succ 40 MG VIAL IVP SCH ×3 (05:56→21:13)
[2019-09-15] MEDS: Metoclopramide HCl 10 MG/2 ML VIAL IVP SCH ×4 (05:56→23:01)
[2019-09-15 06:52] LABS: Actual Bicarbonate (HCO3a) 20.5 mEq/L (22-28); Base Excess (BEa) -3.7 mEq/L (-2.0 to +3.0); CO2 Tension 33.5 mmHg (35.0-45.0); Calcium, Ionized 1.12 mmol/L (1.12-1.30); Carboxyhemoglobin (COHb) 1.8 gm% (0.0-3.0); O2 Tension (PaO2) 79.9 mmHg (> 70.0); Potassium - ABG Lab 4.48 mmol/L (3.70-5.30); pH, Arterial 7.41 (7.35-7.45)
[2019-09-15 06:53] LABS: ALV-art Gradient 92.125 (0-20); Puncture Site RRA
--- NOTE | 2019-09-15 08:43 | RAD ---
CHEST ONE VIEW: HISTORY: Respiratory insufficiency. FINDINGS: Life support tubes in place and stable. Left ICD. Persistent right pleural effusion, as well as possi darell slightly more prominent right mid and upper lung zone opacity changes. This may just represent so me layering pleural effusion accounting for this density, although the possibility of some developing pneumonia cannot be excluded. Stable increased markings in the left chest. IMPRESSION: 1. Prominent right sided pleural effusion. 2. Somewhat more focally prominent right upper lobe opacity, possibly some developing pneumonia or at electasis, although his could represent some asymmetric pleural effusion. Continue short-term followup. POS: SURAJ
[2019-09-15] MEDS: Carvedilol 6.25 MG TAB PO SCH ×3 (09:05→20:07)
[2019-09-15] MEDS: Lisinopril 10 MG TAB PER TUBE SCH ×2 (09:06→20:07)
[2019-09-15] MEDS: Amiodarone 200 MG TAB PER TUBE SCH ×3 (09:06→20:07)
[2019-09-15] MEDS: hydrALAZINE 25 MG TAB PO SCH ×3 (09:07→20:06)
[2019-09-15] MEDS: Aspirin Chewable 81 MG TAB PO SCH (09:07)
[2019-09-15] MEDS: Famotidine/PF 20 mg/2ml Vial SLOW IVP SCH (09:07)
[2019-09-15] MEDS: Linezolid 600 MG in Premix Bag 1 BAG IVPB SCH ×2 (09:07→21:13)
--- NOTE | 2019-09-15 11:15 | PRG ---
DATE OF SERVICE: 09/15/2019 SUBJECTIVE: Ms. Gracia is a 74-year-old white female with known multiple organ dysfunction and followed up by the Renal Service for her acute kidney injury from ATN. Due to the volume overload, she is undergoing daily hemodialysis. On average during the dialysis, we were able to remove between 3 and 4 L. In the last few treatments, she has been tolerating the said treatment over dialysis. No acute events noted last night. OBJECTIVE: VITAL SIGNS: Blood pressure 157/60, heart rate 60, and O2 saturation 98%. GENERAL: The patient is awake, intubated on ventilator support. SKIN: Adequate turgor. HEENT: She has a slightly pale conjunctivae. Anicteric sclerae. NECK: No neck mass. No carotid bruits. No JVD. CHEST: No deformities. LUNGS: Decreased breath sounds. HEART: Normal sinus rhythm. No murmurs. No gallops. No rubs. ABDOMEN: Globular, soft, and nontender. No masses. EXTREMITIES: Trace edema. MEDICATIONS: Medications of September 15, 2019, reviewed. IMAGING DATA: Chest x-ray show prominent right-sided pleural effusion. She has some right upper lobe opacity noted, but this could represent asymmetric pleural effusion. LABORATORY DATA: Laboratories of September 15, 2019, showed the following, white count was 12.2 and hemoglobin 8.5. Sodium 133, potassium 4.5, chloride 99, carbon dioxide 21, BUN 102, creatinine 3.17, glucose 152, and calcium 8.2. ASSESSMENT AND PLAN: 1. Acute kidney injury from acute tubular necrosis/volume overload - continuing daily hemodialysis. The plan will be to do a 2-hour ultrafiltration with this patient with a 1-hour hemodialysis. Due to the BUN of more than 100, there is a plan that we may need to extend her treatment to three and half hours today. 2. Congestive heart failure/acute respiratory failure, maxing out fluid removal with dialysis. Continue supportive care. Pulmonary is following. Overall prognosis remains guarded. Job ID: [id number]
[2019-09-15] MEDS: Sodium Chloride 0.45% 1,000 ML IV SCH (11:34)
[2019-09-15] MEDS ORDERED: Heparin 10,000 UNITS/ 10 ML VIAL ONE (12:11)
--- NOTE | 2019-09-15 16:37 | PRG ---
DATE OF SERVICE: 09/15/2019 SERVICE: Pulmonary Medicine. INTERVAL HISTORY: The patient is doing really quite well from respiratory standpoint. She is breathing comfortably on mechanical ventilator. She remains quite weak, but she needs very little assistance with the ventilator in order to maintain comfortable breathing rate. She denies any nausea, vomiting, or overnight events. Otherwise, she is doing quite well. PHYSICAL EXAMINATION: VITAL SIGNS: Afebrile, pulse 60, blood pressure 155/59, respirations 18, saturation 98%, currently on 27% FiO2 and a PEEP of 5. GENERAL: The patient is awake and alert. She is in no apparent distress. LUNGS: Decent air entry. Rhonchi are present. They do not clear with cough. She demonstrates a very weak cough. There is no prolonged expiratory phase or wheezing noted. HEART: Normal rate. Regular. ABDOMEN: Soft, nontender, and nondistended. Bowel sounds are positive. MUSCULOSKELETAL: No cyanosis or clubbing. Diffuse edema is present. NEUROLOGIC: Grossly nonfocal. LABORATORY DATA: WBC 12.2, hemoglobin 8.5, platelets 81,000 and roughly stable. INR 1.2. PH 7.41, pCO2 of 33, PO2 of 79 with a much improved A-a gradient. Creatinine 3.17 (on dialysis). Basic metabolic profile is otherwise unremarkable. Urinalysis is negative. Hepatitis serologies are negative. Urine culture was previously growing Enterococcus faecalis which was unremarkable. Blood cultures x2, urine culture were unremarkable. No respiratory cultures were performed. IMAGING DATA: Chest x-ray demonstrates right-sided pleural effusion. There is a dialysis catheter that terminates in good position. Defibrillator pacemaker is in place. Endotracheal tube remains in good position. Feeding tube is midline below the level of the diaphragm. Left IJ central venous catheter is in appropriate position. ASSESSMENT: 1. Acute hypoxic respiratory failure, improving. 2. Critical care weakness. 3. Supraventricular tachycardia. 4. Sinus arrest, resulting in pacemaker defibrillator placement. 5. Acute on chronic systolic and diastolic heart failure. 6. Septic shock, resolving. DISCUSSION AND PLAN: Unfortunately, I do not think this patient has the strength to clear the significant secretions that she has. I am going to give her additional day on the mechanical ventilator as I do believe she is quite close to successful extubation. I will send a sputum for Gram stain and culture. If this demonstrates any specific organism, or fungal organism, an antifungal coverage may be considered. We will restart her antidepression medication. Critical care time: 30 minutes. Job ID: [id number] MTDD
--- NOTE | 2019-09-15 17:38 | PDOC.HOSPP ---
- Subjective Encounter Date: 09/15/19 Encounter Time: 17:35 Subjective: f/u for resp failure on mech ventilation and HD for volume overload. Remains on HD with successful volume removal. Receiving Meropenem/Micafungin/Linezolid. - Objective Vital Signs & Weight: Vital Signs (12 hours) Temp Pulse Pulse Pulse Resp BP BP 09/15/19 15:02 60 155/59 H 09/15/19 13:20 60 60 160/67 H 09/15/19 12:00 98.6 F 22 H 09/15/19 11:11 60 161/70 H 09/15/19 10:00 21 H 09/15/19 09:07 60 157/60 H 09/15/19 09:06 157/60 H 09/15/19 09:05 157/60 H 09/15/19 08:00 09/15/19 07:57 21 H 09/15/19 07:56 60 22 H 09/15/19 07:00 98.7 F 09/15/19 06:00 18 BP Pulse Ox Pulse Ox Pulse Ox 09/15/19 15:02 09/15/19 13:20 163/77 H 99 99 09/15/19 12:00 09/15/19 11:11 09/15/19 10:00 09/15/19 09:07 09/15/19 09:06 09/15/19 09:05 09/15/19 08:00 98 09/15/19 07:57 09/15/19 07:56 97 09/15/19 07:00 09/15/19 06:00 Weight Admit Weight 153 lb 7.068 oz Weight 166 lb 7.184 oz Most Recent Monitor Data Heart Rate from ECG 60 NIBP 158/56 NIBP BP-Mean 90 Respiration from ECG 18 SpO2 98 I&O: 09/14/19 09/15/19 09/16/19 06:59 06:59 06:59 Intake Total 1268 2082 300 Output Total 95 383 15 Balance 2703 1699 285 Result Diagrams: 09/16/19 04:13 09/16/19 04:13 Additional Labs: Accuchecks 09/15/19 09/15/19 09/15/19 12:59 05:58 00:37 POC Glucose 223 H 141 H 232 H 01/31/20 18:37 POC Glucose 162 H Microbiology 07/17/17 15:30 Nasopharyngeal swab Influenza Types A,B Direct EIA - Final 02/28/17 16:05 Venous blood - Left Arm Blood Culture - Preliminary Specimen has been received and culture in progress. No Growth to date. 02/28/17 15:53 Urine voided Urine Culture - Preliminary NO GROWTH AT 12 HOURS 02/28/17 15:45 Venous blood - Right Hand Blood Culture - Preliminary Specimen has been received and culture in progress. No Growth to date. Laboratory Tests 06/28/16 12/21/16 02/28/17 08:27 16:16 15:45 WBC Hgb 11.5 L 10.6 L 7.1 L Plt Count 116 L Bands % (Auto) 20 H Neutrophils % (Manual) 55 Sodium Potassium Creatinine Lactic Acid Magnesium Troponin I Vancomycin Trough 02/28/17 03/01/17 03/01/17 15:45 02:28 05:00 WBC Hgb Plt Count Bands % (Auto) Neutrophils % (Manual) Sodium 129 L Potassium 3.0 L Creatinine Lactic Acid Magnesium 1.2 L Troponin I Vancomycin Trough 5.9 03/01/17 03/01/17 03/01/17 05:00 19:30 19:30 WBC 2.5 L Hgb 7.7 L 9.7 L Plt Count Bands % (Auto) 15 H Neutrophils % (Manual) 58 Sodium Potassium Creatinine Lactic Acid Magnesium Troponin I 0.256 H Vancomycin Trough 03/01/17 03/02/17 03/02/17 20:00 02:07 02:07 WBC Hgb Plt Count Bands % (Auto) 11 Neutrophils % (Manual) Sodium Potassium Creatinine Lactic Acid 1.5 Magnesium Troponin I Vancomycin Trough 11.3 03/03/17 09/12/19 09/12/19 06:15 03:51 03:51 WBC 12.4 H Hgb 6.7 L Plt Count Bands % (Auto) Neutrophils % (Manual) Sodium Potassium Creatinine 2.62 H Lactic Acid Magnesium Troponin I Vancomycin Trough 38.8 H* 09/13/19 09/13/19 09/14/19 03:30 03:30 03:35 WBC 19.5 H Hgb 9.6 L Plt Count Bands % (Auto) Neutrophils % (Manual) Sodium 134 L 131 L Potassium Creatinine 2.88 H 3.16 H Lactic Acid Magnesium Troponin I Vancomycin Trough 09/14/19 03:35 WBC 14.7 H Hgb 8.9 L Plt Count Bands % (Auto) Neutrophils % (Manual) Sodium Potassium Creatinine Lactic Acid Magnesium Troponin I Vancomycin Trough Radiology Reviewed by me: Yes (PCXR - prominent R pleural effusion, opacity RUL) EKG Reviewed by me: Yes (Tele - A-pacing) Hospitalist ROS - Medication Medications: Active Medications Generic Name Dose Route Start Last Admin Trade Name Freq PRN Reason Stop Dose Admin Albuterol/Ipratropium 3 ml 08/31/19 19:00 09/15/19 15:01 Duoneb NEB 3 ml [id number] CRIS Administration Amiodarone HCl 200 mg 09/05/19 15:00 09/15/19 09:06 Cordarone PER TUBE 200 mg TID CRIS Administration Aspirin 81 mg 09/02/19 09:00 09/15/19 09:07 Aspirin Chewable PO 81 mg DAILY CRIS Administration Enalaprilat 0.625 mg 09/05/19 11:47 09/12/19 20:42 Vasotec SLOW IVP 0.625 mg Q6H PRN Administration SBP > 180 Famotidine 20 mg 09/03/19 09:00 09/15/19 09:07 Pepcid SLOW IVP 20 mg DAILY CRIS Administration Hydralazine HCl 50 mg 09/05/19 09:00 09/15/19 09:07 Apresoline PO 50 mg TID CRIS Administration Hydralazine HCl 20 mg 09/07/19 03:30 09/14/19 17:11 Apresoline SLOW IVP 20 mg Q4H PRN Administration SBP Greater Than 170 Insulin Glargine 15 units/ 0.15 mls @ 0 mls/hr 08/31/19 21:00 09/14/19 21:01 Miscellaneous Medication SC 0.15 mls HS CRIS Administration Norepinephrine Bitartrate 250 mls @ 0 mls/hr 08/31/19 22:15 09/11/19 16:03 Levophed IVPB 250 mls INF CRIS Administration Protocol Titrate Sodium Chloride 1,000 mls @ 20 mls/hr 09/02/19 13:30 09/15/19 11:34 1/2 Normal Saline IV Not Given .Q24H CRIS Dexmedetomidine HCl 400 mcg/ 100 mls @ 0 mls/hr 09/02/19 19:45 09/06/19 12:19 Sodium Chloride IVPB 100 mls INF CRIS Administration Protocol Per Protocol Linezolid 600 mg/ Device 300 mls @ 150 mls/hr 09/10/19 22:00 09/15/19 09:07 IVPB 300 mls 1000,2200 CRIS Administration Meropenem 500 mg/ Sodium 100 mls @ 200 mls/hr 09/10/19 21:00 09/14/19 20:43 Chloride IVPB 100 mls Q24HR CRIS Administration Micafungin Sodium 100 mg/ 100 mls @ 100 mls/hr 09/10/19 20:30 09/14/19 20:42 Sodium Chloride IVPB 100 mls Q24HR CRIS Administration Nicardipine HCl 50 mg/ Sodium 250 mls @ 0 mls/hr 09/13/19 20:30 09/13/19 21: 20 Chloride IVPB 250 mls INF CRIS Administration Protocol Titrate Insulin Human Lispro 0 units 08/31/19 20:47 09/15/19 13:00 Humalog SC 4 unit .MODERATE SLIDING SC PRN Administration Moderate Correctional Scale Lisinopril 10 mg 09/14/19 09:00 09/15/19 09:06 Zestril PER TUBE 10 mg BID CRIS Administration Lorazepam 1 mg 09/13/19 04:55 09/15/19 00:36 Ativan PO 1 mg Q8H PRN Administration Anxiety Methylprednisolone Sodium Succinate 20 mg 08/31/19 22:00 09/15/19 14:02 Solu-Medrol IVP 20 mg Q8HR CRIS Administration Metoclopramide HCl 10 mg 09/06/19 18:00 09/15/19 13:00 Reglan IVP 10 mg Q6HR CRIS Administration Propofol 1,000 mg 08/31/19 20:00 09/10/19 23:36 Diprivan IV 09/30/19 20:00 1,000 mg INF PRN Administration TO ACHIEVE GOAL RASS Protocol Sodium Chloride 10 ml 09/06/19 21:00 09/15/19 09:08 Flush - Normal Saline IVF 10 ml Q12HR CRIS Administration Temazepam 15 mg 09/12/19 19:35 09/12/19 20:42 Restoril PO 15 mg HSPRN PRN Administration Insomnia - Exam General Appearance: awake alert, ill appearing Eye: PERRL, anicteric sclera ENT: normocephalic atraumatic, no oropharyngeal lesions ENT - other findings: ETT in place Neck: supple, symmetric, no JVD, no thyromegaly Heart: RRR, no gallops, no rubs, normal peripheral pulses Respiratory - other findings: scattered rhonchi, diminished in bases Gastrointestinal: soft, non-tender, non-distended, normal bowel sounds Extremities: no cyanosis, 2+ LE edema Skin: normal turgor, no lesions Neurological: no new deficit Musculoskeletal: generalized weakness Hosp A/P (1) Acute respiratory failure with hypoxia Code(s): J96.01 - ACUTE RESPIRATORY FAILURE WITH HYPOXIA Status: Acute Plan: Continue mech ventilation, wean as clinically indicated (2) ESRD (end stage renal disease) on dialysis Code(s): N18.6 - END STAGE RENAL DISEASE; Z99.2 - DEPENDENCE ON RENAL DIALYSIS Status: Acute Plan: HD per Renal service (3) Cardiomyopathy Code(s): I42.9 - CARDIOMYOPATHY, UNSPECIFIED Status: Chronic Qualifiers: Cardiomyopathy type: unspecified Qualified Code(s): I42.9 - Cardiomyopathy , unspecified Plan: EF 20-25%, volume mgmt with HD, poor prognosis (4) PNA (pneumonia) Code(s): J18.9 - PNEUMONIA, UNSPECIFIED ORGANISM Status: Acute Qualifiers: Pneumonia type: due to unspecified organism Laterality: right Lung location: middle lobe of lung Qualified Code(s): J18.9 - Pneumonia, unspecified organism Plan: Continue Linezolid/Meropenem/Micafungin (5) DM type 2 (diabetes mellitus, type 2) Status: Chronic Qualifiers: Diabetes mellitus termite treater helper insulin use: without termite treater helper use Diabetes mellitus complication status: without complication Qualified Code(s): E11.9 - Type 2 diabetes mellitus without complications (6) Paroxysmal A-fib Code(s): I48.0 - PAROXYSMAL ATRIAL FIBRILLATION Status: Chronic Plan: Continue Amiodarone/Coreg - Plan continue antibiotics, PT/OT, case management social worker, respiratory therapy, DVT proph w/ SCDs Continue critical support Continue mech ventilation Resume Hydralazine/Coreg HD per Renal service for volume mgmt s/p 2u PRBC's 09/12/19 Resume TF's for nutritional support Consider Palliative care consult AM lab: BMP, CBC, Mg++, PO3
[2019-09-15] MEDS: Micafungin 100 MG in Sodium Chloride 0.9% 100 ML IVPB SCH (20:06)
[2019-09-15] MEDS: Insulin Glargine 15 UNITS in Pre-Filled Syringe 1 EACH SC SCH (20:07)
[2019-09-15] MEDS: Meropenem 500 MG in Sodium Chloride 0.9% 100 ML IVPB SCH (20:08)
[2019-09-16] MEDS: Acetaminophen 325 MG TAB PO PRN ×2 (04:19→15:40)
[2019-09-16] MEDS: Metoclopramide HCl 10 MG/2 ML VIAL IVP SCH ×4 (04:22→23:00)
[2019-09-16] MEDS: methylPREDNISolone Sod Succ 40 MG VIAL IVP SCH (04:22)
[2019-09-16 05:11] LABS: Phosphorus 5.5 mg/dL (2.3-4.7)
[2019-09-16 05:14] LABS: Anion Gap 19 mmol/L (10-20); BUN (Urea Nitrogen) 111 mg/dL (9.8-20.1); Calc. Creatinine Clearance 18 mL/min (70-130); Calcium 8.4 mg/dL (7.8-10.44); Carbon Dioxide 22 mmol/L (23-31); Chloride 97 mmol/L (98-107); Estimated GFR-MDRD 14; Glucose 129 mg/dL (83-110); Magnesium 2.1 mg/dL (1.6-2.6); Potassium 4.3 mmol/L (3.5-5.1); Sodium 134 mmol/L (136-145)
[2019-09-16 05:57] LABS: Band 3 % (5-11); Hemoglobin 9.3 g/dL (12.0-16.0); Lymphocytes 1 % (21-51); MDiff Complete? YES; Mean Corpuscular HGB CONC 31.7 g/dL (32.0-36.0); Mean Corpuscular Hemoglobin 27.7 pg (27.0-31.0); Mean Corpuscular Volume 87.1 fL (78.0-98.0); Mean Platelet Volume 9.7 fL (7.4-10.4); Monocytes 4 % (0-10); Neutrophil 92 % (42-75); Platelet Count 95 thou/uL (130-400); Platelet Morphology Comment Appears Decreased; Red Blood Cell (RBC) Count 3.34 mill/uL (4.20-5.40); White Blood Cell (WBC) Count 16.5 thou/uL (4.8-10.8)
[2019-09-16] MEDS: Aspirin Chewable 81 MG TAB PO SCH (08:32)
[2019-09-16] MEDS: Amiodarone 200 MG TAB PER TUBE SCH ×3 (08:32→20:32)
[2019-09-16] MEDS: Carvedilol 6.25 MG TAB PO SCH ×3 (08:33→20:33)
[2019-09-16] MEDS: Famotidine/PF 20 mg/2ml Vial SLOW IVP SCH (08:34)
[2019-09-16] MEDS: hydrALAZINE 25 MG TAB PO SCH ×3 (08:34→20:32)
[2019-09-16] MEDS: Lisinopril 10 MG TAB PER TUBE SCH (08:35)
[2019-09-16] MEDS: Sodium Chloride 0.45% 1,000 ML IV SCH (08:47)
--- NOTE | 2019-09-16 09:12 | PDOC.HOSPP ---
- Subjective Encounter Date: 09/16/19 Encounter Time: 08:05 Subjective: f/u for resp failure, HD for volume mgmt and ESRD. Weaning off mech ventilation with potential extubation attempt today. Pt indicates she is tired of the ETT. - Objective Vital Signs & Weight: Vital Signs (12 hours) Temp Pulse Resp BP 09/16/19 08:35 147/63 H 09/16/19 08:34 60 147/63 H 09/16/19 08:33 147/63 H 09/16/19 08:00 98.3 F 22 H 09/16/19 07:21 60 150/55 H 09/16/19 06:00 25 H 09/16/19 04:00 97.7 F 23 H 09/16/19 03:04 60 09/16/19 02:00 22 H 09/16/19 00:30 60 09/16/19 00:00 96.8 F L 20 09/15/19 22:11 63 09/15/19 22:00 18 Weight Admit Weight 153 lb 7.068 oz Weight 168 lb 13.985 oz Most Recent Monitor Data Heart Rate from ECG 60 NIBP 135/58 NIBP BP-Mean 83 Respiration from ECG 23 SpO2 98 I&O: 09/15/19 09/16/19 09/17/19 06:59 06:59 06:59 Intake Total 2082 1702 60 Output Total 383 60 0 Balance 1699 1642 60 Result Diagrams: 09/16/19 04:13 09/16/19 04:13 Additional Labs: Accuchecks 09/15/19 09/15/19 09/15/19 23:17 17:53 12:59 POC Glucose 262 H 136 H 223 H Microbiology 02/28/17 15:30 Nasopharyngeal swab Influenza Types A,B Direct EIA - Final 02/28/17 16:05 Venous blood - Left Arm Blood Culture - Preliminary Specimen has been received and culture in progress. No Growth to date. 02/28/17 15:53 Urine voided Urine Culture - Preliminary NO GROWTH AT 12 HOURS 02/28/17 15:45 Venous blood - Right Hand Blood Culture - Preliminary Specimen has been received and culture in progress. No Growth to date. Laboratory Tests 06/28/16 12/21/16 02/28/17 08:27 16:16 15:45 WBC Hgb 11.5 L 10.6 L 7.1 L Plt Count 116 L Bands % (Auto) 20 H Neutrophils % (Manual) 55 Sodium Potassium Creatinine Lactic Acid Magnesium Troponin I Vancomycin Trough 02/28/17 03/01/17 03/01/17 15:45 02:28 05:00 WBC Hgb Plt Count Bands % (Auto) Neutrophils % (Manual) Sodium 129 L Potassium 3.0 L Creatinine Lactic Acid Magnesium 1.2 L Troponin I Vancomycin Trough 5.9 03/01/17 03/01/17 03/01/17 05:00 19:30 19:30 WBC 2.5 L Hgb 7.7 L 9.7 L Plt Count Bands % (Auto) 15 H Neutrophils % (Manual) 58 Sodium Potassium Creatinine Lactic Acid Magnesium Troponin I 0.256 H Vancomycin Trough 03/01/17 03/02/17 03/02/17 20:00 02:07 02:07 WBC Hgb Plt Count Bands % (Auto) 11 Neutrophils % (Manual) Sodium Potassium Creatinine Lactic Acid 1.5 Magnesium Troponin I Vancomycin Trough 11.3 03/03/17 09/12/19 09/12/19 06:15 03:51 03:51 WBC 12.4 H Hgb 6.7 L Plt Count Bands % (Auto) Neutrophils % (Manual) Sodium Potassium Creatinine 2.62 H Lactic Acid Magnesium Troponin I Vancomycin Trough 38.8 H* 09/13/19 09/13/19 09/14/19 03:30 03:30 03:35 WBC 19.5 H Hgb 9.6 L Plt Count Bands % (Auto) Neutrophils % (Manual) Sodium 134 L 131 L Potassium Creatinine 2.88 H 3.16 H Lactic Acid Magnesium Troponin I Vancomycin Trough 09/14/19 03:35 WBC 14.7 H Hgb 8.9 L Plt Count Bands % (Auto) Neutrophils % (Manual) Sodium Potassium Creatinine Lactic Acid Magnesium Troponin I Vancomycin Trough Radiology Reviewed by me: Yes (PCXR - mod R pleural effusion, atelectasis) EKG Reviewed by me: Yes (Tele - A-pacing) Hospitalist ROS - Medication Medications: Active Medications Generic Name Dose Route Start Last Admin Trade Name Freq PRN Reason Stop Dose Admin Acetaminophen 650 mg 08/31/19 18:46 09/16/19 04:19 Tylenol PO 650 mg Q4H PRN Administration Headache/Fever/Mild Pain (1-3) Albuterol/Ipratropium 3 ml 08/31/19 19:00 09/16/19 07:21 Duoneb NEB 3 ml [id number] CRIS Administration Amiodarone HCl 200 mg 09/05/19 15:00 09/16/19 08:32 Cordarone PER TUBE 200 mg TID CRIS Administration Aspirin 81 mg 09/02/19 09:00 09/16/19 08:32 Aspirin Chewable PO 81 mg DAILY CRIS Administration Carvedilol 12.5 mg 09/15/19 15:00 09/16/19 08:33 Coreg PO 12.5 mg TID CRIS Administration Enalaprilat 0.625 mg 09/05/19 11:47 09/12/19 20:42 Vasotec SLOW IVP 0.625 mg Q6H PRN Administration SBP > 180 Famotidine 20 mg 09/03/19 09:00 09/16/19 08:34 Pepcid SLOW IVP 20 mg DAILY CRIS Administration Hydralazine HCl 50 mg 09/05/19 09:00 09/16/19 08:34 Apresoline PO 50 mg TID CRIS Administration Hydralazine HCl 20 mg 09/07/19 03:30 09/14/19 17:11 Apresoline SLOW IVP 20 mg Q4H PRN Administration SBP Greater Than 170 Insulin Glargine 15 units/ 0.15 mls @ 0 mls/hr 08/31/19 21:00 09/15/19 20:07 Miscellaneous Medication SC 0.15 mls HS CRIS Administration Norepinephrine Bitartrate 250 mls @ 0 mls/hr 08/31/19 22:15 09/11/19 16:03 Levophed IVPB 250 mls INF CRIS Administration Protocol Titrate Sodium Chloride 1,000 mls @ 20 mls/hr 09/02/19 13:30 09/16/19 08:47 1/2 Normal Saline IV Not Given .Q24H CRIS Dexmedetomidine HCl 400 mcg/ 100 mls @ 0 mls/hr 09/02/19 19:45 09/06/19 12:19 Sodium Chloride IVPB 100 mls INF CRIS Administration Protocol Per Protocol Linezolid 600 mg/ Device 300 mls @ 150 mls/hr 09/10/19 22:00 09/15/19 21:13 IVPB 300 mls 1000,2200 CRIS Administration Meropenem 500 mg/ Sodium 100 mls @ 200 mls/hr 09/10/19 21:00 09/15/19 20:08 Chloride IVPB 100 mls Q24HR CRIS Administration Micafungin Sodium 100 mg/ 100 mls @ 100 mls/hr 09/10/19 20:30 09/15/19 20:06 Sodium Chloride IVPB 100 mls Q24HR CRIS Administration Nicardipine HCl 50 mg/ Sodium 250 mls @ 0 mls/hr 09/13/19 20:30 09/13/19 21: 20 Chloride IVPB 250 mls INF CRIS Administration Protocol Titrate Insulin Human Lispro 0 units 08/31/19 20:47 09/15/19 23:14 Humalog SC 6 unit .MODERATE SLIDING SC PRN Administration Moderate Correctional Scale Lisinopril 10 mg 09/14/19 09:00 09/16/19 08:35 Zestril PER TUBE 10 mg BID CRIS Administration Lorazepam 1 mg 09/13/19 04:55 09/15/19 00:36 Ativan PO 1 mg Q8H PRN Administration Anxiety Methylprednisolone Sodium Succinate 20 mg 08/31/19 22:00 09/16/19 04:22 Solu-Medrol IVP 20 mg Q8HR CRIS Administration Metoclopramide HCl 10 mg 09/06/19 18:00 09/16/19 04:22 Reglan IVP 10 mg Q6HR CRIS Administration Propofol 1,000 mg 08/31/19 20:00 09/10/19 23:36 Diprivan IV 09/30/19 20:00 1,000 mg INF PRN Administration TO ACHIEVE GOAL RASS Protocol Sodium Chloride 10 ml 09/06/19 21:00 09/16/19 08:35 Flush - Normal Saline IVF 10 ml Q12HR CRIS Administration Temazepam 15 mg 09/12/19 19:35 09/12/19 20:42 Restoril PO 15 mg HSPRN PRN Administration Insomnia - Exam General Appearance: awake alert General - other findings: nods and motions with arms Eye: PERRL, anicteric sclera ENT: normocephalic atraumatic, no oropharyngeal lesions ENT - other findings: ETT in place Neck: supple, symmetric, no thyromegaly Heart: RRR, no gallops, no rubs, normal peripheral pulses Respiratory - other findings: diminished in bases o/w clear Gastrointestinal: soft, non-tender, non-distended, normal bowel sounds, no palpable masses Extremities: no cyanosis, no clubbing, 2+ LE edema Extremities - other findings: UE edema > than LE edema Skin: normal turgor, no lesions Neurological: no new deficit Musculoskeletal: generalized weakness Psychiatric: flat affect, somnolent Hosp A/P (1) Acute respiratory failure with hypoxia Code(s): J96.01 - ACUTE RESPIRATORY FAILURE WITH HYPOXIA Status: Acute Plan: Weaning off mech ventilation in the next 24h (2) ESRD (end stage renal disease) on dialysis Code(s): N18.6 - END STAGE RENAL DISEASE; Z99.2 - DEPENDENCE ON RENAL DIALYSIS Status: Acute Plan: HD continuing for volume and fluid mgmt, renal function not improving (3) Cardiomyopathy Code(s): I42.9 - CARDIOMYOPATHY, UNSPECIFIED Status: Chronic Qualifiers: Cardiomyopathy type: unspecified Qualified Code(s): I42.9 - Cardiomyopathy , unspecified Plan: EF 20-25%, poor overall prognosis, likely cardiorenal syndrome large component of fluid retention and worsening renal function (4) PNA (pneumonia) Code(s): J18.9 - PNEUMONIA, UNSPECIFIED ORGANISM Status: Acute Qualifiers: Pneumonia type: due to unspecified organism Laterality: right Lung location: middle lobe of lung Qualified Code(s): J18.9 - Pneumonia, unspecified organism Plan: Continue IV abx, pulmonary support, continue Linezolid/Meropenem/Micafungin (5) DM type 2 (diabetes mellitus, type 2) Status: Chronic Qualifiers: Diabetes mellitus lobsterman insulin use: without intermediate use Diabetes mellitus complication status: without complication Qualified Code(s): E11.9 - Type 2 diabetes mellitus without complications (6) Paroxysmal A-fib Code(s): I48.0 - PAROXYSMAL ATRIAL FIBRILLATION Status: Chronic Plan: Continue Amiodarone/Coreg - Plan continue antibiotics, PT/OT, social media developer, speech therapy, respiratory therapy, DVT proph w/SCDs Continue critical support Continue mech ventilation with attempt to wean in the next 24h Resume Hydralazine/Coreg/Amiodarone HD per Renal service for volume mgmt s/p 2u PRBC's 09/12/19 Resume TF's for nutritional support Consider Palliative care consult AM lab: BMP, CBC, Mg++, PO3
[2019-09-16] MEDS: Linezolid 600 MG in Premix Bag 1 BAG IVPB SCH ×2 (10:31→22:52)
--- NOTE | 2019-09-16 11:37 | PRG ---
DATE OF SERVICE: 09/16/2019 SUBJECTIVE: Ms. Garcia is a 74-year-old white female, followed up by the Renal Service for her acute kidney injury secondary to ATN. She has been receiving daily hemodialysis using mostly ultrafiltration to remove fluid. No dialysis today was scheduled. My plan is to still continue daily dialysis. We will now be changing her dialysis regimen to a full hemodialysis starting tomorrow at 4 hours. We have been successful removing almost daily fluid of 3 to 4 L each dialysis and she seems to be tolerating in the last several days. No acute events noted last night. OBJECTIVE: VITAL SIGNS: Blood pressure is noted at 147/66, heart rate 68, respiratory rate 25, and pulse ox 99%. GENERAL: Noted to be awake, alert, intubated, and following commands. HEENT: She has a slightly pale conjunctivae. Anicteric sclerae. NECK: No neck mass. No carotid bruits. No JVD. CHEST: No deformities. LUNGS: Decreased breath sounds. HEART: Normal sinus rhythm. No murmur. No gallops. No rubs. ABDOMEN: Globular, soft, and nontender. No masses. EXTREMITIES: Trace edema. MEDICATIONS: Medications of September 16, 2019, reviewed. LABORATORY DATA: Laboratories of September 16, 2019, white count 16.5 and hemoglobin 9.3. Sodium 134, potassium 4.3, chloride 97, carbon dioxide 22, BUN 111, creatinine 3.27, calcium 8.4, magnesium 2.1, and phosphorus is 5.5. ASSESSMENT AND PLAN: 1. Acute kidney injury/acute tubular necrosis. Continuing daily dialysis. We will skip dialysis today. Tomorrow, we will resume a 4-hour hemodialysis with this patient with fluid removal again as tolerated by the patient. The higher BUN may simply reflect the current dialysis modality we are doing her. We are usually doing a 2-hour ultrafiltration with a 1-hour hemodialysis. Tomorrow, we will change the dialysis order to a full 3-hour hemodialysis. Again, fluid removal as tolerated by the patient. 2. Anemia. P.R.N. blood transfusion. 3. Acute respiratory failure, currently intubated. The patient is now more awake. Consideration for extubation in the next several days is being contemplated by Pulmonary. Agree with current management. Job ID: [id number]
[2019-09-16] MEDS ORDERED: Furosemide 100 MG/10 ML VIAL SLOW IVP SCH (11:45)
--- NOTE | 2019-09-16 12:12 | PRG ---
DATE OF SERVICE: 09/16/2019 SERVICE: Pulmonary Medicine. INTERVAL HISTORY: The patient is doing well from a respiratory standpoint. Denies any current chest discomfort, nausea, vomiting, fevers, or chills. Otherwise, there is no interval change to her condition overnight. She has been off sedation for over 2 days. She is awake, cool, calm, and collected. She is on 5/5 with pressure support ventilation, doing quite well. Oxygen requirements are only 21%. That being said, when we ask her to take a deep breath and cough, she is extraordinarily weak. Urine output seems to be improving, particularly when she is not having dialysis. PHYSICAL EXAMINATION: VITAL SIGNS: Afebrile, pulse 60, blood pressure 143/59, respirations 24, and saturation 96% currently on 21% FiO2 and a PEEP of 5. GENERAL: The patient is awake and alert. No apparent distress. LUNGS: Good air entry. Rhonchi have improved. There are significantly pure secretions today than yesterday. HEENT: Normocephalic and atraumatic. Sclerae white. Conjunctivae pink. Oral mucosa is moist without lesions. HEART: Normal rate. Regular. ABDOMEN: Soft, nontender, and nondistended. Bowel sounds are positive. MUSCULOSKELETAL: No cyanosis or clubbing. There is diffuse anasarca present. LABORATORY DATA: WBC 16.5, hemoglobin 9.3 and up-trending, platelets 95,000 and roughly stable. Band count is low at 3% on top of 92% neutrophils. INR 1.2. Creatinine 3.27 and roughly stable compared to yesterday. BUN 111 and gently up-trending. Chloride 97. Sodium 134 is gently up-trending. Magnesium 2.1, phosphorus 5.5. Respiratory culture of the sputum has many white blood cells, few yeast, and many gram-negative rods. Identification is currently pending. Urine culture, respiratory virus panel, blood cultures x2 are unremarkable. Enterococcus faecalis is essentially pansensitive. ASSESSMENT: 1. Acute hypoxic respiratory failure, improving. 2. Critical care weakness. 3. Supraventricular tachycardia, rate controlled. 4. Sinus arrest, resulting in pacemaker defibrillator placement. 5. Acute on chronic systolic and diastolic heart failure. 6. Septic shock, resolved. 7. Acute kidney injury on chronic kidney disease, stage 2. DISCUSSION AND PLAN: We will watch her urine output closely. I will give her a dose of Lasix today. If she makes good urine output with a great, if not, we will continue to dialyze her through time in order to get her closer to euvolemia. For each of the last several days, her in's and out's have been negative when accounting her dialysate, which is not being included in the total in's and out's. Pulmonary/Critical Care will continue to follow. I would like for her to remain in the ICU for an additional day. Job ID: [id number]
[2019-09-16] MEDS: Furosemide 40 MG/4 ML VIAL SLOW IVP SCH (13:36)
[2019-09-16] MEDS: Micafungin 100 MG in Sodium Chloride 0.9% 100 ML IVPB SCH (20:24)
[2019-09-16] MEDS: Meropenem 500 MG in Sodium Chloride 0.9% 100 ML IVPB SCH (20:32)
[2019-09-16] MEDS: Insulin Glargine 15 UNITS in Pre-Filled Syringe 1 EACH SC SCH (20:33)
--- NOTE | 2019-09-17 00:04 | EKG ---
Test Reason : STAT Blood Pressure : / mmHG Vent. Rate : 113 BPM Atrial Rate : 053 BPM P-R Int : 000 ms QRS Dur : 100 ms QT Int : 318 ms P-R-T Axes : 000 040 242 degrees QTc Int : 436 ms Atrial fibrillation with a rapid ventricular response.. Marked ST abnormality, possible inferior subendocardial injury Abnormal ECG When compared with ECG of 10-SEP-2019 14:22, Junctional rhythm has replaced Electronic atrial pacemaker Vent. rate has increased BY [address] more depressed in Inferior leads ST now depressed in Lateral leads T wave inversion less evident in Anterior leads Confirmed by Hafsa MCDONALD ([id number]) on 09/17/2019 12:04:16 AM Referred By: GARTH Confirmed By:Hafsa MCDONALD
[2019-09-17] MEDS: Acetaminophen 325 MG TAB PO PRN (00:42)
[2019-09-17 05:05] LABS: Anion Gap 21 mmol/L (10-20); Calc. Creatinine Clearance 15 mL/min (70-130); Calcium 8.3 mg/dL (7.8-10.44); Carbon Dioxide 20 mmol/L (23-31); Chloride 95 mmol/L (98-107); Estimated GFR-MDRD 11; Glucose 90 mg/dL (83-110); Potassium 4.7 mmol/L (3.5-5.1); Sodium 131 mmol/L (136-145)
[2019-09-17 05:17] LABS: BUN (Urea Nitrogen) 131 mg/dL (9.8-20.1)
[2019-09-17 05:45] LABS: Anisocytosis SLIGHT = 6-15 cells (100X) (0-5/hpf); Band 16 % (5-11); Lymphocytes 9 % (21-51); MDiff Complete? YES; Mean Corpuscular HGB CONC 32.2 g/dL (32.0-36.0); Mean Corpuscular Hemoglobin 27.9 pg (27.0-31.0); Mean Corpuscular Volume 86.6 fL (78.0-98.0); Mean Platelet Volume 9.8 fL (7.4-10.4); Monocytes 5 % (0-10); Neutrophil 70 % (42-75); Platelet Count 72 thou/uL (130-400); Platelet Morphology Comment Appears Decreased; RBC Distribution Width 16.8 % (11.5-14.5); Red Blood Cell (RBC) Count 2.88 mill/uL (4.20-5.40); White Blood Cell (WBC) Count 11.8 thou/uL (4.8-10.8)
[2019-09-17] MEDS: Furosemide 40 MG/4 ML VIAL SLOW IVP SCH ×2 (05:56→13:26)
[2019-09-17] MEDS: Metoclopramide HCl 10 MG/2 ML VIAL IVP SCH ×4 (05:56→23:56)
--- NOTE | 2019-09-17 09:46 | PRG ---
DATE OF SERVICE: 09/17/2019 SUBJECTIVE: Ms. Garcia is a 74-year-old white female with known multiorgan dysfunction and followed up by the Renal Service for her acute kidney injury from acute tubular necrosis. She is currently undergoing hemodialysis. In the last 24 hours, it was noted that her urine output has picked up and she is responding to diuretics. She has also been extubated. She has had received almost daily dialysis for fluid removal. Our plan today is to do a 4-hour hemodialysis. No ultrafiltration will be done. Her BUN is noted to be quite elevated at 131. For that reason, we will be doing a 4-hour hemodialysis with fluid removal only as tolerated. OBJECTIVE: VITAL SIGNS: Blood pressure is noted at 146/58, heart rate 60, respiratory rate 16, O2 saturations 96%. GENERAL: She is awake, comfortable, not in distress. SKIN: Adequate turgor. HEENT: Slightly pale conjunctivae. Anicteric sclerae. NECK: No neck mass. No carotid bruits. No JVD. CHEST: No deformities. LUNGS: Decreased breath sounds. HEART: Normal sinus rhythm. No murmurs, gallops, or rubs. ABDOMEN: Globular, soft, nontender. No masses. EXTREMITIES: Trace edema. MEDICATIONS: Medications of September 17, 2019, were reviewed. LABORATORY DATA: Laboratories of September 17, 2019; white count 11.8, hemoglobin 8. Sodium 131, potassium 4.7, chloride 95, carbon dioxide 20, BUN 131, creatinine 3.96. GFR 11 mL/minute. Calcium 8.3. ASSESSMENT AND PLAN: 1. Acute kidney injury - secondary to acute tubular necrosis - continue supportive care. Continue current hemodialysis regimen. Review numbers by Tuesday to see if she would still need dialysis. With increasing urine output, consider the possibility of discontinuing dialysis. For the moment, agree with current management. 2. Anemia. P.r.n. blood transfusion. 3. Acute respiratory failure, much improved. She is now extubated and off ventilator support. 4. Agree with current management. Job ID: [id number]
[2019-09-17] MEDS: Amiodarone 200 MG TAB PER TUBE SCH ×3 (11:08→20:36)
[2019-09-17] MEDS: hydrALAZINE 25 MG TAB PO SCH ×3 (11:08→20:36)
[2019-09-17] MEDS: Carvedilol 6.25 MG TAB PO SCH ×2 (11:08→20:36)
[2019-09-17] MEDS: methylPREDNISolone Sod Succ 40 MG VIAL IVP SCH (11:09)
[2019-09-17] MEDS: Famotidine/PF 20 mg/2ml Vial SLOW IVP SCH (11:09)
[2019-09-17] MEDS: Linezolid 600 MG in Premix Bag 1 BAG IVPB SCH ×2 (11:10→22:07)
[2019-09-17] MEDS: Sodium Chloride 0.45% 1,000 ML IV SCH (11:10)
[2019-09-17] MEDS: Aspirin Chewable 81 MG TAB PO SCH (11:10)
[2019-09-17] MEDS ORDERED: Heparin 10,000 UNITS/ 10 ML VIAL ONE (11:55)
--- NOTE | 2019-09-17 16:21 | PRG ---
DATE OF SERVICE: 09/17/2019 SUBJECTIVE: Kellie Garcia was extubated over the weekend. She has a stronger cough than I would have expected, although she still has physical exam findings consistent with diaphragm weakness. OBJECTIVE: LUNGS: Clear. HEART: Regular rhythm. ABDOMEN: Soft. LABORATORY DATA: White count 11.8, hemoglobin 8.0, platelets 72,000. Sodium 131, potassium 4.7, chloride 95, bicarb 20, BUN 131, creatinine 3.96. IMPRESSION AND PLAN: 1. Congestive heart failure with renal failure, now being dialyzed, slowly improving. 2. Weakness and deconditioning. We will put her on BiPAP at bedtime and then p.r.n. She should remain in the critical care unit in my opinion. Job ID: [id number]
--- NOTE | 2019-09-17 16:30 | PDOC.HOSPP ---
- Subjective Encounter Date: 09/17/19 Encounter Time: 16:30 Subjective: f/u for PNA, s/p extubation 09/16/19. Sleep cycle erratic and tolerated clear liquids today. More dyspnea noted per nursing this afternoon. - Objective Vital Signs & Weight: Vital Signs (12 hours) Temp Pulse Resp BP BP Pulse Ox 09/17/19 14:29 66 24 H 96 09/17/19 14:21 145/61 H 09/17/19 12:00 97.7 F 09/17/19 11:08 73 135/84 09/17/19 10:12 73 16 98 09/17/19 08:00 97.8 F 09/17/19 06:16 60 16 96 Weight Admit Weight 153 lb 7.068 oz Weight 167 lb 8.821 oz Most Recent Monitor Data Heart Rate from ECG 72 NIBP 143/59 NIBP BP-Mean 87 Respiration from ECG 25 SpO2 97 I&O: 09/16/19 09/17/19 09/18/19 06:59 06:59 06:59 Intake Total 1702 1539 240 Output Total 60 50 35 Balance 1642 1489 205 Result Diagrams: 09/17/19 04:10 09/17/19 04:10 Additional Labs: Accuchecks 09/17/19 09/16/19 11:34 18:25 POC Glucose 90 151 H Microbiology 02/28/17 15:30 Nasopharyngeal swab Influenza Types A,B Direct EIA - Final 02/28/17 16:05 Venous blood - Left Arm Blood Culture - Preliminary Specimen has been received and culture in progress. No Growth to date. 02/28/17 15:53 Urine voided Urine Culture - Preliminary NO GROWTH AT 12 HOURS 02/28/17 15:45 Venous blood - Right Hand Blood Culture - Preliminary Specimen has been received and culture in progress. No Growth to date. Laboratory Tests 06/28/16 12/21/16 02/28/17 08:27 16:16 15:45 WBC Hgb 11.5 L 10.6 L 7.1 L Plt Count 116 L Bands % (Auto) 20 H Neutrophils % (Manual) 55 Sodium Potassium Creatinine Lactic Acid Magnesium Troponin I Vancomycin Trough 02/28/17 03/01/17 03/01/17 15:45 02:28 05:00 WBC Hgb Plt Count Bands % (Auto) Neutrophils % (Manual) Sodium 129 L Potassium 3.0 L Creatinine Lactic Acid Magnesium 1.2 L Troponin I Vancomycin Trough 5.9 03/01/17 03/01/17 03/01/17 05:00 19:30 19:30 WBC 2.5 L Hgb 7.7 L 9.7 L Plt Count Bands % (Auto) 15 H Neutrophils % (Manual) 58 Sodium Potassium Creatinine Lactic Acid Magnesium Troponin I 0.256 H Vancomycin Trough 03/01/17 03/02/17 03/02/17 20:00 02:07 02:07 WBC Hgb Plt Count Bands % (Auto) 11 Neutrophils % (Manual) Sodium Potassium Creatinine Lactic Acid 1.5 Magnesium Troponin I Vancomycin Trough 11.3 03/03/17 09/12/19 09/12/19 06:15 03:51 03:51 WBC 12.4 H Hgb 6.7 L Plt Count Bands % (Auto) Neutrophils % (Manual) Sodium Potassium Creatinine 2.62 H Lactic Acid Magnesium Troponin I Vancomycin Trough 38.8 H* 09/13/19 09/13/19 09/14/19 03:30 03:30 03:35 WBC 19.5 H Hgb 9.6 L Plt Count Bands % (Auto) Neutrophils % (Manual) Sodium 134 L 131 L Potassium Creatinine 2.88 H 3.16 H Lactic Acid Magnesium Troponin I Vancomycin Trough 09/14/19 03:35 WBC 14.7 H Hgb 8.9 L Plt Count Bands % (Auto) Neutrophils % (Manual) Sodium Potassium Creatinine Lactic Acid Magnesium Troponin I Vancomycin Trough EKG Reviewed by me: Yes (Tele - A-pacing) Hospitalist ROS - Medication Medications: Active Medications Generic Name Dose Route Start Last Admin Trade Name Freq PRN Reason Stop Dose Admin Acetaminophen 650 mg 08/31/19 18:46 09/17/19 00:42 Tylenol PO 650 mg Q4H PRN Administration Headache/Fever/Mild Pain (1-3) Albuterol/Ipratropium 3 ml 08/31/19 19:00 09/17/19 14:29 Duoneb NEB 3 ml [id number] CRIS Administration Amiodarone HCl 200 mg 09/05/19 15:00 09/17/19 11:08 Cordarone PER TUBE Not Given TID CRIS Aspirin 81 mg 09/02/19 09:00 09/17/19 11:10 Aspirin Chewable PO 81 mg DAILY CRIS Administration Carvedilol 6.25 mg 09/16/19 21:00 09/17/19 11:08 Coreg PO Not Given BID CRIS Enalaprilat 0.625 mg 09/05/19 11:47 09/12/19 20:42 Vasotec SLOW IVP 0.625 mg Q6H PRN Administration SBP > 180 Famotidine 20 mg 09/03/19 09:00 09/17/19 11:09 Pepcid SLOW IVP 20 mg DAILY CRIS Administration Furosemide 40 mg 09/16/19 14:00 09/17/19 13:26 Lasix SLOW IVP 40 mg 0600,1400 CRIS Administration Hydralazine HCl 50 mg 09/05/19 09:00 09/17/19 11:08 Apresoline PO Not Given TID CRIS Hydralazine HCl 20 mg 09/07/19 03:30 09/14/19 17:11 Apresoline SLOW IVP 20 mg Q4H PRN Administration SBP Greater Than 170 Insulin Glargine 15 units/ 0.15 mls @ 0 mls/hr 08/31/19 21:00 09/16/19 20:33 Miscellaneous Medication SC 0.15 mls HS CRIS Administration Sodium Chloride 1,000 mls @ 20 mls/hr 09/02/19 13:30 09/17/19 11:10 1/2 Normal Saline IV Not Given .Q24H CRIS Linezolid 600 mg/ Device 300 mls @ 150 mls/hr 09/10/19 22:00 09/17/19 11:10 IVPB 300 mls 1000,2200 CRIS Administration Meropenem 500 mg/ Sodium 100 mls @ 200 mls/hr 09/10/19 21:00 09/16/19 20:32 Chloride IVPB 100 mls Q24HR CRIS Administration Micafungin Sodium 100 mg/ 100 mls @ 100 mls/hr 09/10/19 20:30 09/16/19 20:24 Sodium Chloride IVPB 100 mls Q24HR CRIS Administration Nicardipine HCl 50 mg/ Sodium 250 mls @ 0 mls/hr 09/13/19 20:30 09/13/19 21: 20 Chloride IVPB 250 mls INF CRIS Administration Protocol Titrate Insulin Human Lispro 0 units 08/31/19 20:47 09/15/19 23:14 Humalog SC 6 unit .MODERATE SLIDING SC PRN Administration Moderate Correctional Scale Methylprednisolone Sodium Succinate 20 mg 09/17/19 09:00 09/17/19 11:09 Solu-Medrol IVP 20 mg DAILY CRIS Administration Metoclopramide HCl 10 mg 09/06/19 18:00 09/17/19 13:26 Reglan IVP 10 mg Q6HR CRIS Administration Sodium Chloride 10 ml 09/06/19 21:00 09/17/19 11:10 Flush - Normal Saline IVF 10 ml Q12HR CRIS Administration - Exam General Appearance: ill appearing General - other findings: opens eyes briefly then falls asleep Eye: PERRL, anicteric sclera ENT: normocephalic atraumatic, no oropharyngeal lesions Neck: supple, symmetric, no JVD, no thyromegaly Heart: RRR, no gallops, no rubs, normal peripheral pulses Respiratory: tachypneic Respiratory - other findings: coarse sounds bilat, diminished bilat Gastrointestinal: soft, non-tender, normal bowel sounds, no palpable masses Extremities: no cyanosis Extremities - other findings: UE edema noted, minimal LE edema Skin: normal turgor Musculoskeletal: generalized weakness Psychiatric: oriented to person, somnolent, lethargic Hosp A/P (1) Acute respiratory failure with hypoxia Code(s): J96.01 - ACUTE RESPIRATORY FAILURE WITH HYPOXIA Status: Acute Plan: Increased dyspnea after extubation, continue O2 supplementation, trial of nocturnal BiPAP per Pulmonology (2) ESRD (end stage renal disease) on dialysis Code(s): N18.6 - END STAGE RENAL DISEASE; Z99.2 - DEPENDENCE ON RENAL DIALYSIS Status: Acute Plan: Continue HD, renal function unchanged (3) Cardiomyopathy Code(s): I42.9 - CARDIOMYOPATHY, UNSPECIFIED Status: Chronic Qualifiers: Cardiomyopathy type: unspecified Qualified Code(s): I42.9 - Cardiomyopathy , unspecified Plan: End-stage process (4) PNA (pneumonia) Code(s): J18.9 - PNEUMONIA, UNSPECIFIED ORGANISM Status: Acute Qualifiers: Pneumonia type: due to unspecified organism Laterality: right Lung location: middle lobe of lung Qualified Code(s): J18.9 - Pneumonia, unspecified organism Plan: Continue Linezolid/Meropenem/Micafungin (5) DM type 2 (diabetes mellitus, type 2) Status: Chronic Qualifiers: 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 use: without intermodal owner operator truck driver use Diabetes mellitus complication status: without complication Qualified Code(s): E11.9 - Type 2 diabetes mellitus without complications (6) Paroxysmal A-fib Code(s): I48.0 - PAROXYSMAL ATRIAL FIBRILLATION Status: Chronic - Plan continue antibiotics, PT/OT, social media developer, respiratory therapy, DVT proph w/ SCDs Continue critical support Extubated 09/16/19 Resume Hydralazine/Coreg/Amiodarone HD per Renal service for volume mgmt s/p 2u PRBC's 09/12/19 Resume TF's for nutritional support Consider Palliative care consult and potential hospice AM lab: BMP, CBC
[2019-09-17] MEDS: Micafungin 100 MG in Sodium Chloride 0.9% 100 ML IVPB SCH (19:44)
[2019-09-17] MEDS: Melatonin 3 MG TAB PO PRN (20:36)
[2019-09-17] MEDS: Meropenem 500 MG in Sodium Chloride 0.9% 100 ML IVPB SCH (20:37)
[2019-09-17] MEDS: Insulin Glargine 15 UNITS in Pre-Filled Syringe 1 EACH SC SCH (20:39)
[2019-09-18 04:17] LABS: Anion Gap 15 mmol/L (10-20); BUN (Urea Nitrogen) 59 mg/dL (9.8-20.1); Calc. Creatinine Clearance 26 mL/min (70-130); Calcium 8.1 mg/dL (7.8-10.44); Carbon Dioxide 26 mmol/L (23-31); Chloride 97 mmol/L (98-107); Estimated GFR-MDRD 21; Glucose 88 mg/dL (83-110); Sodium 134 mmol/L (136-145)
[2019-09-18 04:57] LABS: Band 7 % (5-11); Hemoglobin 7.1 g/dL (12.0-16.0); Lymphocytes 5 % (21-51); MDiff Complete? YES; Mean Corpuscular HGB CONC 31.8 g/dL (32.0-36.0); Mean Corpuscular Hemoglobin 27.8 pg (27.0-31.0); Mean Corpuscular Volume 87.4 fL (78.0-98.0); Mean Platelet Volume 10.3 fL (7.4-10.4); Monocytes 4 % (0-10); Neutrophil 84 % (42-75); Platelet Count 50 thou/uL (130-400); Platelet Morphology Comment Appears Decreased; RBC Distribution Width 17.4 % (11.5-14.5); Red Blood Cell (RBC) Count 2.55 mill/uL (4.20-5.40); White Blood Cell (WBC) Count 7.8 thou/uL (4.8-10.8)
[2019-09-18] MEDS: Metoclopramide HCl 10 MG/2 ML VIAL IVP SCH (05:09)
[2019-09-18] MEDS: Furosemide 40 MG/4 ML VIAL SLOW IVP SCH ×2 (05:09→15:04)
--- NOTE | 2019-09-18 09:31 | PRG ---
DATE OF SERVICE: 09/18/2019 SUBJECTIVE: Ms. Garcia is a 74-year-old white female, seen by the Renal Service for acute kidney injury secondary to the acute tubular necrosis. She underwent a full 4-hour hemodialysis yesterday with fluid removal. Her BUN was noted at 130s, now currently about 65. She is feeling better. Denies any chest pain or shortness of breath. OBJECTIVE: VITAL SIGNS: Blood pressure is noted at 175/54, heart rate 60, respiratory rate 21, pulse ox 100%. GENERAL: Awake, alert, sitting comfortable, not in overt distress. SKIN: Adequate turgor. HEENT: Slightly pale conjunctivae. Anicteric sclerae. NECK: No neck mass. No carotid bruits. No JVD. CHEST: No deformities. LUNGS: Decreased breath sounds. HEART: Normal sinus rhythm. No murmur. No gallops. No rubs. ABDOMEN: Globular, soft, and nontender. No masses. EXTREMITIES: Trace edema. MEDICATIONS: Medications of September 18, 2019, were reviewed. LABORATORY DATA: Laboratories of September 18, 2019: White count 7.8, hemoglobin 7.1. Sodium 134, potassium 4, chloride 97, carbon dioxide 26, BUN 59, creatinine 2.28, glucose 88, calcium 8.1. ASSESSMENT AND PLAN: 1. Acute kidney injury from acute tubular necrosis - creatinine improved with a full 4-hour hemodialysis. The plan is to re-evaluate her tomorrow if she will still need any dialytic intervention. Her urine output is still very minimal. We will continue current IV diuretics to see if we could enhance the diuresis. 2. Acute respiratory failure, resolved, off ventilator, and the patient has been extubated. 3. Anemia, continue to observe, p.r.n. blood transfusion for hemoglobin less than 7. 4. Overall prognosis remains guarded. Job ID: [id number]
[2019-09-18] MEDS: hydrALAZINE 25 MG TAB PO SCH ×3 (10:10→20:43)
[2019-09-18] MEDS: Famotidine/PF 20 mg/2ml Vial SLOW IVP SCH (10:10)
[2019-09-18] MEDS: Carvedilol 6.25 MG TAB PO SCH (10:10)
[2019-09-18] MEDS: Amiodarone 200 MG TAB PER TUBE SCH ×3 (10:10→20:43)
[2019-09-18] MEDS: Aspirin Chewable 81 MG TAB PO SCH (10:11)
[2019-09-18] MEDS: methylPREDNISolone Sod Succ 40 MG VIAL IVP SCH (10:11)
[2019-09-18] MEDS: Sodium Chloride 0.45% 1,000 ML IV SCH (10:11)
[2019-09-18] MEDS: Linezolid 600 MG in Premix Bag 1 BAG IVPB SCH ×2 (10:12→21:45)
--- NOTE | 2019-09-18 10:59 | PDOC.HOSPP ---
- Subjective Encounter Date: 09/18/19 Encounter Time: 10:45 Subjective: f/u for PNA, resp failure now extubated and receiving HD for volume mgmt. Nursing reports pt did not use BiPAP overnight. - Objective Vital Signs & Weight: Vital Signs (12 hours) Temp Pulse Resp BP Pulse Ox 09/18/19 10:10 60 142/64 H 09/18/19 08:00 97.7 F 60 22 H 100 09/18/19 04:00 97.7 F 09/18/19 00:00 97.5 F L Weight Admit Weight 153 lb 7.068 oz Weight 169 lb 8.568 oz Most Recent Monitor Data Heart Rate from ECG 60 NIBP 142/64 NIBP BP-Mean 90 Respiration from ECG 22 SpO2 100 I&O: 09/17/19 09/18/19 09/19/19 06:59 06:59 06:59 Intake Total 1539 1012 290 Output Total 50 65 32 Balance 1489 947 258 Result Diagrams: 09/18/19 03:30 09/18/19 03:30 Additional Labs: Accuchecks 09/17/19 09/17/19 09/17/19 20:42 18:30 11:34 POC Glucose 111 H 94 90 Microbiology 02/28/17 15:30 Nasopharyngeal swab Influenza Types A,B Direct EIA - Final 02/28/17 16:05 Venous blood - Left Arm Blood Culture - Preliminary Specimen has been received and culture in progress. No Growth to date. 02/28/17 15:53 Urine voided Urine Culture - Preliminary NO GROWTH AT 12 HOURS 02/28/17 15:45 Venous blood - Right Hand Blood Culture - Preliminary Specimen has been received and culture in progress. No Growth to date. Laboratory Tests 06/28/16 12/21/16 02/28/17 08:27 16:16 15:45 WBC Hgb 11.5 L 10.6 L 7.1 L Plt Count 116 L Bands % (Auto) 20 H Neutrophils % (Manual) 55 Sodium Potassium Creatinine Lactic Acid Magnesium Troponin I Vancomycin Trough 02/28/17 03/01/17 03/01/17 15:45 02:28 05:00 WBC Hgb Plt Count Bands % (Auto) Neutrophils % (Manual) Sodium 129 L Potassium 3.0 L Creatinine Lactic Acid Magnesium 1.2 L Troponin I Vancomycin Trough 5.9 07/03/01/17 03/01/17 05:00 19:30 19:30 WBC 2.5 L Hgb 7.7 L 9.7 L Plt Count Bands % (Auto) 15 H Neutrophils % (Manual) 58 Sodium Potassium Creatinine Lactic Acid Magnesium Troponin I 0.256 H Vancomycin Trough 03/01/17 03/02/17 03/02/17 20:00 02:07 02:07 WBC Hgb Plt Count Bands % (Auto) 11 Neutrophils % (Manual) Sodium Potassium Creatinine Lactic Acid 1.5 Magnesium Troponin I Vancomycin Trough 11.3 03/03/17 09/12/19 09/12/19 06:15 03:51 03:51 WBC 12.4 H Hgb 6.7 L Plt Count Bands % (Auto) Neutrophils % (Manual) Sodium Potassium Creatinine 2.62 H Lactic Acid Magnesium Troponin I Vancomycin Trough 38.8 H* 09/13/19 09/13/19 09/14/19 03:30 03:30 03:35 WBC 19.5 H Hgb 9.6 L Plt Count Bands % (Auto) Neutrophils % (Manual) Sodium 134 L 131 L Potassium Creatinine 2.88 H 3.16 H Lactic Acid Magnesium Troponin I Vancomycin Trough 09/14/19 03:35 WBC 14.7 H Hgb 8.9 L Plt Count Bands % (Auto) Neutrophils % (Manual) Sodium Potassium Creatinine Lactic Acid Magnesium Troponin I Vancomycin Trough EKG Reviewed by me: Yes (Tele - A-pacing) Hospitalist ROS - Medication Medications: Active Medications Generic Name Dose Route Start Last Admin Trade Name Freq PRN Reason Stop Dose Admin Acetaminophen 650 mg 08/31/19 18:46 09/17/19 00:42 Tylenol PO 650 mg Q4H PRN Administration Headache/Fever/Mild Pain (1-3) Albuterol/Ipratropium 3 ml 08/31/19 19:00 09/18/19 08:00 Duoneb NEB 3 ml [id number] CRIS Administration Amiodarone HCl 200 mg 09/05/19 15:00 09/18/19 10:10 Cordarone PER TUBE 200 mg TID CRIS Administration Aspirin 81 mg 09/02/19 09:00 09/18/19 10:11 Aspirin Chewable PO 81 mg DAILY CRIS Administration Carvedilol 6.25 mg 09/16/19 21:00 09/18/19 10:10 Coreg PO 6.25 mg BID CRIS Administration Enalaprilat 0.625 mg 09/05/19 11:47 09/12/19 20:42 Vasotec SLOW IVP 0.625 mg Q6H PRN Administration SBP > 180 Famotidine 20 mg 09/03/19 09:00 09/18/19 10:10 Pepcid SLOW IVP 20 mg DAILY CRIS Administration Furosemide 40 mg 09/16/19 14:00 09/18/19 05:09 Lasix SLOW IVP 40 mg 0600,1400 CRIS Administration Hydralazine HCl 50 mg 09/05/19 09:00 09/18/19 10:10 Apresoline PO 50 mg TID CRIS Administration Hydralazine HCl 20 mg 09/07/19 03:30 09/14/19 17:11 Apresoline SLOW IVP 20 mg Q4H PRN Administration SBP Greater Than 170 Insulin Glargine 15 units/ 0.15 mls @ 0 mls/hr 08/31/19 21:00 09/17/19 20:39 Miscellaneous Medication SC 0.15 mls HS CRIS Administration Sodium Chloride 1,000 mls @ 20 mls/hr 09/02/19 13:30 09/18/19 10:11 1/2 Normal Saline IV Not Given .Q24H CRIS Linezolid 600 mg/ Device 300 mls @ 150 mls/hr 09/10/19 22:00 09/18/19 10:12 IVPB 300 mls 1000,2200 CRIS Administration Meropenem 500 mg/ Sodium 100 mls @ 200 mls/hr 09/10/19 21:00 09/17/19 20:37 Chloride IVPB 100 mls Q24HR CRIS Administration Micafungin Sodium 100 mg/ 100 mls @ 100 mls/hr 09/10/19 20:30 09/17/19 19:44 Sodium Chloride IVPB 100 mls Q24HR CRIS Administration Nicardipine HCl 50 mg/ Sodium 250 mls @ 0 mls/hr 09/13/19 20:30 09/13/19 21: 20 Chloride IVPB 250 mls INF CRIS Administration Protocol Titrate Insulin Human Lispro 0 units 08/31/19 20:47 09/15/19 23:14 Humalog SC 6 unit .MODERATE SLIDING SC PRN Administration Moderate Correctional Scale Melatonin 6 mg 09/17/19 16:28 09/17/19 20:36 Melatonin PO 6 mg HS PRN Administration Insomnia Methylprednisolone Sodium Succinate 20 mg 09/17/19 09:00 09/18/19 10:11 Solu-Medrol IVP 20 mg DAILY CRIS Administration Sodium Chloride 10 ml 09/06/19 21:00 09/18/19 10:11 Flush - Normal Saline IVF 10 ml Q12HR CRIS Administration - Exam General Appearance: awake alert, ill appearing General - other findings: sitting in neuro chair Eye: PERRL, anicteric sclera ENT: normocephalic atraumatic, no oropharyngeal lesions Neck: supple, symmetric, no JVD, no thyromegaly Heart: RRR, no gallops, no rubs, normal peripheral pulses Respiratory - other findings: few basilar coarse sounds Gastrointestinal: soft, non-tender, non-distended, normal bowel sounds Extremities: 2+ LE edema Extremities - other findings: UE's Skin: normal turgor Neurological: cranial nerve grossly intact, no new deficit Musculoskeletal: generalized weakness Psychiatric: somnolent Hosp A/P (1) Acute respiratory failure with hypoxia Code(s): J96.01 - ACUTE RESPIRATORY FAILURE WITH HYPOXIA Status: Acute Plan: Continue O2 supplementation via NC, general pulmonary support (2) ESRD (end stage renal disease) on dialysis Code(s): N18.6 - END STAGE RENAL DISEASE; Z99.2 - DEPENDENCE ON RENAL DIALYSIS Status: Acute Plan: Continue HD per Renal service for volume mgmt, minimal UOP (3) Cardiomyopathy Code(s): I42.9 - CARDIOMYOPATHY, UNSPECIFIED Status: Chronic Qualifiers: Cardiomyopathy type: unspecified Qualified Code(s): I42.9 - Cardiomyopathy , unspecified Plan: EF 20-25%, (4) PNA (pneumonia) Code(s): J18.9 - PNEUMONIA, UNSPECIFIED ORGANISM Status: Acute Qualifiers: Pneumonia type: due to unspecified organism Laterality: right Lung location: middle lobe of lung Qualified Code(s): J18.9 - Pneumonia, unspecified organism Plan: Continue Linezolid/Meropenem/Micafungin (5) DM type 2 (diabetes mellitus, type 2) Status: Chronic Qualifiers: Diabetes mellitus chcf insulin use: without chcf use Diabetes mellitus complication status: without complication Qualified Code(s): E11.9 - Type 2 diabetes mellitus without complications (6) Paroxysmal A-fib Code(s): I48.0 - PAROXYSMAL ATRIAL FIBRILLATION Status: Chronic - Plan plan discussed w/ family, continue antibiotics, PT/OT, 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
[2019-09-18] MEDS: Lorazepam 0.5 MG TAB PO SCH ×2 (15:06→21:44)
[2019-09-18] MEDS: Micafungin 100 MG in Sodium Chloride 0.9% 100 ML IVPB SCH (19:45)
[2019-09-18] MEDS: Meropenem 500 MG in Sodium Chloride 0.9% 100 ML IVPB SCH (20:40)
[2019-09-18] MEDS: Insulin Glargine 15 UNITS in Pre-Filled Syringe 1 EACH SC SCH (20:42)
[2019-09-18] MEDS ORDERED: Carvedilol 6.25 MG TAB PO SCH (21:00)
--- NOTE | 2019-09-18 21:02 | PRG ---
DATE OF SERVICE: 09/18/2019 SUBJECTIVE: Kellie Garcia remains reasonably stable off mechanical ventilation. She has set up several times today. OBJECTIVE: VITAL SIGNS: She is afebrile. Heart rate is in the 60s, respiratory rates in the teens to low 20s, oximetry is 100% on 2 L, blood pressure 140/58. Intake and outputs recorded as positive 947. LUNGS: Clear anteriorly. HEART: Regular rhythm. ABDOMEN: Soft. EXTREMITIES: Without asymmetry. LABORATORY DATA: White count 7.8, hemoglobin 7.1, platelets 50,000. Sodium 134, potassium 4, chloride 97, bicarb 26, BUN 59, and creatinine 2.28. IMPRESSION: Multiorgan dysfunction after presenting with supraventricular tachycardia and new cardiomyopathy, which progressed to renal failure. We will continue with supportive care. Critical illness weakness is a big factor at this point. Should continue with nocturnal BiPAP support and hopefully give her some muscle rest. Job ID: [id number]
[2019-09-18] MEDS: Melatonin 3 MG TAB PO PRN (21:45)
[2019-09-19] MEDS: Methocarbamol 500 MG TAB PO PRN ×2 (01:15→06:50)
[2019-09-19 04:03] LABS: Anion Gap 15 mmol/L (10-20); BUN (Urea Nitrogen) 76 mg/dL (9.8-20.1); Calc. Creatinine Clearance 20 mL/min (70-130); Carbon Dioxide 24 mmol/L (23-31); Chloride 96 mmol/L (98-107); Estimated GFR-MDRD 15; Potassium 4.1 mmol/L (3.5-5.1); Sodium 131 mmol/L (136-145)
[2019-09-19 04:05] LABS: Glucose 57 mg/dL (83-110)
[2019-09-19 04:40] LABS: Anisocytosis SLIGHT = 6-15 cells (100X) (0-5/hpf); Band 11 % (5-11); Eosinophils 2 % (0-10); Hemoglobin 6.5 g/dL (12.0-16.0); Lymphocytes 11 % (21-51); MDiff Complete? YES; Mean Corpuscular HGB CONC 32.5 g/dL (32.0-36.0); Mean Corpuscular Hemoglobin 28.4 pg (27.0-31.0); Mean Corpuscular Volume 87.5 fL (78.0-98.0); Mean Platelet Volume 11.1 fL (7.4-10.4); Monocytes 3 % (0-10); Neutrophil 73 % (42-75); Platelet Count 39 thou/uL (130-400); Platelet Morphology Comment Appears Decreased; Red Blood Cell (RBC) Count 2.28 mill/uL (4.20-5.40); White Blood Cell (WBC) Count 6.2 thou/uL (4.8-10.8)
[2019-09-19] MEDS ORDERED: Dextrose 50 % In Water 50 ML SYRINGE ONE (04:53)
[2019-09-19] MEDS: Furosemide 40 MG/4 ML VIAL SLOW IVP SCH ×2 (05:12→14:04)
[2019-09-19] MEDS: Lorazepam 0.5 MG TAB PO SCH ×3 (05:12→21:04)
[2019-09-19] MEDS: Acetaminophen 325 MG TAB PO PRN ×3 (05:12→14:05)
[2019-09-19] MEDS ORDERED: Dextrose 50 % In Water 50 ML SYRINGE FS SCH (05:30)
[2019-09-19] MEDS ORDERED: Sodium Bicarb 50 MEQ/50 ML Abboject 8.4% SYRINGE IVP SCH (05:30)
[2019-09-19] MEDS: methylPREDNISolone Sod Succ 40 MG VIAL IVP SCH (09:23)
[2019-09-19] MEDS: hydrALAZINE 25 MG TAB PO SCH ×3 (09:23→20:51)
[2019-09-19] MEDS: Sodium Chloride 0.45% 1,000 ML IV SCH (09:24)
[2019-09-19] MEDS: Amiodarone 200 MG TAB PER TUBE SCH ×2 (09:24→20:51)
[2019-09-19] MEDS: Aspirin Chewable 81 MG TAB PO SCH (09:24)
[2019-09-19] MEDS: Famotidine 20 MG TAB PER TUBE SCH (09:24)
[2019-09-19] MEDS: Linezolid 600 MG in Premix Bag 1 BAG IVPB SCH ×2 (09:32→22:57)
--- NOTE | 2019-09-19 09:33 | PRG ---
DATE OF SERVICE: 09/19/2019 SUBJECTIVE: Ms. Garcia is a 74-year-old white female, seen by the Renal Service for her acute kidney injury secondary to ATN. She was dialyzed daily last week. We are holding off dialysis today to see if there might be some renal recovery. However, the concern is she still has significant decreased urine output. She was noted to be significantly anemic today and for that reason, we will give 1 unit packed RBC. No acute complaints. No chest pain or shortness of breath. OBJECTIVE: VITAL SIGNS: Blood pressure 147/54, heart rate 60, respiratory rate 20, pulse ox 100%. GENERAL: Awake, alert, sitting comfortable, not in distress. SKIN: Adequate turgor. HEENT: Pale conjunctivae. Anicteric sclerae. NECK: No neck mass. No carotid bruits. No JVD. CHEST: No deformities. LUNGS: Clear breath sounds. HEART: Normal sinus rhythm. No murmurs. No gallops. No rubs. ABDOMEN: Globular, soft, nontender. No masses. EXTREMITIES: Trace edema. MEDICATIONS: Medications of September 19, 2019, were reviewed. LABORATORY DATA: Laboratories of September 19, 2019; white count 6.2, hemoglobin 6.5. Sodium 131, potassium 4.1, chloride 96, carbon dioxide 24, BUN 76, creatinine 3, GFR 15 mL/minute, calcium 8.0. ASSESSMENT AND PLAN: 1. Anemia. We will transfuse 1 unit of packed RBC. 2. Acute kidney injury - secondary to acute tubular necrosis. Holding off dialysis to see if she may have improvement with the renal function where we can get her off dialysis. If she remains on the oliguric/anuric side in the next 24 hours, we may need to consider initiating back dialysis tomorrow. Currently, she is on a diuretic regimen. 3. Acute respiratory failure, resolved. She is extubated. 4. Agree with current management. Job ID: [id number]
[2019-09-19] MEDS ORDERED: Ibuprofen 200 MG TAB PO PRN (15:35)
[2019-09-19] MEDS: Carvedilol 6.25 MG TAB PO SCH (16:30)
--- NOTE | 2019-09-19 18:33 | PDOC.HOSPP ---
- Subjective Encounter Date: 09/19/19 Encounter Time: 14:10 Subjective: f/u for resp failure and s/p intubation, receiving Meropenem/Micafungin/ Linezolid. Remains weak. - Objective Vital Signs & Weight: Vital Signs (12 hours) Temp Pulse Pulse Resp BP BP Pulse Ox 09/19/19 17:00 98.1 F 60 31 H 137/48 L 100 09/19/19 16:30 160/56 H 09/19/19 16:00 98.1 F 09/19/19 15:30 60 23 H 100 09/19/19 14:04 60 152/51 H 09/19/19 13:50 98.0 F 60 27 H 153/53 H 100 09/19/19 13:30 97.9 F 60 25 H 150/55 H 100 09/19/19 12:00 97.5 F L 09/19/19 11:36 60 23 H 100 09/19/19 09:23 60 145/50 H 09/19/19 08:00 97.5 F L 100 09/19/19 07:55 60 23 H 100 Weight Admit Weight 153 lb 7.068 oz Weight 171 lb 1.259 oz Most Recent Monitor Data Heart Rate from ECG 60 NIBP 152/61 NIBP BP-Mean 91 Respiration from ECG 29 SpO2 98 I&O: 09/18/19 09/19/19 09/20/19 06:59 06:59 06:59 Intake Total 1012 1873 1250 Output Total 65 241 95 Balance 947 1632 1155 Result Diagrams: 09/19/19 03:30 09/19/19 03:30 Additional Labs: Accuchecks 09/19/19 09/19/19 09/19/19 16:29 11:44 05:35 POC Glucose 128 H 121 H 125 H 09/19/19 09/18/19 04:49 20:45 POC Glucose 60 L 97 Microbiology 02/28/17 15:30 Nasopharyngeal swab Influenza Types A,B Direct EIA - Final 02/28/17 16:05 Venous blood - Left Arm Blood Culture - Preliminary Specimen has been received and culture in progress. No Growth to date. 02/28/17 15:53 Urine voided Urine Culture - Preliminary NO GROWTH AT 12 HOURS 02/28/17 15:45 Venous blood - Right Hand Blood Culture - Preliminary Specimen has been received and culture in progress. No Growth to date. Laboratory Tests 06/28/16 12/21/16 02/28/17 08:27 16:16 15:45 WBC Hgb 11.5 L 10.6 L 7.1 L Plt Count 116 L Bands % (Auto) 20 H Neutrophils % (Manual) 55 Sodium Potassium Creatinine Lactic Acid Magnesium Troponin I Vancomycin Trough 02/28/17 03/01/17 03/01/17 15:45 02:28 05:00 WBC Hgb Plt Count Bands % (Auto) Neutrophils % (Manual) Sodium 129 L Potassium 3.0 L Creatinine Lactic Acid Magnesium 1.2 L Troponin I Vancomycin Trough 5.9 03/01/17 03/01/17 03/01/17 05:00 19:30 19:30 WBC 2.5 L Hgb 7.7 L 9.7 L Plt Count Bands % (Auto) 15 H Neutrophils % (Manual) 58 Sodium Potassium Creatinine Lactic Acid Magnesium Troponin I 0.256 H Vancomycin Trough 03/01/17 03/02/17 03/02/17 20:00 02:07 02:07 WBC Hgb Plt Count Bands % (Auto) 11 Neutrophils % (Manual) Sodium Potassium Creatinine Lactic Acid 1.5 Magnesium Troponin I Vancomycin Trough 11.3 03/03/17 09/12/19 09/12/19 06:15 03:51 03:51 WBC 12.4 H Hgb 6.7 L Plt Count Bands % (Auto) Neutrophils % (Manual) Sodium Potassium Creatinine 2.62 H Lactic Acid Magnesium Troponin I Vancomycin Trough 38.8 H* 09/13/19 09/13/19 09/14/19 03:30 03:30 03:35 WBC 19.5 H Hgb 9.6 L Plt Count Bands % (Auto) Neutrophils % (Manual) Sodium 134 L 131 L Potassium Creatinine 2.88 H 3.16 H Lactic Acid Magnesium Troponin I Vancomycin Trough 09/14/19 09/17/19 09/17/19 03:35 04:10 04:10 WBC 14.7 H Hgb 8.9 L 8.0 L Plt Count 72 L Bands % (Auto) Neutrophils % (Manual) Sodium Potassium Creatinine 3.96 H Lactic Acid Magnesium Troponin I Vancomycin Trough 09/18/19 09/18/19 03:30 03:30 WBC Hgb 7.1 L Plt Count 50 L Bands % (Auto) Neutrophils % (Manual) Sodium Potassium Creatinine 2.28 H Lactic Acid Magnesium Troponin I Vancomycin Trough EKG Reviewed by me: Yes (Tele - A-pacing) Hospitalist ROS - Medication Medications: Active Medications Generic Name Dose Route Start Last Admin Trade Name Freq PRN Reason Stop Dose Admin Acetaminophen 650 mg 08/31/19 18:46 09/19/19 14:05 Tylenol PO 650 mg Q4H PRN Administration Headache/Fever/Mild Pain (1-3) Albuterol/Ipratropium 3 ml 08/31/19 19:00 09/19/19 15:30 Duoneb NEB 3 ml [id number] CRIS Administration Amiodarone HCl 200 mg 09/18/19 21:00 09/19/19 09:24 Cordarone PER TUBE 200 mg BID CRIS Administration Aspirin 81 mg 09/02/19 09:00 09/19/19 09:24 Aspirin Chewable PO 81 mg DAILY CRIS Administration Carvedilol 12.5 mg 09/19/19 17:00 09/19/19 16:30 Coreg PO 12.5 mg BID- CRIS Administration Enalaprilat 0.625 mg 09/05/19 11:47 09/12/19 20:42 Vasotec SLOW IVP 0.625 mg Q6H PRN Administration SBP > 180 Famotidine 20 mg 09/19/19 09:00 09/19/19 09:24 Pepcid PER TUBE 20 mg DAILY CRIS Administration Furosemide 40 mg 09/16/19 14:00 09/19/19 14:04 Lasix SLOW IVP 40 mg 0600,1400 CRIS Administration Hydralazine HCl 50 mg 09/05/19 09:00 09/19/19 14:04 Apresoline PO 50 mg TID CRIS Administration Hydralazine HCl 20 mg 09/07/19 03:30 09/14/19 17:11 Apresoline SLOW IVP 20 mg Q4H PRN Administration SBP Greater Than 170 Insulin Glargine 15 units/ 0.15 mls @ 0 mls/hr 08/31/19 21:00 09/18/19 20:42 Miscellaneous Medication SC 0.15 mls HS CRIS Administration Sodium Chloride 1,000 mls @ 20 mls/hr 09/02/19 13:30 09/19/19 09:24 1/2 Normal Saline IV Not Given .Q24H CRIS Linezolid 600 mg/ Device 300 mls @ 150 mls/hr 09/10/19 22:00 09/19/19 09:32 IVPB 300 mls 1000,2200 CRIS Administration Meropenem 500 mg/ Sodium 100 mls @ 200 mls/hr 09/10/19 21:00 09/18/19 20:40 Chloride IVPB 100 mls Q24HR CRIS Administration Micafungin Sodium 100 mg/ 100 mls @ 100 mls/hr 09/10/19 20:30 09/18/19 19:45 Sodium Chloride IVPB 100 mls Q24HR CRIS Administration Nicardipine HCl 50 mg/ Sodium 250 mls @ 0 mls/hr 09/13/19 20:30 09/13/19 21: 20 Chloride IVPB 250 mls INF CRIS Administration Protocol Titrate Ibuprofen 200 mg 09/19/19 15:35 09/19/19 16:30 Motrin PO 200 mg QIDPRN PRN Administration PAIN>4 Insulin Human Lispro 0 units 08/31/19 20:47 09/15/19 23:14 Humalog SC 6 unit .MODERATE SLIDING SC PRN Administration Moderate Correctional Scale Lorazepam 0.5 mg 09/18/19 14:00 09/19/19 14:04 Ativan PO 0.5 mg Q8HR CRIS Administration Melatonin 6 mg 09/17/19 16:28 09/18/19 21:45 Melatonin PO 6 mg HS PRN Administration Insomnia Methocarbamol 500 mg 09/19/19 00:52 09/19/19 06:50 Robaxin PO 500 mg QIDPRN PRN Administration Muscle Spasm Methylprednisolone Sodium Succinate 20 mg 09/17/19 09:00 09/19/19 09:23 Solu-Medrol IVP 20 mg DAILY CRIS Administration Sodium Chloride 10 ml 09/06/19 21:00 09/19/19 09:23 Flush - Normal Saline IVF 10 ml Q12HR CRIS Administration - Exam General Appearance: ill appearing General - other findings: pale, frail Eye: PERRL, anicteric sclera ENT: normocephalic atraumatic, no oropharyngeal lesions Neck: supple, symmetric, no JVD, no thyromegaly Heart: RRR, no gallops, no rubs, normal peripheral pulses Respiratory - other findings: few basilar coarse sounds Gastrointestinal: soft, non-tender, non-distended, normal bowel sounds Extremities: no cyanosis, 1+ LE edema Skin: normal turgor Neurological: cranial nerve grossly intact, no new deficit Musculoskeletal: generalized weakness Psychiatric: oriented to person, oriented to place Hosp A/P (1) Acute respiratory failure with hypoxia Code(s): J96.01 - ACUTE RESPIRATORY FAILURE WITH HYPOXIA Status: Acute Plan: Continue O2 supplementation, Solumedrol, Duonebs (2) ESRD (end stage renal disease) on dialysis Code(s): N18.6 - END STAGE RENAL DISEASE; Z99.2 - DEPENDENCE ON RENAL DIALYSIS Status: Acute Plan: HD per Renal service, trial of Lasix (3) Cardiomyopathy Code(s): I42.9 - CARDIOMYOPATHY, UNSPECIFIED Status: Chronic Qualifiers: Cardiomyopathy type: unspecified Qualified Code(s): I42.9 - Cardiomyopathy , unspecified (4) PNA (pneumonia) Code(s): J18.9 - PNEUMONIA, UNSPECIFIED ORGANISM Status: Acute Qualifiers: Pneumonia type: due to unspecified organism Laterality: right Lung location: middle lobe of lung Qualified Code(s): J18.9 - Pneumonia, unspecified organism Plan: Continue Linezolid/Meropenem/Micafungin (5) DM type 2 (diabetes mellitus, type 2) Status: Chronic 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
--- NOTE | 2019-09-19 18:56 | PRG ---
DATE OF SERVICE: 09/19/2019 SUBJECTIVE: Kellie Garcia continues to improve. Intake and output, positive 1632. OBJECTIVE: VITAL SIGNS: Stable. Blood pressure 152/61, heart rate is in the 60s, respiratory rates in the 20s. Dialysis is on hold to see if her renal function is improving. LUNGS: Clear. HEART: Regular rhythm. ABDOMEN: Soft. LABORATORY DATA: White count 6.2, hemoglobin 6.5, platelets 39,000. IMPRESSION: 1. Status post mechanical ventilation for SVT and congestive heart failure, clinically stable. 2. Pancytopenia. She probably needs transfusion . Job ID: [id number]
[2019-09-19] MEDS: Micafungin 100 MG in Sodium Chloride 0.9% 100 ML IVPB SCH (20:50)
[2019-09-19] MEDS: Insulin Glargine 15 UNITS in Pre-Filled Syringe 1 EACH SC SCH (21:10)
[2019-09-19] MEDS: Meropenem 500 MG in Sodium Chloride 0.9% 100 ML IVPB SCH (22:14)
[2019-09-20] MEDS: Acetaminophen 325 MG TAB PO PRN ×2 (05:39→21:06)
[2019-09-20] MEDS: Furosemide 40 MG/4 ML VIAL SLOW IVP SCH ×2 (05:39→17:31)
[2019-09-20] MEDS: Lorazepam 0.5 MG TAB PO SCH ×3 (05:39→21:35)
[2019-09-20 06:25] LABS: Anion Gap 18 mmol/L (10-20); BUN (Urea Nitrogen) 90 mg/dL (9.8-20.1); Calc. Creatinine Clearance 16 mL/min (70-130); Calcium 7.8 mg/dL (7.8-10.44); Carbon Dioxide 24 mmol/L (23-31); Chloride 93 mmol/L (98-107); Estimated GFR-MDRD 12; Glucose 91 mg/dL (83-110); Potassium 4.6 mmol/L (3.5-5.1); Sodium 130 mmol/L (136-145)
[2019-09-20 06:26] LABS: Band 5 % (5-11); Hemoglobin 8.2 g/dL (12.0-16.0); Lymphocytes 8 % (21-51); MDiff Complete? YES; Mean Corpuscular HGB CONC 32.9 g/dL (32.0-36.0); Mean Corpuscular Hemoglobin 28.7 pg (27.0-31.0); Mean Corpuscular Volume 87.1 fL (78.0-98.0); Mean Platelet Volume 10.7 fL (7.4-10.4); Monocytes 4 % (0-10); Neutrophil 83 % (42-75); Platelet Count 31 thou/uL (130-400); Platelet Morphology Comment Appears Decreased; RBC Distribution Width 15.5 % (11.5-14.5); Red Blood Cell (RBC) Count 2.87 mill/uL (4.20-5.40); White Blood Cell (WBC) Count 5.9 thou/uL (4.8-10.8)
[2019-09-20] MEDS: Famotidine 20 MG TAB PER TUBE SCH (08:02)
[2019-09-20] MEDS: hydrALAZINE 25 MG TAB PO SCH ×3 (08:04→21:06)
[2019-09-20] MEDS: Carvedilol 6.25 MG TAB PO SCH ×2 (08:04→17:29)
[2019-09-20] MEDS: Amiodarone 200 MG TAB PER TUBE SCH ×2 (08:04→21:06)
[2019-09-20] MEDS: methylPREDNISolone Sod Succ 40 MG VIAL IVP SCH (08:05)
[2019-09-20] MEDS: Aspirin Chewable 81 MG TAB PO SCH (08:05)
[2019-09-20] MEDS ORDERED: EPOETIN ALFA-EPBX (ESRD) 4,000 UNIT/ML VIAL SC SCH (09:00)
--- NOTE | 2019-09-20 09:20 | PRG ---
DATE OF SERVICE: 09/20/2019 SUBJECTIVE: Ms. Garcia is a 74-year-old white female, followed up by the Renal Service for her acute kidney injury secondary to acute tubular necrosis. She has undergone hemodialysis for the last 2 weeks. I did hold off the dialysis temporarily to see if there might be some renal recovery. Unfortunately, the creatinine continues to rise up. In addition, her urine output is still somewhat decreased. For this reason, we will resume hemodialysis with this patient for at least 3.5 hours with fluid removal only as tolerated. She has no new complaints. She is eating. She denies any chest pain or shortness of breath. OBJECTIVE: VITAL SIGNS: Blood pressure 165/58, heart rate 60, respiratory rate is 12, O2 saturation 100%. GENERAL: The patient is awake, alert, comfortable, not in distress. SKIN: Adequate turgor. HEENT: She has pinkish conjunctivae. Anicteric sclerae. No neck mass. No carotid bruits. No JVD. CHEST: No deformities. LUNGS: Clear breath sounds. HEART: Normal sinus rhythm. No murmurs, no gallops, no rubs. ABDOMEN: Globular, soft, nontender. No masses. EXTREMITIES: Positive for edema. MEDICATIONS: Of September 20, 2019, were reviewed. LABORATORY DATA: Laboratories of September 20, 2019: White count 5.9, hemoglobin 8.2. Sodium 130, potassium 4.6, chloride 93, carbon dioxide 24, BUN 90, creatinine 3.76, calcium 7.8. ASSESSMENT AND PLAN: 1. Acute kidney injury - secondary to acute tubular necrosis. Continue supportive care. I have rescheduled this patient for 3.5 hour hemodialysis today with fluid removal as tolerated. We will attempt to max out fluid removal depending on the blood pressure. 2. Anemia, status post blood transfusion yesterday. We are going to initiate Epogen with this patient at 7500 units subcu q.week. Start ferrous sulfate 325 mg p.o. b.i.d. 3. Acute respiratory failure, resolved. Continue supportive care. Pulmonary is following. Job ID: [id number]
[2019-09-20] MEDS ORDERED: Heparin 10,000 UNITS/ 10 ML VIAL ONE (09:38)
[2019-09-20] MEDS: Sodium Chloride 0.45% 1,000 ML IV SCH (11:18)
[2019-09-20] MEDS ORDERED: Clopidogrel Bisulfate 75 MG TAB ONE (11:21)
[2019-09-20] MEDS: Linezolid 600 MG in Premix Bag 1 BAG IVPB SCH ×2 (11:25→23:26)
--- NOTE | 2019-09-20 15:16 | PRG ---
DATE OF SERVICE: 09/20/2019 SUBJECTIVE: Ms. Garcia has not been wearing BiPAP at night. She is slowly improving with her strength. OBJECTIVE: VITAL SIGNS: Heart rate is in the 60s, respiratory rates in the teens, oximetry is 100%, and blood pressure 136/62. LUNGS: Remarkable for coarse equal breath sounds. HEART: Regular rhythm. ABDOMEN: Soft. EXTREMITIES: Without asymmetry. LABORATORY DATA: White count 5.9, hemoglobin 8.2, and platelets 31,000. Sodium 130, potassium 4.6, chloride 93, bicarb 20, BUN 90, creatinine 3.76. She only had 215 mL of urine out in last 24 hours. IMPRESSION: 1. Respiratory failure associated with a new cardiomyopathy and supraventricular tachycardia. 2. Tachy-pierre syndrome. 3. Status post pacemaker defibrillator. 4. Extreme deconditioning. 5. History of multiple malignancies. Overall, she appears to be stable. Weakness is the biggest issue at this time. Job ID: [id number]
[2019-09-20] MEDS: Ferrous Sulfate 325 MG TAB PO SCH (17:30)
--- NOTE | 2019-09-20 19:29 | PDOC.HOSPP ---
- Subjective Encounter Date: 09/20/19 Encounter Time: 10:00 Subjective: f/u for renal failure receiving HD today and resp failure s/p mech ventilation. Remains weak with some nausea with HD. Sat in neuro chair. - Objective Vital Signs & Weight: Vital Signs (12 hours) Pulse Pulse Pulse Resp BP BP BP 09/20/19 17:30 61 09/20/19 17:29 160/56 H 09/20/19 14:21 61 21 H 09/20/19 14:20 60 60 159/65 H 155/65 H 09/20/19 10:50 60 23 H 09/20/19 08:06 60 23 H 09/20/19 08:04 60 146/66 H 09/20/19 08:00 Pulse Ox Pulse Ox 09/20/19 17:30 09/20/19 17:29 09/20/19 14:21 100 09/20/19 14:20 100 09/20/19 10:50 100 09/20/19 08:06 100 09/20/19 08:04 09/20/19 08:00 100 Weight Admit Weight 153 lb 7.068 oz Weight 172 lb 9.951 oz Most Recent Monitor Data Heart Rate from ECG 61 NIBP 100/47 NIBP BP-Mean 64 Respiration from ECG 23 SpO2 96 I&O: 09/19/19 09/20/19 09/21/19 06:59 06:59 06:59 Intake Total 1873 2405 200 Output Total 241 215 90 Balance 1632 2190 110 Result Diagrams: 09/20/19 05:50 09/20/19 03:30 Additional Labs: Accuchecks 09/20/19 09/20/19 09/20/19 18:29 11:42 05:51 POC Glucose 86 100 106 09/19/19 21:10 POC Glucose 133 H Microbiology 02/28/17 15:30 Nasopharyngeal swab Influenza Types A,B Direct EIA - Final 02/28/17 16:05 Venous blood - Left Arm Blood Culture - Preliminary Specimen has been received and culture in progress. No Growth to date. 02/28/17 15:53 Urine voided Urine Culture - Preliminary NO GROWTH AT 12 HOURS 02/28/17 15:45 Venous blood - Right Hand Blood Culture - Preliminary Specimen has been received and culture in progress. No Growth to date. Laboratory Tests 11/12/21/16 02/28/17 08:27 16:16 15:45 WBC Hgb 11.5 L 10.6 L 7.1 L Plt Count 116 L Bands % (Auto) 20 H Neutrophils % (Manual) 55 Sodium Potassium Creatinine Lactic Acid Magnesium Troponin I Vancomycin Trough 02/28/17 03/01/17 03/01/17 15:45 02:28 05:00 WBC Hgb Plt Count Bands % (Auto) Neutrophils % (Manual) Sodium 129 L Potassium 3.0 L Creatinine Lactic Acid Magnesium 1.2 L Troponin I Vancomycin Trough 5.9 03/01/17 03/01/17 03/01/17 05:00 19:30 19:30 WBC 2.5 L Hgb 7.7 L 9.7 L Plt Count Bands % (Auto) 15 H Neutrophils % (Manual) 58 Sodium Potassium Creatinine Lactic Acid Magnesium Troponin I 0.256 H Vancomycin Trough 03/01/17 03/02/17 03/02/17 20:00 02:07 02:07 WBC Hgb Plt Count Bands % (Auto) 11 Neutrophils % (Manual) Sodium Potassium Creatinine Lactic Acid 1.5 Magnesium Troponin I Vancomycin Trough 11.3 03/03/17 09/12/19 09/12/19 06:15 03:51 03:51 WBC 12.4 H Hgb 6.7 L Plt Count Bands % (Auto) Neutrophils % (Manual) Sodium Potassium Creatinine 2.62 H Lactic Acid Magnesium Troponin I Vancomycin Trough 38.8 H* 09/13/19 09/13/19 09/14/19 03:30 03:30 03:35 WBC 19.5 H Hgb 9.6 L Plt Count Bands % (Auto) Neutrophils % (Manual) Sodium 134 L 131 L Potassium Creatinine 2.88 H 3.16 H Lactic Acid Magnesium Troponin I Vancomycin Trough 09/14/19 09/17/19 09/17/19 03:35 04:10 04:10 WBC 14.7 H Hgb 8.9 L 8.0 L Plt Count 72 L Bands % (Auto) Neutrophils % (Manual) Sodium Potassium Creatinine 3.96 H Lactic Acid Magnesium Troponin I Vancomycin Trough 09/18/19 09/18/19 03:30 03:30 WBC Hgb 7.1 L Plt Count 50 L Bands % (Auto) Neutrophils % (Manual) Sodium Potassium Creatinine 2.28 H Lactic Acid Magnesium Troponin I Vancomycin Trough EKG Reviewed by me: Yes (Tele - A-pacing) Hospitalist ROS - Medication Medications: Active Medications Generic Name Dose Route Start Last Admin Trade Name Freq PRN Reason Stop Dose Admin Acetaminophen 650 mg 08/31/19 18:46 09/20/19 05:39 Tylenol PO 650 mg Q4H PRN Administration Headache/Fever/Mild Pain (1-3) Albuterol/Ipratropium 3 ml 08/31/19 19:00 09/20/19 18:40 Duoneb NEB Not Given [id number] [facility] Amiodarone HCl 200 mg 09/18/19 21:00 09/20/19 08:04 Cordarone PER TUBE 200 mg BID CRIS Administration Aspirin 81 mg 09/02/19 09:00 09/20/19 08:05 Aspirin Chewable PO 81 mg DAILY CRIS Administration Carvedilol 12.5 mg 09/19/19 17:00 09/20/19 17:29 Coreg PO 12.5 mg BID-WM CRIS Administration Enalaprilat 0.625 mg 09/05/19 11:47 09/12/19 20:42 Vasotec SLOW IVP 0.625 mg Q6H PRN Administration SBP > 180 Epoetin Pola-epbx 7,500 unit 09/20/19 09:00 09/20/19 12:17 Retacrit SC 7,500 unit Q7D CRIS Administration Famotidine 20 mg 09/19/19 09:00 09/20/19 08:02 Pepcid PER TUBE 20 mg DAILY CRIS Administration Ferrous Sulfate 325 mg 09/20/19 17:00 09/20/19 17:30 Feosol PO 325 mg BID-WM CRIS Administration Furosemide 40 mg 09/16/19 14:00 09/20/19 17:31 Lasix SLOW IVP 40 mg 0600,1400 CRIS Administration Hydralazine HCl 50 mg 09/05/19 09:00 09/20/19 17:30 Apresoline PO Not Given TID CRIS Hydralazine HCl 20 mg 09/07/19 03:30 09/14/19 17:11 Apresoline SLOW IVP 20 mg Q4H PRN Administration SBP Greater Than 170 Insulin Glargine 15 units/ 0.15 mls @ 0 mls/hr 08/31/19 21:00 09/19/19 21:10 Miscellaneous Medication SC 0.15 mls HS CRIS Administration Sodium Chloride 1,000 mls @ 20 mls/hr 09/02/19 13:30 09/20/19 11:18 1/2 Normal Saline IV Not Given .Q24H CRIS Linezolid 600 mg/ Device 300 mls @ 150 mls/hr 09/10/19 22:00 09/20/19 11:25 IVPB 300 mls 1000,2200 CRIS Administration Meropenem 500 mg/ Sodium 100 mls @ 200 mls/hr 09/10/19 21:00 09/19/19 22:14 Chloride IVPB 100 mls Q24HR CRIS Administration Micafungin Sodium 100 mg/ 100 mls @ 100 mls/hr 09/10/19 20:30 09/19/19 20:50 Sodium Chloride IVPB 100 mls Q24HR CRIS Administration Nicardipine HCl 50 mg/ Sodium 250 mls @ 0 mls/hr 09/13/19 20:30 09/13/19 21: 20 Chloride IVPB 250 mls INF CRIS Administration Protocol Titrate Insulin Human Lispro 0 units 08/31/19 20:47 09/15/19 23:14 Humalog SC 6 unit .MODERATE SLIDING SC PRN Administration Moderate Correctional Scale Lorazepam 0.5 mg 09/18/19 14:00 09/20/19 17:29 Ativan PO 0.5 mg Q8HR CRIS Administration Melatonin 6 mg 09/17/19 16:28 09/18/19 21:45 Melatonin PO 6 mg HS PRN Administration Insomnia Methocarbamol 500 mg 09/19/19 00:52 09/19/19 06:50 Robaxin PO 500 mg QIDPRN PRN Administration Muscle Spasm Methylprednisolone Sodium Succinate 20 mg 09/17/19 09:00 09/20/19 08:05 Solu-Medrol IVP 20 mg DAILY CRIS Administration Ondansetron HCl 4 mg 08/31/19 18:46 09/20/19 19:17 Zofran IVP 4 mg Q6H PRN Administration Nausea/Vomiting Sodium Chloride 10 ml 09/06/19 21:00 09/20/19 09:02 Flush - Normal Saline IVF 10 ml Q12HR CRIS Administration - Exam General Appearance: ill appearing General - other findings: frail, pale, nods and answers questions slowly Eye: PERRL, anicteric sclera ENT: normocephalic atraumatic, no oropharyngeal lesions Neck: supple, symmetric, no JVD, no thyromegaly Heart: no gallops, no rubs, normal peripheral pulses Respiratory - other findings: scattered coarse sounds bilat Gastrointestinal: soft, non-tender, non-distended, normal bowel sounds, no palpable masses Extremities: no cyanosis, 1+ LE edema Skin: normal turgor, no lesions Neurological: no new deficit Musculoskeletal: generalized weakness Psychiatric: oriented to person, oriented to place Hosp A/P (1) Acute respiratory failure with hypoxia Code(s): J96.01 - ACUTE RESPIRATORY FAILURE WITH HYPOXIA Status: Acute Plan: s/p mech ventilation, continue O2 supplementation, general pulmonary support (2) ESRD (end stage renal disease) on dialysis Code(s): N18.6 - END STAGE RENAL DISEASE; Z99.2 - DEPENDENCE ON RENAL DIALYSIS Status: Acute Plan: Continue HD per Renal service (3) Cardiomyopathy Code(s): I42.9 - CARDIOMYOPATHY, UNSPECIFIED Status: Chronic Qualifiers: Cardiomyopathy type: unspecified Qualified Code(s): I42.9 - Cardiomyopathy , unspecified Plan: EF 20-25%, poor prognosis (4) PNA (pneumonia) Code(s): J18.9 - PNEUMONIA, UNSPECIFIED ORGANISM Status: Acute Qualifiers: Pneumonia type: due to unspecified organism Laterality: right Lung location: middle lobe of lung Qualified Code(s): J18.9 - Pneumonia, unspecified organism Plan: Continue Linezolid/Meropenem/Micafungin (5) DM type 2 (diabetes mellitus, type 2) Status: Chronic 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: 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 insulin use: without shelter use Diabetes mellitus complication status: without complication Qualified Code(s): E11.9 - Type 2 diabetes mellitus without complications Plan: ISS, Lantus (6) Paroxysmal A-fib Code(s): I48.0 - PAROXYSMAL ATRIAL FIBRILLATION Status: Chronic - Plan continue antibiotics, PT/OT, manager social services, speech therapy, respiratory therapy, DVT proph w/SCDs Continue critical support Extubated 09/16/19 Resume Hydralazine/Coreg/Amiodarone HD per Renal service for volume mgmt s/p total 3u PRBC's Tolerating limited po intake Consider Palliative care consult and potential hospice AM lab: BMP, CBC
[2019-09-20] MEDS: Micafungin 100 MG in Sodium Chloride 0.9% 100 ML IVPB SCH (21:04)
[2019-09-20] MEDS: Insulin Glargine 15 UNITS in Pre-Filled Syringe 1 EACH SC SCH (21:35)
[2019-09-20] MEDS: Meropenem 500 MG in Sodium Chloride 0.9% 100 ML IVPB SCH (21:53)
[2019-09-21 06:08] LABS: Hemoglobin 7.9 g/dL (12.0-16.0); Mean Corpuscular HGB CONC 31.9 g/dL (32.0-36.0); Mean Corpuscular Hemoglobin 28.2 pg (27.0-31.0); Mean Corpuscular Volume 88.2 fL (78.0-98.0); Platelet Count 28 thou/uL (130-400); Red Blood Cell (RBC) Count 2.79 mill/uL (4.20-5.40)
[2019-09-21 06:10] LABS: Band 11 % (5-11); Lymphocytes 7 % (21-51); MDiff Complete? YES; Monocytes 1 % (0-10); Neutrophil 81 % (42-75); Platelet Morphology Comment Appears Decreased
[2019-09-21 06:12] LABS: Anion Gap 12 mmol/L (10-20); BUN (Urea Nitrogen) 42 mg/dL (9.8-20.1); Calc. Creatinine Clearance 29 mL/min (70-130); Calcium 7.5 mg/dL (7.8-10.44); Carbon Dioxide 29 mmol/L (23-31); Chloride 97 mmol/L (98-107); Estimated GFR-MDRD 23; Glucose 82 mg/dL (83-110); Potassium 3.6 mmol/L (3.5-5.1); Sodium 134 mmol/L (136-145)
[2019-09-21] MEDS: Lorazepam 0.5 MG TAB PO SCH ×3 (06:30→21:03)
[2019-09-21] MEDS: Furosemide 40 MG/4 ML VIAL SLOW IVP SCH (06:30)
[2019-09-21] MEDS: methylPREDNISolone Sod Succ 40 MG VIAL IVP SCH (09:39)
[2019-09-21] MEDS: hydrALAZINE 25 MG TAB PO SCH ×3 (09:39→21:02)
[2019-09-21] MEDS: Ferrous Sulfate 325 MG TAB PO SCH ×2 (09:40→16:59)
[2019-09-21] MEDS: Carvedilol 6.25 MG TAB PO SCH ×2 (09:40→16:59)
[2019-09-21] MEDS: Aspirin Chewable 81 MG TAB PO SCH (09:40)
[2019-09-21] MEDS: Amiodarone 200 MG TAB PER TUBE SCH ×2 (09:40→21:02)
[2019-09-21] MEDS: Pantoprazole 40 MG VIAL IVP SCH (09:41)
[2019-09-21] MEDS: Sodium Chloride 0.45% 1,000 ML IV SCH (09:41)
--- NOTE | 2019-09-21 10:07 | PRG ---
DATE OF SERVICE: 09/21/2019 SUBJECTIVE: Ms. Garcia is a 74-year-old white female, followed up by the Renal Service for her acute kidney injury secondary to acute tubular necrosis. She underwent hemodialysis yesterday and tolerated said treatment. Fluid removal was also tolerated. No acute events noted last night. OBJECTIVE: VITAL SIGNS: Blood pressure is , heart rate 60, respiratory rate 20. GENERAL: Awake, alert, comfortable, not in overt distress. SKIN: Adequate turgor. HEENT: She has a slightly pale conjunctivae. Anicteric sclerae. NECK: No neck mass. No carotid bruits. No JVD. CHEST: No deformities. LUNGS: Decreased breath sounds. HEART: Normal sinus rhythm. No murmurs, gallops, or rubs. ABDOMEN: Globular. Soft. Nontender. No masses. EXTREMITIES: Trace edema. MEDICATIONS: Medications of September 21, 2019, were reviewed. LABORATORY DATA: Laboratories of September 21, 2019, showed the following; white count was noted at 5, hemoglobin 7.9, sodium 134, potassium 3.6, chloride 97, carbon dioxide 29, BUN 42, creatinine 2.12. Calcium is 7.5, glucose is 82. ASSESSMENT AND PLAN: 1. Anemia, p.r.n. blood transfusion. Continuing Epogen and iron supplementation. 2. Acute kidney injury secondary to acute tubular necrosis. Continue supportive care. She did receive 3-1/2 hours of hemodialysis yesterday. We will review again her numbers and her clinical status to see if she will need another dialysis tomorrow. 3. Acute respiratory failure, resolved. 4. Agree with current management. Job ID: [id number]
--- NOTE | 2019-09-21 11:00 | PRG ---
DATE OF SERVICE: 09/21/2019 SUBJECTIVE: Kellie Garcia is in no distress. She is still quite weak and sleeping a lot in between her episodes of exercise. OBJECTIVE: VITAL SIGNS: She is afebrile, heart rate 60, blood pressure 139/51, and respiratory rate is 20. LUNGS: Clear. HEART: Regular rhythm. ABDOMEN: Soft. LABORATORY DATA: White count 5, hemoglobin 7.9, and platelets 28,000. Sodium 134, potassium 3.6, chloride 97, bicarb 29, BUN 42, and creatinine 2.12. IMPRESSION: 1. Respiratory failure with new congestive heart failure. 2. Weakness and deconditioning. 3. Thrombocytopenia. I have seen Pepcid cause thrombocytopenia in the past, so this has been discontinued. She is switched to Protonix. She will receive some platelets today since she is oozing around her central line. It would be nice to get her central line out over. Job ID: [id number]
[2019-09-21] MEDS ORDERED: Loperamide HCl 1 MG/7.5 ML UDCUP PO PRN (13:26)
--- NOTE | 2019-09-21 13:42 | PDOC.HOSPP ---
- Subjective Encounter Date: 09/21/19 Encounter Time: 13:30 Subjective: f/u for ESRD with HD, cardiomyopathy, PNA, Cardiomyopathy and diarrhea. Appetite poor. Feels tired. - Objective Vital Signs & Weight: Vital Signs (12 hours) Temp Pulse BP 09/21/19 12:00 98.6 F 09/21/19 09:40 139/51 L 09/21/19 09:39 60 139/51 L 09/21/19 08:00 97.8 F 09/21/19 04:00 98.0 F Weight Admit Weight 153 lb 7.068 oz Weight 172 lb 2.896 oz Most Recent Monitor Data Heart Rate from ECG 60 NIBP 144/57 NIBP BP-Mean 86 Respiration from ECG 22 SpO2 100 I&O: 09/20/19 09/21/19 09/22/19 06:59 06:59 06:59 Intake Total 2405 912 0 Output Total 215 140 28 Balance 2190 772 -28 Result Diagrams: 09/21/19 04:25 09/21/19 04:25 Additional Labs: Accuchecks 09/21/19 09/21/19 09/20/19 10:50 04:19 21:36 POC Glucose 99 97 64 L 09/20/19 18:29 POC Glucose 86 Microbiology 02/28/17 15:30 Nasopharyngeal swab Influenza Types A,B Direct EIA - Final 02/28/17 16:05 Venous blood - Left Arm Blood Culture - Preliminary Specimen has been received and culture in progress. No Growth to date. 02/28/17 15:53 Urine voided Urine Culture - Preliminary NO GROWTH AT 12 HOURS 02/28/17 15:45 Venous blood - Right Hand Blood Culture - Preliminary Specimen has been received and culture in progress. No Growth to date. Laboratory Tests 06/28/16 12/21/16 02/28/17 08:27 16:16 15:45 WBC Hgb 11.5 L 10.6 L 7.1 L Plt Count 116 L Bands % (Auto) 20 H Neutrophils % (Manual) 55 Sodium Potassium Creatinine Lactic Acid Magnesium Troponin I Vancomycin Trough 02/28/17 03/01/17 03/01/17 15:45 02:28 05:00 WBC Hgb Plt Count Bands % (Auto) Neutrophils % (Manual) Sodium 129 L Potassium 3.0 L Creatinine Lactic Acid Magnesium 1.2 L Troponin I Vancomycin Trough 5.9 03/01/17 03/01/17 03/01/17 05:00 19:30 19:30 WBC 2.5 L Hgb 7.7 L 9.7 L Plt Count Bands % (Auto) 15 H Neutrophils % (Manual) 58 Sodium Potassium Creatinine Lactic Acid Magnesium Troponin I 0.256 H Vancomycin Trough 03/01/17 03/02/17 03/02/17 20:00 02:07 02:07 WBC Hgb Plt Count Bands % (Auto) 11 Neutrophils % (Manual) Sodium Potassium Creatinine Lactic Acid 1.5 Magnesium Troponin I Vancomycin Trough 11.3 03/03/17 09/12/19 09/12/19 06:15 03:51 03:51 WBC 12.4 H Hgb 6.7 L Plt Count Bands % (Auto) Neutrophils % (Manual) Sodium Potassium Creatinine 2.62 H Lactic Acid Magnesium Troponin I Vancomycin Trough 38.8 H* 09/13/19 09/13/19 09/14/19 03:30 03:30 03:35 WBC 19.5 H Hgb 9.6 L Plt Count Bands % (Auto) Neutrophils % (Manual) Sodium 134 L 131 L Potassium Creatinine 2.88 H 3.16 H Lactic Acid Magnesium Troponin I Vancomycin Trough 09/14/19 09/17/19 09/17/19 03:35 04:10 04:10 WBC 14.7 H Hgb 8.9 L 8.0 L Plt Count 72 L Bands % (Auto) Neutrophils % (Manual) Sodium Potassium Creatinine 3.96 H Lactic Acid Magnesium Troponin I Vancomycin Trough 09/18/19 09/18/19 03:30 03:30 WBC Hgb 7.1 L Plt Count 50 L Bands % (Auto) Neutrophils % (Manual) Sodium Potassium Creatinine 2.28 H Lactic Acid Magnesium Troponin I Vancomycin Trough EKG Reviewed by me: Yes (Tele - A-pacing) Hospitalist ROS - Medication Medications: Active Medications Generic Name Dose Route Start Last Admin Trade Name Freq PRN Reason Stop Dose Admin Acetaminophen 650 mg 08/31/19 18:46 09/20/19 21:06 Tylenol PO 650 mg Q4H PRN Administration Headache/Fever/Mild Pain (1-3) Albuterol/Ipratropium 3 ml 08/31/19 19:00 09/21/19 10:57 Duoneb NEB Not Given [id number] CRIS Amiodarone HCl 200 mg 09/18/19 21:00 09/21/19 09:40 Cordarone PER TUBE 200 mg BID CRIS Administration Aspirin 81 mg 09/02/19 09:00 09/21/19 09:40 Aspirin Chewable PO 81 mg DAILY CRIS Administration Carvedilol 12.5 mg 09/19/19 17:00 09/21/19 09:40 Coreg PO 12.5 mg BID-WM CRIS Administration Enalaprilat 0.625 mg 09/05/19 11:47 09/12/19 20:42 Vasotec SLOW IVP 0.625 mg Q6H PRN Administration SBP > 180 Epoetin Pola-epbx 7,500 unit 09/20/19 09:00 09/20/19 12:17 Retacrit SC 7,500 unit Q7D CRIS Administration Ferrous Sulfate 325 mg 09/20/19 17:00 09/21/19 09:40 Feosol PO 325 mg BID- CRIS Administration Hydralazine HCl 50 mg 09/05/19 09:00 09/21/19 09:39 Apresoline PO 50 mg TID CRIS Administration Hydralazine HCl 20 mg 09/07/19 03:30 09/14/19 17:11 Apresoline SLOW IVP 20 mg Q4H PRN Administration SBP Greater Than 170 Insulin Glargine 15 units/ 0.15 mls @ 0 mls/hr 08/31/19 21:00 09/20/19 21:35 Miscellaneous Medication SC Not Given HS [facility] Sodium Chloride 1,000 mls @ 20 mls/hr 09/02/19 13:30 09/21/19 09:41 1/2 Normal Saline IV Not Given .Q24H CRIS Micafungin Sodium 100 mg/ 100 mls @ 100 mls/hr 09/10/19 20:30 09/20/19 21:04 Sodium Chloride IVPB 100 mls Q24HR CRIS Administration Nicardipine HCl 50 mg/ Sodium 250 mls @ 0 mls/hr 09/13/19 20:30 09/13/19 21: 20 Chloride IVPB 250 mls INF CRIS Administration Protocol Titrate Insulin Human Lispro 0 units 08/31/19 20:47 09/15/19 23:14 Humalog SC 6 unit .MODERATE SLIDING SC PRN Administration Moderate Correctional Scale Lorazepam 0.5 mg 09/18/19 14:00 09/21/19 06:30 Ativan PO 0.5 mg Q8HR CRIS Administration Melatonin 6 mg 09/17/19 16:28 09/18/19 21:45 Melatonin PO 6 mg HS PRN Administration Insomnia Methocarbamol 500 mg 09/19/19 00:52 09/19/19 06:50 Robaxin PO 500 mg QIDPRN PRN Administration Muscle Spasm Methylprednisolone Sodium Succinate 20 mg 09/17/19 09:00 09/21/19 09:39 Solu-Medrol IVP 20 mg DAILY CRIS Administration Ondansetron HCl 4 mg 08/31/19 18:46 09/20/19 19:17 Zofran IVP 4 mg Q6H PRN Administration Nausea/Vomiting Pantoprazole Sodium 40 mg 09/21/19 09:00 09/21/19 09:41 Protonix IVP 40 mg DAILY CRIS Administration Sodium Chloride 10 ml 09/06/19 21:00 09/21/19 09:41 Flush - Normal Saline IVF Not Given Q12HR CRIS - Exam General Appearance: ill appearing General - other findings: tired-appearing Eye: PERRL, anicteric sclera ENT: normocephalic atraumatic, no oropharyngeal lesions Neck: supple, symmetric, no JVD, no thyromegaly Heart: RRR, no gallops, no rubs, normal peripheral pulses Respiratory - other findings: coarse sounds in bases Gastrointestinal: soft, non-distended, normal bowel sounds, no guarding Gastrointestinal - other findings: mild TTP Extremities: no cyanosis, 2+ LE edema Extremities - other findings: UE edema noted Skin: normal turgor Neurological: no new deficit Musculoskeletal: generalized weakness Psychiatric: oriented to person, oriented to place Hosp A/P (1) Acute respiratory failure with hypoxia Code(s): J96.01 - ACUTE RESPIRATORY FAILURE WITH HYPOXIA Status: Acute Plan: Continue O2 supplementation, volume mgmt with HD (2) ESRD (end stage renal disease) on dialysis Code(s): N18.6 - END STAGE RENAL DISEASE; Z99.2 - DEPENDENCE ON RENAL DIALYSIS Status: Acute Plan: Continue HD per Renal service (3) Cardiomyopathy Code(s): I42.9 - CARDIOMYOPATHY, UNSPECIFIED Status: Chronic Qualifiers: Cardiomyopathy type: unspecified Qualified Code(s): I42.9 - Cardiomyopathy , unspecified Plan: Continue HD for volume mgmt (4) PNA (pneumonia) Code(s): J18.9 - PNEUMONIA, UNSPECIFIED ORGANISM Status: Acute Qualifiers: Pneumonia type: due to unspecified organism Laterality: right Lung location: middle lobe of lung Qualified Code(s): J18.9 - Pneumonia, unspecified organism Plan: Completed therapy with Linezolid/Meropenem (5) DM type 2 (diabetes mellitus, type 2) Status: Chronic Qualifiers: Diabetes mellitus retirement insulin use: without 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
[2019-09-21] MEDS: Loperamide HCl 2 MG CAP PO PRN ×2 (14:54→21:02)
[2019-09-21] MEDS: Micafungin 100 MG in Sodium Chloride 0.9% 100 ML IVPB SCH (19:56)
[2019-09-21] MEDS: Insulin Glargine 15 UNITS in Pre-Filled Syringe 1 EACH SC SCH (21:04)
[2019-09-22 04:29] LABS: Anion Gap 13 mmol/L (10-20); BUN (Urea Nitrogen) 58 mg/dL (9.8-20.1); Calc. Creatinine Clearance 22 mL/min (70-130); Carbon Dioxide 28 mmol/L (23-31); Chloride 97 mmol/L (98-107); Estimated GFR-MDRD 17; Glucose 103 mg/dL (83-110); Potassium 4.1 mmol/L (3.5-5.1); Sodium 134 mmol/L (136-145)
[2019-09-22 04:31] LABS: Band 8 % (5-11); Eosinophils 1 % (0-10); Hemoglobin 6.4 g/dL (12.0-16.0); Lymphocytes 5 % (21-51); MDiff Complete? YES; Mean Corpuscular HGB CONC 33.7 g/dL (32.0-36.0); Mean Corpuscular Hemoglobin 29.8 pg (27.0-31.0); Mean Corpuscular Volume 88.4 fL (78.0-98.0); Mean Platelet Volume 8.4 fL (7.4-10.4); Monocytes 3 % (0-10); Neutrophil 83 % (42-75); Platelet Count 126 thou/uL (130-400); Platelet Morphology Comment Appears Decreased; RBC Distribution Width 16.2 % (11.5-14.5); RBC Morphology Normal; Red Blood Cell (RBC) Count 2.13 mill/uL (4.20-5.40); White Blood Cell (WBC) Count 4.2 thou/uL (4.8-10.8)
[2019-09-22] MEDS: Lorazepam 0.5 MG TAB PO SCH ×3 (05:47→21:10)
[2019-09-22] MEDS: hydrALAZINE 25 MG TAB PO SCH ×3 (08:26→20:40)
[2019-09-22] MEDS: Ferrous Sulfate 325 MG TAB PO SCH ×2 (08:26→17:34)
[2019-09-22] MEDS: Aspirin Chewable 81 MG TAB PO SCH (08:26)
[2019-09-22] MEDS: Carvedilol 6.25 MG TAB PO SCH ×2 (08:26→17:34)
[2019-09-22] MEDS: Pantoprazole 40 MG VIAL IVP SCH (08:27)
[2019-09-22] MEDS: Amiodarone 200 MG TAB PER TUBE SCH ×2 (08:27→20:42)
[2019-09-22] MEDS: methylPREDNISolone Sod Succ 40 MG VIAL IVP SCH (08:29)
[2019-09-22] MEDS: Sodium Chloride 0.45% 1,000 ML IV SCH (09:34)
--- NOTE | 2019-09-22 11:09 | PRG ---
DATE OF SERVICE: 09/22/2019 SUBJECTIVE: This morning, she is awake, alert and responsive, though still weak, pulse 60, blood pressure 120/45. No dialysis today. CHEST: Bilateral rhonchi. CARDIAC: Normal S1, S2. No gallops. ABDOMEN: Soft. EXTREMITIES: 2+ edema. LABORATORY DATA: White count 4000, platelet count is better at 126. H and H . Creatinine is 2, BUN is 58, bicarb is 28. IMPRESSION: 1. Respiratory failure. 2. Congestive heart failure. 3. Severe deconditioning. 4. Renal failure. 5. Thrombocytopenia. 6. Anemia. PLAN: During next dialysis, she may benefit from a unit of packed cells transfusion. Otherwise, continue aggressive PT, supportive care. We will follow. Job ID: [id number]
--- NOTE | 2019-09-22 11:16 | PDOC.CPN ---
- Subjective Date: 09/22/19 Time: 11:15 Interval history: Pt appears very weak. No specific complaints noted - Objective Allergies/Adverse Reactions: Allergies Allergy/AdvReac Type Severity Reaction Status Date / Time Iodinated Contrast Media Allergy Intermediate Rash Verified 05/08/19 16:28 [Iodinated Contrast Media - IV Dye] Sulfa (Sulfonamide Allergy Intermediate Rash Verified 05/08/19 16:28 Antibiotics) iodine Allergy Verified 05/08/19 16:28 Visit Medications: Current Medications Acetaminophen (Tylenol) 650 mg PO Q4H PRN PRN Reason: Headache/Fever/Mild Pain (1-3) Last Admin: 09/20/19 21:06 Dose: 650 mg Albuterol/Ipratropium (Duoneb) 3 ml NEB [id number] [facility] Last Admin: 09/22/19 10:21 Dose: 3 ml Amiodarone HCl (Cordarone) 200 mg PER TUBE BID [facility] Last Admin: 09/22/19 08:27 Dose: 200 mg Lipase/Protease/Amylase ([place] [address]) 1 cap FS .PER PROTOCOL PRN PRN Reason: TUBE OCCLUSION PROTOCOL Aspirin (Aspirin Chewable) 81 mg PO DAILY [facility] Last Admin: 09/22/19 08:26 Dose: 81 mg Carvedilol (Coreg) 12.5 mg PO BID-[facility] Last Admin: 09/22/19 08:26 Dose: 12.5 mg Dextrose/Water (Dextrose 50%) 25 gm SLOW IVP PRN PRN PRN Reason: Hypoglycemia Enalaprilat (Vasotec) 0.625 mg SLOW IVP Q6H PRN PRN Reason: SBP > 180 Last Admin: 09/12/19 20:42 Dose: 0.625 mg Epoetin Pola-epbx (Retacrit) 7,500 unit SC Q7D [facility] Last Admin: 09/20/19 12:17 Dose: 7,500 unit Ferrous Sulfate (Feosol) 325 mg PO BID-[facility] Last Admin: 09/22/19 08:26 Dose: 325 mg Glucagon (Glucagon) 1 mg IM PRN PRN PRN Reason: Hypoglycemia Hydralazine HCl (Apresoline) 50 mg PO TID [facility] Last Admin: 09/22/19 08:26 Dose: 50 mg Hydralazine HCl (Apresoline) 20 mg SLOW IVP Q4H PRN PRN Reason: SBP Greater Than 170 Last Admin: 09/14/19 17:11 Dose: 20 mg Dextrose/Water (D5w) 1,000 mls @ 0 mls/hr IV .Q0M PRN PRN Reason: Hypoglycemia Insulin Glargine 15 units/ (Miscellaneous Medication) 0.15 mls @ 0 mls/hr SC HS [facility] Last Admin: 09/21/19 21:04 Dose: 0.15 mls Sodium Chloride (1/2 Normal Saline) 1,000 mls @ 20 mls/hr IV .Q24H [facility] Last Admin: 09/22/19 09:34 Dose: Not Given Micafungin Sodium 100 mg/ (Sodium Chloride) 100 mls @ 100 mls/hr IVPB Q24HR [facility] Last Admin: 09/21/19 19:56 Dose: 100 mls Nicardipine HCl 50 mg/ Sodium (Chloride) 250 mls @ 0 mls/hr IVPB INF [facility]; Protocol Last Admin: 09/13/19 21:20 Dose: 250 mls Insulin Human Lispro (Humalog) 0 units SC .MODERATE SLIDING SC PRN PRN Reason: Moderate Correctional Scale Last Admin: 09/15/19 23:14 Dose: 6 unit Loperamide HCl (Imodium) 4 mg PO Q4H PRN PRN Reason: Diarrhea/Loose Stools Last Admin: 09/21/19 21:02 Dose: 4 mg Lorazepam (Ativan) 0.5 mg PO Q8HR [facility] Last Admin: 09/22/19 05:47 Dose: 0.5 mg Melatonin (Melatonin) 6 mg PO HS PRN PRN Reason: Insomnia Last Admin: 09/18/19 21:45 Dose: 6 mg Methocarbamol (Robaxin) 500 mg PO QIDPRN PRN PRN Reason: Muscle Spasm Last Admin: 09/19/19 06:50 Dose: 500 mg Methylprednisolone Sodium Succinate (Solu-Medrol) 20 mg IVP DAILY [facility] Last Admin: 09/22/19 08:29 Dose: 20 mg Ondansetron HCl (Zofran) 4 mg IVP Q6H PRN PRN Reason: Nausea/Vomiting Last Admin: 09/20/19 19:17 Dose: 4 mg Pantoprazole Sodium (Protonix) 40 mg IVP DAILY [facility] Last Admin: 09/22/19 08:27 Dose: 40 mg Sodium Chloride (Flush - Normal Saline) 10 ml IVF Q12HR [facility] Last Admin: 09/22/19 08:27 Dose: 10 ml Sodium Chloride (Flush - Normal Saline) 10 ml IVF PRN PRN PRN Reason: Saline Flush Vital Signs & Weight: Vital Signs Temp Pulse Resp BP Pulse Ox 09/22/19 10:21 60 21 H 100 09/22/19 08:26 60 141/47 H 09/22/19 08:00 98 09/22/19 07:00 97.8 F 09/22/19 06:31 98 09/22/19 06:30 60 16 98 09/22/19 04:00 97.5 F L Admit Weight 153 lb 7.068 oz Weight 172 lb 6.424 oz - Physical Exam General: no apparent distress, other (weak) Neck: supple neck Cardiac: no murmur, regular rate, regular rhythm Lungs: normal exam Musculoskeletal: no pain - Labs Result Diagrams: 09/22/19 03:23 09/22/19 03:23 Troponin/CKMB CK-MB (CK-2) 2.2 ng/mL (0-6.6) 08/31/19 16:43 Troponin I 1.231 ng/mL (< 0.028) H* 09/01/19 19:33 - Assessment/Plan Assessment/Plan: Cardiomyopathy afib anemia RI Severe deconditioning present Rehab transfusion Otherwise cv status stable
[2019-09-22] MEDS ORDERED: Furosemide 100 MG/10 ML VIAL SLOW IVP SCH (12:15)
--- NOTE | 2019-09-22 14:44 | PRG ---
DATE OF SERVICE: 09/22/2019 SUBJECTIVE: Ms. Garcia still in the ICU. She has been dialyzed on a p.r.n. basis now. She is arousable, but falls asleep right away. Follows commands. No headaches. Mild dyspnea. No abdominal pain. Indwelling Baca catheter with output ranging from 140 to 215 daily. OBJECTIVE: VITAL SIGNS: She has been afebrile. Blood pressure 120/50, pulse 60, and O2 saturation 100% on nasal cannula O2 supplementation. She has a right- sided tunneled hemodialysis catheter and the left triple-lumen in the IJ position. HEENT: She opens her eyes and establishes eye contact. Some periorbital edema noted. Oral cavity is dry. LUNGS: With diminished breath sounds at bases. Particularly on the right side S1 and S2, diminished heart sounds. No S3. ABDOMEN: Soft. No guarding. Diffuse weakness. LABORATORY DATA: White cell count is at 4.2, hemoglobin 6.4, platelets 126, 83% neutrophils. Creatinine 2.79, bilirubin 0.6, AST, ALT 328, alkaline phosphatase 53. BNP 2800 quite a while ago has not been repeated. Microbiology with respiratory virus PCR from admission with negative results. There is a sputum culture from September 15 showed P aeruginosa with quite broad resistance profile. C diff antigen and toxin negative. The last imaging from September 15 was a chest x-ray with right-sided pleural effusion, right upper lobe opacity. She is on micafungin, methylprednisolone. ASSESSMENT AND DISCUSSION: Non-small cell lung cancer in remission reportedly after two radiation therapy courses, opacification right lung from effusion and some infiltrate, sepsis, respiratory insufficiency, renal insuficiency. We will go ahead and discontinue micafungin and I believe now from going forward, the question will be the aggressiveness of care. She will likely continue to present complications and will need continuation of hemodialysis. Palliative care/hospice might be a more appropriate modality of management. Job ID: [id number] MTDD
--- NOTE | 2019-09-22 16:18 | PDOC.HOSPP ---
- Subjective Encounter Date: 09/22/19 Encounter Time: 11:35 Subjective: pt has some apathetic affect. d/w RN. Failure to thrive. plt 28K and Na at 134. off nicardipine gtt; HD'ly stable. - Objective Vital Signs & Weight: Vital Signs (12 hours) Temp Pulse Pulse Pulse Resp BP BP 09/22/19 15:09 60 137/48 L 09/22/19 15:00 98.4 F 09/22/19 14:37 60 22 H 09/22/19 11:05 61 60 138/69 09/22/19 11:00 98.2 F 09/22/19 10:21 60 21 H 09/22/19 08:26 60 141/47 H 09/22/19 08:00 09/22/19 07:00 97.8 F 09/22/19 06:31 09/22/19 06:30 60 16 BP Pulse Ox Pulse Ox Pulse Ox 09/22/19 15:09 09/22/19 15:00 09/22/19 14:37 100 09/22/19 11:05 121/57 L 95 95 09/22/19 11:00 09/22/19 10:21 100 09/22/19 08:26 09/22/19 08:00 98 09/22/19 07:00 09/22/19 06:31 98 09/22/19 06:30 98 Weight Admit Weight 153 lb 7.068 oz Weight 172 lb 6.424 oz Most Recent Monitor Data Heart Rate from ECG 60 NIBP 137/48 NIBP BP-Mean 77 Respiration from ECG 19 SpO2 99 I&O: 09/21/19 09/22/19 09/23/19 06:59 06:59 06:59 Intake Total 912 700 240 Output Total 140 147 0 Balance 772 553 240 Result Diagrams: 09/22/19 03:23 09/22/19 03:23 Additional Labs: Accuchecks 09/22/19 09/21/19 09/21/19 05:52 21:01 17:08 POC Glucose 116 H 135 H 127 H Hospitalist ROS - Medication Medications: Active Medications Generic Name Dose Route Start Last Admin Trade Name Freq PRN Reason Stop Dose Admin Acetaminophen 650 mg 08/31/19 18:46 09/20/19 21:06 Tylenol PO 650 mg Q4H PRN Administration Headache/Fever/Mild Pain (1-3) Albuterol/Ipratropium 3 ml 08/31/19 19:00 09/22/19 14:37 Duoneb NEB 3 ml [id number] [facility] Administration Amiodarone HCl 200 mg 09/18/19 21:00 09/22/19 08:27 Cordarone PER TUBE 200 mg BID [facility] Administration Aspirin 81 mg 09/02/19 09:00 09/22/19 08:26 Aspirin Chewable PO 81 mg DAILY [facility] Administration Carvedilol 12.5 mg 09/19/19 17:00 09/22/19 08:26 Coreg PO 12.5 mg BID-WM [facility]IS Administration Enalaprilat 0.625 mg 09/05/19 11:47 09/12/19 20:42 Vasotec SLOW IVP 0.625 mg Q6H PRN Administration SBP > 180 Epoetin Pola-epbx 7,500 unit 09/20/19 09:00 09/20/19 12:17 Retacrit SC 7,500 unit Q7D [facility] Administration Ferrous Sulfate 325 mg 09/20/19 17:00 09/22/19 08:26 Feosol PO 325 mg BID-WM [facility]IS Administration Hydralazine HCl 50 mg 09/05/19 09:00 09/22/19 15:09 Apresoline PO 50 mg TID [facility] Administration Hydralazine HCl 20 mg 09/07/19 03:30 09/14/19 17:11 Apresoline SLOW IVP 20 mg Q4H PRN Administration SBP Greater Than 170 Insulin Glargine 15 units/ 0.15 mls @ 0 mls/hr 08/31/19 21:00 09/21/19 21:04 Miscellaneous Medication SC 0.15 mls HS CRIS Administration Sodium Chloride 1,000 mls @ 20 mls/hr 09/02/19 13:30 09/22/19 09:34 1/2 Normal Saline IV Not Given .Q24H [facility]IS Nicardipine HCl 50 mg/ Sodium 250 mls @ 0 mls/hr 09/13/19 20:30 09/13/19 21: 20 Chloride IVPB 250 mls INF [facility]IS Administration Protocol Titrate Insulin Human Lispro 0 units 08/31/19 20:47 09/15/19 23:14 Humalog SC 6 unit .MODERATE SLIDING SC PRN Administration Moderate Correctional Scale Loperamide HCl 4 mg 09/21/19 14:00 09/21/19 21:02 Imodium PO 4 mg Q4H PRN Administration Diarrhea/Loose Stools Lorazepam 0.5 mg 09/18/19 14:00 09/22/19 15:09 Ativan PO 0.5 mg Q8HR [facility] Administration Melatonin 6 mg 09/17/19 16:28 09/18/19 21:45 Melatonin PO 6 mg HS PRN Administration Insomnia Methocarbamol 500 mg 09/19/19 00:52 09/19/19 06:50 Robaxin PO 500 mg QIDPRN PRN Administration Muscle Spasm Methylprednisolone Sodium Succinate 20 mg 09/17/19 09:00 09/22/19 08:29 Solu-Medrol IVP 20 mg DAILY [facility] Administration Ondansetron HCl 4 mg 08/31/19 18:46 09/20/19 19:17 Zofran IVP 4 mg Q6H PRN Administration Nausea/Vomiting Pantoprazole Sodium 40 mg 09/21/19 09:00 09/22/19 08:27 Protonix IVP 40 mg DAILY [facility]IS Administration Sodium Chloride 10 ml 09/06/19 21:00 09/22/19 08:27 Flush - Normal Saline IVF 10 ml Q12HR [facility] Administration - Exam General Appearance: NAD, awake alert Eye: PERRL ENT: normocephalic atraumatic ENT - other findings: left IJ has dark blood around. r.chest access for HD Neck: supple, symmetric Heart: RRR, no murmur Respiratory: CTAB, no wheezes, no ronchi Gastrointestinal: soft, non-distended, normal bowel sounds Extremities: no cyanosis Skin: normal turgor Neurological: no focal deficits Hosp A/P - Plan thrombocytopenia - d/t recent stress vs..idiopathic -not on aC -close monitor -no visible bleed. Sig. dept edema - mostly notable in hands and legs. (1) Acute respiratory failure with hypoxia Code(s): J96.01 - ACUTE RESPIRATORY FAILURE WITH HYPOXIA Status: Acute Plan: Continue O2 supplementation, volume mgmt with HD Extubated 09/16/19 (2) ESRD (end stage renal disease) on dialysis Continue HD per Renal service -it appears that HD is as needed. -right sided chest access for dialysis (3) Cardiomyopathy Tachy-Juan syndrome SVT NSVT Torsades s/p pacer placed. -Resume Hydralazine/Coreg/Amiodarone (4) PNA (pneumonia) middle lobe of lung - Completed therapy with Linezolid/Meropenem -afebrile, no high wbcs. -resp agnes - grew psedo urine agnes - e.faecalis -as above, done w.. abx. (5) DM type 2 (diabetes mellitus, type 2) -glargine + SSI (6) Paroxysmal A-fib Code(s): I48.0 - PAROXYSMAL ATRIAL FIBRILLATION Status: Chronic -on amio ABLA -s/p total 3u PRBC's Failure to thrive - palliative consult in place. Overall poor prognosis. Home hospice vs.. SNF
[2019-09-22] MEDS: guaiFENesin ER 600 MG TAB PO PRN ×2 (17:34→21:48)
[2019-09-22] MEDS: Insulin Glargine 15 UNITS in Pre-Filled Syringe 1 EACH SC SCH (20:54)
[2019-09-22] MEDS: Melatonin 3 MG TAB PO PRN (21:10)
[2019-09-23 04:37] LABS: Hemoglobin 5.6 g/dL (12.0-16.0); Mean Corpuscular HGB CONC 34.1 g/dL (32.0-36.0); Mean Corpuscular Hemoglobin 29.9 pg (27.0-31.0); Mean Corpuscular Volume 87.8 fL (78.0-98.0); Mean Platelet Volume 8.5 fL (7.4-10.4); Platelet Count 71 thou/uL (130-400); RBC Distribution Width 16.1 % (11.5-14.5); Red Blood Cell (RBC) Count 1.87 mill/uL (4.20-5.40); White Blood Cell (WBC) Count 1.8 thou/uL (4.8-10.8)
[2019-09-23 04:52] LABS: Albumin 2.8 g/dL (3.4-4.8); Anion Gap 12 mmol/L (10-20); BUN (Urea Nitrogen) 70 mg/dL (9.8-20.1); Calc. Creatinine Clearance 18 mL/min (70-130); Calcium 8.3 mg/dL (7.8-10.44); Carbon Dioxide 28 mmol/L (23-31); Chloride 98 mmol/L (98-107); Estimated GFR-MDRD 14; Glucose 60 mg/dL (83-110); Phosphorus 5.4 mg/dL (2.3-4.7); Sodium 134 mmol/L (136-145)
[2019-09-23 04:55] LABS: Band 11 % (5-11); Basophilic Stippling SLIGHT = 1-2 cells (100X) (None Seen); Eosinophils 6 % (0-10); Hypochromia SLIGHT = 6-15 cells (100X) (0-5/hpf); Lymphocytes 17 % (21-51); MDiff Complete? YES; Monocytes 3 % (0-10); Neutrophil 60 % (42-75); Platelet Morphology Comment Appears Decreased; Reactive Lymphocytes 2 % (0-10)
[2019-09-23] MEDS: Lorazepam 0.5 MG TAB PO SCH ×3 (06:32→21:11)
[2019-09-23] MEDS: hydrALAZINE 25 MG TAB PO SCH ×3 (08:23→21:11)
[2019-09-23] MEDS: Carvedilol 6.25 MG TAB PO SCH ×2 (08:24→16:48)
[2019-09-23] MEDS: Amiodarone 200 MG TAB PER TUBE SCH ×2 (08:24→21:11)
[2019-09-23] MEDS: Ferrous Sulfate 325 MG TAB PO SCH ×2 (08:24→16:49)
[2019-09-23] MEDS: Aspirin Chewable 81 MG TAB PO SCH (08:24)
[2019-09-23] MEDS: methylPREDNISolone Sod Succ 40 MG VIAL IVP SCH ×2 (08:26→21:11)
[2019-09-23] MEDS: Pantoprazole 40 MG VIAL IVP SCH (08:34)
[2019-09-23] MEDS ORDERED: Heparin 10,000 UNITS/ 10 ML VIAL ONE (09:53)
--- NOTE | 2019-09-23 10:09 | PRG ---
DATE OF SERVICE: 09/23/2019 SERVICE: Nephrology. SUBJECTIVE: A 74-year-old female with diabetes mellitus, hypertension, paroxysmal atrial fibrillation as well as chronic CHF and CKD admitted due to worsening shortness of breath as well as features of sepsis. Nephrology is following for acute on chronic renal failure, requiring hemodialysis. The patient is aneuric in the last day also. Stayed short of breath, though that has improved. Denied fever or vomiting. OBJECTIVE: VITAL SIGNS: Temperature 97.9, pulse 60, respiratory rate 18, SpO2 of 100 on nasal cannula oxygen supplementation, and blood pressure is 191/59. GENERAL: Chronically ill-looking elderly female. Fatigued with conjunctival pallor. Afebrile. HEENT: Normocephalic and atraumatic. Oral mucosa is moist. CARDIOVASCULAR: Regular rhythm and rate. RESPIRATORY: Fair air entry bilaterally with some scattered transmitted breath sounds and few bibasilar crackles. Work of breathing is mildly increased. GI: Obese, soft with mild diffuse tenderness. EXTREMITIES: [id number] edema of the extremities and trunk noted. 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 Cranial nerves 2 through 12 are grossly intact. DIAGNOSTIC DATA: CBC showed WBC count of 1.8, hemoglobin of 5.6, and platelet of 71. Chemistry showed sodium 134, potassium 4.0, chloride 98, CO2 of 28, BUN 70, creatinine 3.3, glucose 60, calcium 8.3, phosphorus 5.4, and albumin 2.8. ASSESSMENT: 1. Acute on chronic renal failure, requiring hemodialysis. [place] to have acute tubular necrosis from hemodynamic factors. 2. Chronic kidney disease stage 4. 3. Anasarca. 4. Pancytopenia. 5. Acute blood loss anemia. 6. Anemia in chronic kidney disease. 7. Hemoglobin is down to 5.6 from 7 yesterday. The patient reported black stool, raising suspicion for gastrointestinal bleeding. 8. Paroxysmal atrial fibrillation. 9. Acute on chronic congestive heart failure. 10. Failure to thrive. 11. Acute respiratory failure with hypoxia. PLAN: 1. We will dialyze the patient today with UF as tolerated. Given the further, the patient is currently anuric and grossly fluid overloaded with crackles. 2. We will also transfuse the patient with hemodialysis. 3. Dialysis will help with high blood pressure as well. 4. We will recheck renal function test in the morning. 5. Recommend GI evaluation given black stool and acute blood loss. Further treatment to follow depending on hospital course. Job ID: [id number]
--- NOTE | 2019-09-23 12:01 | PRG ---
DATE OF SERVICE: 09/23/2019 SUBJECTIVE: She is back on BiPAP this morning. OBJECTIVE: VITAL SIGNS: Sats 100%, blood pressure 157/65, pulse 69, and respirations 19. She had some bloody stool. LUNGS: She states she is short of breath. No cough. She has extensive rhonchi. CARDIAC: Normal S1, S2. No gallops. ABDOMEN: Soft. LABORATORY DATA: Hemoglobin has dropped to 5.6, hematocrit is 16. She received 2 units of packed cells. BUN and creatinine are 70 and 3.30. She is being dialyzed. IMPRESSION: Respiratory failure, severe deconditioning, urinary tract infection, renal failure, anemia, gastrointestinal bleed. PLAN: At this stage continue aggressive neb treatments, supportive care, PT. Steroids will follow. Job ID: [id number]
--- NOTE | 2019-09-23 12:16 | PDOC.HOSPP ---
- Subjective Encounter Date: 09/23/19 Encounter Time: 10:45 Subjective: pt declining faster clinically, hgb at 5.6 being transfused - HD today. d/w RN, will consult GI as well as she has OBT +ve. palliative will see her in am. Full code. - Objective Vital Signs & Weight: Vital Signs (12 hours) Temp Pulse Resp BP Pulse Ox 09/23/19 11:00 97.8 F 09/23/19 10:59 60 27 H 100 09/23/19 10:56 60 27 H 100 09/23/19 08:24 191/59 H 09/23/19 08:23 60 191/59 H 09/23/19 08:00 100 09/23/19 07:13 60 16 100 09/23/19 07:12 60 15 100 09/23/19 07:00 97.9 F 09/23/19 04:00 97.7 F Weight Admit Weight 153 lb 7.068 oz Weight 177 lb 4.026 oz Most Recent Monitor Data Heart Rate from ECG 60 NIBP 147/65 NIBP BP-Mean 92 Respiration from ECG 23 SpO2 100 I&O: 09/22/19 09/23/19 09/24/19 06:59 06:59 06:59 Intake Total 700 365 0 Output Total 147 0 0 Balance 553 365 0 Result Diagrams: 09/23/19 04:20 09/23/19 04:20 Additional Labs: Accuchecks 09/23/19 09/22/19 09/22/19 06:26 20:42 17:42 POC Glucose 74 90 92 Hospitalist ROS - Medication Medications: Active Medications Generic Name Dose Route Start Last Admin Trade Name Freq PRN Reason Stop Dose Admin Acetaminophen 650 mg 08/31/19 18:46 09/20/19 21:06 Tylenol PO 650 mg Q4H PRN Administration Headache/Fever/Mild Pain (1-3) Albuterol/Ipratropium 3 ml 08/31/19 19:00 09/23/19 10:56 Duoneb NEB 3 ml [id number] CRIS Administration Amiodarone HCl 200 mg 09/18/19 21:00 09/23/19 08:24 Cordarone PER TUBE 200 mg BID CRIS Administration Aspirin 81 mg 09/02/19 09:00 09/23/19 08:24 Aspirin Chewable PO 81 mg DAILY CRIS Administration Carvedilol 12.5 mg 09/19/19 17:00 09/23/19 08:24 Coreg PO 12.5 mg BID-WM CRIS Administration Enalaprilat 0.625 mg 09/05/19 11:47 09/12/19 20:42 Vasotec SLOW IVP 0.625 mg Q6H PRN Administration SBP > 180 Epoetin Pola-epbx 7,500 unit 09/20/19 09:00 09/20/19 12:17 Retacrit SC 7,500 unit Q7D CRIS Administration Ferrous Sulfate 325 mg 09/20/19 17:00 09/23/19 08:24 Feosol PO 325 mg BID-WM CRIS Administration Guaifenesin 600 mg 09/22/19 17:05 09/22/19 21:48 Mucinex PO 600 mg TIDPRN PRN Administration Cough Hydralazine HCl 50 mg 09/05/19 09:00 09/23/19 08:23 Apresoline PO 50 mg TID CRIS Administration Hydralazine HCl 20 mg 09/07/19 03:30 09/14/19 17:11 Apresoline SLOW IVP 20 mg Q4H PRN Administration SBP Greater Than 170 Insulin Glargine 15 units/ 0.15 mls @ 0 mls/hr 08/31/19 21:00 09/22/19 20:54 Miscellaneous Medication SC 0.15 mls HS CRIS Administration Sodium Chloride 1,000 mls @ 20 mls/hr 09/02/19 13:30 09/22/19 09:34 1/2 Normal Saline IV Not Given .Q24H CRIS Nicardipine HCl 50 mg/ Sodium 250 mls @ 0 mls/hr 09/13/19 20:30 09/13/19 21: 20 Chloride IVPB 250 mls INF CRIS Administration Protocol Titrate Insulin Human Lispro 0 units 08/31/19 20:47 09/15/19 23:14 Humalog SC 6 unit .MODERATE SLIDING SC PRN Administration Moderate Correctional Scale Loperamide HCl 4 mg 09/21/19 14:00 09/21/19 21:02 Imodium PO 4 mg Q4H PRN Administration Diarrhea/Loose Stools Lorazepam 0.5 mg 09/18/19 14:00 09/23/19 06:32 Ativan PO 0.5 mg Q8HR CRIS Administration Melatonin 6 mg 09/17/19 16:28 09/22/19 21:10 Melatonin PO 6 mg HS PRN Administration Insomnia Methocarbamol 500 mg 09/19/19 00:52 09/19/19 06:50 Robaxin PO 500 mg QIDPRN PRN Administration Muscle Spasm Ondansetron HCl 4 mg 08/31/19 18:46 09/20/19 19:17 Zofran IVP 4 mg Q6H PRN Administration Nausea/Vomiting Pantoprazole Sodium 40 mg 09/21/19 09:00 09/23/19 08:34 Protonix IVP 40 mg DAILY CRIS Administration Sodium Chloride 10 ml 09/06/19 21:00 09/23/19 08:35 Flush - Normal Saline IVF 10 ml Q12HR CRIS Administration - Exam General Appearance: ill appearing Eye: PERRL, scleral icterus Heart: irregular Respiratory: normal chest expansion, normal percussion, rales, rhonchi, tachypneic, wheezes Gastrointestinal: non-tender, non-distended Extremities - other findings: severe dept edema Skin - other findings: severe ecymoses on upper extremities. Neurological: no focal deficits Hosp A/P - Plan thrombocytopenia - d/t recent stress vs..idiopathic -not on aC -close monitor -no visible bleed. Sig. dept edema - mostly notable in hands and legs. (1) Acute respiratory failure with hypoxia Code(s): J96.01 - ACUTE RESPIRATORY FAILURE WITH HYPOXIA Status: Acute Plan: Continue O2 supplementation, volume mgmt with HD Extubated 09/16/19 (2) ESRD (end stage renal disease) on dialysis Continue HD per Renal service -it appears that HD is as needed. -right sided chest access for dialysis (3) Cardiomyopathy Tachy-Juan syndrome SVT NSVT Torsades s/p pacer placed. -Resume Hydralazine/Coreg/Amiodarone (4) PNA (pneumonia) middle lobe of lung - Completed therapy with Linezolid/Meropenem -afebrile, no high wbcs. -resp agnes - grew psedo urine agnes - e.faecalis -as above, done w.. abx. (5) DM type 2 (diabetes mellitus, type 2) -glargine + SSI (6) Paroxysmal A-fib Code(s): I48.0 - PAROXYSMAL ATRIAL FIBRILLATION Status: Chronic -on amio ABLA -s/p total 3u PRBC's Failure to thrive - palliative consult in place. Overall poor prognosis. Home hospice vs.. SNF Anasarca Acute bllod loss anemia, requiring transfusion Anemia d/t kidney dz/chronic - please do only 2 units of prbc as risk for Acute lung injury with vol..expansion, in her condition FOBT +ve -she is on ASA only. no AC - as she is full code, obligated to check w.. GI as well, though not much can be done from GI perspective. Thrombocytpenia - plts counts better today - pt's overall not doing well DNR
[2019-09-23] MEDS: Sodium Chloride 0.45% 1,000 ML IV SCH (13:09)
[2019-09-23 17:01] LABS: Hemoglobin 9.8 g/dL (12.0-16.0)
[2019-09-23 17:02] LABS: Fibrinogen 370 mg/dL (253-463)
[2019-09-23 17:03] LABS: INR-International Normal Ratio 1.1; Prothrombin Time 14.2 SEC (12.0-14.7)
[2019-09-23 18:45] LABS: FSP-Qualitative ABNORMAL (Normal); FSP-Semiquantitative >=5 & <20 mcg/mL (Less than 5)
[2019-09-23] MEDS: Melatonin 3 MG TAB PO PRN (21:12)
[2019-09-23] MEDS: Insulin Glargine 15 UNITS in Pre-Filled Syringe 1 EACH SC SCH (21:12)
--- NOTE | 2019-09-24 00:51 | CON ---
DATE OF CONSULTATION: 09/23/2019 REASON FOR CONSULTATION: Anemia, possible GI bleed. CONSULTING PROVIDER: Jl Huerta MD HISTORY OF PRESENT ILLNESS: The patient is a 74-year-old female with past medical history of depression; non-small cell lung cancer, status post radiation and chemotherapy; rectal cancer, status post low anterior resection; severe appendicitis, status post right hemicolectomy; end-stage renal disease, on hemodialysis; breast cancer, status post lumpectomy; diabetes; hyperlipidemia; atrial fibrillation; chronic anemia; COPD; and chronic neck and back pain, who initially presented to the hospital with complaints of shortness of breath. The patient was initially noted to have tachycardia in her primary care physician's office in addition to significant hypoxemia with a saturations of 80% on non-rebreather. She was subsequently evaluated in the emergency room and was initially placed on BiPAP, but with worsening respiratory status, ultimately had to be intubated and placed on mechanical ventilation. During the course of the last 2 to 3 weeks during this hospitalization, she has had a very complicated hospital course including hypotension that resolved with fluid resuscitation; acute kidney injury, for which, the patient is now currently on dialysis; newly diagnosed cardiomyopathy; formation of ascites, most likely related to hepatic congestion; pancytopenia; paroxysmal atrial fibrillation, and more recently has been having a slowly downtrending H and H concerning for possible bleeding source. Upon speaking with nursing staff taking care of the patient, there was some mention of a possible black-colored stool yesterday, but it is unclear if this was true melena or this was related to medications being administered. Over the last 24 hours, the patient has not exhibited any repeat of melena, hematemesis, or hematochezia. However, she does have multiple ecchymoses all over her body as a result of interventions taken during this hospitalization. Upon interviewing the patient, she is awake and alert, but minimally responsive due to increased work of breathing. At night, she has been placed on BiPAP in order to facilitate adequate oxygenation and more recently had been recommended to proceed with this modality during the day, but the patient refuses at this time. She has also been undergoing hemodialysis as part of management of her acute renal failure and with her downtrending H and H, was going to have infusion of 2 units of PRBCs today. However, she also has significant hypervolemia with pitting edema of both the upper and lower extremities in addition to ascites making her volume status very tenuous. Currently, she states that she denies any nausea, vomiting, fevers, chills, hematemesis, melena, or hematochezia. REVIEW OF SYSTEMS: A 10-category review of systems could not be fully obtained due to the patient's current respiratory status and short clipped answers. PAST MEDICAL HISTORY: As per HPI. PAST SURGICAL HISTORY: Cholecystectomy, appendectomy, hysterectomy, right hemicolectomy, low anterior resection, and lumpectomy. FAMILY HISTORY: Denies any GI malignancies. SOCIAL HISTORY: Denies any tobacco, alcohol, or illicit drug use, although, she does have significant smoking history. MEDICATIONS: Outpatient medications reviewed. Inpatient medications reviewed. ALLERGIES: IODINE AND SULFA. PHYSICAL EXAMINATION: VITAL SIGNS: Temperature 97.4, pulse 61, blood pressure 164/65, respiratory rate 20, saturating 97% on 2 L nasal cannula. GENERAL: The patient was lying in bed, in [id number] distress with mild conversational dyspnea. Alert and oriented x3. HEENT: Normocephalic and atraumatic. NECK: Supple. No JVD or scleral icterus noted. CARDIOVASCULAR: Regular rate and rhythm with no discernible murmurs, gallops, or rubs, although, possible irregularly irregular rhythm auscultated with longer listening. RESPIRATORY: Coarse breath sounds auscultated in all lung echols with poor inspiratory effort. ABDOMEN: Normoactive bowel sounds. Soft. Moderate to severe abdominal distention. No tenderness to palpation. EXTREMITIES: 2+ pitting edema of both the bilateral upper and lower extremities with probable anasarca upon palpation of the abdomen. LABORATORY DATA: CBC with a white blood cell count of 1.8, hemoglobin 5.6, hematocrit 16.4, and platelets 71. Chemistry with a sodium of 134, potassium 4, chloride 98, CO2 of 28, BUN 70, creatinine 3.3, glucose 60. MCV 87.8, RDW 16.1. Infectious stool studies were negative for C diff, positive FOBT. IMAGING DATA: No current GI imaging is available for review; however, a CT of the abdomen and pelvis was obtained on September 02, 2019, which showed bilateral pleural effusions with moderate on the right when compared to the left, extension of a consolidation in the right lung involving most of the right lower lobe and posterior segment of the right upper lobe, new small volume ascites and anasarca, bilateral nephromegaly, and mild hepatomegaly. ASSESSMENT AND PLAN: The patient is a 74-year-old female with past medical history of depression; non-small cell lung cancer, status post radiation and chemotherapy; rectal cancer, status post low anterior resection; severe appendicitis, status post right hemicolectomy; end-stage renal disease, on hemodialysis; breast cancer, status post lumpectomy; diabetes; hyperlipidemia; atrial fibrillation, on anticoagulation; chronic anemia; chronic obstructive pulmonary disease; and chronic neck and back pain, initially presenting with respiratory failure and now with worsening renal failure in addition to worsening anemia concerning for GI bleeding source. Anemia/possible GI bleeding source: The patient has had a significant significantly complicated hospital course thus far to include respiratory failure, requiring mechanical ventilation and now more recently acute kidney failure, requiring hemodialysis. However, over the last 2 to 3 days, she has had a worsening of her H and H with a mention of a black stool yesterday, but has not had additional melenic stools since then. There has been no mention of hematemesis or hematochezia during the same time period as well. However, the patient has significant pancytopenia at this point and when compared to a possible pneumonia on admission is concerning for possible sepsis/disseminated intravascular coagulation type picture which could potentially raise her INR and generate mucosal bleeding from any source. Unfortunately, the patient was given blood prior to being able to obtain both an INR and fibrinogen degradation products today, so any results received will be erroneous at best. Currently, she is not on mechanical ventilation, but is exhibiting significant tachypnea with recommendations to place the patient back on BiPAP during the day in addition to at night for continued oxygenation. At this time, the patient is an extremely high risk for any procedure, endoscopy, or otherwise. In order to evaluate her current anemia, I would recommend both an esophagogastroduodenoscopy and a colonoscopy. However, I do not think that the patient's respiratory status would enable us to be able to do so safely without high-risk of complication. RECOMMENDATIONS: 1. Would continue to optimize the patient's pulmonary status. Based on her current respiratory function, the patient will most likely need to be on mechanical ventilation in order to proceed with EGD and colonoscopy. 2. Would continue to trend her H and H and transfuse as necessary to maintain an H and H of 03/04. 3. Continue to monitor clinically for signs of active GI bleeding. 4. Would attempt to evaluate for possible sepsis/DIC contributing to pancytopenia and possible elevated INR which could lead toward mucosal bleeding. 5. Continue with hemodialysis in attempts to correct the patient's hypervolemia. Job ID: [id number]
[2019-09-24 04:18] LABS: Band 14 % (5-11); Hemoglobin 9.3 g/dL (12.0-16.0); Hypochromia SLIGHT = 6-15 cells (100X) (0-5/hpf); Lymphocytes 12 % (21-51); MDiff Complete? YES; Mean Corpuscular HGB CONC 33.3 g/dL (32.0-36.0); Mean Corpuscular Hemoglobin 29.2 pg (27.0-31.0); Mean Corpuscular Volume 87.6 fL (78.0-98.0); Mean Platelet Volume 9.2 fL (7.4-10.4); Monocytes 8 % (0-10); Neutrophil 66 % (42-75); Platelet Count 48 thou/uL (130-400); Platelet Morphology Comment Appears Decreased; RBC Distribution Width 14.7 % (11.5-14.5); Red Blood Cell (RBC) Count 3.19 mill/uL (4.20-5.40); White Blood Cell (WBC) Count 1.5 thou/uL (4.8-10.8)
[2019-09-24 04:20] LABS: Anion Gap 12 mmol/L (10-20); BUN (Urea Nitrogen) 44 mg/dL (9.8-20.1); Calc. Creatinine Clearance 26 mL/min (70-130); Calcium 8.3 mg/dL (7.8-10.44); Carbon Dioxide 29 mmol/L (23-31); Chloride 98 mmol/L (98-107); Estimated GFR-MDRD 20; Glucose 89 mg/dL (83-110); Sodium 135 mmol/L (136-145)
[2019-09-24] MEDS: Lorazepam 0.5 MG TAB PO SCH ×3 (05:51→20:35)
[2019-09-24] MEDS: hydrALAZINE 20 MG/ML VIAL SLOW IVP PRN (06:46)
--- NOTE | 2019-09-24 07:42 | RAD ---
EXAM: CHEST ONE VIEW HISTORY: Pneumonia COMPARISON: 09/15/2019 FINDINGS: Dual lead left subclavian AICD device, internal jugular vein central venous catheter, right subclavia n Mediport catheter, and tunneled right internal jugular vein hemodialysis catheters remain in place and unchanged in position. The endotracheal tube and nasogastric tubes have been removed. There are bilateral pleural effusions and associated atelectasis. Increased density is again seen in the right upper lung zone and right midlung zone, but the parenchymal opacity has improved when compared to prior exam. There is mild pulmonary vascular congestion, but this has also improved from prior study. Vertebroplasty changes thoracic vertebral bodies are again noted. No other interval change. IMPRESSION: 1. Interval removal of the endotracheal tube and nasogastric tubes. Remaining lines and tubes are sta ble in position. 2. Bilateral pleural effusions and associated atelectasis. 3. Improvement in parenchymal opacity in the right mid and upper lung zone which may relate to improv ement in pneumonia. Continued follow-up to complete resolution is recommended.
[2019-09-24] MEDS: Loperamide HCl 2 MG CAP PO PRN ×2 (07:47→11:10)
[2019-09-24] MEDS: Carvedilol 6.25 MG TAB PO SCH ×2 (07:48→16:48)
[2019-09-24] MEDS: Ferrous Sulfate 325 MG TAB PO SCH ×2 (07:48→16:48)
--- NOTE | 2019-09-24 08:10 | PRG ---
DATE OF SERVICE: 09/22/2019 SERVICE: Nephrology. SUBJECTIVE: A 74-year-old female, seen in followup for acute on chronic renal failure due to acute tubular necrosis. The patient had required hemodialysis for volume overload and for worsening azotemia. Last dialysis was 2 days ago on September 20, 2019. She seems comfortable and denied worsening shortness of breath. She is, however, generally weak. No fever or chills. OBJECTIVE: VITAL SIGNS: Temperature 97.8, pulse 60, respiratory rate 15, SpO2 of 98% on 2 L nasal cannula, and blood pressure is 153/52. GENERAL: Obese female, in no obvious distress. Afebrile. Anicteric. HEENT: Normocephalic and atraumatic. Oral mucosa is moist. CARDIOVASCULAR: Irregular rhythm and rate. RESPIRATORY: Decreased air entry on both bases with scattered crackles and rhonchi, but no obvious distress appreciated. GI: Obese, soft, nontender, and nondistended with normal bowel sounds. EXTREMITIES: Naufadcl-mo-nmzhrn edema of the extremities noted. FIRE ADJUSTER: Conscious, alert, and oriented x3 with appropriate mental status. Moves all extremities, but weakly. DIAGNOSTIC DATA: CBC today showed WBC count of 4.2, hemoglobin of 6.4, platelets of 126. Chemistry showed sodium 134, potassium 4.1, chloride 97, CO2 of 28, BUN 58, creatinine 2.78, glucose 103, and calcium 8.0. ASSESSMENT: 1. Acute on chronic renal failure: Due to acute tubular necrosis. Creatinine continued to trend up within hemodialysis. 2. Anasarca. 3. Anemia in chronic kidney disease. 4. Acute on chronic anemia: Hemoglobin today is . 5. Hypertension: Control is acceptable. 6. Physical deconditioning. 7. Atrial fibrillation. 8. Acute on chronic heart failure. PLAN: In view of the fact that electrolytes and acid-base is acceptable. There is no overt or emergent indication for dialysis today. Urine output is still suboptimal, however. The patient is breathing well and in no overt respiratory distress to warrant dialysis for fluid overload. We will, therefore, skip hemodialysis today. However, if the patient is to get blood transfusion, we will reconsider and dialyze the patient with a view to administer blood products. We will, however, start the patient on diuretic therapy with albumin. Blood transfusion as per primary attending. Further treatment to follow depending on hospital course. Job ID: [id number]
--- NOTE | 2019-09-24 09:18 | PRG ---
DATE OF SERVICE: 09/24/2019 SERVICE: Renal Medicine. SUBJECTIVE: Ms. Garcia is a 74-year-old white female, followed up by the Renal Service for acute kidney injury secondary to acute tubular necrosis. She continues to undergo hemodialysis. We are observing renal function to see if I could wean her off from dialysis. She did undergo dialysis yesterday with 3 units of packed RBC given. This morning, she is feeling a little better, but still tired. OBJECTIVE: VITAL SIGNS: Blood pressure is 148/56, heart rate 60, O2 sats 98%, respiratory rate 19. GENERAL: Awake, lethargic, not in distress. SKIN: Adequate turgor. HEENT: Pinkish conjunctivae. Anicteric sclerae. No neck mass. No carotid bruits. No JVD. CHEST: No deformities. LUNGS: Clear breath sounds. HEART: Normal sinus rhythm. No murmur. No gallops. No rubs. ABDOMEN: Globular, soft, nontender. No masses. EXTREMITIES: No edema. MEDICATIONS: Medications of September 24, 2019, reviewed. LABORATORY DATA: Laboratories of September 24, 2019; white count 1.5, hemoglobin 9.3, sodium 135, potassium 4, chloride 98, carbon dioxide 29, BUN 44, creatinine 2.41, glucose 89, calcium 8.3. ASSESSMENT AND PLAN: 1. Acute kidney injury/acute tubular necrosis. Continue supportive care. For the moment, we will place this patient on Tuesday, , and Tuesday dialysis regimen. Dialysis only if indicated. Review for possible renal recovery in the next several days. 2. Anemia-currently on Epogen. Continue p.r.n. blood transfusion. 3. Status post acute respiratory failure, resolved. 4. Overall prognosis remains guarded. Job ID: [id number]
[2019-09-24] MEDS ORDERED: Lisinopril 10 MG TAB PO SCH (09:45)
[2019-09-24] MEDS: Amiodarone 200 MG TAB PER TUBE SCH ×2 (11:10→20:35)
[2019-09-24] MEDS: hydrALAZINE 25 MG TAB PO SCH ×3 (11:10→20:34)
[2019-09-24] MEDS: Aspirin Chewable 81 MG TAB PO SCH (11:11)
[2019-09-24] MEDS: methylPREDNISolone Sod Succ 40 MG VIAL IVP SCH ×2 (11:12→20:36)
[2019-09-24] MEDS: Pantoprazole 40 MG VIAL IVP SCH (11:12)
[2019-09-24] MEDS: Sodium Chloride 0.45% 1,000 ML IV SCH (11:23)
--- NOTE | 2019-09-24 15:31 | PDOC.HOSPP ---
- Subjective Encounter Date: 09/24/19 Encounter Time: 10:35 Subjective: pt at baseline. pt does not want HD y'. d/w RN. palliative on board. family meeting at 3pm rui.. - Objective Vital Signs & Weight: Vital Signs (12 hours) Temp Pulse Resp BP Pulse Ox 09/24/19 14:22 60 166/58 H 09/24/19 14:19 60 20 100 09/24/19 11:11 162/74 H 09/24/19 11:10 60 159/65 H 09/24/19 11:00 98.7 F 09/24/19 10:33 60 15 100 09/24/19 08:00 100 09/24/19 07:48 162/74 H 09/24/19 07:14 100 09/24/19 07:13 60 26 H 100 09/24/19 07:00 98.1 F 09/24/19 06:46 60 198/73 H 09/24/19 04:00 97.8 F Weight Admit Weight 153 lb 7.068 oz Weight 167 lb 8.821 oz Most Recent Monitor Data Heart Rate from ECG 60 NIBP 166/58 NIBP BP-Mean 94 Respiration from ECG 27 SpO2 100 I&O: 09/23/19 09/24/19 09/25/19 06:59 06:59 06:59 Intake Total 365 1075 120 Output Total 0 0 0 Balance 365 1075 120 Result Diagrams: 09/24/19 03:42 09/24/19 03:42 Additional Labs: Accuchecks 09/24/19 09/24/19 09/23/19 12:12 03:52 21:21 POC Glucose 102 90 98 09/23/19 16:50 POC Glucose 69 L Hospitalist ROS - Medication Medications: Active Medications Generic Name Dose Route Start Last Admin Trade Name Freq PRN Reason Stop Dose Admin Acetaminophen 650 mg 08/31/19 18:46 09/20/19 21:06 Tylenol PO 650 mg Q4H PRN Administration Headache/Fever/Mild Pain (1-3) Albuterol/Ipratropium 3 ml 08/31/19 19:00 09/24/19 14:19 Duoneb NEB 3 ml [id number] [facility] Administration Amiodarone HCl 200 mg 09/18/19 21:00 09/24/19 11:10 Cordarone PER TUBE 200 mg BID [facility] Administration Aspirin 81 mg 09/02/19 09:00 09/24/19 11:11 Aspirin Chewable PO 81 mg DAILY [facility] Administration Carvedilol 12.5 mg 09/19/19 17:00 09/24/19 07:48 Coreg PO 12.5 mg BID-WM [facility] Administration Enalaprilat 0.625 mg 09/05/19 11:47 09/12/19 20:42 Vasotec SLOW IVP 0.625 mg Q6H PRN Administration SBP > 180 Epoetin Pola-epbx 7,500 unit 09/20/19 09:00 09/20/19 12:17 Retacrit SC 7,500 unit Q7D [facility] Administration Ferrous Sulfate 325 mg 09/20/19 17:00 09/24/19 07:48 Feosol PO 325 mg BID- [facility] Administration Guaifenesin 600 mg 09/22/19 17:05 09/22/19 21:48 Mucinex PO 600 mg TIDPRN PRN Administration Cough Hydralazine HCl 50 mg 09/05/19 09:00 09/24/19 14:22 Apresoline PO 50 mg TID [facility] Administration Hydralazine HCl 20 mg 09/07/19 03:30 09/24/19 06:46 Apresoline SLOW IVP 20 mg Q4H PRN Administration SBP Greater Than 170 Insulin Glargine 15 units/ 0.15 mls @ 0 mls/hr 08/31/19 21:00 09/23/19 21:12 Miscellaneous Medication SC 0.15 mls HS CRIS Administration Sodium Chloride 1,000 mls @ 20 mls/hr 09/02/19 13:30 09/24/19 11:23 1/2 Normal Saline IV Not Given .Q24H [facility] Nicardipine HCl 50 mg/ Sodium 250 mls @ 0 mls/hr 09/13/19 20:30 09/13/19 21: 20 Chloride IVPB 250 mls INF CRIS Administration Protocol Titrate Insulin Human Lispro 0 units 08/31/19 20:47 09/15/19 23:14 Humalog SC 6 unit .MODERATE SLIDING SC PRN Administration Moderate Correctional Scale Loperamide HCl 4 mg 09/21/19 14:00 09/24/19 11:10 Imodium PO 4 mg Q4H PRN Administration Diarrhea/Loose Stools Lorazepam 0.5 mg 09/18/19 14:00 09/24/19 14:22 Ativan PO 0.5 mg Q8HR [facility] Administration Melatonin 6 mg 09/17/19 16:28 09/23/19 21:12 Melatonin PO 6 mg HS PRN Administration Insomnia Methocarbamol 500 mg 09/19/19 00:52 09/19/19 06:50 Robaxin PO 500 mg QIDPRN PRN Administration Muscle Spasm Methylprednisolone Sodium Succinate 20 mg 09/23/19 21:00 09/24/19 11:12 Solu-Medrol IVP 20 mg BID [facility] Administration Ondansetron HCl 4 mg 08/31/19 18:46 09/20/19 19:17 Zofran IVP 4 mg Q6H PRN Administration Nausea/Vomiting Pantoprazole Sodium 40 mg 09/21/19 09:00 09/24/19 11:12 Protonix IVP 40 mg DAILY CRIS Administration Sodium Chloride 10 ml 09/06/19 21:00 09/24/19 11:23 Flush - Normal Saline IVF Not Given Q12HR CRIS - Exam General Appearance: ill appearing Eye: PERRL ENT: normocephalic atraumatic Neck: supple Heart: RRR Respiratory: rales, rhonchi, wheezes Gastrointestinal: non-tender, non-distended Extremities - other findings: anasarca - dept edema Skin - other findings: severe ecymoses on Up Extremities. Hosp A/P - Plan thrombocytopenia - d/t recent stress vs..idiopathic -not on aC -close monitor -no visible bleed. Sig. dept edema - mostly notable in hands and legs. (1) Acute respiratory failure with hypoxia Code(s): J96.01 - ACUTE RESPIRATORY FAILURE WITH HYPOXIA Status: Acute Plan: Continue O2 supplementation, volume mgmt with HD Extubated 09/16/19 (2) ESRD (end stage renal disease) on dialysis Continue HD per Renal service -it appears that HD is as needed. -right sided chest access for dialysis (3) Cardiomyopathy Tachy-Juan syndrome SVT NSVT Torsades s/p pacer placed. -Resume Hydralazine/Coreg/Amiodarone (4) PNA (pneumonia) middle lobe of lung - Completed therapy with Linezolid/Meropenem -afebrile, no high wbcs. -resp agnes - grew psedo urine agnes - e.faecalis -as above, done w.. abx. (5) DM type 2 (diabetes mellitus, type 2) -glargine + SSI (6) Paroxysmal A-fib Code(s): I48.0 - PAROXYSMAL ATRIAL FIBRILLATION Status: Chronic -on amio ABLA -s/p total 3u PRBC's Failure to thrive - palliative consult in place. Overall poor prognosis. Home hospice vs.. SNF Anasarca Acute bllod loss anemia, requiring transfusion Anemia d/t kidney dz/chronic - please do only 2 units of prbc as risk for Acute lung injury with vol..expansion, in her condition FOBT +ve -she is on ASA only. no AC - as she is full code, obligated to check w.. GI as well, though not much can be done from GI perspective. Thrombocytpenia - plts counts better today - pt's overall not doing well -goals of care to be discussed in family meeting tomorrow -appreicate palliative involvement -pt is declining some of the medical intervention - given several acute comorbities [got transfused y'day - hgb appropriate increase], overall aggressive mgmt is medical futility. -hospice more appropriate.
--- NOTE | 2019-09-24 16:19 | PDOC.PALCO ---
Palliative Care Consult - Consult Details Requesting Physician: Dr Huerta Reason for Consult: goals of care, advance directives assistance, family support , complex decision-making Family Members Present: Paitent son Iban - Pertinent HPI Ms Garcia initially presented to the hospital secondary respiratory distress, increased heart rate, transferred to the emergency room for evaluation requiring intubation, fluid resuscitation, adenosine secondary to SVT. 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 patient has had a lengthy hospital stay with continued decline and is currently on dialysis, unable to have invasive diagnostics from GI secondary to risk of procedure, continued debility. Currently extubated and on O2 via NC. - Pertinent PMH Lung/Colon/Breast cancer in remission, DM II, AFib, aortic regurg, chronic anemia, COPD, chronic neck and back pain/compression fracture with prior kyphoplasty, depression - Social History Smoking Status: Former smoker Smoking: quit greater than 1 year Alcohol Use: none Drug Use History: none Living Situation: independent - Medications MAR Reviewed: Yes - Allergies Allergies/Adverse Reactions: Allergies Allergy/AdvReac Type Severity Reaction Status Date / Time Iodinated Contrast Media Allergy Intermediate Rash Verified 05/08/19 16:28 [Iodinated Contrast Media - IV Dye] Sulfa (Sulfonamide Allergy Intermediate Rash Verified 05/08/19 16:28 Antibiotics) iodine Allergy Verified 05/08/19 16:28 - Subjective Awake, alert, lists to the right. Complains of "sore throat" from being intubated and buttock/coccyx hurting from being bedridden. - ROS Constitutional: weakness Eyes: other (Denies visual changes) ENT: throat irritation, other Respiratory: shortness of breath, other Cardiology: other (denies chest palpitations/chest pain) Gastrointestinal: other (Negative for diarrhea, nausea, vomiting) Musculoskeletal: back pain Skin: other (irritation to buttock) - Objective Vital Signs: Vital Signs - Most Recent Temp Pulse Resp BP Pulse Ox 98.7 F 60 20 166/58 H 100 09/24/19 11:00 09/24/19 14:22 09/24/19 14:19 09/24/19 14:22 09/24/19 14:19 Palliative Performance Scale: 30 - Physical Exam Constitutional: ill appearing HEENT: EOMI, moist MMs, PERRLA Respiratory: cough, diminished lung sound (to bases, ) Deviation from normal: Weak cough, adventicious lung sounds,mid and upper Cardiovascular: irregular Gastrointestinal: non-tender, incontinent Genitourinary: ontiveros catheter Musculoskeletal: edema present, diffuse muscle atrophy Skin: bruising, fragile, friable Psychiatric: A&O x 3, normal affect - Problem List (1) Palliative care encounter Code(s): Z51.5 - ENCOUNTER FOR PALLIATIVE CARE Current Visit: Yes Status: Acute (2) Acute renal failure on dialysis Code(s): N17.9 - ACUTE KIDNEY FAILURE, UNSPECIFIED; Z99.2 - DEPENDENCE ON RENAL DIALYSIS Current Visit: Yes Status: Acute (3) Cardiomyopathy Code(s): I42.9 - CARDIOMYOPATHY, UNSPECIFIED Current Visit: Yes Status: Chronic Qualifiers: Cardiomyopathy type: unspecified Qualified Code(s): I42.9 - Cardiomyopathy , unspecified (4) Chronic anemia Code(s): D64.9 - ANEMIA, UNSPECIFIED Current Visit: Yes Status: Chronic (5) DM type 2 (diabetes mellitus, type 2) Current Visit: Yes Status: Chronic Qualifiers: Diabetes mellitus machine long goods helper insulin use: without machine long goods helper use Diabetes mellitus complication status: without complication Qualified Code(s): E11.9 - Type 2 diabetes mellitus without complications (6) Acute respiratory failure with hypoxia Code(s): J96.01 - ACUTE RESPIRATORY FAILURE WITH HYPOXIA Current Visit: No Status: Acute (7) Non-small cell cancer of right lung Code(s): C34.91 - MALIGNANT NEOPLASM OF UNSP PART OF RIGHT BRONCHUS OR LUNG Current Visit: No Status: Chronic (8) Paroxysmal A-fib Code(s): I48.0 - PAROXYSMAL ATRIAL FIBRILLATION Current Visit: No Status: Chronic (9) Acute blood loss anemia Code(s): D62 - ACUTE POSTHEMORRHAGIC ANEMIA Current Visit: No Status: Resolved - Plan/Recommendations Plan: Initial visit with patient. Enjoys quilting, watching TV. Loves [employer] with reeses as well as the [place] icees at the hospital. In visiting Goal of care is to return home. Julia Patterson RNphysician locums urgent care coordinated family meeting 09/25/2019 at 3 pm with patient, son, and daughter Kaela. Communicated with Sam Matamoros, Bryson, and Jl in relation to family meeting. Patient did refuse dialysis today. *Will revisit resuscitaiton status as well as goals of care with patient continued decline and multiple morbidities. [90] minutes spent on this encounter with >50% of the time in counseling and coordination of care. Thank you for this very appropriate consult.
[2019-09-24] MEDS: guaiFENesin ER 600 MG TAB PO PRN (16:48)
[2019-09-24] MEDS: Phenergan/Codeine 10-6.25mg/5ml UDCUP PO PRN ×2 (16:49→22:38)
[2019-09-24] MEDS: Lisinopril 10 MG TAB PO SCH (20:35)
[2019-09-24] MEDS: Diabetic Tussin 200 MG/10 ML UDCUP PO PRN (20:35)
--- NOTE | 2019-09-24 20:45 | PRG ---
DATE OF SERVICE: 09/24/2019 SUBJECTIVE: Radha has apparently decided that she is considering withdrawing care. Dialysis is held. She plans to just go for comfort care. We need to get her left internal jugular catheter out of her and her dialysis catheter out of her. OBJECTIVE: VITAL SIGNS: Heart rate 60, respiratory rate in the 20s, blood pressure 157/68. GENERAL: She actually looks much better than she looked when I saw her on Tuesday, although for all practical purposes, she is still in complete renal failure. She told me she is tired of all this. LUNGS: Clear. HEART: Regular rhythm. ABDOMEN: Soft. EXTREMITIES: With only trace edema. LABORATORY DATA: White count dropped to 1.5, hemoglobin 9.3, platelets 48,000, she has 14% bands on her peripheral smear. IMPRESSION: Respiratory failure after supraventricular tachycardia on top of the newly diagnosed cardiomyopathy with superimposed renal failure. Her weakness and deconditioning are the biggest obstacle she faces, not even mentioning her medical problems. Comfort care may be a reasonable option, although she is still in the computer as a full resuscitation patient. We will continue to follow. Job ID: [id number]
--- NOTE | 2019-09-24 22:29 | PRG ---
DATE OF SERVICE: 09/24/2019 SUBJECTIVE: The patient was seen earlier this afternoon. She remains very weak with some labored breathing. There is no overt GI bleeding such as melena or rectal bleeding today. She denies having abdominal pain. There is no nausea or vomiting. PHYSICAL EXAMINATION: VITAL SIGNS: Temperature is 98.7, blood pressure 155/65, and pulse is 60. GENERAL: She is alert and lucid, but weak and frail. HEENT: Shows anicteric sclerae. CV: Shows normal S1, S2. Regular rate and rhythm. CHEST: Shows breath sounds poor excursion. ABDOMEN: Soft. No distention. No tympany. No tenderness. She has bowel sounds. EXTREMITIES: Show 1+ pretibial and pedal edema. LABORATORY DATA: WBCs 1.5, hemoglobin 9.3 (9.8 yesterday). Platelet count is 48. Electrolytes within normal range. Creatinine 2.41. ASSESSMENT: 1. Acute drop in hemoglobin associated with melena 2 days ago, no signs of further bleeding since then. Her blood count remained stable over the last 24 hours. 2. Acute kidney failure. 3. Respiratory failure. 4. Overall deconditioning and declining functional status. The patient's family is considering comfort care. RECOMMENDATIONS: No indication for any GI intervention at the present time. No new recommendation. We will continue to follow and trend her blood count. Job ID: [id number]
[2019-09-25 06:04] LABS: Anion Gap 14 mmol/L (10-20); BUN (Urea Nitrogen) 54 mg/dL (9.8-20.1); Calc. Creatinine Clearance 20 mL/min (70-130); Calcium 8.2 mg/dL (7.8-10.44); Carbon Dioxide 27 mmol/L (23-31); Chloride 98 mmol/L (98-107); Estimated GFR-MDRD 15; Glucose 114 mg/dL (83-110); Potassium 4.3 mmol/L (3.5-5.1); Sodium 135 mmol/L (136-145)
[2019-09-25] MEDS: Lorazepam 0.5 MG TAB PO SCH ×3 (06:12→21:04)
[2019-09-25] MEDS: Phenergan/Codeine 10-6.25mg/5ml UDCUP PO PRN (06:12)
[2019-09-25 06:32] LABS: Eosinophils 2 % (0-10); Hemoglobin 8.5 g/dL (12.0-16.0); Lymphocytes 12 % (21-51); MDiff Complete? YES; Mean Corpuscular HGB CONC 33.7 g/dL (32.0-36.0); Mean Corpuscular Hemoglobin 30.5 pg (27.0-31.0); Mean Corpuscular Volume 90.4 fL (78.0-98.0); Mean Platelet Volume 9.6 fL (7.4-10.4); Monocytes 8 % (0-10); Neutrophil 78 % (42-75); Nucleated RBC 2 % (0); Platelet Count 34 thou/uL (130-400); Platelet Morphology Comment Appears Decreased; RBC Distribution Width 14.8 % (11.5-14.5); Red Blood Cell (RBC) Count 2.77 mill/uL (4.20-5.40); White Blood Cell (WBC) Count 1.4 thou/uL (4.8-10.8)
[2019-09-25] MEDS: hydrALAZINE 20 MG/ML VIAL SLOW IVP PRN (07:44)
[2019-09-25] MEDS: Aspirin Chewable 81 MG TAB PO SCH (08:25)
[2019-09-25] MEDS: Amiodarone 200 MG TAB PER TUBE SCH ×2 (08:25→21:03)
[2019-09-25] MEDS: Carvedilol 6.25 MG TAB PO SCH ×2 (08:25→17:26)
[2019-09-25] MEDS: Pantoprazole 40 MG VIAL IVP SCH (08:25)
[2019-09-25] MEDS: Ferrous Sulfate 325 MG TAB PO SCH ×2 (08:25→17:26)
[2019-09-25] MEDS: hydrALAZINE 25 MG TAB PO SCH ×3 (08:25→21:03)
[2019-09-25] MEDS: methylPREDNISolone Sod Succ 40 MG VIAL IVP SCH ×2 (08:26→21:04)
[2019-09-25] MEDS: Lisinopril 10 MG TAB PO SCH ×2 (08:28→21:04)
--- NOTE | 2019-09-25 09:14 | PRG ---
DATE OF SERVICE: 09/25/2019 SERVICE: Renal Medicine. SUBJECTIVE: Ms. Garcia is a 74-year-old white female, seen by Renal Service for her acute kidney injury secondary to an acute tubular necrosis. She continues to receive regular hemodialysis. I see no evidence of renal recovery. The patient is still on the oliguric side. She also during this hospitalization developed bradycardia and has a pacemaker placed. She also was noted to be anemic a few days ago, and she received 3 units of packed RBC. Currently, no acute events. OBJECTIVE: VITAL SIGNS: Blood pressure is noted at 204/97-before BP medications, heart rate 91, respiratory rate 19, pulse ox 100%. GENERAL: The patient is awake, lethargic, not in overt distress. SKIN: Adequate turgor. HEENT: She has slightly pale conjunctivae. Anicteric sclerae. NECK: No neck mass. No carotid bruits. No JVD. CHEST: No deformities. LUNGS: Clear. Decreased breath sounds. HEART: Normal sinus rhythm. No murmur. No gallops. No rubs. ABDOMEN: Globular, soft, nontender. No masses. EXTREMITIES: No edema. No deformities. MEDICATIONS: Medications of September 25, 2019, was reviewed. LABORATORY DATA: Laboratories of September 24, 2019; white count 1.4, hemoglobin 8.5. Sodium 135, potassium 4.3, chloride 98, carbon dioxide 27, BUN 54, creatinine 3, glucose 114, calcium 8.2. ASSESSMENT AND PLAN: 1. Acute kidney injury - secondary to presumed acute tubular necrosis. No evidence of renal recovery. Urine output is much decreased. Holding off dialysis today. We will re-evaluate her in a.m. for a possible dialysis. 2. Status post bradycardia, much improved with pacemaker placement. 3. Acute respiratory failure, resolved. Overall, prognosis still remains guarded with this patient. She has not bounced back since her admission. 4. Overall agree with current management. Addendum: Nata. blood transfusion, continuing weekly Epogen. Job ID: [id number]
--- NOTE | 2019-09-25 12:05 | PDOC.HOSPP ---
- Subjective Encounter Date: 09/25/19 Encounter Time: 10:40 Subjective: o/n required 2hrs of bipap, hgb drop slightly, dtr at bedside; talk to her and the son over the phone, plan for family meeting w.. palliative today. pt's BP slightly high, and no urine output, no HD. - Objective Vital Signs & Weight: Vital Signs (12 hours) Temp Pulse Resp BP Pulse Ox 09/25/19 10:33 60 22 H 100 09/25/19 08:28 204/97 H 09/25/19 08:25 60 204/97 H 09/25/19 08:00 100 09/25/19 07:44 60 204/97 H 09/25/19 07:38 60 17 100 09/25/19 07:37 60 24 H 100 09/25/19 07:00 97.5 F L 09/25/19 04:00 97.6 F Weight Admit Weight 153 lb 7.068 oz Weight 170 lb 6.677 oz Most Recent Monitor Data Heart Rate from ECG 60 NIBP 174/63 NIBP BP-Mean 100 Respiration from ECG 24 SpO2 100 I&O: 09/24/19 09/25/19 09/26/19 06:59 06:59 06:59 Intake Total 1075 220 300 Output Total 0 0 0 Balance 1075 220 300 Result Diagrams: 09/25/19 03:42 09/25/19 03:42 Additional Labs: Accuchecks 09/25/19 09/25/19 09/24/19 10:15 03:42 22:41 POC Glucose 157 H 125 H 91 09/24/19 09/24/19 16:58 12:12 POC Glucose 126 H 102 Hospitalist ROS - Medication Medications: Active Medications Generic Name Dose Route Start Last Admin Trade Name Freq PRN Reason Stop Dose Admin Acetaminophen 650 mg 08/31/19 18:46 09/20/19 21:06 Tylenol PO 650 mg Q4H PRN Administration Headache/Fever/Mild Pain (1-3) Albuterol/Ipratropium 3 ml 08/31/19 19:00 09/25/19 10:33 Duoneb NEB 3 ml [id number] CRIS Administration Amiodarone HCl 200 mg 09/18/19 21:00 09/25/19 08:25 Cordarone PER TUBE 200 mg BID CRIS Administration Aspirin 81 mg 09/02/19 09:00 09/25/19 08:25 Aspirin Chewable PO 81 mg DAILY CRIS Administration Carvedilol 12.5 mg 09/19/19 17:00 09/25/19 08:25 Coreg PO 12.5 mg BID-WM [facility] Administration Enalaprilat 0.625 mg 09/05/19 11:47 09/12/19 20:42 Vasotec SLOW IVP 0.625 mg Q6H PRN Administration SBP > 180 Epoetin Pola-epbx 7,500 unit 09/20/19 09:00 09/20/19 12:17 Retacrit SC 7,500 unit Q7D [facility] Administration Ferrous Sulfate 325 mg 09/20/19 17:00 09/25/19 08:25 Feosol PO 325 mg BID-[facility] Administration Guaifenesin 600 mg 09/22/19 17:05 09/24/19 16:48 Mucinex PO 600 mg TIDPRN PRN Administration Cough Guaifenesin 200 mg 09/24/19 16:35 09/24/19 20:35 Robitussin Sf PO 200 mg Q4H PRN Administration Cough Hydralazine HCl 50 mg 09/05/19 09:00 09/25/19 08:25 Apresoline PO 50 mg TID CRIS Administration Hydralazine HCl 20 mg 09/07/19 03:30 09/25/19 07:44 Apresoline SLOW IVP 20 mg Q4H PRN Administration SBP Greater Than 170 Sodium Chloride 1,000 mls @ 20 mls/hr 09/02/19 13:30 09/24/19 11:23 1/2 Normal Saline IV Not Given .Q24H [facility] Nicardipine HCl 50 mg/ Sodium 250 mls @ 0 mls/hr 09/13/19 20:30 09/13/19 21: 20 Chloride IVPB 250 mls INF CRIS Administration Protocol Titrate Insulin Human Lispro 0 units 08/31/19 20:47 09/15/19 23:14 Humalog SC 6 unit .MODERATE SLIDING SC PRN Administration Moderate Correctional Scale Lisinopril 10 mg 09/24/19 21:00 09/25/19 08:28 Zestril PO 10 mg BID [facility] Administration Loperamide HCl 4 mg 09/21/19 14:00 09/24/19 11:10 Imodium PO 4 mg Q4H PRN Administration Diarrhea/Loose Stools Lorazepam 0.5 mg 09/18/19 14:00 09/25/19 06:12 Ativan PO 0.5 mg Q8HR CRIS Administration Melatonin 6 mg 09/17/19 16:28 09/23/19 21:12 Melatonin PO 6 mg HS PRN Administration Insomnia Methocarbamol 500 mg 09/19/19 00:52 09/19/19 06:50 Robaxin PO 500 mg QIDPRN PRN Administration Muscle Spasm Methylprednisolone Sodium Succinate 20 mg 09/23/19 21:00 09/25/19 08:26 Solu-Medrol IVP 20 mg BID CRIS Administration Ondansetron HCl 4 mg 08/31/19 18:46 09/20/19 19:17 Zofran IVP 4 mg Q6H PRN Administration Nausea/Vomiting Pantoprazole Sodium 40 mg 09/21/19 09:00 09/25/19 08:25 Protonix IVP 40 mg DAILY CRIS Administration Promethazine HCl/Codeine 5 ml 09/24/19 16:35 09/25/19 06:12 Phenergan/Codeine Syrup PO 5 ml Q6H PRN Administration Cough Sodium Chloride 10 ml 09/06/19 21:00 09/25/19 08:26 Flush - Normal Saline IVF 10 ml Q12HR CRIS Administration - Exam General Appearance: awake alert, ill appearing Eye: scleral icterus Heart: RRR Respiratory: rales, rhonchi, tachypneic, wheezes Gastrointestinal: normal bowel sounds Extremities - other findings: dept edema, echymoses on UE Hosp A/P - Plan thrombocytopenia - d/t recent stress vs..idiopathic -not on aC -close monitor -no visible bleed. Sig. dept edema - mostly notable in hands and legs. (1) Acute respiratory failure with hypoxia Code(s): J96.01 - ACUTE RESPIRATORY FAILURE WITH HYPOXIA Status: Acute Plan: Continue O2 supplementation, volume mgmt with HD Extubated 09/16/19 (2) ESRD (end stage renal disease) on dialysis Continue HD per Renal service -it appears that HD is as needed. -right sided chest access for dialysis (3) Cardiomyopathy Tachy-Juan syndrome SVT NSVT Torsades s/p pacer placed. -Resume Hydralazine/Coreg/Amiodarone (4) PNA (pneumonia) middle lobe of lung - Completed therapy with Linezolid/Meropenem -afebrile, no high wbcs. -resp agnes - grew psedo urine agnes - e.faecalis -as above, done w.. abx. (5) DM type 2 (diabetes mellitus, type 2) -glargine + SSI (6) Paroxysmal A-fib Code(s): I48.0 - PAROXYSMAL ATRIAL FIBRILLATION Status: Chronic -on amio ABLA -s/p total 3u PRBC's Failure to thrive - palliative consult in place. Overall poor prognosis. Home hospice vs.. SNF Anasarca Acute bllod loss anemia, requiring transfusion Anemia d/t kidney dz/chronic - please do only 2 units of prbc as risk for Acute lung injury with vol..expansion, in her condition FOBT +ve -she is on ASA only. no AC - as she is full code, obligated to check w.. GI as well, though not much can be done from GI perspective. Thrombocytpenia - plts counts better today - pt's overall not doing well -goals of care to be discussed in family meeting tomorrow -appreicate palliative involvement -pt is declining some of the medical intervention - given several acute comorbities [got transfused y'day - hgb appropriate increase], overall aggressive mgmt is medical futility. -hospice more appropriate. 11th pt's BP slightly high, and no urine output, no HD. dtr at bedside; talk to her and the son over the phone, plan for family meeting w.. palliative today.
[2019-09-25] MEDS: Diabetic Tussin 200 MG/10 ML UDCUP PO PRN (12:44)
[2019-09-25] MEDS: Sodium Chloride 0.45% 1,000 ML IV SCH (12:54)
--- NOTE | 2019-09-25 16:18 | PRG ---
DATE OF SERVICE: 09/25/2019 SUBJECTIVE: Kellie Garcia started to look very tired. She is trying to decide what she wants to proceed with regarding care. OBJECTIVE: VITAL SIGNS: Heart rate in the 60s, she is on and off BiPAP today. Respiratory rates in the teens, blood pressure 158/74. She did relay that she is frightened about the future. Palliative Care Team appraised her at the bedside talking to her. Overall, her exam is unchanged. ASSESSMENT AND PLAN: I have explained to her that we can move forward with whatever she decides she wants to proceed with. If she wants to continue dialysis, that is fine. She wants to continue medical management, that is fine. I have recommended that she agree not to be intubated again and agree not to be cardioverted or have chest compressions. I think it is imperative that this decision is made. If she gets bad enough to need any of these above, she will not survive this. We will just delay her passing. We will continue to follow. I met with family and answered all their questions. Job ID: [id number]
--- NOTE | 2019-09-25 16:57 | PDOC.PALPN ---
Palliative Progress Note - Subjective On Bipap for initial aspect of family meeting. Weak, soft spoken. Respirations shallow and accessory muscle use. Patients two children and [id number] at bedside. Difficult to obtain a ROS secondary to weakness and patient on BIPap. - Objective Vital Signs: Vital Signs - Most Recent Temp Pulse Resp BP Pulse Ox 97 F L 60 19 171/72 H 98 09/25/19 16:00 09/25/19 16:09 09/25/19 14:46 09/25/19 16:09 09/25/19 14:57 - Physical Exam Constitutional: ill appearing, moderate distress HEENT: EOMI, moist MMs, sclera anicteric Respiratory: diminished lung sound, labored respirations Deviation from normal: Adventicious lung sounds Gastrointestinal: no distention Genitourinary: incontinent Musculoskeletal: edema present, diffuse muscle atrophy Skin: bruising, fragile, friable Psychiatric: A&O x 3 - Assessment (1) Palliative care encounter Code(s): Z51.5 - ENCOUNTER FOR PALLIATIVE CARE Current Visit: Yes Status: Acute (2) Acute renal failure on dialysis Code(s): N17.9 - ACUTE KIDNEY FAILURE, UNSPECIFIED; Z99.2 - DEPENDENCE ON RENAL DIALYSIS Current Visit: Yes Status: Acute (3) Cardiomyopathy Code(s): I42.9 - CARDIOMYOPATHY, UNSPECIFIED Current Visit: Yes Status: Chronic Qualifiers: Cardiomyopathy type: unspecified Qualified Code(s): I42.9 - Cardiomyopathy , unspecified (4) Chronic anemia Code(s): D64.9 - ANEMIA, UNSPECIFIED Current Visit: Yes Status: Chronic (5) DM type 2 (diabetes mellitus, type 2) Current Visit: Yes Status: Chronic Qualifiers: Diabetes mellitus halfway insulin use: without silica mixer operator use Diabetes mellitus complication status: without complication Qualified Code(s): E11.9 - Type 2 diabetes mellitus without complications (6) Acute respiratory failure with hypoxia Code(s): J96.01 - ACUTE RESPIRATORY FAILURE WITH HYPOXIA Current Visit: No Status: Acute (7) Non-small cell cancer of right lung Code(s): C34.91 - MALIGNANT NEOPLASM OF UNSP PART OF RIGHT BRONCHUS OR LUNG Current Visit: No Status: Chronic (8) Paroxysmal A-fib Code(s): I48.0 - PAROXYSMAL ATRIAL FIBRILLATION Current Visit: No Status: Chronic - Plan Plan:Family meeting, Father Julia Weiss Yesenia candy starch mold printer, RN caring for patient and Dr Gomez also present with patient children and daughter in law. Patient expressed fear in relation to end of life. Dr. Gomez discussed resuscitation measures in a compassionate manner, sharing with the patient with her current state, weakness and comorbid conditions that resuscitation measures would cause harm and not care. Patient remains undecided in relation to resuscitation status. Patient fatigued, family tearful. Support offered. *Will return to address goals of care and specifically how to allow patient to transition home. *Continue education in relation to disease trajectory and poor meaningful recovery. [50] minutes spent on this encounter with >50% of the time in counseling and coordination of care. - ROS Constitutional: weakness
[2019-09-25] MEDS: Melatonin 3 MG TAB PO PRN (21:04)
[2019-09-25 21:06] VITALS: BP 173/85
[2019-09-26 00:11] VITALS: TEMP 97.1
[2019-09-26] MEDS: HumaLOG 300 UNITS/3 ML VIAL SC PRN (04:02)
[2019-09-26 04:33] LABS: Band 22 % (5-11); Eosinophils 1 % (0-10); Hypochromia SLIGHT = 6-15 cells (100X) (0-5/hpf); Lymphocytes 9 % (21-51); MDiff Complete? YES; Mean Corpuscular HGB CONC 33.4 g/dL (32.0-36.0); Mean Corpuscular Hemoglobin 29.9 pg (27.0-31.0); Mean Corpuscular Volume 89.6 fL (78.0-98.0); Mean Platelet Volume 10.8 fL (7.4-10.4); Monocytes 9 % (0-10); Neutrophil 59 % (42-75); Platelet Count 31 thou/uL (130-400); Platelet Morphology Comment Appears Decreased; RBC Distribution Width 14.6 % (11.5-14.5); White Blood Cell (WBC) Count 1.8 thou/uL (4.8-10.8)
[2019-09-26 04:40] LABS: Anion Gap 15 mmol/L (10-20); BUN (Urea Nitrogen) 68 mg/dL (9.8-20.1); Calc. Creatinine Clearance 18 mL/min (70-130); Calcium 8.6 mg/dL (7.8-10.44); Carbon Dioxide 25 mmol/L (23-31); Chloride 98 mmol/L (98-107); Estimated GFR-MDRD 13; Glucose 178 mg/dL (83-110); Potassium 4.4 mmol/L (3.5-5.1); Sodium 134 mmol/L (136-145)
--- NOTE | 2019-09-26 05:05 | PDOC.EVN ---
Event Note - Event Note Event Note: Per nursing staff, family has requested to make the patient DNR/DNI and requested an order to be placed.
[2019-09-26 05:36] VITALS: BMI 30.5
[2019-09-26] MEDS: Lorazepam 0.5 MG TAB PO SCH (06:30)
--- NOTE | 2019-09-26 07:30 | PDOC.EVN ---
Event Note - Event Note Event Note: Patient unresponsive. No breathing movements. Pupils fixed, dilated. No heart sounds. No breath sounds. Pt was pronounced . Time of : 6:57 AM on 09/26/2019.
--- NOTE | 2019-09-27 13:31 | DIS ---
DATE OF ADMISSION: 08/31/2019 DATE OF DISCHARGE: 09/26/2019 DISCHARGE DIAGNOSES: 1. Acute respiratory failure with hypoxia. 2. End-stage renal disease, on hemodialysis. 3. Cardiomyopathy. 4. Type 2 diabetes mellitus. 5. Community-acquired pneumonia. 6. Paroxysmal atrial fibrillation. 7. Acute blood loss anemia, requiring 3 units of RBC transfusion. 8. Failure to thrive. 9. Anasarca. 10. Occult blood test positive. 11. Anemia due to kidney disease and chronic status. 12. Thrombocytopenia. HOSPITAL COURSE: This was a 74-year-old female admitted with acute respiratory failure secondary to hypoxia and pneumonia. The patient had several underlying comorbidities including ESRD on hemodialysis and tachy-pierre syndrome, cardiomyopathy, and status post pacemaker placement. Over the course of hospitalization, she did not improve well. Palliative evaluated her on September 25. On September 26 at 6 :57 a.m., the patient had her demise. PRIMARY CAUSES: 1. Cardiovascular collapse. 2. Multiorgan system failure due to comorbidities addressed above. Job ID: [id number] MTDD
== END 2019-09-26 10:23 | disposition expired | DRG 853 ==
LOC: ERS 16:25 → CCU 19:44
PROVIDERS: ADMIT Internal Medicine; ATTEND Internal Medicine
PROC: 5A1955Z Respiratory Ventilation, Greater than 96 Consecutive Hours (ICD-10-PCS; 2019-08-31)
PROC: 02HV33Z Insertion of Infusion Device into Superior Vena Cava, Percutaneous Approach (ICD-10-PCS; 2019-09-04)
PROC: 5A1D70Z Performance of Urinary Filtration, Intermittent, Less than 6 Hours Per Day (ICD-10-PCS; 2019-09-04)
PROC: 0JH606Z Insertion of Pacemaker, Dual Chamber into Chest Subcutaneous Tissue and Fascia, Open Approach (ICD-10-PCS; 2019-09-10)
PROC: 02HK3JZ Insertion of Pacemaker Lead into Right Ventricle, Percutaneous Approach (ICD-10-PCS; 2019-09-10)
PROC: 02H63JZ Insertion of Pacemaker Lead into Right Atrium, Percutaneous Approach (ICD-10-PCS; 2019-09-10)
PROC: 0JH63XZ Insertion of Tunneled Vascular Access Device into Chest Subcutaneous Tissue and Fascia, Percutaneous Approach (ICD-10-PCS; 2019-09-11)
PROC: 02HV33Z Insertion of Infusion Device into Superior Vena Cava, Percutaneous Approach (ICD-10-PCS; 2019-09-11)
PROC: B5181ZA Fluoroscopy of Superior Vena Cava using Low Osmolar Contrast, Guidance (ICD-10-PCS; 2019-09-11)
PROC: B548ZZA Ultrasonography of Superior Vena Cava, Guidance (ICD-10-PCS; 2019-09-11)
PROC: 30233N1 Transfusion of Nonautologous Red Blood Cells into Peripheral Vein, Percutaneous Approach (ICD-10-PCS; 2019-09-12)
PROC: 30233R1 Transfusion of Nonautologous Platelets into Peripheral Vein, Percutaneous Approach (ICD-10-PCS; 2019-09-21)
PROC: 5A09357 Assistance with Respiratory Ventilation, Less than 24 Consecutive Hours, Continuous Positive Airway Pressure (ICD-10-PCS; principal; 2019-09-23)
DX: A41.9 Sepsis, unspecified organism (principal); J18.9 Pneumonia, unspecified organism; J96.01 Acute respiratory failure with hypoxia; N17.0 Acute kidney failure with tubular necrosis; J96.02 Acute respiratory failure with hypercapnia; I50.43 Acute on chronic combined systolic (congestive) and diastolic (congestive) heart failure; N18.6 End stage renal disease; R65.21 Severe sepsis with septic shock; I47.1 Supraventricular tachycardia; E87.2 Acidosis; C34.91 Malignant neoplasm of unspecified part of right bronchus or lung; I13.0 Hypertensive heart and chronic kidney disease with heart failure and stage 1 through stage 4 chronic kidney disease, or unspecified chronic kidney disease; I48.20 Chronic atrial fibrillation, unspecified; J44.0 Chronic obstructive pulmonary disease with (acute) lower respiratory infection; E87.1 Hypo-osmolality and hyponatremia; D62 Acute posthemorrhagic anemia; I42.0 Dilated cardiomyopathy; D61.818 Other pancytopenia; N39.0 Urinary tract infection, site not specified; Z51.5 Encounter for palliative care; Z66 Do not resuscitate; E78.5 Hyperlipidemia, unspecified; I35.1 Nonrheumatic aortic (valve) insufficiency; D50.9 Iron deficiency anemia, unspecified; E11.22 Type 2 diabetes mellitus with diabetic chronic kidney disease; D63.1 Anemia in chronic kidney disease; D69.6 Thrombocytopenia, unspecified; R62.7 Adult failure to thrive; I48.0 Paroxysmal atrial fibrillation; F32.9 Major depressive disorder, single episode, unspecified; G89.29 Other chronic pain; Z90.49 Acquired absence of other specified parts of digestive tract; Z90.710 Acquired absence of both cervix and uterus; Z88.2 Allergy status to sulfonamides; Z88.8 Allergy status to other drugs, medicaments and biological substances; Z87.891 Personal history of nicotine dependence; Z79.01 Long term (current) use of anticoagulants; Z85.3 Personal history of malignant neoplasm of breast; Z68.30 Body mass index [BMI] 30.0-30.9, adult
CPT/HCPCS: 31500; 33249; 36415; 36416; 36430; 51702; 71045; 71250; 74177; 76770; 80048; 80053; 80061; 81001; 82040; 82274; 82550; 82553; 82570; 82805; 83605; 83735; 83880; 84100; 84300; 84443; 84484; 85007; 85025; 85027; 85362; 85384; 85610; 85730; 86704; 86706; 86803; 86850; 86870; 86900; 86901; 86922; 87040; 87070; 87077; 87086; 87186; 87205; 87324; 87340; 87449; 87633; 90935; 93005; 93010; 93306; 93970; 94002; 94003; 94150; 94640; 94660; 94760; 96365; 96367; 96368; 96375; 99292; C1721; C1752; C1769; C1777; C1898; C9113; G0257; G0365; J0153; J0282; J0290; J0360; J0690; J0692; J1100; J1160; J1580; J1642; J1644; J1650; J1815; J1940; J1956; J2020; J2185; J2248; J2250; J2270; J2370; J2405; J2704; J2765; J2920; J3010; J3370; J3475; J3490; J7050; J7070; J7620; P9016; P9035; P9047; Q5105; Q9967; S0020; S0028